=== PATIENT | male | born 1965 | race African-American/Black ===

== ENCOUNTER → 2016-04-24 | Outpatient (CLI) | payer MEDICARE, MEDICAID ==
[~2016-04-24] MED LIST: TESTOSTERONE CYPIONATE 100 MG/0.5ML 10mLMDV HEART CENTER IM ONE; TESTOSTERONE CYPIONATE 200 MG/ML 1ML VIAL IM ONE
[2016-04-24 10:00] VITALS: BP 126/101
[2016-04-24 11:15] VITALS: BP 125/95
== END | disposition home or self-care (01) ==
LOC: CHF HDHVI 10:11
PROVIDERS: ATTEND Internal Medicine Cardiovascular Disease
DX: I25.10 Atherosclerotic heart disease of native coronary artery without angina pectoris (principal); I10 Essential (primary) hypertension; E11.9 Type 2 diabetes mellitus without complications; E29.1 Testicular hypofunction; R97.20 Elevated prostate specific antigen [PSA]; R53.81 Other malaise
CPT/HCPCS: 96372; G0463; J1071

== ENCOUNTER → 2016-05-08 | Outpatient (CLI) | payer MEDICARE, MEDICAID ==
[2016-05-08 08:40] VITALS: BP 136/79
[2016-05-08 09:10] VITALS: BP 128/88
== END | disposition home or self-care (01) ==
LOC: CHF HDHVI 08:53
PROVIDERS: ATTEND Internal Medicine Cardiovascular Disease
DX: I25.10 Atherosclerotic heart disease of native coronary artery without angina pectoris (principal); I10 Essential (primary) hypertension; E78.00 Pure hypercholesterolemia, unspecified; E29.1 Testicular hypofunction; R53.83 Other fatigue; R53.81 Other malaise
CPT/HCPCS: 96372; G0463; J1071

== ENCOUNTER → 2016-05-22 | Outpatient (CLI) | payer MEDICARE, MEDICAID ==
[~2016-05-22] MED LIST changes: +CYANOCOBALAMIN (B-12) 1000 MCG/1 ML VIAL IM ONE; +CYANOCOBALAMIN (B-12) 1000 MCG/1 ML VIAL ONE
[2016-05-22 08:00] VITALS: BP 128/84
[2016-05-22 08:35] VITALS: BP 126/78
[2016-05-22 13:10] LABS: Basophils # (auto) 0 uL; Basophils % (auto) 0.4 % (0.0-2.0); Eosinophils # (auto) 0 uL; Eosinophils % (auto) 0.7 % (0.0-7.0); Hemoglobin 16.3 g/dL (13.5-17.5); Lymphocytes # (auto) 1.7 uL; Lymphocytes % (auto) 27.3 % (10.0-50.0); Mean Corpuscular Hemoglobin 29.6 pg (28.0-32.0); Mean Corpuscular Hgb Conc. 33.2 g/dL (32.0-36.0); Mean Corpuscular Volume 89.2 fL (80.0-100.0); Monocytes # (auto) 0.5 uL; Monocytes % (auto) 7.4 % (0.0-12.0); Neutrophils # (auto) 4.1 uL; Neutrophils % (auto) 64.2 % (37.0-80.0); Platelet Count (auto) 218 10^3/uL (140-450); Red Cell Distribution Width 15.5 % (11.6-16.0); White Blood Cell 6.4 10^3/uL (4.4-10.8)
[2016-05-22 13:34] LABS: Potassium 4.2 mmol/L (3.5-5.1)
[2016-05-22 13:35] LABS: Albumin 3.8 g/dL (3.4-5.0); Bilirubin, Direct 0.2 mg/dL (0-0.2); Bilirubin, Total 0.6 mg/dL (0.2-1.0); Calcium 10.4 mg/dL (8.5-10.1); Total Protein 7.8 g/dL (6.4-8.2)
== END | disposition home or self-care (01) ==
LOC: CHF HDHVI 08:03
PROVIDERS: ATTEND Internal Medicine Cardiovascular Disease
DX: I10 Essential (primary) hypertension (principal); E78.00 Pure hypercholesterolemia, unspecified; K74.1 Hepatic sclerosis; E11.9 Type 2 diabetes mellitus without complications; R97.20 Elevated prostate specific antigen [PSA]; R53.81 Other malaise; E03.9 Hypothyroidism, unspecified; D64.9 Anemia, unspecified; E55.9 Vitamin D deficiency, unspecified; N39.0 Urinary tract infection, site not specified
CPT/HCPCS: 36415; 80048; 80061; 80076; 82306; 83036; 84153; 84403; 84443; 85025; 96372; G0463

== ENCOUNTER → 2016-06-05 | Outpatient (CLI) | payer MEDICARE, MEDICAID ==
[~2016-06-05] MED LIST changes: -TESTOSTERONE CYPIONATE 100 MG/0.5ML 10mLMDV HEART CENTER IM ONE
[2016-06-05 09:25] VITALS: BP 135/100
[2016-06-05 10:10] VITALS: BP 142/95
== END | disposition home or self-care (01) ==
LOC: CHF HDHVI 09:34
PROVIDERS: ATTEND Internal Medicine Cardiovascular Disease
DX: I11.0 Hypertensive heart disease with heart failure (principal); I50.9 Heart failure, unspecified; I25.10 Atherosclerotic heart disease of native coronary artery without angina pectoris; D64.9 Anemia, unspecified; E78.00 Pure hypercholesterolemia, unspecified
CPT/HCPCS: 96372; G0463; J1071; J3420

== ENCOUNTER → 2016-06-19 | Outpatient (CLI) | payer MEDICARE, MEDICAID ==
[~2016-06-19] MED LIST changes: -TESTOSTERONE CYPIONATE 200 MG/ML 1ML VIAL IM ONE
[2016-06-19 09:55] VITALS: BP 142/96
== END | disposition home or self-care (01) ==
LOC: CHF HDHVI 08:45
PROVIDERS: ATTEND Internal Medicine Cardiovascular Disease
DX: I11.0 Hypertensive heart disease with heart failure (principal); I50.9 Heart failure, unspecified; C41.1 Malignant neoplasm of mandible; E11.9 Type 2 diabetes mellitus without complications; Z94.1 Heart transplant status
CPT/HCPCS: 82962; 93701; 96372; G0463; J3420

== ENCOUNTER → 2016-06-26 | Outpatient (CLI) | payer MEDICARE, MEDICAID ==
[~2016-06-26] MED LIST changes: -CYANOCOBALAMIN (B-12) 1000 MCG/1 ML VIAL IM ONE; -CYANOCOBALAMIN (B-12) 1000 MCG/1 ML VIAL ONE; +TESTOSTERONE CYPIONATE 200 MG/ML 1ML VIAL IM ONE
[2016-06-26 09:10] VITALS: BP 145/95
[2016-06-26 09:59] VITALS: BP 115/92
== END | disposition home or self-care (01) ==
LOC: CHF HDHVI 09:21
PROVIDERS: ATTEND Internal Medicine Cardiovascular Disease
DX: E29.1 Testicular hypofunction (principal); R53.83 Other fatigue; Z94.1 Heart transplant status
CPT/HCPCS: 96372; G0463; J1071

== ENCOUNTER → 2016-07-25 | Outpatient (CLI) | payer MEDICARE, MEDICAID ==
[~2016-07-25] MED LIST changes: +CYANOCOBALAMIN (B-12) 1000 MCG/1 ML VIAL IM ONE; +CYANOCOBALAMIN (B-12) 1000 MCG/1 ML VIAL ONE
[2016-07-25 09:05] VITALS: BP 139/98
[2016-07-25 10:00] VITALS: BP 129/99
== END | disposition home or self-care (01) ==
LOC: CHF HDHVI 09:09
PROVIDERS: ATTEND Internal Medicine Cardiovascular Disease
DX: I11.0 Hypertensive heart disease with heart failure (principal); I50.9 Heart failure, unspecified; R53.83 Other fatigue; G47.30 Sleep apnea, unspecified; Z95.810 Presence of automatic (implantable) cardiac defibrillator; E29.1 Testicular hypofunction
CPT/HCPCS: 82962; 93701; 96372; G0463; J1071; J3420

== ENCOUNTER → 2016-08-16 | Outpatient (CLI) | payer MEDICARE, MEDICAID ==
[2016-08-16 09:00] VITALS: BP 140/95
[2016-08-16 10:00] VITALS: BP 125/87
== END | disposition home or self-care (01) ==
LOC: CHF HDHVI 09:03
PROVIDERS: ATTEND Internal Medicine Cardiovascular Disease
DX: I50.9 Heart failure, unspecified (principal); I21.3 ST elevation (STEMI) myocardial infarction of unspecified site; I10 Essential (primary) hypertension; G47.33 Obstructive sleep apnea (adult) (pediatric); R53.83 Other fatigue
CPT/HCPCS: 93701; 96372; G0463; J1071; J3420

== ENCOUNTER → 2016-08-28 | Outpatient (CLI) | payer MEDICARE, MEDICAID ==
[2016-08-28 08:30] VITALS: BP 134/94
[2016-08-28 09:20] VITALS: BP 133/92
== END | disposition home or self-care (01) ==
LOC: CHF HDHVI 08:54
PROVIDERS: ATTEND Internal Medicine Cardiovascular Disease
DX: D64.9 Anemia, unspecified (principal); E11.9 Type 2 diabetes mellitus without complications; E29.1 Testicular hypofunction; Z94.1 Heart transplant status
CPT/HCPCS: 96372; G0463; J1071; J3420

== ENCOUNTER → 2016-09-11 | Outpatient (CLI) | payer MEDICARE, MEDICAID ==
[~2016-09-11] VITALS: Ht 30.5 cm; Wt 100.8 kg
[2016-09-11 10:15] VITALS: BP 153/100
== END | disposition home or self-care (01) ==
LOC: CHF HDHVI 08:48
PROVIDERS: ATTEND Internal Medicine Cardiovascular Disease
DX: E29.1 Testicular hypofunction (principal); E11.9 Type 2 diabetes mellitus without complications; R53.81 Other malaise; R53.83 Other fatigue; Z94.1 Heart transplant status
CPT/HCPCS: 96372; G0463; J1071; J3420

== ENCOUNTER → 2016-09-25 | Outpatient (CLI) | payer MEDICARE, MEDICAID ==
[~2016-09-25] MED LIST changes: +cloNIDine HCL 0.1 MG TAB ONE; +cloNIDine HCL 0.1 MG TAB PO ONE
[2016-09-25 08:30] VITALS: BP 149/105
[2016-09-25 10:25] VITALS: BP 119/85
== END | disposition home or self-care (01) ==
LOC: CHF HDHVI 08:27
PROVIDERS: ATTEND Internal Medicine Cardiovascular Disease
DX: I25.10 Atherosclerotic heart disease of native coronary artery without angina pectoris (principal); I10 Essential (primary) hypertension; G47.30 Sleep apnea, unspecified; E83.42 Hypomagnesemia; R53.81 Other malaise; D51.9 Vitamin B12 deficiency anemia, unspecified
CPT/HCPCS: 36415; 82306; 82962; 83036; 83735; 84153; 96372; G0463; J1071; J3420

== ENCOUNTER → 2016-10-18 | Outpatient (CLI) | payer MEDICARE, MEDICAID ==
[~2016-10-18] MED LIST changes: +ACETAMINOPHEN 500 MG TAB PO ONE; -CYANOCOBALAMIN (B-12) 1000 MCG/1 ML VIAL IM ONE; -CYANOCOBALAMIN (B-12) 1000 MCG/1 ML VIAL ONE; +MAGNESIUM OXIDE 400 MG TAB ONE; +MAGNESIUM OXIDE 400 MG TAB PO ONE; +MAGNESIUM SULF SDV 50% 4MEQ/ML-2 ML VIAL IV ONE; +MVI in SODIUM CHLORIDE 0.9% 1,000 ML IVB ONE; +MVI in SODIUM CHLORIDE 0.9% 1,010 ML ONE; -TESTOSTERONE CYPIONATE 200 MG/ML 1ML VIAL IM ONE
[2016-10-18 07:45] VITALS: BP 146/100
[2016-10-18 08:50] VITALS: BP 142/97
[2016-10-18 09:00] VITALS: BP 150/95
[2016-10-18 09:11] LABS: Basophils # (auto) 0.1 uL; Basophils % (auto) 0.7 % (0.0-2.0); CONDITION Y; Eosinophils # (auto) 0 uL; Eosinophils % (auto) 0.1 % (0.0-7.0); Hematocrit 49.3 % (41.0-53.0); Hemoglobin 16.5 g/dL (13.5-17.5); Lymphocytes # (auto) 1.2 uL; Lymphocytes % (auto) 17.2 % (10.0-50.0); Mean Corpuscular Hemoglobin 31.1 pg (28.0-32.0); Mean Corpuscular Hgb Conc. 33.5 g/dL (32.0-36.0); Mean Corpuscular Volume 92.9 fL (80.0-100.0); Mean Platelet Volume 10.4 fL (7.4-10.4); Monocytes # (auto) 0.6 uL; Monocytes % (auto) 8.1 % (0.0-12.0); Neutrophils % (auto) 73.9 % (37.0-80.0); Platelet Count (auto) 169 10^3/uL (140-450); Red Cell Distribution Width 14.7 % (11.6-16.0); White Blood Cell 6.8 10^3/uL (4.4-10.8)
[2016-10-18 09:30] VITALS: BP 128/91
[2016-10-18 10:11] LABS: BUN/Creatinine Ratio 20.2; Potassium 3.7 mmol/L (3.5-5.1)
[2016-10-18 10:12] LABS: Albumin 3.5 g/dL (3.4-5.0); Bilirubin, Total 0.4 mg/dL (0.2-1.0); Calcium 10.7 mg/dL (8.5-10.1); Total Protein 8.4 g/dL (6.4-8.2)
[2016-10-18 10:13] LABS: Magnesium 1.5 mg/dL (1.6-2.6)
[2016-10-18] MEDS: MAGNESIUM SULFATE 1GM/100ML 100 ML IV SCH (10:30)
[2016-10-18 12:36] VITALS: BP 120/81
== END | disposition home or self-care (01) ==
LOC: CHF HDHVI 08:09
PROVIDERS: ATTEND Internal Medicine Cardiovascular Disease
DX: E78.00 Pure hypercholesterolemia, unspecified (principal); I10 Essential (primary) hypertension; I48.91 Unspecified atrial fibrillation; R70.0 Elevated erythrocyte sedimentation rate; E83.42 Hypomagnesemia; D64.9 Anemia, unspecified
CPT/HCPCS: 36415; 80053; 80061; 80162; 83735; 85025; 85652; 96365; 96366; 96367; G0463; J3411; J3475

== ENCOUNTER → 2016-10-23 | Outpatient (CLI) | payer MEDICARE, MEDICAID ==
[~2016-10-23] MED LIST changes: -ACETAMINOPHEN 500 MG TAB PO ONE; +CYANOCOBALAMIN (B-12) 1000 MCG/1 ML VIAL IM ONE; +CYANOCOBALAMIN (B-12) 1000 MCG/1 ML VIAL ONE; -MAGNESIUM SULF SDV 50% 4MEQ/ML-2 ML VIAL IV ONE; -MVI in SODIUM CHLORIDE 0.9% 1,000 ML IVB ONE; -MVI in SODIUM CHLORIDE 0.9% 1,010 ML ONE; +TESTOSTERONE CYPIONATE 200 MG/ML 1ML VIAL IM ONE; -cloNIDine HCL 0.1 MG TAB ONE; -cloNIDine HCL 0.1 MG TAB PO ONE
[2016-10-23 09:00] VITALS: BP 143/97
[2016-10-23 09:26] VITALS: BP 124/94
== END | disposition home or self-care (01) ==
LOC: CHF HDHVI 08:56
PROVIDERS: ATTEND Internal Medicine Cardiovascular Disease
DX: I11.0 Hypertensive heart disease with heart failure (principal); I50.9 Heart failure, unspecified; E83.42 Hypomagnesemia; R53.81 Other malaise; D51.9 Vitamin B12 deficiency anemia, unspecified
CPT/HCPCS: 36415; 82607; 83735; 84403; 96372; G0463; J1071; J3420

== ENCOUNTER → 2016-10-26 | Outpatient (CLI) | payer MEDICARE, MEDICAID | END | disposition home or self-care (01) | LOC: Rad HDHVI 10:15 | PROVIDERS: ATTEND Internal Medicine Cardiovascular Disease | DX: I10 Essential (primary) hypertension (principal); Z94.1 Heart transplant status | CPT/HCPCS: 93306; J7030 ==

== ENCOUNTER → 2016-10-30 | Outpatient (CLI) | payer MEDICARE, MEDICAID ==
[~2016-10-30] MED LIST changes: -CYANOCOBALAMIN (B-12) 1000 MCG/1 ML VIAL IM ONE; -CYANOCOBALAMIN (B-12) 1000 MCG/1 ML VIAL ONE
[2016-10-30 08:00] VITALS: BP 111/81
[2016-10-30 08:40] VITALS: BP 114/87
== END | disposition home or self-care (01) ==
LOC: CHF HDHVI 08:14
PROVIDERS: ATTEND Internal Medicine Cardiovascular Disease
DX: I50.9 Heart failure, unspecified (principal); R06.02 Shortness of breath; E29.1 Testicular hypofunction; Z94.1 Heart transplant status
CPT/HCPCS: 93701; 96372; G0463; J1071

== ENCOUNTER → 2016-11-13 | Outpatient (CLI) | payer MEDICARE, MEDICAID ==
[~2016-11-13] MED LIST changes: -MAGNESIUM OXIDE 400 MG TAB ONE; -MAGNESIUM OXIDE 400 MG TAB PO ONE
[2016-11-13 08:30] VITALS: BP 139/99
[2016-11-13 09:10] VITALS: BP 139/99
[2016-11-13 13:10] LABS: BUN/Creatinine Ratio 19.5; Calcium 9.8 mg/dL (8.5-10.1); Magnesium 1.8 mg/dL (1.6-2.6); Potassium 3.8 mmol/L (3.5-5.1)
== END | disposition home or self-care (01) ==
LOC: CHF HDHVI 08:19
PROVIDERS: ATTEND Internal Medicine Cardiovascular Disease
DX: I10 Essential (primary) hypertension (principal); E29.1 Testicular hypofunction
CPT/HCPCS: 36415; 80048; 83735; 96372; G0463; J1071

== ENCOUNTER → 2016-11-27 | Outpatient (CLI) | payer MEDICARE, MEDICAID ==
[~2016-11-27] MED LIST changes: +CYANOCOBALAMIN (B-12) 1000 MCG/1 ML VIAL IM ONE; +CYANOCOBALAMIN (B-12) 1000 MCG/1 ML VIAL ONE
[2016-11-27 09:25] VITALS: BP 140/90
[2016-11-27 10:10] VITALS: BP 137/85
== END | disposition home or self-care (01) ==
LOC: CHF HDHVI 09:25
PROVIDERS: ATTEND Internal Medicine Cardiovascular Disease
DX: I11.0 Hypertensive heart disease with heart failure (principal); I50.9 Heart failure, unspecified; E11.9 Type 2 diabetes mellitus without complications; E29.1 Testicular hypofunction
CPT/HCPCS: 93701; 96372; G0463; J1071; J3420

== ENCOUNTER → 2016-12-11 | Outpatient (CLI) | payer MEDICARE, MEDICAID ==
[~2016-12-11] VITALS: Ht 30.5 cm; Wt 0.5 kg
[2016-12-11 08:50] VITALS: BP 139/92
== END | disposition home or self-care (01) ==
LOC: CHF HDHVI 08:10
PROVIDERS: ATTEND Internal Medicine Cardiovascular Disease
DX: I50.9 Heart failure, unspecified (principal); E11.9 Type 2 diabetes mellitus without complications; E29.1 Testicular hypofunction
CPT/HCPCS: 96372; G0463; J1071

== ENCOUNTER → 2016-12-25 | Outpatient (CLI) | payer MEDICARE, MEDICAID ==
[~2016-12-25] MED LIST changes: -CYANOCOBALAMIN (B-12) 1000 MCG/1 ML VIAL IM ONE; +CYANOCOBALAMIN (B-12) 1000 MCG/1 ML VIAL SUBCUT ONE
[2016-12-25 08:10] VITALS: BP 109/82
[2016-12-25 08:50] VITALS: BP 121/88
== END | disposition home or self-care (01) ==
LOC: CHF HDHVI 08:12
PROVIDERS: ATTEND Internal Medicine Cardiovascular Disease
DX: I50.9 Heart failure, unspecified (principal); Z94.1 Heart transplant status
CPT/HCPCS: 96372; G0463; J1071; J3420

== ENCOUNTER → 2017-01-08 | Outpatient (CLI) | payer MEDICARE, MEDICAID ==
[~2017-01-08] VITALS: Ht 30.5 cm; Wt 0.5 kg
[~2017-01-08] MED LIST changes: -CYANOCOBALAMIN (B-12) 1000 MCG/1 ML VIAL ONE; -CYANOCOBALAMIN (B-12) 1000 MCG/1 ML VIAL SUBCUT ONE
[2017-01-08 08:00] VITALS: BP 141/94
[2017-01-08 08:48] VITALS: BP 146/104
[2017-01-08 12:17] LABS: Basophils # (auto) 0 uL; Basophils % (auto) 0.4 % (0.0-2.0); Eosinophils # (auto) 0 uL; Eosinophils % (auto) 0.8 % (0.0-7.0); Hematocrit 50.6 % (41.0-53.0); Hemoglobin 17.1 g/dL (13.5-17.5); Lymphocytes # (auto) 1.7 uL; Lymphocytes % (auto) 25.9 % (10.0-50.0); Mean Corpuscular Hemoglobin 31.1 pg (28.0-32.0); Mean Corpuscular Hgb Conc. 33.8 g/dL (32.0-36.0); Mean Corpuscular Volume 92.2 fL (80.0-100.0); Mean Platelet Volume 8.9 fL (6.9-10.8); Monocytes # (auto) 0.7 uL; Monocytes % (auto) 10.4 % (0.0-12.0); Neutrophils % (auto) 62.5 % (37.0-80.0); Nucleated Red Blood Cells % 0.2 %; Platelet Count (auto) 207 10^3/uL (140-450); Red Cell Distribution Width 14.5 % (11.8-14.3); White Blood Cell 6.4 10^3/uL (4.4-10.8)
[2017-01-08 12:35] LABS: Albumin 3.5 g/dL (3.4-5.0); BUN/Creatinine Ratio 14.9; Bilirubin, Total 0.3 mg/dL (0.2-1.0); Calcium 10.8 mg/dL (8.5-10.1); Magnesium 1.7 mg/dL (1.6-2.6); Total Protein 7.3 g/dL (6.4-8.2)
[2017-01-08 12:38] LABS: B-Type Natriuretic Peptide 44.2 pg/mL (0-100)
[2017-01-08 12:43] LABS: Temperature: 22.1 C (20.0-25.0)
== END | disposition home or self-care (01) ==
LOC: CHF HDHVI 07:45
PROVIDERS: ATTEND Internal Medicine Cardiovascular Disease
DX: I11.0 Hypertensive heart disease with heart failure (principal); I50.9 Heart failure, unspecified; D64.9 Anemia, unspecified; E55.9 Vitamin D deficiency, unspecified; R53.81 Other malaise; Z79.899 Other long term (current) drug therapy
CPT/HCPCS: 36415; 80053; 82306; 83036; 83735; 83880; 84403; 85025; 93701; 96372; G0463; J1071

== ENCOUNTER → 2017-01-28 | Outpatient (CLI) | payer MEDICARE, MEDICAID ==
[~2017-01-28] MED LIST changes: +CYANOCOBALAMIN (B-12) 1000 MCG/1 ML VIAL IM ONE; +CYANOCOBALAMIN (B-12) 1000 MCG/1 ML VIAL ONE
[2017-01-28 09:11] VITALS: BP 154/106
== END | disposition home or self-care (01) ==
LOC: CHF HDHVI 08:25
PROVIDERS: ATTEND Internal Medicine Cardiovascular Disease
DX: Z94.1 Heart transplant status (principal)
CPT/HCPCS: 93701; 96372; G0463; J1071; J3420

== ENCOUNTER → 2017-02-14 | Outpatient (CLI) | payer MEDICARE, MEDICAID ==
[~2017-02-14] VITALS: Ht 30.5 cm; Wt 101.3 kg
[~2017-02-14] MED LIST changes: -CYANOCOBALAMIN (B-12) 1000 MCG/1 ML VIAL IM ONE; -CYANOCOBALAMIN (B-12) 1000 MCG/1 ML VIAL ONE; +MAGNESIUM OXIDE 400 MG TAB ONE; +MAGNESIUM OXIDE 400 MG TAB PO ONE
[2017-02-14 08:36] VITALS: BP 131/92
[2017-02-14 12:05] LABS: Magnesium 1.8 mg/dL (1.6-2.6); Potassium 4.1 mmol/L (3.5-5.1)
== END | disposition home or self-care (01) ==
LOC: CHF HDHVI 08:07
PROVIDERS: ATTEND Internal Medicine Cardiovascular Disease
DX: I10 Essential (primary) hypertension (principal); E11.9 Type 2 diabetes mellitus without complications; I25.10 Atherosclerotic heart disease of native coronary artery without angina pectoris; I48.91 Unspecified atrial fibrillation; E29.1 Testicular hypofunction; Z79.899 Other long term (current) drug therapy
CPT/HCPCS: 36415; 80162; 83735; 84132; 96372; G0463; J1071

== ENCOUNTER → 2017-02-28 | Outpatient (CLI) | payer MEDICARE, MEDICAID ==
[~2017-02-28] VITALS: Ht 30.5 cm; Wt 0.5 kg
[~2017-02-28] MED LIST changes: +CYANOCOBALAMIN (B-12) 1000 MCG/1 ML VIAL IM ONE; +CYANOCOBALAMIN (B-12) 1000 MCG/1 ML VIAL ONE
[2017-02-28 08:00] VITALS: BP 131/90
[2017-02-28 09:15] VITALS: BP 127/90
[2017-02-28 12:00] LABS: Hematocrit 51.1 % (41.0-53.0); Hemoglobin 17.1 g/dL (13.5-17.5); Mean Corpuscular Hemoglobin 30.4 pg (28.0-32.0); Mean Corpuscular Hgb Conc. 33.5 g/dL (32.0-36.0); Mean Corpuscular Volume 90.8 fL (80.0-100.0); Platelet Count (auto) 232 10^3/uL (140-450); Red Blood Cells 5.63 10^6/uL (4.5-5.90); Red Cell Distribution Width 14.5 % (11.8-14.3); White Blood Cell 4.1 10^3/uL (4.4-10.8)
[2017-02-28 12:10] LABS: Band Neutrophils % (manual) 0; Basophils % (manual) 0 (0.0-2.0)
[2017-02-28 12:11] LABS: Blast Cells 0; Metamyelocytes % 0; Myelocytes % 0; Promyelocytes % 0; Reactive Lymphocytes 0
[2017-02-28 12:17] LABS: Albumin 3.6 g/dL (3.4-5.0); BUN/Creatinine Ratio 22.7; Bilirubin, Total 0.3 mg/dL (0.2-1.0); Calcium 10.1 mg/dL (8.5-10.1); Total Protein 7.6 g/dL (6.4-8.2)
[2017-02-28 12:35] LABS: Eosinophils % (manual) 2 (0-7); Lymphocytes % (manual) 35 (10.0-50.0); Monocytes % (manual) 5 (0-12)
== END | disposition home or self-care (01) ==
LOC: CHF HDHVI 07:58
PROVIDERS: ATTEND Internal Medicine Cardiovascular Disease
DX: I10 Essential (primary) hypertension (principal); D64.9 Anemia, unspecified; D55.9 Anemia due to enzyme disorder, unspecified; E11.9 Type 2 diabetes mellitus without complications; R53.83 Other fatigue; Z94.1 Heart transplant status
CPT/HCPCS: 36415; 80053; 82607; 83735; 84100; 85007; 85027; 93701; 96372; G0463; J1071; J3420

== ENCOUNTER → 2017-03-18 | Outpatient (CLI) | payer MEDICARE, MEDICAID ==
[~2017-03-18] MED LIST changes: -CYANOCOBALAMIN (B-12) 1000 MCG/1 ML VIAL IM ONE; -CYANOCOBALAMIN (B-12) 1000 MCG/1 ML VIAL ONE; -MAGNESIUM OXIDE 400 MG TAB ONE; -MAGNESIUM OXIDE 400 MG TAB PO ONE
[2017-03-18 07:30] VITALS: BP 143/103
[2017-03-18 08:20] VITALS: BP 136/95
== END | disposition home or self-care (01) ==
LOC: CHF HDHVI 08:01
PROVIDERS: ATTEND Internal Medicine Cardiovascular Disease
DX: E29.1 Testicular hypofunction (principal); E11.9 Type 2 diabetes mellitus without complications; Z94.1 Heart transplant status
CPT/HCPCS: 36415; 82962; 84403; 96372; G0463; J1071

== ENCOUNTER → 2017-04-02 | Outpatient (CLI) | payer MEDICARE, MEDICAID ==
[2017-04-02 09:15] VITALS: BP 153/86
== END | disposition home or self-care (01) ==
LOC: CHF HDHVI 08:20
PROVIDERS: ATTEND Internal Medicine Cardiovascular Disease
DX: E29.1 Testicular hypofunction (principal); E11.9 Type 2 diabetes mellitus without complications; E55.9 Vitamin D deficiency, unspecified; I50.22 Chronic systolic (congestive) heart failure; I25.10 Atherosclerotic heart disease of native coronary artery without angina pectoris; R06.00 Dyspnea, unspecified; Z94.1 Heart transplant status
CPT/HCPCS: 36415; 82306; 83036; 93701; 94618; 96372; G0463; J1071

== ENCOUNTER → 2017-04-15 | Outpatient (CLI) | payer MEDICARE, MEDICAID ==
[2017-04-15 08:00] VITALS: BP 137/97
[2017-04-15 08:45] VITALS: BP 137/97
== END | disposition home or self-care (01) ==
LOC: CHF HDHVI 08:13
PROVIDERS: ATTEND Internal Medicine Cardiovascular Disease
DX: E29.1 Testicular hypofunction (principal); R53.83 Other fatigue; Z94.1 Heart transplant status
CPT/HCPCS: 96372; G0463; J1071

== ENCOUNTER → 2017-04-29 | Outpatient (CLI) | payer MEDICARE, MEDICAID ==
[2017-04-29 12:30] VITALS: BP 132/95
[2017-04-29 14:00] VITALS: BP 138/95
== END | disposition home or self-care (01) ==
LOC: CHF HDHVI 12:30
PROVIDERS: ATTEND Internal Medicine Cardiovascular Disease
DX: E29.1 Testicular hypofunction (principal); I27.21 Secondary pulmonary arterial hypertension
CPT/HCPCS: 93701; 96372; G0463; J1071

== ENCOUNTER → 2017-05-13 | Outpatient (CLI) | payer MEDICARE, MEDICAID ==
[2017-05-13 08:05] VITALS: BP 130/94
[2017-05-13 08:50] VITALS: BP 136/97
[2017-05-13 12:14] LABS: Basophils # (auto) 0 uL; Basophils % (auto) 0.5 % (0.0-2.0); Eosinophils # (auto) 0 uL; Eosinophils % (auto) 0.7 % (0.0-7.0); Hematocrit 44.8 % (41.0-53.0); Hemoglobin 15.2 g/dL (13.5-17.5); Lymphocytes # (auto) 1.2 uL; Lymphocytes % (auto) 20.5 % (10.0-50.0); Mean Corpuscular Hemoglobin 31.1 pg (28.0-32.0); Mean Corpuscular Hgb Conc. 33.9 g/dL (32.0-36.0); Mean Corpuscular Volume 91.7 fL (80.0-100.0); Monocytes # (auto) 0.6 uL; Monocytes % (auto) 10.2 % (0.0-12.0); Neutrophils # (auto) 4.1 uL; Neutrophils % (auto) 68.1 % (37.0-80.0); Nucleated Red Blood Cells % 0.3 %; Platelet Count (auto) 204 10^3/uL (140-450); Red Blood Cells 4.89 10^6/uL (4.5-5.90); Red Cell Distribution Width 14.8 % (11.8-14.3)
[2017-05-13 12:59] LABS: BUN/Creatinine Ratio 18.5; Calcium 10.2 mg/dL (8.5-10.1); Magnesium 1.9 mg/dL (1.6-2.6); Potassium 4.1 mmol/L (3.5-5.1)
== END | disposition home or self-care (01) ==
LOC: CHF HDHVI 08:11
PROVIDERS: ATTEND Internal Medicine Cardiovascular Disease
DX: E29.1 Testicular hypofunction (principal); I50.23 Acute on chronic systolic (congestive) heart failure; E11.9 Type 2 diabetes mellitus without complications; Z94.1 Heart transplant status
CPT/HCPCS: 36415; 80048; 83735; 85025; 96372; G0463; J1071

== ENCOUNTER → 2017-05-17 | Outpatient (CLI) | payer MEDICARE, MEDICAID ==
[2017-05-17 08:30] VITALS: BP 145/94
[2017-05-17 09:05] VITALS: BP 142/89
[2017-05-17 12:04] LABS: Basophils # (auto) 0 uL; Basophils % (auto) 0.5 % (0.0-2.0); Eosinophils # (auto) 0 uL; Eosinophils % (auto) 0.4 % (0.0-7.0); Hematocrit 45.3 % (41.0-53.0); Hemoglobin 15.4 g/dL (13.5-17.5); Lymphocytes # (auto) 0.7 uL; Lymphocytes % (auto) 10.6 % (10.0-50.0); Mean Corpuscular Hemoglobin 30.9 pg (28.0-32.0); Mean Corpuscular Hgb Conc. 33.9 g/dL (32.0-36.0); Mean Corpuscular Volume 91.1 fL (80.0-100.0); Monocytes # (auto) 0.5 uL; Monocytes % (auto) 7.5 % (0.0-12.0); Neutrophils # (auto) 5.7 uL; Nucleated Red Blood Cells % 0.1 %; Platelet Count (auto) 201 10^3/uL (140-450); Red Blood Cells 4.97 10^6/uL (4.5-5.90); Red Cell Distribution Width 14.7 % (11.8-14.3)
[2017-05-17 12:25] LABS: BUN/Creatinine Ratio 16.1; Calcium 10.4 mg/dL (8.5-10.1)
== END | disposition home or self-care (01) ==
LOC: CHF HDHVI 08:36
PROVIDERS: ATTEND Internal Medicine Cardiovascular Disease
DX: I11.0 Hypertensive heart disease with heart failure (principal); I50.22 Chronic systolic (congestive) heart failure; E11.9 Type 2 diabetes mellitus without complications; E29.1 Testicular hypofunction; I25.10 Atherosclerotic heart disease of native coronary artery without angina pectoris; Z94.1 Heart transplant status
CPT/HCPCS: 36415; 80048; 84403; 85025; G0463

== ENCOUNTER → 2017-05-29 | Outpatient (CLI) | payer MEDICARE, MEDICAID ==
[~2017-05-29] VITALS: Ht 1 cm; Wt 0.5 kg
[~2017-05-29] MED LIST changes: +CYANOCOBALAMIN (B-12) 1000 MCG/1 ML VIAL IM ONE; +CYANOCOBALAMIN (B-12) 1000 MCG/1 ML VIAL ONE; -TESTOSTERONE CYPIONATE 200 MG/ML 1ML VIAL IM ONE
[2017-05-29 16:00] VITALS: BP 144/87
[2017-05-29 16:25] VITALS: BP 146/95
== END | disposition home or self-care (01) ==
LOC: CHF HDHVI 15:59
PROVIDERS: ATTEND Internal Medicine Cardiovascular Disease
DX: I11.0 Hypertensive heart disease with heart failure (principal); I50.22 Chronic systolic (congestive) heart failure; E11.9 Type 2 diabetes mellitus without complications; E55.9 Vitamin D deficiency, unspecified
CPT/HCPCS: 96372; G0463

== ENCOUNTER → 2017-07-24 | Outpatient (CLI) | payer MEDICARE, MEDICAID ==
[2017-07-24 12:29] LABS: Albumin 3.6 g/dL (3.4-5.0); BUN/Creatinine Ratio 20.3; Bilirubin, Total 0.4 mg/dL (0.2-1.0); Calcium 11.1 mg/dL (8.5-10.1); Potassium 4.5 mmol/L (3.5-5.1); Total Protein 7.9 g/dL (6.4-8.2)
== END | disposition home or self-care (01) ==
LOC: LAB 08:54
PROVIDERS: ATTEND Internal Medicine Cardiovascular Disease
DX: E78.5 Hyperlipidemia, unspecified (principal); E11.9 Type 2 diabetes mellitus without complications; I11.0 Hypertensive heart disease with heart failure; I50.9 Heart failure, unspecified
CPT/HCPCS: 36415; 80053; 80061; 83036

== ENCOUNTER → 2017-10-17 | Outpatient (CLI) | payer MEDICARE, MEDICAID | END | disposition home or self-care (01) | LOC: Rad HDHVI 15:06 | PROVIDERS: ATTEND Internal Medicine Cardiovascular Disease | DX: I34.0 Nonrheumatic mitral (valve) insufficiency (principal); I25.2 Old myocardial infarction; R55 Syncope and collapse; Z94.1 Heart transplant status; I51.7 Cardiomegaly | CPT/HCPCS: 93306 ==

== ENCOUNTER → 2017-10-28 | Outpatient (CLI) | payer MEDICARE, MEDICAID ==
[~2017-10-28] VITALS: Ht 182.9 cm; Wt 101.6 kg
[2017-10-28 12:28] LABS: Basophils # (auto) 0 uL; Basophils % (auto) 0.6 % (0.0-2.0); Eosinophils # (auto) 0.1 uL; Eosinophils % (auto) 1.1 % (0.0-7.0); Hematocrit 40.3 % (41.0-53.0); Hemoglobin 13.9 g/dL (13.5-17.5); Lymphocytes # (auto) 1.6 uL; Lymphocytes % (auto) 24.9 % (10.0-50.0); Mean Corpuscular Hemoglobin 31.6 pg (28.0-32.0); Mean Corpuscular Hgb Conc. 34.5 g/dL (32.0-36.0); Mean Corpuscular Volume 91.5 fL (80.0-100.0); Monocytes # (auto) 0.7 uL; Neutrophils # (auto) 4.1 uL; Neutrophils % (auto) 62.4 % (37.0-80.0); Platelet Count (auto) 214 10^3/uL (140-450); Red Blood Cells 4.41 10^6/uL (4.5-5.90); Red Cell Distribution Width 13.9 % (11.8-14.3); White Blood Cell 6.6 10^3/uL (4.4-10.8)
[2017-10-28 12:32] LABS: Urine Blood Negative /uL (Negative); Urine Specific Gravity 1.015 (1.001-1.035)
[2017-10-28 12:48] LABS: Alanine Aminotransferase 47 U/L (16-61); Albumin 3.7 g/dL (3.4-5.0); Alkaline Phosphatase 99 U/L (45-117); Anion Gap 8 (5-15); Aspartate Aminotransferase 20 U/L (15-37); BUN/Creatinine Ratio 19.3; Bilirubin, Total 0.4 mg/dL (0.2-1.0); Blood Urea Nitrogen 26 mg/dL (7-18); Carbon Dioxide 24 mmol/L (21-32); Chloride 104 mmol/L (98-107); Cholesterol 177 mg/dL (< 200); GFR African American 71 mL/min; GFR Non-African American 59 mL/min; Glucose 185 mg/dL (74-106); HDL Cholesterol 47 mg/dL (40-59); Potassium 3.9 mmol/L (3.5-5.1); Sodium 136 mmol/L (136-145); Total Protein 7.7 g/dL (6.4-8.2); Triglycerides 426 mg/dL (< 150)
[2017-10-28 12:49] LABS: Free T4 (Free Thyroxine) 1.4 ng/dL (0.89-1.76); Prostate Specific Antigen 1.22 ng/mL (0.0-4.0)
== END | disposition home or self-care (01) ==
LOC: Rad HDHVI 08:26
PROVIDERS: ATTEND Internal Medicine Cardiovascular Disease
DX: Z00.01 Encounter for general adult medical examination with abnormal findings (principal); E03.9 Hypothyroidism, unspecified; E55.9 Vitamin D deficiency, unspecified; C61 Malignant neoplasm of prostate; E29.1 Testicular hypofunction; N39.0 Urinary tract infection, site not specified; D51.9 Vitamin B12 deficiency anemia, unspecified; I25.2 Old myocardial infarction; E11.21 Type 2 diabetes mellitus with diabetic nephropathy; E11.40 Type 2 diabetes mellitus with diabetic neuropathy, unspecified; E11.65 Type 2 diabetes mellitus with hyperglycemia; Z94.1 Heart transplant status; R55 Syncope and collapse; Z79.899 Other long term (current) drug therapy
CPT/HCPCS: 36415; 78452; 80053; 80061; 81003; 82306; 82607; 83036; 84153; 84403; 84439; 84443; 85025; 93017; 96374; A9500

== ENCOUNTER → 2017-12-03 | Outpatient (CLI) | payer MEDICARE, MEDICAID ==
[~2017-12-03] MED LIST changes: +ALLO300T2 PO; +AML5T PO; +ATOR10TA52 PO; -CYANOCOBALAMIN (B-12) 1000 MCG/1 ML VIAL IM ONE; -CYANOCOBALAMIN (B-12) 1000 MCG/1 ML VIAL ONE; +FURO40TA PO; +GLIP-116 PO; +INSU1INJ14 SC; +LINA5TAB PO; +PRE5T PO; +TACR5CAP3 PO; +TAM04C PO; +VALS320T15 PO
[2017-12-03 09:25] VITALS: BP 129/86
[2017-12-03 10:05] VITALS: BP 126/91
[2017-12-03 12:04] LABS: Basophils # (auto) 0 uL; Basophils % (auto) 0.5 % (0.0-2.0); Eosinophils # (auto) 0 uL; Eosinophils % (auto) 0.6 % (0.0-7.0); Hematocrit 42.5 % (41.0-53.0); Hemoglobin 14.4 g/dL (13.5-17.5); Lymphocytes # (auto) 1.4 uL; Lymphocytes % (auto) 22.6 % (10.0-50.0); Mean Corpuscular Hemoglobin 30.5 pg (28.0-32.0); Mean Corpuscular Hgb Conc. 33.8 g/dL (32.0-36.0); Mean Corpuscular Volume 90.1 fL (80.0-100.0); Monocytes # (auto) 0.6 uL; Monocytes % (auto) 9.5 % (0.0-12.0); Neutrophils % (auto) 66.8 % (37.0-80.0); Nucleated Red Blood Cells % 0.3 %; Platelet Count (auto) 221 10^3/uL (140-450); Red Blood Cells 4.72 10^6/uL (4.5-5.90); Red Cell Distribution Width 14.1 % (11.8-14.3); White Blood Cell 6.1 10^3/uL (4.4-10.8)
[2017-12-03 12:13] LABS: INR 0.93 (0.9-1.15); Partial Thromboplastin Time 29.7 sec (23.78-33.04)
[2017-12-03 12:32] LABS: BUN/Creatinine Ratio 14.9; Calcium 10.8 mg/dL (8.5-10.1); Potassium 4.3 mmol/L (3.5-5.1)
== END | disposition home or self-care (01) ==
LOC: Rad HDHVI 09:14
PROVIDERS: ATTEND Internal Medicine Cardiovascular Disease
DX: Z01.818 Encounter for other preprocedural examination (principal); I70.0 Atherosclerosis of aorta; D64.9 Anemia, unspecified; R79.1 Abnormal coagulation profile; I10 Essential (primary) hypertension; R94.31 Abnormal electrocardiogram [ECG] [EKG]; Z94.1 Heart transplant status
CPT/HCPCS: 36415; 71046; 80048; 85025; 85610; 85730; 93005; G0463

== ENCOUNTER 2017-12-05 10:45 | Day surgery (SDC) | payer MEDICARE, MEDICAID ==
[~2017-12-05] VITALS: Ht 182.9 cm; Wt 99.8 kg
[2017-12-05] MEDS ORDERED: LIDOCAINE 2%HCL (LOCAL ANESTH.) INJ 20ML MDV ONE (12:17)
[2017-12-05] MEDS ORDERED: ANGIOMAX 250 MG VIAL IV ONE (12:28)
[2017-12-05] MEDS ORDERED: SODIUM CHL 0.9% 0 ML ONE (12:28)
[2017-12-05] MEDS ORDERED: MIDAZOLAM HCL 1MG/1ML-2 ML VIAL ONE (12:28)
[2017-12-05] MEDS ORDERED: fentaNYL CITRATE 100 MCG/2 ML VL ONE (12:32)
[2017-12-05] MEDS ORDERED: IOHEXOL 350 MG/ML 100ML IJ ONE (12:47)
== END 2017-12-05 15:30 | disposition home or self-care (01) ==
LOC: CATH 10:45
PROVIDERS: ATTEND Internal Medicine Cardiovascular Disease
DX: I42.0 Dilated cardiomyopathy (principal); T86.20 Unspecified complication of heart transplant; F10.99 Alcohol use, unspecified with unspecified alcohol-induced disorder; I25.2 Old myocardial infarction; E11.9 Type 2 diabetes mellitus without complications; I11.0 Hypertensive heart disease with heart failure; E03.9 Hypothyroidism, unspecified; Z82.49 Family history of ischemic heart disease and other diseases of the circulatory system; Z86.73 Personal history of transient ischemic attack (TIA), and cerebral infarction without residual deficits; Z87.891 Personal history of nicotine dependence; Z79.899 Other long term (current) drug therapy; Z79.84 Long term (current) use of oral hypoglycemic drugs; Z79.1 Long term (current) use of non-steroidal anti-inflammatories (NSAID)
CPT/HCPCS: 93460; 99152; 99153; A6257; C1751; C1894; J1644; J2250; J3010; J7030; Q9967

== ENCOUNTER → 2018-05-09 | Outpatient (CLI) | payer MEDICARE, MEDICAID ==
[~2018-05-09] MED LIST changes: +IOHEXOL 350 MG/ML 100ML IJ ONE
[2018-05-09 08:25] VITALS: BP 127/90
--- NOTE | 2018-05-09 08:30 | NUR ---
IV insertion IV access obtained, via clean sterile technique by inserting 22 gauge catheter at after attempt(s). IV secured properly. No trauma to site. Patient tolerated procedure well. STAT LABS DRAWN AND SENT. CT HEAD FOR LEFT JAW SWELLING TO BE DONE. AWAIT LABS.
[2018-05-09 08:40] VITALS: BP 127/90
[2018-05-09 09:27] LABS: Basophils # (auto) 0 uL; Basophils % (auto) 0.7 % (0.0-2.0); Eosinophils # (auto) 0.1 uL; Eosinophils % (auto) 1.1 % (0.0-7.0); Hematocrit 42.5 % (41.0-53.0); Hemoglobin 14.4 g/dL (13.5-17.5); Lymphocytes # (auto) 1.6 uL; Lymphocytes % (auto) 27.4 % (10.0-50.0); Mean Corpuscular Hemoglobin 29.5 pg (28.0-32.0); Mean Corpuscular Hgb Conc. 33.8 g/dL (32.0-36.0); Mean Corpuscular Volume 87.4 fL (80.0-100.0); Monocytes # (auto) 0.7 uL; Monocytes % (auto) 12.2 % (0.0-12.0); Neutrophils # (auto) 3.5 uL; Neutrophils % (auto) 58.6 % (37.0-80.0); Platelet Count (auto) 243 10^3/uL (140-450); Red Blood Cells 4.86 10^6/uL (4.5-5.90); Red Cell Distribution Width 15.1 % (11.8-14.3)
[2018-05-09 09:39] LABS: Albumin 3.6 g/dL (3.4-5.0); BUN/Creatinine Ratio 9.6; Calcium 10.2 mg/dL (8.5-10.1); Potassium 3.9 mmol/L (3.5-5.1)
[2018-05-09 09:43] LABS: Bilirubin, Total 0.5 mg/dL (0.2-1.0); Total Protein 7.4 g/dL (6.4-8.2)
[2018-05-09 10:20] VITALS: BP 137/93
--- NOTE | 2018-05-09 10:20 | NUR ---
CHF BACK FROM CT SCAN. TOLERATED WELL. HYDRATED BASED ON LAB RESULTS OF CREATININE OF 1.35. RECEIVED IV FLUIDS. IV SITE DCD AND BENIGN POST INFUSION. MEDICATION ADMINISTRATION 0.9 NS 300 ML START AT 0930/STOP AT 1020
== END | disposition home or self-care (01) ==
LOC: Rad HDHVI 08:14
PROVIDERS: ATTEND Internal Medicine Cardiovascular Disease
DX: K11.5 Sialolithiasis (principal); D64.9 Anemia, unspecified; I10 Essential (primary) hypertension; E11.9 Type 2 diabetes mellitus without complications; R68.84 Jaw pain; R22.0 Localized swelling, mass and lump, head; Z94.1 Heart transplant status
CPT/HCPCS: 36415; 70487; 70491; 80053; 85025; 96360; G0463; Q9967

== ENCOUNTER → 2018-09-01 | Outpatient (CLI) | payer MEDICARE, MEDICAID ==
[~2018-09-01] MED LIST changes: +CYANOCOBALAMIN (B-12) 1000 MCG/1 ML VIAL IM ONE; +CYANOCOBALAMIN (B-12) 1000 MCG/1 ML VIAL ONE; +FURO1TAB31 PO; -FURO40TA PO; -GLIP-116 PO; +GLIP10TA9 PO; -IOHEXOL 350 MG/ML 100ML IJ ONE; +cefTRIAXone 1GM/50ML D5W 50 ML IV ONE; +cefTRIAXone SOD 1,000 MG VL ONE
--- NOTE | 2018-09-01 10:27 | NUR ---
CHF PT ARRIVED AT THE [facility] FOR C/O TREATMENT OF RIGHT FOOT EDEMA. A/O X 3
--- NOTE | 2018-09-01 11:00 | NUR ---
IV insertion IV access obtained, via clean sterile technique by inserting 22 gauge catheter at after attempt(s). IV secured properly. No trauma to site. Patient tolerated procedure well.
[2018-09-01 12:12] LABS: Basophils # (auto) 0.1 uL; Eosinophils # (auto) 0.1 uL; Hematocrit 34.4 % (41.0-53.0); Hemoglobin 11.7 g/dL (13.5-17.5); Lymphocytes # (auto) 1.1 uL; Lymphocytes % (auto) 18.9 % (10.0-50.0); Mean Corpuscular Hemoglobin 29.8 pg (28.0-32.0); Mean Corpuscular Volume 87.7 fL (80.0-100.0); Monocytes # (auto) 0.9 uL; Monocytes % (auto) 14.8 % (0.0-12.0); Neutrophils # (auto) 3.7 uL; Neutrophils % (auto) 64.3 % (37.0-80.0); Nucleated Red Blood Cells % 0.1 %; Platelet Count (auto) 248 10^3/uL (140-450); Red Blood Cells 3.92 10^6/uL (4.5-5.90); Red Cell Distribution Width 14.8 % (11.8-14.3); White Blood Cell 5.8 10^3/uL (4.4-10.8)
[2018-09-01 12:26] LABS: Albumin 2.9 g/dL (3.4-5.0); Calcium 10.8 mg/dL (8.5-10.1)
[2018-09-01 12:31] LABS: BUN/Creatinine Ratio 14.4; Bilirubin, Total 0.6 mg/dL (0.2-1.0); Total Protein 7.5 g/dL (6.4-8.2); Uric Acid 2.7 mg/dL (3.5-7.2)
--- NOTE | 2018-09-01 13:30 | NUR ---
IV removal IV DC'd with sterile technique, catheter fully intact. Pressure dressing applied to site. Patient tolerated procedure well. Discharged with aftercare instructions per MD. NOTE:
[2018-09-01 13:38] VITALS: BP 138/91
--- NOTE | 2018-09-01 13:38 | NUR ---
Discharge Instructions See e-MAR for any mediations given with this visit. Patient education given on disease process. Patient verbalized understanding. Previous labs reviewed. Patient discharged in stable condition with after care instructions and follow up appointment. MEDICATIONS 1247 VITAMIN B12 1000MCG IM X 1 LEFT DELTOID 1315 ROCEPHIN 1 GRAM IVP X 1
== END | disposition home or self-care (01) ==
LOC: CHF HDHVI 10:17
PROVIDERS: ATTEND Internal Medicine Cardiovascular Disease
DX: D64.9 Anemia, unspecified (principal); M10.9 Gout, unspecified; I11.9 Hypertensive heart disease without heart failure; E11.40 Type 2 diabetes mellitus with diabetic neuropathy, unspecified; I70.0 Atherosclerosis of aorta
CPT/HCPCS: 36415; 71046; 80053; 83036; 84550; 85025; J0696; J3420

== ENCOUNTER → 2018-09-08 | Outpatient (CLI) | payer MEDICARE, MEDICAID ==
[~2018-09-08] MED LIST changes: -CYANOCOBALAMIN (B-12) 1000 MCG/1 ML VIAL IM ONE; -CYANOCOBALAMIN (B-12) 1000 MCG/1 ML VIAL ONE; -cefTRIAXone 1GM/50ML D5W 50 ML IV ONE; -cefTRIAXone SOD 1,000 MG VL ONE
[2018-09-08 10:54] VITALS: BP 111/63
--- NOTE | 2018-09-08 10:54 | NUR ---
CHF PT ARRIVED AT THE [facility]F CLINIC FOR FOLLOW UP ON CELLULITIS OF THE LEG. LEG IS NOT SWOLLEN LOOKS MUCH BETTER, PT VERBALIZES LESS PAIN VSS
[2018-09-08 11:15] VITALS: BP 94/58
--- NOTE | 2018-09-08 11:15 | NUR ---
Discharge Instructions See e-MAR for any mediations given with this visit. Patient education given on disease process. Patient verbalized understanding. Previous labs reviewed. Patient discharged in stable condition with after care instructions and follow up appointment IN ONE MONTH
== END | disposition home or self-care (01) ==
LOC: CHF HDHVI 10:54
PROVIDERS: ATTEND Internal Medicine Cardiovascular Disease
DX: E11.9 Type 2 diabetes mellitus without complications (principal)
CPT/HCPCS: G0463

== ENCOUNTER → 2018-11-27 | Outpatient (CLI) | payer MEDICARE, MEDICAID | END | disposition home or self-care (01) | LOC: CHF HDHVI 16:02 | PROVIDERS: ATTEND Internal Medicine Cardiovascular Disease | DX: I11.0 Hypertensive heart disease with heart failure (principal); I50.9 Heart failure, unspecified; Z94.1 Heart transplant status | CPT/HCPCS: 93306 ==

== ENCOUNTER → 2018-12-18 | Outpatient (CLI) | payer MEDICARE, MEDICAID ==
[~2018-12-18] VITALS: Ht 185.4 cm; Wt 104.3 kg
[~2018-12-18] MED LIST changes: +ADENOSINE 88 MG in GIVE UN-DILUTED 0 ML IV ONE; +ADENOSINE 90 MG/30 ML INJ IV ONE
[2018-12-18 10:27] VITALS: BP 144/100
--- NOTE | 2018-12-18 10:27 | NUR ---
PATIENT IN FOR STRESS TEST, STATES HE FEELS WEAK, VITAL SIGNS DONE AND PATIENT HR 116, EKG DONE. PATIENT HAS A MOUTH ABCESS THAT IS SCHEDULED TO BE DRAINED. PATIENT BACK TO STRESS TEST TO COMPLETE EXAM.
[2018-12-18 11:49] LABS: Basophils # (auto) 0 uL; Basophils % (auto) 0.3 % (0.0-2.0); Eosinophils # (auto) 0 uL; Eosinophils % (auto) 0.5 % (0.0-7.0); Hematocrit 38.8 % (41.0-53.0); Lymphocytes # (auto) 1.6 uL; Lymphocytes % (auto) 19.7 % (10.0-50.0); Mean Corpuscular Hemoglobin 29.6 pg (28.0-32.0); Mean Corpuscular Hgb Conc. 33.6 g/dL (32.0-36.0); Monocytes # (auto) 0.9 uL; Monocytes % (auto) 11.4 % (0.0-12.0); Neutrophils # (auto) 5.4 uL; Neutrophils % (auto) 68.1 % (37.0-80.0); Nucleated Red Blood Cells % 0.1 %; Platelet Count (auto) 224 10^3/uL (140-450); Red Blood Cells 4.41 10^6/uL (4.5-5.90); Red Cell Distribution Width 15.4 % (11.8-14.3); White Blood Cell 7.9 10^3/uL (4.4-10.8)
[2018-12-18 11:58] LABS: Calcium 11.1 mg/dL (8.5-10.1); Potassium 4.6 mmol/L (3.5-5.1)
[2018-12-18 12:04] LABS: Albumin 3.4 g/dL (3.4-5.0); BUN/Creatinine Ratio 12.6; Bilirubin, Total 0.5 mg/dL (0.2-1.0); Total Protein 7.7 g/dL (6.4-8.2)
== END | disposition home or self-care (01) ==
LOC: CHF HDHVI 09:04
PROVIDERS: ATTEND Internal Medicine Cardiovascular Disease
DX: I50.33 Acute on chronic diastolic (congestive) heart failure (principal); I11.0 Hypertensive heart disease with heart failure; E11.21 Type 2 diabetes mellitus with diabetic nephropathy; Z94.1 Heart transplant status; E78.00 Pure hypercholesterolemia, unspecified; I25.2 Old myocardial infarction; Z87.891 Personal history of nicotine dependence
CPT/HCPCS: 36415; 78452; 80053; 82962; 83036; 83880; 85025; 93005; 96374; 96375; A9500; G0463; J0153

== ENCOUNTER → 2019-05-04 | Outpatient (CLI) | payer MEDICARE, MEDICAID ==
[~2019-05-04] MED LIST changes: -ADENOSINE 88 MG in GIVE UN-DILUTED 0 ML IV ONE; -ADENOSINE 90 MG/30 ML INJ IV ONE
[2019-05-04 12:00] VITALS: BP 145/96
--- NOTE | 2019-05-04 12:00 | NUR ---
CHF PT AT THE [facility] CL[facility] FOR PREOP ASSESSMENT. PT A/O X 4 0 DISTRESS. VSS
[2019-05-04 12:28] VITALS: BP 137/95
--- NOTE | 2019-05-04 12:28 | NUR ---
Pre-Op Discharge Summary: See e-MAR for any medications given for this visit. Pre-op orders received and carried out per MD of EKG, LABS and chest xrays. Patient given a copy of EKG with instructions to go to [facility] out patient for further follow up care.
[2019-05-04 16:00] LABS: BUN/Creatinine Ratio 14.5; Calcium 10.4 mg/dL (8.5-10.1); Potassium 4.3 mmol/L (3.5-5.1)
== END | disposition home or self-care (01) ==
LOC: Rad HDHVI 11:36
PROVIDERS: ATTEND Internal Medicine Cardiovascular Disease
DX: Z01.812 Encounter for preprocedural laboratory examination (principal); E11.9 Type 2 diabetes mellitus without complications; I11.0 Hypertensive heart disease with heart failure; I50.9 Heart failure, unspecified
CPT/HCPCS: 36415; 71046; 80048; 93005; G0463

== ENCOUNTER → 2019-11-16 | Outpatient (CLI) | payer MEDICARE, MEDICAID ==
[2019-11-16 16:06] LABS: Basophils # (auto) 0.1 10 ^3/uL (0-0.2); Basophils % (auto) 1.7 % (0.0-2.0); Eosinophils # (auto) 0.2 10 ^3/uL (0-0.8); Eosinophils % (auto) 3.4 % (0.0-7.0); Hematocrit 37.4 % (41.0-53.0); Hemoglobin 12.5 g/dL (13.5-17.5); Lymphocytes # (auto) 1.6 10 ^3/uL (0.4-5.4); Lymphocytes % (auto) 25.1 % (10.0-50.0); Mean Corpuscular Hemoglobin 30.3 pg (28.0-32.0); Mean Corpuscular Hgb Conc. 33.4 g/dL (32.0-36.0); Mean Corpuscular Volume 90.7 fL (80.0-100.0); Monocytes # (auto) 0.6 10 ^3/uL (0-1.3); Monocytes % (auto) 8.8 % (0.0-12.0); Neutrophils # (auto) 3.8 10 ^3/uL (1.6-8.6); Nucleated Red Blood Cells % 0.1 %; Platelet Count (auto) 262 10^3/uL (140-450); Red Blood Cells 4.13 10^6/uL (4.5-5.90); Red Cell Distribution Width 15.4 % (11.8-14.3); White Blood Cell 6.3 10^3/uL (4.4-10.8)
[2019-11-16 16:20] LABS: INR 0.93 (0.9-1.15); Partial Thromboplastin Time 29.6 sec (23.0-31.2)
[2019-11-16 16:25] LABS: BUN/Creatinine Ratio 14.2; Calcium 10.2 mg/dL (8.5-10.1); Potassium 4.6 mmol/L (3.5-5.1)
== END | disposition home or self-care (01) ==
LOC: Rad HDHVI 15:29
PROVIDERS: ATTEND Internal Medicine Cardiovascular Disease
DX: Z01.812 Encounter for preprocedural laboratory examination (principal); I70.0 Atherosclerosis of aorta; Z01.818 Encounter for other preprocedural examination; I51.7 Cardiomegaly; I50.33 Acute on chronic diastolic (congestive) heart failure
CPT/HCPCS: 36415; 71046; 80048; 85025; 85610; 85730

== ENCOUNTER → 2019-11-17 | Outpatient (CLI) | payer MEDICARE, MEDICAID | END | disposition home or self-care (01) | LOC: Rad HDHVI 10:14 | PROVIDERS: ATTEND Internal Medicine Cardiovascular Disease | DX: I50.33 Acute on chronic diastolic (congestive) heart failure (principal); Z94.1 Heart transplant status | CPT/HCPCS: 93306 ==

== ENCOUNTER → 2019-11-24 | Outpatient (CLI) | payer MEDICARE, MEDICAID ==
[~2019-11-24] VITALS: Ht 182.9 cm; Wt 102.1 kg
[~2019-11-24] MED LIST changes: +ADENOSINE 86 MG in GIVE UN-DILUTED 0 ML IV ONE; +ADENOSINE 90 MG/30 ML INJ IV ONE
== END | disposition home or self-care (01) ==
LOC: Rad HDHVI 07:58
PROVIDERS: ATTEND Internal Medicine Cardiovascular Disease
DX: I11.0 Hypertensive heart disease with heart failure (principal); I50.33 Acute on chronic diastolic (congestive) heart failure; I25.2 Old myocardial infarction; E11.9 Type 2 diabetes mellitus without complications; E78.00 Pure hypercholesterolemia, unspecified; Z01.810 Encounter for preprocedural cardiovascular examination; Z82.49 Family history of ischemic heart disease and other diseases of the circulatory system
CPT/HCPCS: 78452; 93017; 96374; A9500; J0153

== ENCOUNTER 2019-12-29 17:59 | Inpatient (IN) | payer MEDICARE, MEDICAID ==
[~2019-12-29] VITALS: Ht 188 cm; Wt 105.9 kg
[~2019-12-29 17:59] MED LIST changes: -ADENOSINE 86 MG in GIVE UN-DILUTED 0 ML IV ONE; -ADENOSINE 90 MG/30 ML INJ IV ONE
[2019-12-29 18:55] LABS: Hemoglobin 8.3 g/dL (13.5-17.5); Mean Corpuscular Hgb Conc. 33.4 g/dL (32.0-36.0); Platelet Count (auto) 303 10^3/uL (140-450)
[2019-12-29 18:57] LABS: Basophils # (auto) 0 10 ^3/uL (0-0.2); Basophils % (auto) 0.4 % (0.0-2.0); Eosinophils # (auto) 0 10 ^3/uL (0-0.8); Eosinophils % (auto) 0.3 % (0.0-7.0); Hematocrit 24.7 % (41.0-53.0); Lymphocytes # (auto) 0.7 10 ^3/uL (0.4-5.4); Lymphocytes % (auto) 8.5 % (10.0-50.0); Mean Corpuscular Hemoglobin 30.3 pg (28.0-32.0); Mean Corpuscular Volume 90.6 fL (80.0-100.0); Monocytes # (auto) 0.7 10 ^3/uL (0-1.3); Monocytes % (auto) 8.5 % (0.0-12.0); Neutrophils # (auto) 6.4 10 ^3/uL (1.6-8.6); Neutrophils % (auto) 82.3 % (37.0-80.0); Nucleated Red Blood Cells % 0.1 %; Red Blood Cells 2.72 10^6/uL (4.5-5.90); Red Cell Distribution Width 16.5 % (11.8-14.3); White Blood Cell 7.7 10^3/uL (4.4-10.8)
[2019-12-29] MEDS ORDERED: FUROSEMIDE 40 MG/4 ML VIAL IV ONE (19:15)
[2019-12-29 19:21] LABS: Albumin 2.1 g/dL (3.4-5.0); Calcium 9.6 mg/dL (8.5-10.1); Magnesium 1.5 mg/dL (1.6-2.6); Potassium 4.3 mmol/L (3.5-5.1)
[2019-12-29 19:33] LABS: BUN/Creatinine Ratio 24.9; Bilirubin, Total 0.4 mg/dL (0.2-1.0); CRP High Sensitivity 13.1 mg/dL (< 0.3); Total Protein 6.5 g/dL (6.4-8.2)
[2019-12-29 19:45] VITALS: BP 121/73
[2019-12-29] MEDS ORDERED: DEXTROSE (50%) 50ML SYRG IV PRN (20:00)
[2019-12-29] MEDS ORDERED: NITROGLYCERIN 0.4 MG SL TAB SL PRN (20:00)
[2019-12-29] MEDS ORDERED: MORPHINE SULF INJ 2 MG/ML SYRINGE 1ML IV PRN (20:00)
[2019-12-29] MEDS ORDERED: ACETAMINOPHEN 500 MG TAB PO PRN (20:00)
[2019-12-29] MEDS ORDERED: ASCORBIC ACID 1,000 MG TAB PO ONE (20:15)
[2019-12-29] MEDS ORDERED: ZINC SULFATE 220mg CAP or TAB PO ONE (20:15)
[2019-12-29] MEDS ORDERED: cefTRIAXone 1GM/50ML D5W 50 ML IV ONE (20:15)
[2019-12-29] MEDS ORDERED: CHOLECALCIFEROL (VITD3) 2,000 UNIT CAP PO ONE (20:15)
[2019-12-29 21:21] VITALS: BP 121/73
[2019-12-29] MEDS ORDERED: BUDESONIDE (INHALATION) 180 MCG IH IN SCH (22:00)
[2019-12-29] MEDS ORDERED: ALBUTEROL SULF HFA 90MCG INH 200DOSE IN SCH (22:00)
[2019-12-29] MEDS ORDERED: DOXYCYCLINE 100MG/250ML 250 ML IV SCH (22:00)
[2019-12-29] MEDS: ENOXAPARIN SOD 40 MG/0.4 ML SYRINGE SC SCH (23:20)
[2019-12-29] MEDS: InsuLIN REG 1unit/0.01ml Soln (100units/ml) SC SCH (23:50)
[2019-12-29] MEDS: ACCU-CHEK COMFORT CURVE STRIP VI SCH (23:50)
[2019-12-30] VITALS (78 sets, daily range): BP systolic 120–163; BP diastolic 65–96
[2019-12-30] MEDS: InsuLIN REG 1unit/0.01ml Soln (100units/ml) SC SCH ×4 (06:03→22:04)
[2019-12-30] MEDS: ACCU-CHEK COMFORT CURVE STRIP VI SCH ×4 (06:04→22:03)
[2019-12-30 08:07] LABS: Basophils # (auto) 0.1 10 ^3/uL (0-0.2); Eosinophils # (auto) 0.2 10 ^3/uL (0-0.8); Hemoglobin 8.2 g/dL (13.5-17.5); Lymphocytes # (auto) 0.7 10 ^3/uL (0.4-5.4); Monocytes # (auto) 0.9 10 ^3/uL (0-1.3); Neutrophils # (auto) 6.9 10 ^3/uL (1.6-8.6)
[2019-12-30 08:08] LABS: Basophils % (auto) 0.7 % (0.0-2.0); Eosinophils % (auto) 2.1 % (0.0-7.0); Hematocrit 24.5 % (41.0-53.0); Lymphocytes % (auto) 7.6 % (10.0-50.0); Mean Corpuscular Hemoglobin 30.5 pg (28.0-32.0); Mean Corpuscular Hgb Conc. 33.6 g/dL (32.0-36.0); Mean Corpuscular Volume 90.7 fL (80.0-100.0); Monocytes % (auto) 10.1 % (0.0-12.0); Neutrophils % (auto) 79.5 % (37.0-80.0); Platelet Count (auto) 296 10^3/uL (140-450); Red Cell Distribution Width 16.6 % (11.8-14.3); White Blood Cell 8.6 10^3/uL (4.4-10.8)
[2019-12-30 08:32] LABS: Potassium 3.9 mmol/L (3.5-5.1)
[2019-12-30 08:38] LABS: BUN/Creatinine Ratio 27.5; Bilirubin, Total 0.3 mg/dL (0.2-1.0); Total Protein 6.1 g/dL (6.4-8.2)
[2019-12-30] MEDS ORDERED: cefTRIAXone 1GM/50ML D5W 50 ML IV SCH ×2 (09:00)
[2019-12-30] MEDS ORDERED: FUROSEMIDE 20 MG/2 ML VIAL IV SCH (10:00)
[2019-12-30] MEDS ORDERED: ZINC SULFATE 220mg CAP or TAB PO SCH (10:00)
[2019-12-30] MEDS ORDERED: ASCORBIC ACID 1,000 MG TAB PO SCH (10:00)
[2019-12-30] MEDS ORDERED: TACROLIMUS 1 MG CAP PO SCH (10:00)
[2019-12-30] MEDS ORDERED: CHOLECALCIFEROL (VITD3) 2,000 UNIT CAP PO SCH (10:00)
[2019-12-30] MEDS: ALLOPURINOL 300 MG TAB PO SCH (10:59)
[2019-12-30] MEDS: predniSONE 5 MG TAB PO SCH (10:59)
[2019-12-30] MEDS: LINEZOLID 600MG/300ML 300 ML IV SCH ×2 (11:00→22:02)
[2019-12-30] MEDS: LEVALBUTEROL HCL 1.25 MG/3 ML NEB NEB SCH ×2 (11:29→18:43)
[2019-12-30] MEDS: MEROPENEM 1GM IVPB 100 ML IV SCH ×2 (13:32→22:01)
[2019-12-30] MEDS: methylPREDNISolone SOD SUCC 125 MG/2 ML VL IV SCH ×2 (13:32→22:02)
[2019-12-30 14:35] LABS: INR 1.1 (0.9-1.15); Partial Thromboplastin Time 31.3 sec (23.0-31.2)
[2019-12-30] MEDS ORDERED: LIDOCAINE 1% (LOCAL ANESTH.) PF 5ml SDV ID ONE (15:45)
[2019-12-30] MEDS: DOBUTamine 1000MCG/ML 250 ML IV SCH ×2 (16:04→18:23)
[2019-12-30] MEDS: FUROSEMIDE INJECTION 100 MG in SODIUM CHL 0.9% 100 ML IV SCH ×2 (16:05→22:15)
[2019-12-30] MEDS: TAMSULOSIN HYDROCHLORIDE 0.4 MG CAP PO SCH (17:40)
[2019-12-30] MEDS: ENOXAPARIN SOD 40 MG/0.4 ML SYRINGE SC SCH (17:40)
[2019-12-30] MEDS: SODIUM CHLOR 0.9% PF (SALINE LOCK) 10ML VIAL/SYR IV SCH (22:01)
[2019-12-30] MEDS: ATORVASTATIN 20 MG TAB PO SCH (22:02)
[2019-12-30] MEDS: TACROLIMUS 1 MG CAP PO SCH (22:02)
[2019-12-30] MEDS ORDERED: DOBUTamine 1000MCG/ML 250 ML IV SCH (22:45)
[2019-12-31] VITALS (90 sets, daily range): BP systolic 118–169; BP diastolic 49–92
[2019-12-31] MEDS: LEVALBUTEROL HCL 1.25 MG/3 ML NEB NEB SCH ×4 (00:05→20:12)
[2019-12-31 04:32] LABS: Basophils # (auto) 0 10 ^3/uL (0-0.2); Basophils % (auto) 0.3 % (0.0-2.0); Eosinophils # (auto) 0 10 ^3/uL (0-0.8); Hematocrit 24.9 % (41.0-53.0); Hemoglobin 8.6 g/dL (13.5-17.5); Lymphocytes # (auto) 0.3 10 ^3/uL (0.4-5.4); Lymphocytes % (auto) 4.7 % (10.0-50.0); Mean Corpuscular Hemoglobin 31.1 pg (28.0-32.0); Mean Corpuscular Hgb Conc. 34.6 g/dL (32.0-36.0); Mean Corpuscular Volume 89.9 fL (80.0-100.0); Monocytes # (auto) 0.1 10 ^3/uL (0-1.3); Monocytes % (auto) 1.6 % (0.0-12.0); Neutrophils # (auto) 6.9 10 ^3/uL (1.6-8.6); Neutrophils % (auto) 93.4 % (37.0-80.0); Platelet Count (auto) 313 10^3/uL (140-450); Red Blood Cells 2.77 10^6/uL (4.5-5.90); Red Cell Distribution Width 16.4 % (11.8-14.3); White Blood Cell 7.4 10^3/uL (4.4-10.8)
[2019-12-31 04:58] LABS: Potassium 3.7 mmol/L (3.5-5.1)
[2019-12-31 05:01] LABS: BUN/Creatinine Ratio 25.5
[2019-12-31] MEDS: methylPREDNISolone SOD SUCC 125 MG/2 ML VL IV SCH ×3 (06:08→21:07)
[2019-12-31] MEDS: MEROPENEM 1GM IVPB 100 ML IV SCH ×3 (06:08→21:07)
[2019-12-31] MEDS: ACCU-CHEK COMFORT CURVE STRIP VI SCH ×4 (06:09→21:10)
[2019-12-31] MEDS: InsuLIN REG 1unit/0.01ml Soln (100units/ml) SC SCH ×4 (06:10→21:11)
[2019-12-31] MEDS: FUROSEMIDE INJECTION 100 MG in SODIUM CHL 0.9% 100 ML IV SCH (09:07)
[2019-12-31] MEDS: TACROLIMUS 1 MG CAP PO SCH ×2 (09:43→21:10)
[2019-12-31] MEDS: predniSONE 5 MG TAB PO SCH (09:43)
[2019-12-31] MEDS: SODIUM CHLOR 0.9% PF (SALINE LOCK) 10ML VIAL/SYR IV SCH ×2 (09:43→21:07)
[2019-12-31] MEDS: LINEZOLID 600MG/300ML 300 ML IV SCH ×2 (09:43→21:07)
[2019-12-31] MEDS: ALLOPURINOL 300 MG TAB PO SCH (09:43)
[2019-12-31] MEDS ORDERED: predniSONE 5 MG TAB PO SCH (10:00)
[2019-12-31] MEDS ORDERED: guaiFENesin-DM 100/10mg/5ml SYR PO PRN (16:00)
[2019-12-31] MEDS ORDERED: HYDROcodone-ACET 10/325MG TAB PO PRN (16:00)
[2019-12-31] MEDS: TAMSULOSIN HYDROCHLORIDE 0.4 MG CAP PO SCH (18:00)
[2019-12-31] MEDS: ENOXAPARIN SOD 40 MG/0.4 ML SYRINGE SC SCH (18:00)
[2019-12-31] MEDS: FUROSEMIDE 20 MG TAB PO SCH (21:08)
[2019-12-31] MEDS: amLODIPine BESYLATE 5 MG TAB PO SCH (21:10)
[2019-12-31] MEDS: ATORVASTATIN 20 MG TAB PO SCH (21:10)
[2020-01-01] MEDS: LEVALBUTEROL HCL 1.25 MG/3 ML NEB NEB SCH ×4 (00:40→19:41)
[2020-01-01 05:27] VITALS: BP 141/84
[2020-01-01] MEDS: MEROPENEM 1GM IVPB 100 ML IV SCH ×3 (05:51→21:55)
[2020-01-01] MEDS: methylPREDNISolone SOD SUCC 125 MG/2 ML VL IV SCH (05:52)
[2020-01-01] MEDS: FUROSEMIDE 20 MG TAB PO SCH ×2 (05:52→18:39)
[2020-01-01] MEDS: ACCU-CHEK COMFORT CURVE STRIP VI SCH ×4 (06:25→21:40)
[2020-01-01] MEDS: InsuLIN REG 1unit/0.01ml Soln (100units/ml) SC SCH ×4 (06:28→21:49)
[2020-01-01 06:39] LABS: Albumin 1.8 g/dL (3.4-5.0); Calcium 9.3 mg/dL (8.5-10.1); Potassium 3.4 mmol/L (3.5-5.1)
[2020-01-01 06:44] LABS: BUN/Creatinine Ratio 30.2; Bilirubin, Total 0.2 mg/dL (0.2-1.0); Total Protein 5.7 g/dL (6.4-8.2)
[2020-01-01 06:47] LABS: Basophils # (auto) 0 10 ^3/uL (0-0.2); Basophils % (auto) 0.1 % (0.0-2.0); Eosinophils # (auto) 0 10 ^3/uL (0-0.8); Hemoglobin 7.9 g/dL (13.5-17.5); Mean Corpuscular Hemoglobin 29.5 pg (28.0-32.0); Monocytes # (auto) 0.4 10 ^3/uL (0-1.3); Neutrophils % (auto) 91.8 % (37.0-80.0); Red Blood Cells 2.68 10^6/uL (4.5-5.90)
[2020-01-01 06:50] LABS: Lymphocytes # (auto) 0.4 10 ^3/uL (0.4-5.4); Lymphocytes % (auto) 4.1 % (10.0-50.0); Mean Corpuscular Volume 89.5 fL (80.0-100.0); Neutrophils # (auto) 8.8 10 ^3/uL (1.6-8.6); Nucleated Red Blood Cells % 0.1 %; Platelet Count (auto) 288 10^3/uL (140-450); Red Cell Distribution Width 16.1 % (11.8-14.3); White Blood Cell 9.6 10^3/uL (4.4-10.8)
[2020-01-01 09:00] VITALS: BP 124/80
[2020-01-01] MEDS: SODIUM CHLOR 0.9% PF (SALINE LOCK) 10ML VIAL/SYR IV SCH ×2 (09:46→21:56)
[2020-01-01] MEDS: LINEZOLID 600MG/300ML 300 ML IV SCH ×2 (09:47→21:56)
[2020-01-01] MEDS: predniSONE 5 MG TAB PO SCH (09:47)
[2020-01-01] MEDS: LOSARTAN POTASSIUM 50 MG TAB PO SCH (09:47)
[2020-01-01] MEDS: TACROLIMUS 1 MG CAP PO SCH ×2 (09:48→21:56)
[2020-01-01] MEDS: ALLOPURINOL 300 MG TAB PO SCH (09:48)
[2020-01-01] MEDS: amLODIPine BESYLATE 5 MG TAB PO SCH (09:48)
[2020-01-01] MEDS: predniSONE 20 MG TAB PO SCH (11:23)
[2020-01-01 13:00] VITALS: BP 137/80
[2020-01-01 17:00] VITALS: BP 139/85
[2020-01-01] MEDS: TAMSULOSIN HYDROCHLORIDE 0.4 MG CAP PO SCH (18:37)
[2020-01-01] MEDS: ENOXAPARIN SOD 40 MG/0.4 ML SYRINGE SC SCH (18:39)
[2020-01-01] MEDS: ATORVASTATIN 20 MG TAB PO SCH (21:56)
[2020-01-01 22:00] VITALS: BP 140/91
[2020-01-02] MEDS: LEVALBUTEROL HCL 1.25 MG/3 ML NEB NEB SCH ×5 (00:36→23:53)
[2020-01-02 01:10] VITALS: BP 139/85
[2020-01-02 05:02] VITALS: BP 137/79
[2020-01-02] MEDS: FUROSEMIDE 20 MG TAB PO SCH ×2 (06:05→18:16)
[2020-01-02] MEDS: MEROPENEM 1GM IVPB 100 ML IV SCH ×3 (06:05→21:34)
[2020-01-02] MEDS: ACCU-CHEK COMFORT CURVE STRIP VI SCH ×4 (06:33→21:38)
[2020-01-02] MEDS: InsuLIN REG 1unit/0.01ml Soln (100units/ml) SC SCH ×4 (06:37→21:31)
[2020-01-02 09:00] VITALS: BP 130/73
[2020-01-02] MEDS: ALLOPURINOL 300 MG TAB PO SCH (10:38)
[2020-01-02] MEDS: TACROLIMUS 1 MG CAP PO SCH ×2 (10:38→21:38)
[2020-01-02] MEDS: predniSONE 20 MG TAB PO SCH (10:38)
[2020-01-02] MEDS: SODIUM CHLOR 0.9% PF (SALINE LOCK) 10ML VIAL/SYR IV SCH ×2 (10:38→22:00)
[2020-01-02] MEDS: LINEZOLID 600MG/300ML 300 ML IV SCH ×2 (10:38→21:38)
[2020-01-02] MEDS: amLODIPine BESYLATE 5 MG TAB PO SCH (10:39)
[2020-01-02] MEDS: LOSARTAN POTASSIUM 50 MG TAB PO SCH (10:39)
[2020-01-02 13:00] VITALS: BP 134/81
[2020-01-02 16:10] VITALS: BP 134/81
[2020-01-02] MEDS: TAMSULOSIN HYDROCHLORIDE 0.4 MG CAP PO SCH (18:16)
[2020-01-02] MEDS: ENOXAPARIN SOD 40 MG/0.4 ML SYRINGE SC SCH (18:16)
[2020-01-02] MEDS: ATORVASTATIN 20 MG TAB PO SCH (21:36)
[2020-01-02 22:00] VITALS: BP 130/75
[2020-01-03 05:10] VITALS: BP 149/90
[2020-01-03] MEDS: InsuLIN REG 1unit/0.01ml Soln (100units/ml) SC SCH ×2 (06:18→11:18)
[2020-01-03] MEDS: FUROSEMIDE 20 MG TAB PO SCH (06:20)
[2020-01-03] MEDS: MEROPENEM 1GM IVPB 100 ML IV SCH (06:22)
[2020-01-03] MEDS: LEVALBUTEROL HCL 1.25 MG/3 ML NEB NEB SCH (06:24)
[2020-01-03 06:42] LABS: Basophils # (auto) 0 10 ^3/uL (0-0.2); Basophils % (auto) 0.1 % (0.0-2.0); Eosinophils # (auto) 0 10 ^3/uL (0-0.8); Hematocrit 24.3 % (41.0-53.0); Neutrophils # (auto) 7.3 10 ^3/uL (1.6-8.6)
[2020-01-03 06:44] LABS: Eosinophils % (auto) 0.3 % (0.0-7.0); Hemoglobin 8.2 g/dL (13.5-17.5); Lymphocytes # (auto) 0.8 10 ^3/uL (0.4-5.4); Lymphocytes % (auto) 8.4 % (10.0-50.0); Mean Corpuscular Hemoglobin 29.9 pg (28.0-32.0); Monocytes # (auto) 0.8 10 ^3/uL (0-1.3); Monocytes % (auto) 9.4 % (0.0-12.0); Neutrophils % (auto) 81.8 % (37.0-80.0); Platelet Count (auto) 290 10^3/uL (140-450); Red Blood Cells 2.76 10^6/uL (4.5-5.90); Red Cell Distribution Width 15.7 % (11.8-14.3)
[2020-01-03 07:10] LABS: BUN/Creatinine Ratio 28.5; Calcium 9.3 mg/dL (8.5-10.1); Potassium 3.1 mmol/L (3.5-5.1)
[2020-01-03 08:14] VITALS: BP 155/88
[2020-01-03] MEDS: LINEZOLID 600MG/300ML 300 ML IV SCH (10:00)
[2020-01-03] MEDS: SODIUM CHLOR 0.9% PF (SALINE LOCK) 10ML VIAL/SYR IV SCH (10:39)
[2020-01-03] MEDS: predniSONE 20 MG TAB PO SCH (10:39)
[2020-01-03] MEDS: amLODIPine BESYLATE 5 MG TAB PO SCH (10:40)
[2020-01-03] MEDS: TACROLIMUS 1 MG CAP PO SCH (10:40)
[2020-01-03] MEDS: ALLOPURINOL 300 MG TAB PO SCH (10:40)
[2020-01-03] MEDS: LOSARTAN POTASSIUM 50 MG TAB PO SCH (10:40)
[2020-01-03] MEDS: ACCU-CHEK COMFORT CURVE STRIP VI SCH (11:19)
== END 2020-01-03 11:33 | disposition home health service (06) | DRG 193 ==
LOC: ER 17:59 → TELE 20:03 → ICU WEST 12-30 05:04 → TELE-WESTW 12-31 22:25
PROVIDERS: ADMIT Nurse Practitioner Acute Care; ATTEND Internal Medicine Cardiovascular Disease
PROC: 5A09357 Assistance with Respiratory Ventilation, Less than 24 Consecutive Hours, Continuous Positive Airway Pressure (ICD-10-PCS; principal; 2019-12-30)
DX: J18.9 Pneumonia, unspecified organism (principal); J96.01 Acute respiratory failure with hypoxia; N17.0 Acute kidney failure with tubular necrosis; I13.0 Hypertensive heart and chronic kidney disease with heart failure and stage 1 through stage 4 chronic kidney disease, or unspecified chronic kidney disease; E44.0 Moderate protein-calorie malnutrition; J44.0 Chronic obstructive pulmonary disease with (acute) lower respiratory infection; Z94.1 Heart transplant status; I50.32 Chronic diastolic (congestive) heart failure; N18.30 Chronic kidney disease, stage 3 unspecified; D64.9 Anemia, unspecified; M10.9 Gout, unspecified; J44.9 Chronic obstructive pulmonary disease, unspecified; E66.9 Obesity, unspecified; E78.5 Hyperlipidemia, unspecified; Z68.30 Body mass index [BMI] 30.0-30.9, adult; E11.22 Type 2 diabetes mellitus with diabetic chronic kidney disease; G47.30 Sleep apnea, unspecified; Z79.4 Long term (current) use of insulin; Z85.819 Personal history of malignant neoplasm of unspecified site of lip, oral cavity, and pharynx; Z20.828 Contact with and (suspected) exposure to other viral communicable diseases
CPT/HCPCS: 36415; 36569; 36600; 71045; 80048; 80053; 80307; 82728; 82805; 82962; 83036; 83605; 83735; 83880; 84484; 85025; 85379; 85610; 85730; 86141; 87040; 87070; 87081; 87205; 87426; 87804; 93005; 94640; 94660; 96365; 96368; 96375; 99291; G0378; J0696; J1815; J2185; J3490; J7507

== ENCOUNTER → 2020-01-06 | Outpatient (CLI) | payer MEDICARE, MEDICAID | END | disposition home or self-care (01) | LOC: Rad HDHVI 12:59 | PROVIDERS: ATTEND Internal Medicine Cardiovascular Disease | DX: R91.8 Other nonspecific abnormal finding of lung field (principal); I70.0 Atherosclerosis of aorta; I51.7 Cardiomegaly; R06.02 Shortness of breath | CPT/HCPCS: 71046 ==

== ENCOUNTER → 2020-03-02 | Outpatient (CLI) | payer MEDICARE, MEDICAID ==
[~2020-03-02] MED LIST changes: +PIPERACILLIN-TAZO 4.5GM 100 ML IV ONE
[2020-03-02 15:00] VITALS: BP 118/78
[2020-03-02 17:15] VITALS: BP 150/80
== END | disposition home or self-care (01) ==
LOC: CHF HDHVI 14:32
PROVIDERS: ATTEND Internal Medicine Cardiovascular Disease
DX: R89.5 Abnormal microbiological findings in specimens from other organs, systems and tissues (principal)
CPT/HCPCS: 87205; 96365; 96366; G0463; J2543; 87077; 87186

== ENCOUNTER 2020-06-11 20:50 | Inpatient (IN) | payer MEDICARE, MEDICAID ==
[~2020-06-11] VITALS: Ht 188 cm; Wt 95.9 kg
[~2020-06-11 20:50] MED LIST changes: -PIPERACILLIN-TAZO 4.5GM 100 ML IV ONE
[2020-06-11] MEDS ORDERED: PIPERACILLIN-TAZOB 3.375GM 100 ML IV ONE (21:30)
[2020-06-11] MEDS ORDERED: HYDROmorphone HCL 2 MG/ML VL IV ONE (22:30)
[2020-06-11] MEDS ORDERED: SODIUM CHLORIDE 0.9% 1,000 ML IV ONE (22:30)
[2020-06-11 23:04] LABS: Monocytes # (auto) 1.3 10 ^3/uL (0-1.3); Monocytes % (auto) 8.4 % (0.0-12.0); Neutrophils # (auto) 11.5 10 ^3/uL (1.6-8.6)
[2020-06-11 23:06] LABS: Basophils # (auto) 0.1 10 ^3/uL (0-0.2); Basophils % (auto) 0.6 % (0.0-2.0); Eosinophils # (auto) 0.1 10 ^3/uL (0-0.8); Eosinophils % (auto) 0.4 % (0.0-7.0); Hematocrit 28.2 % (41.0-53.0); Hemoglobin 9.5 g/dL (13.5-17.5); Lymphocytes # (auto) 2.2 10 ^3/uL (0.4-5.4); Lymphocytes % (auto) 14.6 % (10.0-50.0); Mean Corpuscular Hemoglobin 28.4 pg (28.0-32.0); Mean Corpuscular Hgb Conc. 33.6 g/dL (32.0-36.0); Mean Corpuscular Volume 84.4 fL (80.0-100.0); Platelet Count (auto) 476 10^3/uL (140-450); Red Blood Cells 3.34 10^6/uL (4.5-5.90); Red Cell Distribution Width 17.4 % (11.8-14.3); White Blood Cell 15.1 10^3/uL (4.4-10.8)
[2020-06-11 23:21] LABS: INR 1.13 (0.9-1.15); Partial Thromboplastin Time 37.5 sec (23.0-31.2)
[2020-06-11 23:22] LABS: Potassium 3.2 mmol/L (3.5-5.1)
[2020-06-11 23:25] LABS: BUN/Creatinine Ratio 13.5; Bilirubin, Total 0.3 mg/dL (0.2-1.0); Total Protein 6.9 g/dL (6.4-8.2)
[2020-06-12] VITALS (7 sets, daily range): BP systolic 144–159; BP diastolic 74–98
[2020-06-12] MEDS ORDERED: DEXTROSE (50%) 50ML SYRG IV PRN (01:45)
[2020-06-12] MEDS ORDERED: HEPARIN DRIP/D5W 100UNITS/ML 250 ML IV SCH (02:30)
[2020-06-12] MEDS ORDERED: HEPARIN SODIUM (PORCINE) 5000 UNITS/ML 1ML VIAL IV ONE ×2 (02:30→03:00)
[2020-06-12] MEDS: InsuLIN REG 1unit/0.01ml Soln (100units/ml) SC SCH ×4 (06:09→22:50)
[2020-06-12 06:32] LABS: Urine Bacteria NONE SEEN /hpf (None Seen); Urine Blood 1+ /uL (Negative); Urine Hyaline Cast FEW /lpf (0 - 2); Urine Specific Gravity 1.009 (1.001-1.035); Urine WBC 2 /hpf (0 - 3)
[2020-06-12] MEDS: ceFAZolin 1GM/50ML 50 ML IV SCH ×3 (06:35→22:08)
[2020-06-12] MEDS: ACCU-CHEK COMFORT CURVE STRIP VI SCH ×4 (06:46→22:08)
[2020-06-12] MEDS: ALLOPURINOL 300 MG TAB PO SCH (09:31)
[2020-06-12] MEDS: TACROLIMUS 1 MG CAP PO SCH (09:36)
[2020-06-12] MEDS: VALSARTAN 80 MG TAB PO SCH (09:39)
[2020-06-12] MEDS: TAMSULOSIN HYDROCHLORIDE 0.4 MG CAP PO SCH (09:39)
[2020-06-12] MEDS: FUROSEMIDE 40 MG TAB PO SCH ×2 (09:39→22:00)
[2020-06-12] MEDS: glipiZIDE 5 MG TAB PO SCH ×2 (09:39→22:00)
[2020-06-12] MEDS: predniSONE 5 MG TAB PO SCH (09:40)
[2020-06-12] MEDS: amLODIPine BESYLATE 5 MG TAB PO SCH ×2 (09:40→22:07)
[2020-06-12 10:32] LABS: Basophils # (auto) 0.1 10 ^3/uL (0-0.2); Basophils % (auto) 0.5 % (0.0-2.0); Eosinophils # (auto) 0.1 10 ^3/uL (0-0.8); Eosinophils % (auto) 0.7 % (0.0-7.0); Hematocrit 27.3 % (41.0-53.0); Hemoglobin 9.2 g/dL (13.5-17.5); Lymphocytes # (auto) 1.8 10 ^3/uL (0.4-5.4); Lymphocytes % (auto) 17.1 % (10.0-50.0); Mean Corpuscular Hemoglobin 28.4 pg (28.0-32.0); Mean Corpuscular Hgb Conc. 33.6 g/dL (32.0-36.0); Mean Corpuscular Volume 84.6 fL (80.0-100.0); Monocytes % (auto) 9.2 % (0.0-12.0); Neutrophils # (auto) 7.7 10 ^3/uL (1.6-8.6); Neutrophils % (auto) 72.5 % (37.0-80.0); Platelet Count (auto) 440 10^3/uL (140-450); Red Blood Cells 3.23 10^6/uL (4.5-5.90); Red Cell Distribution Width 17.5 % (11.8-14.3); White Blood Cell 10.6 10^3/uL (4.4-10.8)
[2020-06-12 10:50] LABS: INR 1.11 (0.9-1.15)
[2020-06-12] MEDS: HEPARIN DRIP/D5W 100UNITS/ML 250 ML IV SCH ×2 (12:12→20:07)
[2020-06-12 19:40] LABS: INR 1.09 (0.9-1.15); Partial Thromboplastin Time 39.9 sec (23.0-31.2)
[2020-06-12] MEDS: ATORVASTATIN 20 MG TAB PO SCH (22:06)
[2020-06-12] MEDS ORDERED: POTASSIUM CHL 20 Meq TABLET PO ONE (22:30)
[2020-06-13 02:03] LABS: INR 1.08 (0.9-1.15)
[2020-06-13] MEDS: HEPARIN DRIP/D5W 100UNITS/ML 250 ML IV SCH ×2 (02:13→14:07)
[2020-06-13 05:00] VITALS: BP 158/83
[2020-06-13] MEDS: ceFAZolin 1GM/50ML 50 ML IV SCH ×3 (05:34→23:09)
[2020-06-13] MEDS: POTASSIUM CHL 20 Meq TABLET PO SCH ×4 (06:00→21:30)
[2020-06-13] MEDS: ACCU-CHEK COMFORT CURVE STRIP VI SCH ×4 (06:20→21:53)
[2020-06-13] MEDS: InsuLIN REG 1unit/0.01ml Soln (100units/ml) SC SCH ×4 (06:26→23:13)
[2020-06-13] MEDS: predniSONE 5 MG TAB PO SCH (08:11)
[2020-06-13] MEDS: TAMSULOSIN HYDROCHLORIDE 0.4 MG CAP PO SCH (08:11)
[2020-06-13] MEDS: amLODIPine BESYLATE 5 MG TAB PO SCH ×2 (08:12→23:12)
[2020-06-13] MEDS: VALSARTAN 80 MG TAB PO SCH (08:12)
[2020-06-13] MEDS: ALLOPURINOL 300 MG TAB PO SCH (08:12)
[2020-06-13] MEDS: FUROSEMIDE 40 MG TAB PO SCH ×2 (08:13→23:11)
[2020-06-13] MEDS: TACROLIMUS 1 MG CAP PO SCH (08:21)
[2020-06-13 08:47] VITALS: BP 155/95
[2020-06-13 09:34] LABS: INR 1.11 (0.9-1.15); Partial Thromboplastin Time 65.1 sec (23.0-31.2)
[2020-06-13] MEDS: glipiZIDE 5 MG TAB PO SCH ×2 (10:00→23:10)
[2020-06-13 11:02] LABS: Basophils # (auto) 0.1 10 ^3/uL (0-0.2); Eosinophils # (auto) 0.1 10 ^3/uL (0-0.8); Eosinophils % (auto) 0.9 % (0.0-7.0); Monocytes # (auto) 0.7 10 ^3/uL (0-1.3); Red Cell Distribution Width 17.5 % (11.8-14.3); White Blood Cell 9.9 10^3/uL (4.4-10.8)
[2020-06-13 11:04] LABS: Basophils % (auto) 0.7 % (0.0-2.0); Hematocrit 27.8 % (41.0-53.0); Hemoglobin 9.2 g/dL (13.5-17.5); Lymphocytes # (auto) 1.6 10 ^3/uL (0.4-5.4); Lymphocytes % (auto) 16.3 % (10.0-50.0); Mean Corpuscular Hemoglobin 27.8 pg (28.0-32.0); Mean Corpuscular Volume 84.3 fL (80.0-100.0); Monocytes % (auto) 6.7 % (0.0-12.0); Neutrophils # (auto) 7.5 10 ^3/uL (1.6-8.6); Neutrophils % (auto) 75.4 % (37.0-80.0); Nucleated Red Blood Cells % 0.2 %; Platelet Count (auto) 482 10^3/uL (140-450)
[2020-06-13 12:30] VITALS: BP 156/93
[2020-06-13 15:02] LABS: INR 1.09 (0.9-1.15); Partial Thromboplastin Time 61.8 sec (23.0-31.2)
[2020-06-13 16:48] VITALS: BP 148/80
[2020-06-13] MEDS: ATORVASTATIN 20 MG TAB PO SCH (21:31)
[2020-06-13 22:00] VITALS: BP 149/93
[2020-06-13 23:15] LABS: INR 1.1 (0.9-1.15); Partial Thromboplastin Time 56.4 sec (23.0-31.2)
[2020-06-14 05:00] VITALS: BP 157/93
[2020-06-14 05:11] LABS: Eosinophils # (auto) 0.1 10 ^3/uL (0-0.8); Eosinophils % (auto) 0.9 % (0.0-7.0); Red Cell Distribution Width 17.5 % (11.8-14.3)
[2020-06-14 05:13] LABS: Basophils # (auto) 0 10 ^3/uL (0-0.2); Basophils % (auto) 0.4 % (0.0-2.0); Hematocrit 27.5 % (41.0-53.0); Hemoglobin 9.4 g/dL (13.5-17.5); Lymphocytes # (auto) 2.1 10 ^3/uL (0.4-5.4); Lymphocytes % (auto) 18.7 % (10.0-50.0); Mean Corpuscular Hemoglobin 28.5 pg (28.0-32.0); Mean Corpuscular Hgb Conc. 34.1 g/dL (32.0-36.0); Mean Corpuscular Volume 83.8 fL (80.0-100.0); Monocytes # (auto) 0.7 10 ^3/uL (0-1.3); Monocytes % (auto) 6.5 % (0.0-12.0); Neutrophils # (auto) 8.3 10 ^3/uL (1.6-8.6); Neutrophils % (auto) 73.5 % (37.0-80.0); Nucleated Red Blood Cells % 0.1 %; Platelet Count (auto) 482 10^3/uL (140-450); Red Blood Cells 3.28 10^6/uL (4.5-5.90); White Blood Cell 11.2 10^3/uL (4.4-10.8)
[2020-06-14] MEDS: ceFAZolin 1GM/50ML 50 ML IV SCH ×3 (05:39→21:45)
[2020-06-14] MEDS: POTASSIUM CHL 20 Meq TABLET PO SCH ×4 (05:40→22:00)
[2020-06-14] MEDS: FUROSEMIDE 40 MG TAB PO SCH ×2 (05:40→17:46)
[2020-06-14] MEDS: predniSONE 5 MG TAB PO SCH (06:10)
[2020-06-14] MEDS: InsuLIN REG 1unit/0.01ml Soln (100units/ml) SC SCH ×4 (06:11→22:28)
[2020-06-14] MEDS: ACCU-CHEK COMFORT CURVE STRIP VI SCH ×4 (06:12→21:47)
[2020-06-14 09:14] VITALS: BP 149/81
[2020-06-14 09:51] LABS: INR 1.09 (0.9-1.15)
[2020-06-14] MEDS: TAMSULOSIN HYDROCHLORIDE 0.4 MG CAP PO SCH (10:14)
[2020-06-14] MEDS: VALSARTAN 80 MG TAB PO SCH (10:14)
[2020-06-14] MEDS: amLODIPine BESYLATE 5 MG TAB PO SCH ×2 (10:15→22:00)
[2020-06-14] MEDS: ALLOPURINOL 300 MG TAB PO SCH (10:15)
[2020-06-14] MEDS: TACROLIMUS 1 MG CAP PO SCH (10:22)
[2020-06-14] MEDS: HEPARIN DRIP/D5W 100UNITS/ML 250 ML IV SCH (10:30)
[2020-06-14] MEDS: glipiZIDE 5 MG TAB PO SCH ×2 (11:07→22:04)
[2020-06-14 12:30] VITALS: BP 137/91
[2020-06-14 16:55] VITALS: BP 138/94
[2020-06-14] MEDS: ATORVASTATIN 20 MG TAB PO SCH (21:45)
[2020-06-15] MEDS: HEPARIN DRIP/D5W 100UNITS/ML 250 ML IV SCH ×2 (02:08→18:54)
[2020-06-15 05:00] VITALS: BP 153/93
[2020-06-15] MEDS: ceFAZolin 1GM/50ML 50 ML IV SCH ×3 (06:25→21:44)
[2020-06-15] MEDS: POTASSIUM CHL 20 Meq TABLET PO SCH (06:25)
[2020-06-15] MEDS: ACCU-CHEK COMFORT CURVE STRIP VI SCH ×4 (06:26→21:28)
[2020-06-15] MEDS: InsuLIN REG 1unit/0.01ml Soln (100units/ml) SC SCH ×4 (06:30→22:01)
[2020-06-15] MEDS ORDERED: POM PO (06:44)
[2020-06-15] MEDS ORDERED: CARV25TA55 PO (06:44)
[2020-06-15] MEDS ORDERED: TORS20TA19 PO (06:44)
[2020-06-15] MEDS ORDERED: POM (06:44)
[2020-06-15] MEDS ORDERED: INSULIN DEGLUDEC 100 UNIT/ML SC SCH (07:00)
[2020-06-15 07:11] LABS: INR 1.09 (0.9-1.15); Partial Thromboplastin Time 65.5 sec (23.0-31.2)
[2020-06-15 07:14] LABS: Calcium 9.9 mg/dL (8.5-10.1); Potassium 4.6 mmol/L (3.5-5.1)
[2020-06-15 07:18] LABS: BUN/Creatinine Ratio 11.4; Bilirubin, Total 0.2 mg/dL (0.2-1.0); Total Protein 6.7 g/dL (6.4-8.2)
[2020-06-15 09:07] VITALS: BP 163/104
[2020-06-15] MEDS: VALSARTAN 80 MG TAB PO SCH (10:00)
[2020-06-15] MEDS ORDERED: ZORTRESS 0.5 MG PO SCH (10:00)
[2020-06-15] MEDS: IRBESARTAN PO SCH (10:45)
[2020-06-15] MEDS: predniSONE 5 MG TAB PO SCH (10:45)
[2020-06-15] MEDS: TORSEMIDE 20 MG TAB PO SCH (10:46)
[2020-06-15] MEDS: TAMSULOSIN HYDROCHLORIDE 0.4 MG CAP PO SCH (10:46)
[2020-06-15] MEDS: amLODIPine BESYLATE 5 MG TAB PO SCH (10:47)
[2020-06-15] MEDS: glipiZIDE 5 MG TAB PO SCH ×2 (10:47→21:59)
[2020-06-15] MEDS: ALLOPURINOL 300 MG TAB PO SCH (10:48)
[2020-06-15] MEDS: TACROLIMUS 1 MG CAP PO SCH ×2 (10:48→21:45)
[2020-06-15] MEDS: ZORTRESS 0.5 MG PO SCH ×2 (10:49→21:41)
[2020-06-15 12:55] VITALS: BP 161/100
[2020-06-15 17:29] VITALS: BP 139/88
[2020-06-15] MEDS: ATORVASTATIN 20 MG TAB PO SCH (21:45)
[2020-06-15 22:00] VITALS: BP 139/83
[2020-06-15] MEDS ORDERED: INSULIN LANTUS (GLARGINE) 1 /0.01ml (100units/ml) SC SCH (22:00)
[2020-06-16 05:00] VITALS: BP 142/90
[2020-06-16] MEDS: INSULIN DEGLUDEC 100 UNIT/ML SC SCH (05:35)
[2020-06-16] MEDS: ACCU-CHEK COMFORT CURVE STRIP VI SCH ×4 (05:35→23:35)
[2020-06-16] MEDS: ceFAZolin 1GM/50ML 50 ML IV SCH ×2 (05:36→14:26)
[2020-06-16 05:58] LABS: INR 1.09 (0.9-1.15)
[2020-06-16 06:07] LABS: Partial Thromboplastin Time 79.8 sec (23.0-31.2)
[2020-06-16] MEDS: InsuLIN REG 1unit/0.01ml Soln (100units/ml) SC SCH ×4 (06:40→23:51)
[2020-06-16 08:56] VITALS: BP 153/97
[2020-06-16] MEDS: IRBESARTAN PO SCH (09:57)
[2020-06-16] MEDS: HEPARIN DRIP/D5W 100UNITS/ML 250 ML IV SCH ×2 (09:57→13:45)
[2020-06-16] MEDS: predniSONE 5 MG TAB PO SCH (09:57)
[2020-06-16] MEDS: ZORTRESS 0.5 MG PO SCH ×2 (10:01→23:34)
[2020-06-16] MEDS: TAMSULOSIN HYDROCHLORIDE 0.4 MG CAP PO SCH (10:01)
[2020-06-16] MEDS: TORSEMIDE 20 MG TAB PO SCH (10:01)
[2020-06-16] MEDS: glipiZIDE 5 MG TAB PO SCH ×2 (10:02→23:34)
[2020-06-16] MEDS: TACROLIMUS 1 MG CAP PO SCH ×2 (10:02→23:35)
[2020-06-16] MEDS: amLODIPine BESYLATE 5 MG TAB PO SCH (10:02)
[2020-06-16] MEDS: ALLOPURINOL 300 MG TAB PO SCH (10:02)
[2020-06-16 13:00] VITALS: BP 152/99
[2020-06-16 13:13] LABS: INR 1.07 (0.9-1.15); Partial Thromboplastin Time 50.4 sec (23.0-31.2)
[2020-06-16 16:32] VITALS: BP 97/76
[2020-06-16 19:18] LABS: INR 1.08 (0.9-1.15); Partial Thromboplastin Time 59.8 sec (23.0-31.2)
[2020-06-16 22:00] VITALS: BP 138/90
[2020-06-16] MEDS: PIPERACILLIN-TAZO 4.5GM 100 ML IV SCH (23:33)
[2020-06-16] MEDS: ATORVASTATIN 20 MG TAB PO SCH (23:35)
[2020-06-17 01:12] LABS: INR 1.07 (0.9-1.15); Partial Thromboplastin Time 45.8 sec (23.0-31.2)
[2020-06-17] MEDS: HEPARIN DRIP/D5W 100UNITS/ML 250 ML IV SCH ×2 (01:27→18:41)
[2020-06-17 05:00] VITALS: BP 132/94
[2020-06-17 05:35] LABS: Basophils # (auto) 0.1 10 ^3/uL (0-0.2); Basophils % (auto) 0.6 % (0.0-2.0); Eosinophils # (auto) 0.1 10 ^3/uL (0-0.8); Eosinophils % (auto) 0.9 % (0.0-7.0); Hematocrit 31.9 % (41.0-53.0); Hemoglobin 10.7 g/dL (13.5-17.5); Lymphocytes # (auto) 2.2 10 ^3/uL (0.4-5.4); Lymphocytes % (auto) 19.8 % (10.0-50.0); Mean Corpuscular Hemoglobin 28.4 pg (28.0-32.0); Mean Corpuscular Hgb Conc. 33.4 g/dL (32.0-36.0); Monocytes # (auto) 0.9 10 ^3/uL (0-1.3); Monocytes % (auto) 8.3 % (0.0-12.0); Neutrophils # (auto) 7.9 10 ^3/uL (1.6-8.6); Neutrophils % (auto) 70.4 % (37.0-80.0); Nucleated Red Blood Cells % 0.1 %; Platelet Count (auto) 499 10^3/uL (140-450); Red Blood Cells 3.76 10^6/uL (4.5-5.90); Red Cell Distribution Width 17.6 % (11.8-14.3); White Blood Cell 11.2 10^3/uL (4.4-10.8)
[2020-06-17 05:52] LABS: INR 1.08 (0.9-1.15); Partial Thromboplastin Time 69.5 sec (23.0-31.2)
[2020-06-17] MEDS: INSULIN DEGLUDEC 100 UNIT/ML SC SCH (06:08)
[2020-06-17] MEDS: InsuLIN REG 1unit/0.01ml Soln (100units/ml) SC SCH ×4 (06:13→21:44)
[2020-06-17] MEDS: ACCU-CHEK COMFORT CURVE STRIP VI SCH ×4 (06:14→21:17)
[2020-06-17] MEDS: PIPERACILLIN-TAZO 4.5GM 100 ML IV SCH ×3 (06:24→21:16)
[2020-06-17 09:00] VITALS: BP 148/94
[2020-06-17] MEDS: ZORTRESS 0.5 MG PO SCH ×2 (10:36→21:17)
[2020-06-17] MEDS: IRBESARTAN PO SCH (10:37)
[2020-06-17] MEDS: TACROLIMUS 1 MG CAP PO SCH ×2 (10:37→21:17)
[2020-06-17] MEDS: TORSEMIDE 20 MG TAB PO SCH (10:38)
[2020-06-17] MEDS: amLODIPine BESYLATE 5 MG TAB PO SCH (10:38)
[2020-06-17] MEDS: TAMSULOSIN HYDROCHLORIDE 0.4 MG CAP PO SCH (10:38)
[2020-06-17] MEDS: ALLOPURINOL 300 MG TAB PO SCH (10:39)
[2020-06-17] MEDS: predniSONE 5 MG TAB PO SCH (10:39)
[2020-06-17 11:40] LABS: INR 1.08 (0.9-1.15)
[2020-06-17 11:46] LABS: Partial Thromboplastin Time 92.2 sec (23.0-31.2)
[2020-06-17] MEDS: glipiZIDE 5 MG TAB PO SCH ×2 (12:22→21:46)
[2020-06-17 12:57] VITALS: BP 134/92
[2020-06-17 17:00] VITALS: BP 132/91
[2020-06-17 20:53] LABS: INR 1.08 (0.9-1.15); Partial Thromboplastin Time 62.8 sec (23.0-31.2)
[2020-06-17] MEDS: ATORVASTATIN 20 MG TAB PO SCH (21:17)
[2020-06-17 22:00] VITALS: BP 136/92
[2020-06-18 02:15] LABS: Eosinophils # (auto) 0.1 10 ^3/uL (0-0.8); Hemoglobin 10.4 g/dL (13.5-17.5); Neutrophils # (auto) 7.9 10 ^3/uL (1.6-8.6); Nucleated Red Blood Cells % 0.1 %
[2020-06-18 02:18] LABS: Basophils # (auto) 0.1 10 ^3/uL (0-0.2); Basophils % (auto) 0.9 % (0.0-2.0); Eosinophils % (auto) 0.8 % (0.0-7.0); Hematocrit 31.4 % (41.0-53.0); Lymphocytes # (auto) 2.7 10 ^3/uL (0.4-5.4); Lymphocytes % (auto) 22.7 % (10.0-50.0); Mean Corpuscular Hemoglobin 28.3 pg (28.0-32.0); Mean Corpuscular Hgb Conc. 33.1 g/dL (32.0-36.0); Mean Corpuscular Volume 85.4 fL (80.0-100.0); Monocytes % (auto) 8.5 % (0.0-12.0); Neutrophils % (auto) 67.1 % (37.0-80.0); Platelet Count (auto) 488 10^3/uL (140-450); Red Blood Cells 3.68 10^6/uL (4.5-5.90); Red Cell Distribution Width 17.8 % (11.8-14.3); White Blood Cell 11.8 10^3/uL (4.4-10.8)
[2020-06-18 02:31] LABS: INR 1.06 (0.9-1.15); Partial Thromboplastin Time 60.4 sec (23.0-31.2)
[2020-06-18 05:00] VITALS: BP 151/97
[2020-06-18] MEDS: INSULIN DEGLUDEC 100 UNIT/ML SC SCH (06:16)
[2020-06-18] MEDS: PIPERACILLIN-TAZO 4.5GM 100 ML IV SCH ×3 (06:21→22:06)
[2020-06-18] MEDS: ACCU-CHEK COMFORT CURVE STRIP VI SCH ×4 (06:22→22:06)
[2020-06-18] MEDS: InsuLIN REG 1unit/0.01ml Soln (100units/ml) SC SCH ×4 (06:33→22:08)
[2020-06-18 09:00] VITALS: BP 151/97
[2020-06-18 09:08] LABS: INR 1.08 (0.9-1.15)
[2020-06-18] MEDS: glipiZIDE 5 MG TAB PO SCH ×2 (10:16→22:06)
[2020-06-18] MEDS: IRBESARTAN PO SCH (10:17)
[2020-06-18] MEDS: ZORTRESS 0.5 MG PO SCH ×2 (10:17→22:06)
[2020-06-18] MEDS: TORSEMIDE 20 MG TAB PO SCH (10:18)
[2020-06-18] MEDS: predniSONE 5 MG TAB PO SCH (10:18)
[2020-06-18] MEDS: ALLOPURINOL 300 MG TAB PO SCH (10:18)
[2020-06-18] MEDS: TAMSULOSIN HYDROCHLORIDE 0.4 MG CAP PO SCH (10:19)
[2020-06-18] MEDS: amLODIPine BESYLATE 5 MG TAB PO SCH (10:19)
[2020-06-18] MEDS: TACROLIMUS 1 MG CAP PO SCH ×2 (10:20→22:07)
[2020-06-18 13:00] VITALS: BP 150/99
[2020-06-18] MEDS: HEPARIN DRIP/D5W 100UNITS/ML 250 ML IV SCH (14:39)
[2020-06-18 17:04] VITALS: BP 106/99
[2020-06-18 21:36] VITALS: BP 127/90
[2020-06-18] MEDS ORDERED: TACROLIMUS 0.5 MG CAP PO SCH ×2 (22:00)
[2020-06-18] MEDS: ATORVASTATIN 20 MG TAB PO SCH (22:06)
[2020-06-19 04:57] VITALS: BP 132/89
[2020-06-19] MEDS: ACCU-CHEK COMFORT CURVE STRIP VI SCH ×4 (06:04→22:09)
[2020-06-19] MEDS: INSULIN DEGLUDEC 100 UNIT/ML SC SCH (06:04)
[2020-06-19] MEDS: PIPERACILLIN-TAZO 4.5GM 100 ML IV SCH ×3 (06:05→22:14)
[2020-06-19] MEDS: InsuLIN REG 1unit/0.01ml Soln (100units/ml) SC SCH ×4 (06:19→22:16)
[2020-06-19 09:00] VITALS: BP 144/87
[2020-06-19] MEDS: TAMSULOSIN HYDROCHLORIDE 0.4 MG CAP PO SCH (10:00)
[2020-06-19] MEDS: IRBESARTAN PO SCH (10:00)
[2020-06-19] MEDS: TACROLIMUS 1 MG CAP PO SCH ×2 (10:00→22:06)
[2020-06-19] MEDS: predniSONE 5 MG TAB PO SCH (10:00)
[2020-06-19] MEDS: TORSEMIDE 20 MG TAB PO SCH (10:00)
[2020-06-19] MEDS: amLODIPine BESYLATE 5 MG TAB PO SCH (10:00)
[2020-06-19] MEDS: ALLOPURINOL 300 MG TAB PO SCH (10:00)
[2020-06-19] MEDS: ZORTRESS 0.5 MG PO SCH ×2 (10:00→22:07)
[2020-06-19] MEDS: glipiZIDE 5 MG TAB PO SCH ×2 (10:00→22:06)
[2020-06-19 10:13] LABS: INR 1.08 (0.9-1.15); Partial Thromboplastin Time 67.8 sec (23.0-31.2)
[2020-06-19] MEDS: HEPARIN DRIP/D5W 100UNITS/ML 250 ML IV SCH (10:15)
[2020-06-19 11:28] LABS: Albumin 2.2 g/dL (3.4-5.0); Calcium 10.4 mg/dL (8.5-10.1); Potassium 4.6 mmol/L (3.5-5.1)
[2020-06-19 11:31] LABS: BUN/Creatinine Ratio 14.1; Bilirubin, Total 0.2 mg/dL (0.2-1.0); Total Protein 6.6 g/dL (6.4-8.2)
[2020-06-19 13:00] VITALS: BP 161/103
[2020-06-19] MEDS ORDERED: cloNIDine HCL 0.1 MG TAB PO PRN (15:31)
[2020-06-19] MEDS: cloNIDine HCL 0.1 MG TAB PO PRN (15:47)
[2020-06-19 17:00] VITALS: BP 150/76
[2020-06-19 22:00] VITALS: BP 122/86
[2020-06-19] MEDS: ATORVASTATIN 20 MG TAB PO SCH (22:06)
[2020-06-20 05:00] VITALS: BP 162/98
[2020-06-20 05:10] LABS: Basophils # (auto) 0.1 10 ^3/uL (0-0.2); Basophils % (auto) 0.6 % (0.0-2.0); Eosinophils # (auto) 0.1 10 ^3/uL (0-0.8); Hematocrit 30.6 % (41.0-53.0); Hemoglobin 10.2 g/dL (13.5-17.5); Lymphocytes # (auto) 2.2 10 ^3/uL (0.4-5.4); Lymphocytes % (auto) 26.7 % (10.0-50.0); Mean Corpuscular Hemoglobin 28.6 pg (28.0-32.0); Mean Corpuscular Hgb Conc. 33.4 g/dL (32.0-36.0); Mean Corpuscular Volume 85.5 fL (80.0-100.0); Monocytes # (auto) 0.8 10 ^3/uL (0-1.3); Monocytes % (auto) 10.2 % (0.0-12.0); Neutrophils % (auto) 61.5 % (37.0-80.0); Nucleated Red Blood Cells % 0.1 %; Platelet Count (auto) 401 10^3/uL (140-450); Red Blood Cells 3.57 10^6/uL (4.5-5.90); Red Cell Distribution Width 18.3 % (11.8-14.3); White Blood Cell 8.2 10^3/uL (4.4-10.8)
[2020-06-20 05:33] LABS: INR 1.07 (0.9-1.15)
[2020-06-20 05:35] LABS: Partial Thromboplastin Time 74.1 sec (23.0-31.2)
[2020-06-20] MEDS: PIPERACILLIN-TAZO 4.5GM 100 ML IV SCH ×3 (05:48→22:08)
[2020-06-20 06:00] VITALS: BP 151/82
[2020-06-20] MEDS: HEPARIN DRIP/D5W 100UNITS/ML 250 ML IV SCH (06:19)
[2020-06-20] MEDS: InsuLIN REG 1unit/0.01ml Soln (100units/ml) SC SCH ×4 (06:31→22:09)
[2020-06-20] MEDS: ACCU-CHEK COMFORT CURVE STRIP VI SCH ×4 (06:32→22:13)
[2020-06-20] MEDS: INSULIN DEGLUDEC 100 UNIT/ML SC SCH (06:33)
[2020-06-20 08:00] VITALS: BP 149/97
[2020-06-20] MEDS: IRBESARTAN PO SCH (09:17)
[2020-06-20] MEDS: TACROLIMUS 1 MG CAP PO SCH ×2 (09:18→22:09)
[2020-06-20] MEDS: predniSONE 5 MG TAB PO SCH (09:21)
[2020-06-20] MEDS: glipiZIDE 5 MG TAB PO SCH ×2 (09:21→22:09)
[2020-06-20] MEDS: ALLOPURINOL 300 MG TAB PO SCH (09:22)
[2020-06-20] MEDS: TORSEMIDE 20 MG TAB PO SCH (09:22)
[2020-06-20] MEDS: TAMSULOSIN HYDROCHLORIDE 0.4 MG CAP PO SCH (09:22)
[2020-06-20] MEDS: amLODIPine BESYLATE 5 MG TAB PO SCH (09:23)
[2020-06-20] MEDS: ZORTRESS 0.5 MG PO SCH ×2 (10:00→22:08)
[2020-06-20 12:00] VITALS: BP 145/88
[2020-06-20 17:00] VITALS: BP 135/95
[2020-06-20] MEDS: ATORVASTATIN 20 MG TAB PO SCH (22:08)
[2020-06-20 22:33] VITALS: BP 135/95
[2020-06-21] MEDS: HEPARIN DRIP/D5W 100UNITS/ML 250 ML IV SCH ×2 (01:05→18:03)
[2020-06-21 05:16] VITALS: BP 151/96
[2020-06-21 05:38] LABS: INR 1.03 (0.9-1.15); Partial Thromboplastin Time 42.5 sec (23.0-31.2)
[2020-06-21] MEDS: INSULIN DEGLUDEC 100 UNIT/ML SC SCH (06:36)
[2020-06-21] MEDS: ACCU-CHEK COMFORT CURVE STRIP VI SCH ×4 (06:36→22:08)
[2020-06-21] MEDS: PIPERACILLIN-TAZO 4.5GM 100 ML IV SCH ×3 (06:36→22:08)
[2020-06-21] MEDS: InsuLIN REG 1unit/0.01ml Soln (100units/ml) SC SCH ×4 (06:37→22:07)
[2020-06-21] MEDS ORDERED: HEPARIN DRIP/D5W 100UNITS/ML 250 ML IV SCH (08:45)
[2020-06-21 09:01] VITALS: BP 153/96
[2020-06-21] MEDS: TAMSULOSIN HYDROCHLORIDE 0.4 MG CAP PO SCH (09:55)
[2020-06-21] MEDS: ALLOPURINOL 300 MG TAB PO SCH (09:55)
[2020-06-21] MEDS: predniSONE 5 MG TAB PO SCH (09:55)
[2020-06-21] MEDS: amLODIPine BESYLATE 5 MG TAB PO SCH (09:56)
[2020-06-21] MEDS: TORSEMIDE 20 MG TAB PO SCH (09:56)
[2020-06-21] MEDS: TACROLIMUS 1 MG CAP PO SCH ×2 (09:57→22:08)
[2020-06-21] MEDS: IRBESARTAN PO SCH (09:58)
[2020-06-21] MEDS: ZORTRESS 0.5 MG PO SCH ×2 (10:00→22:00)
[2020-06-21] MEDS: glipiZIDE 5 MG TAB PO SCH ×2 (10:06→22:07)
[2020-06-21 10:34] LABS: INR 1.08 (0.9-1.15); Partial Thromboplastin Time 64.4 sec (23.0-31.2)
[2020-06-21 13:00] VITALS: BP 126/95
[2020-06-21] MEDS ORDERED: LIDOCAINE 1% (LOCAL ANESTH.) PF 5ml SDV ID ONE (13:30)
[2020-06-21 16:55] LABS: INR 1.08 (0.9-1.15)
[2020-06-21 16:59] LABS: Partial Thromboplastin Time 83.9 sec (23.0-31.2)
[2020-06-21 17:00] VITALS: BP 136/85
[2020-06-21 22:00] VITALS: BP 161/103
[2020-06-21] MEDS: SODIUM CHLOR 0.9% PF (SALINE LOCK) 10ML VIAL/SYR IV SCH (22:08)
[2020-06-21] MEDS: ATORVASTATIN 20 MG TAB PO SCH (22:08)
[2020-06-21] MEDS: cloNIDine HCL 0.1 MG TAB PO PRN (22:09)
[2020-06-21 22:59] LABS: INR 1.08 (0.9-1.15)
[2020-06-21 23:05] LABS: Partial Thromboplastin Time 76.3 sec (23.0-31.2)
[2020-06-22 05:00] VITALS: BP 148/90
[2020-06-22] MEDS: PIPERACILLIN-TAZO 4.5GM 100 ML IV SCH (05:55)
[2020-06-22] MEDS: INSULIN DEGLUDEC 100 UNIT/ML SC SCH (05:56)
[2020-06-22] MEDS: InsuLIN REG 1unit/0.01ml Soln (100units/ml) SC SCH ×2 (06:48→12:19)
[2020-06-22] MEDS: ACCU-CHEK COMFORT CURVE STRIP VI SCH ×2 (06:51→12:19)
[2020-06-22 07:47] LABS: INR 1.07 (0.9-1.15)
[2020-06-22 09:00] VITALS: BP 133/71
[2020-06-22] MEDS: SODIUM CHLOR 0.9% PF (SALINE LOCK) 10ML VIAL/SYR IV SCH (09:37)
[2020-06-22] MEDS: TAMSULOSIN HYDROCHLORIDE 0.4 MG CAP PO SCH (09:38)
[2020-06-22] MEDS: IRBESARTAN PO SCH (09:38)
[2020-06-22] MEDS: amLODIPine BESYLATE 5 MG TAB PO SCH (09:39)
[2020-06-22] MEDS: glipiZIDE 5 MG TAB PO SCH (09:42)
[2020-06-22] MEDS: TORSEMIDE 20 MG TAB PO SCH (09:43)
[2020-06-22] MEDS: predniSONE 5 MG TAB PO SCH (09:43)
[2020-06-22] MEDS: ALLOPURINOL 300 MG TAB PO SCH (09:43)
[2020-06-22] MEDS: ZORTRESS 0.5 MG PO SCH (09:44)
[2020-06-22] MEDS: TACROLIMUS 1 MG CAP PO SCH (09:44)
[2020-06-22] MEDS: HEPARIN DRIP/D5W 100UNITS/ML 250 ML IV SCH (13:10)
== END 2020-06-22 14:21 | disposition home health service (06) | DRG 592 ==
LOC: ER 20:52 → TELE-CENTR 06-12 02:20
PROVIDERS: ADMIT Internal Medicine Cardiovascular Disease; ATTEND Internal Medicine Cardiovascular Disease
PROC: B44HZZZ Ultrasonography of Bilateral Lower Extremity Arteries (ICD-10-PCS; principal; 2020-06-13)
DX: L97.919 Non-pressure chronic ulcer of unspecified part of right lower leg with unspecified severity (principal); N17.0 Acute kidney failure with tubular necrosis; L02.415 Cutaneous abscess of right lower limb; I82.441 Acute embolism and thrombosis of right tibial vein; Z94.1 Heart transplant status; I25.811 Atherosclerosis of native coronary artery of transplanted heart without angina pectoris; I42.0 Dilated cardiomyopathy; R65.10 Systemic inflammatory response syndrome (SIRS) of non-infectious origin without acute organ dysfunction; E44.1 Mild protein-calorie malnutrition; L03.115 Cellulitis of right lower limb; N18.31 Chronic kidney disease, stage 3a; E11.51 Type 2 diabetes mellitus with diabetic peripheral angiopathy without gangrene; D64.9 Anemia, unspecified; E87.6 Hypokalemia; E11.22 Type 2 diabetes mellitus with diabetic chronic kidney disease; I12.9 Hypertensive chronic kidney disease with stage 1 through stage 4 chronic kidney disease, or unspecified chronic kidney disease; Z20.822 Contact with and (suspected) exposure to COVID-19; E11.40 Type 2 diabetes mellitus with diabetic neuropathy, unspecified; E11.21 Type 2 diabetes mellitus with diabetic nephropathy; Z85.819 Personal history of malignant neoplasm of unspecified site of lip, oral cavity, and pharynx; Z86.718 Personal history of other venous thrombosis and embolism
CPT/HCPCS: 36415; 36569; 71045; 73700; 80053; 81001; 82962; 83605; 83880; 84132; 84484; 85025; 85379; 85610; 85730; 87040; 87077; 87186; 87205; 87426; 93925; 93971; 96374; G0378; J0690; J1815; J2543; J7507

== ENCOUNTER → 2020-08-22 | Outpatient (CLI) | payer MEDICARE, MEDICAID ==
[~2020-08-22] MED LIST changes: +CARV25TA55 PO; -FURO1TAB31 PO; -GLIP10TA9 PO; +POM; +POM PO; +TORS20TA19 PO; -VALS320T15 PO
== END | disposition home or self-care (01) ==
LOC: Rad HDHVI 08:51
PROVIDERS: ATTEND Internal Medicine Cardiovascular Disease
DX: I70.201 Unspecified atherosclerosis of native arteries of extremities, right leg (principal); I10 Essential (primary) hypertension; E78.5 Hyperlipidemia, unspecified
CPT/HCPCS: 93926

== ENCOUNTER → 2020-12-26 | Outpatient (CLI) | payer MEDICARE, MEDICAID ==
[~2020-12-26] MED LIST changes: +ALL100T PO; +AML5T; -AML5T PO; +BUME1TAB3 PO; +BUMETANIDE 1mg/4ml VIAL (0.25mg/ml) ONE; +BUMETANIDE 2.5mg/10ml (0.25 mg/ml) INJ IV ONE; +BUMETANIDE INJECTION 10 ML ONE; +CAR125T PO; +EVER0.5T3 PO; +HYDR-4298 PO; +IRBE300T43 PO; +ISOS1TAB28 PO; +MYCO250C4 PO; +POTA10TA32 PO; +POTASSIUM CHL 20 Meq TABLET PO ONE; +SPIR25TA8 PO; +TAMS1CAP25 PO; +[UNRECOGNIZED DRUG - CODE] PO
[2020-12-26 17:15] VITALS: BP 160/88
== END | disposition home or self-care (01) ==
LOC: CHF HDHVI 16:40
PROVIDERS: ATTEND Internal Medicine Cardiovascular Disease
DX: I13.0 Hypertensive heart and chronic kidney disease with heart failure and stage 1 through stage 4 chronic kidney disease, or unspecified chronic kidney disease (principal); E11.22 Type 2 diabetes mellitus with diabetic chronic kidney disease; I50.43 Acute on chronic combined systolic (congestive) and diastolic (congestive) heart failure; N18.4 Chronic kidney disease, stage 4 (severe); I25.10 Atherosclerotic heart disease of native coronary artery without angina pectoris; J96.10 Chronic respiratory failure, unspecified whether with hypoxia or hypercapnia; E11.51 Type 2 diabetes mellitus with diabetic peripheral angiopathy without gangrene; E11.40 Type 2 diabetes mellitus with diabetic neuropathy, unspecified; E78.5 Hyperlipidemia, unspecified; E66.01 Morbid (severe) obesity due to excess calories; Z68.41 Body mass index [BMI] 40.0-44.9, adult; Z79.899 Other long term (current) drug therapy
CPT/HCPCS: 96374; G0463; J3490

== ENCOUNTER 2021-01-09 15:48 | Inpatient (IN) | payer MEDICARE, MEDICAID ==
[~2021-01-09] VITALS: Ht 182.9 cm; Wt 136.7 kg
[~2021-01-09 15:48] MED LIST changes: -ALL100T PO; -BUME1TAB3 PO; -BUMETANIDE 1mg/4ml VIAL (0.25mg/ml) ONE; -BUMETANIDE 2.5mg/10ml (0.25 mg/ml) INJ IV ONE; -BUMETANIDE INJECTION 10 ML ONE; -CAR125T PO; -EVER0.5T3 PO; -HYDR-4298 PO; -IRBE300T43 PO; -ISOS1TAB28 PO; -MYCO250C4 PO; -POTA10TA32 PO; -POTASSIUM CHL 20 Meq TABLET PO ONE; -SPIR25TA8 PO; -TAMS1CAP25 PO; -[UNRECOGNIZED DRUG - CODE] PO
[2021-01-09] MEDS ORDERED: FUROSEMIDE 40 MG/4 ML VIAL IV ONE (16:15)
[2021-01-09 18:44] LABS: Eosinophils # (auto) 0.1 10 ^3/uL (0-0.8); Monocytes # (auto) 0.7 10 ^3/uL (0-1.3); Nucleated Red Blood Cells % 0.1 %; White Blood Cell 7.3 10^3/uL (4.4-10.8)
[2021-01-09 18:47] LABS: Basophils # (auto) 0 10 ^3/uL (0-0.2); Basophils % (auto) 0.2 % (0.0-2.0); Eosinophils % (auto) 0.8 % (0.0-7.0); Hematocrit 21.6 % (41.0-53.0); Hemoglobin 7.1 g/dL (13.5-17.5); Lymphocytes % (auto) 13.1 % (10.0-50.0); Mean Corpuscular Hemoglobin 28.6 pg (28.0-32.0); Mean Corpuscular Hgb Conc. 32.8 g/dL (32.0-36.0); Mean Corpuscular Volume 87.2 fL (80.0-100.0); Monocytes % (auto) 9.9 % (0.0-12.0); Neutrophils # (auto) 5.6 10 ^3/uL (1.6-8.6); Red Blood Cells 2.48 10^6/uL (4.5-5.90); Red Cell Distribution Width 15.6 % (11.8-14.3)
[2021-01-09 19:00] LABS: Albumin 1.7 g/dL (3.4-5.0); Calcium 8.1 mg/dL (8.5-10.1); Potassium 4.5 mmol/L (3.5-5.1)
[2021-01-09 19:06] LABS: BUN/Creatinine Ratio 16.9; Bilirubin, Total 0.3 mg/dL (0.2-1.0); Total Protein 6.3 g/dL (6.4-8.2)
[2021-01-09] MEDS ORDERED: NITROGLYCERIN 0.4 MG SL TAB SL PRN ×2 (19:15→19:30)
[2021-01-09] MEDS ORDERED: MORPHINE SULFATE INJECTION 2 MG/ML SYRG IV PRN ×3 (19:15→19:30)
[2021-01-09] MEDS ORDERED: CLINDAMYCIN 600MG IV 50 ML IV ONE (19:30)
[2021-01-09] MEDS ORDERED: HYDROcodone-ACET 5/325MG TAB PO PRN (19:30)
[2021-01-09] MEDS ORDERED: ALBUMIN 25% 100 ML IV ONE (19:30)
[2021-01-09] MEDS ORDERED: BUMETANIDE 2.5mg/10ml (0.25 mg/ml) INJ IV ONE (19:30)
[2021-01-09] MEDS ORDERED: ACETAMINOPHEN 325 MG TAB PO PRN (19:30)
[2021-01-09] MEDS ORDERED: ACETAMINOPHEN 500 MG TAB PO PRN (19:30)
[2021-01-09] MEDS ORDERED: cefTRIAXone 1GM/50ML D5W 50 ML IV ONE (19:30)
[2021-01-09] MEDS ORDERED: METOPROLOL SUCCINATE XL 50 MG TAB PO ONE (19:30)
[2021-01-09] MEDS ORDERED: ALBUTEROL SULF HFA 90MCG INH 200DOSE IN PRN (19:30)
[2021-01-09] MEDS ORDERED: hydrALAZINE HCL 20 MG/ML VL IV PRN (19:30)
[2021-01-09] MEDS ORDERED: DOCUSATE SOD 100 MG CAP PO PRN (19:30)
[2021-01-09] MEDS ORDERED: LORazepam 0.5 MG TAB PO PRN (19:30)
[2021-01-09] MEDS ORDERED: ALUM & MAG HYDROX-SIMETH LIQ(MAALOX) 30 ML PO PRN (19:30)
[2021-01-09] MEDS ORDERED: DEXTROSE (50%) 50ML SYRG IV PRN (19:30)
[2021-01-09] MEDS ORDERED: REMDESIVIR PER PHARMACY 0 ML IV SCH (19:30)
[2021-01-09] MEDS ORDERED: ONDANSETRON HCL 4 MG/2 ML VIAL IV PRN (19:30)
[2021-01-09] MEDS: ALBUMIN 25% 100 ML IV SCH (20:41)
[2021-01-09 21:17] LABS: Cholesterol 226 mg/dL (< 200); Thyroid Stimulating Hormone 1.4 uIU/mL (0.358-3.74)
[2021-01-09 21:20] LABS: HDL Cholesterol 52 mg/dL (40-59); LDL Cholesterol 133 mg/dL (< 100); Magnesium 1.4 mg/dL (1.6-2.6); Triglycerides 193 mg/dL (< 150)
[2021-01-09 21:31] LABS: CRP High Sensitivity 6.74 mg/dL (< 0.3)
[2021-01-09 21:48] LABS: Urine Bacteria FEW /hpf (None Seen); Urine Blood 1+ /uL (Negative); Urine Mucus FEW (None Seen); Urine Specific Gravity 1.008 (1.001-1.035); Urine WBC 1 /hpf (0 - 3)
[2021-01-09] MEDS: EVEROLIMUS 0.25 MG PO SCH (22:00)
[2021-01-09 22:02] LABS: Amphetamine Screen, Urine NEGATIVE (NEGATIVE); Barbiturate Scree,Urine NEGATIVE (NEGATIVE); Benzodiazephine Screen, Urine NEGATIVE (NEGATIVE); Cannabinoid Screen, Urine NEGATIVE (NEGATIVE); Cocaine Screen, Urine NEGATIVE (NEGATIVE); Opiate Scree,Urine NEGATIVE (NEGATIVE); Phencyclidine Screen, Urine NEGATIVE (NEGATIVE)
[2021-01-09] MEDS: hydrALAZINE HCL 25 MG TAB PO SCH (22:11)
[2021-01-09] MEDS: ATORVASTATIN 20 MG TAB PO SCH (22:12)
[2021-01-09] MEDS: POTASSIUM CHL 20 Meq TABLET PO SCH (22:12)
[2021-01-09] MEDS: NEOMYCIN-BACITRACIN-POLYM 15GM TOP OINT TOP SCH (22:15)
[2021-01-09] MEDS: ACCU-CHEK COMFORT CURVE STRIP VI SCH (22:15)
[2021-01-09] MEDS: InsuLIN REG 1unit/0.01ml Soln (100units/ml) SC SCH (22:17)
[2021-01-09] MEDS: MYCOPHENOLATE 500 MG TAB PO SCH (22:37)
[2021-01-10] VITALS (12 sets, daily range): BP systolic 122–170; BP diastolic 68–99
[2021-01-10] MEDS: ALBUMIN 25% 100 ML IV SCH ×2 (03:23→11:25)
[2021-01-10] MEDS ORDERED: BUMETANIDE 2.5mg/10ml (0.25 mg/ml) INJ IV SCH (06:00)
[2021-01-10] MEDS: hydrALAZINE HCL 25 MG TAB PO SCH ×3 (06:20→22:26)
[2021-01-10] MEDS: CLINDAMYCIN 600MG IV 50 ML IV SCH ×3 (06:20→22:24)
[2021-01-10] MEDS: ACCU-CHEK COMFORT CURVE STRIP VI SCH ×4 (06:45→22:27)
[2021-01-10] MEDS: InsuLIN REG 1unit/0.01ml Soln (100units/ml) SC SCH ×4 (06:46→22:29)
[2021-01-10 07:41] LABS: Albumin 2.4 g/dL (3.4-5.0); Calcium 8.6 mg/dL (8.5-10.1); INR 1.1 (0.9-1.15); Magnesium 1.9 mg/dL (1.6-2.6); Partial Thromboplastin Time 31.3 sec (23.6-33.0); Potassium 4.4 mmol/L (3.5-5.1)
[2021-01-10 07:48] LABS: Bilirubin, Total 0.4 mg/dL (0.2-1.0); Phosphorus 3.7 mg/dL (2.5-4.90); Total Protein 6.7 g/dL (6.4-8.2); Uric Acid 4.8 mg/dL (3.5-7.2)
[2021-01-10 08:03] LABS: Eosinophils # (auto) 0.1 10 ^3/uL (0-0.8); Red Cell Distribution Width 15.6 % (11.8-14.3); White Blood Cell 8.4 10^3/uL (4.4-10.8)
[2021-01-10 08:05] LABS: Basophils # (auto) 0 10 ^3/uL (0-0.2); Basophils % (auto) 0.5 % (0.0-2.0); Hematocrit 18.9 % (41.0-53.0); Lymphocytes # (auto) 0.9 10 ^3/uL (0.4-5.4); Lymphocytes % (auto) 10.3 % (10.0-50.0); Mean Corpuscular Hemoglobin 29.9 pg (28.0-32.0); Mean Corpuscular Hgb Conc. 34.3 g/dL (32.0-36.0); Mean Corpuscular Volume 87.1 fL (80.0-100.0); Monocytes # (auto) 0.8 10 ^3/uL (0-1.3); Monocytes % (auto) 8.9 % (0.0-12.0); Neutrophils # (auto) 6.7 10 ^3/uL (1.6-8.6); Neutrophils % (auto) 79.3 % (37.0-80.0); Nucleated Red Blood Cells % 0.1 %; Red Blood Cells 2.17 10^6/uL (4.5-5.90)
[2021-01-10 08:20] LABS: Hemoglobin 6.5 g/dL (13.5-17.5)
[2021-01-10] MEDS: cefTRIAXone 1GM/50ML D5W 50 ML IV SCH (09:31)
[2021-01-10] MEDS: ASPirin 81 mg TAB PO SCH (09:33)
[2021-01-10] MEDS: ZINC SULFATE 220mg CAP or TAB PO SCH (09:33)
[2021-01-10] MEDS: ISOSORBIDE MONONITRATE ER 60 MG TAB PO SCH (09:33)
[2021-01-10] MEDS: MYCOPHENOLATE 500 MG TAB PO SCH ×2 (09:33→22:00)
[2021-01-10] MEDS: POTASSIUM CHL 20 Meq TABLET PO SCH ×2 (09:34→22:26)
[2021-01-10] MEDS: METOPROLOL SUCCINATE XL 50 MG TAB PO SCH (09:34)
[2021-01-10] MEDS: ALLOPURINOL 100 MG TAB PO SCH (09:35)
[2021-01-10] MEDS: CHOLECALCIFEROL (VITD3) 2,000 UNIT CAP/TAB PO SCH (09:35)
[2021-01-10] MEDS: NEOMYCIN-BACITRACIN-POLYM 15GM TOP OINT TOP SCH ×2 (09:35→22:00)
[2021-01-10] MEDS: ENOXAPARIN SOD 30 MG/0.3 ML SYRINGE SC SCH (09:35)
[2021-01-10] MEDS: ASCORBIC ACID 1,000 MG TAB PO SCH (09:35)
[2021-01-10] MEDS: EVEROLIMUS 0.25 MG PO SCH ×2 (09:45→22:00)
[2021-01-10] MEDS: BUDESONIDE (INHALATION) 180 MCG IH IN SCH ×2 (09:50→10:00)
[2021-01-10] MEDS ORDERED: IVERMECTIN 3 MG TAB PO SCH (10:00)
[2021-01-10] MEDS ORDERED: DexAMETHasone SOD PHOS 10MG/1ML VIAL INJ IV SCH (10:00)
[2021-01-10] MEDS ORDERED: ALL100T PO (11:23)
[2021-01-10] MEDS ORDERED: POTA10TA32 PO (11:51)
[2021-01-10] MEDS ORDERED: TAMS1CAP25 PO (11:51)
[2021-01-10] MEDS ORDERED: BUME1TAB3 PO (11:51)
[2021-01-10] MEDS ORDERED: ISOS1TAB28 PO (11:51)
[2021-01-10] MEDS ORDERED: MYCO250C4 PO (11:51)
[2021-01-10] MEDS ORDERED: CAR125T PO (11:51)
[2021-01-10] MEDS ORDERED: IRBE300T43 PO (11:51)
[2021-01-10] MEDS ORDERED: HYDR-4298 PO (11:51)
[2021-01-10] MEDS ORDERED: SPIR25TA8 PO (11:51)
[2021-01-10] MEDS ORDERED: EVER0.5T3 PO (11:51)
[2021-01-10] MEDS ORDERED: FUROSEMIDE INJECTION 100 MG in SODIUM CHL 0.9% 100 ML IV SCH (12:30)
[2021-01-10] MEDS: DOPamine 1600MCG/ML D5W 250 ML IV SCH (13:30)
[2021-01-10] MEDS: FUROSEMIDE INJECTION 100 MG in D5W 5% 100 ML IV SCH (14:11)
[2021-01-10] MEDS ORDERED: [UNRECOGNIZED DRUG - CODE] PO (16:06)
[2021-01-10] MEDS: ATORVASTATIN 20 MG TAB PO SCH (22:26)
[2021-01-11] VITALS (7 sets, daily range): BP systolic 136–153; BP diastolic 73–95
[2021-01-11] MEDS: FUROSEMIDE INJECTION 100 MG in D5W 5% 100 ML IV SCH ×3 (00:17→18:28)
[2021-01-11] MEDS: DOPamine 1600MCG/ML D5W 250 ML IV SCH ×3 (00:25→18:28)
[2021-01-11 01:21] LABS: Hematocrit 23.9 % (41.0-53.0); Hemoglobin 8.1 g/dL (13.5-17.5)
[2021-01-11] MEDS: CLINDAMYCIN 600MG IV 50 ML IV SCH ×3 (06:37→21:31)
[2021-01-11] MEDS: hydrALAZINE HCL 25 MG TAB PO SCH ×3 (06:38→21:37)
[2021-01-11] MEDS: ACCU-CHEK COMFORT CURVE STRIP VI SCH ×4 (06:38→21:34)
[2021-01-11] MEDS: InsuLIN REG 1unit/0.01ml Soln (100units/ml) SC SCH ×4 (06:40→21:38)
[2021-01-11 07:50] LABS: Potassium 4.6 mmol/L (3.5-5.1)
[2021-01-11 07:54] LABS: Calcium 8.7 mg/dL (8.5-10.1)
[2021-01-11] MEDS: ASCORBIC ACID 1,000 MG TAB PO SCH (09:28)
[2021-01-11] MEDS: cefTRIAXone 1GM/50ML D5W 50 ML IV SCH (09:28)
[2021-01-11] MEDS: ASPirin 81 mg TAB PO SCH (09:28)
[2021-01-11] MEDS: ZINC SULFATE 220mg CAP or TAB PO SCH (09:28)
[2021-01-11] MEDS: ENOXAPARIN SOD 30 MG/0.3 ML SYRINGE SC SCH (09:28)
[2021-01-11] MEDS: CHOLECALCIFEROL (VITD3) 2,000 UNIT CAP/TAB PO SCH (09:29)
[2021-01-11] MEDS: POTASSIUM CHL 20 Meq TABLET PO SCH ×2 (09:29→21:33)
[2021-01-11] MEDS: ISOSORBIDE MONONITRATE ER 60 MG TAB PO SCH (09:30)
[2021-01-11] MEDS: ALLOPURINOL 100 MG TAB PO SCH (09:30)
[2021-01-11] MEDS: METOPROLOL SUCCINATE XL 50 MG TAB PO SCH (09:31)
[2021-01-11] MEDS: MYCOPHENOLATE 500 MG TAB PO SCH ×2 (10:00→21:33)
[2021-01-11] MEDS: EVEROLIMUS 0.25 MG PO SCH ×2 (10:00→21:32)
[2021-01-11] MEDS: NEOMYCIN-BACITRACIN-POLYM 15GM TOP OINT TOP SCH ×2 (12:40→21:34)
[2021-01-11 14:03] LABS: Urine Amorphous Crystal FEW /hpf (None Seen); Urine Bacteria FEW /hpf (None Seen); Urine Blood TRACE /uL (Negative); Urine Specific Gravity 1.012 (1.001-1.035); Urine WBC 2 /hpf (0 - 3)
[2021-01-11 14:37] LABS: Protein, Urine 368.5 mg/dL (0.0-11.9)
[2021-01-11] MEDS: ATORVASTATIN 20 MG TAB PO SCH (21:33)
[2021-01-12] VITALS (7 sets, daily range): BP systolic 137–163; BP diastolic 77–93
[2021-01-12] MEDS: FUROSEMIDE INJECTION 100 MG in D5W 5% 100 ML IV SCH ×2 (06:51→15:33)
[2021-01-12] MEDS: ACCU-CHEK COMFORT CURVE STRIP VI SCH ×4 (06:52→22:56)
[2021-01-12] MEDS: hydrALAZINE HCL 25 MG TAB PO SCH ×3 (06:52→22:57)
[2021-01-12] MEDS: InsuLIN REG 1unit/0.01ml Soln (100units/ml) SC SCH ×4 (06:53→22:55)
[2021-01-12] MEDS: CLINDAMYCIN 600MG IV 50 ML IV SCH ×3 (07:50→22:21)
[2021-01-12 07:59] LABS: BUN/Creatinine Ratio 17.9; Calcium 8.1 mg/dL (8.5-10.1); Potassium 4.6 mmol/L (3.5-5.1)
[2021-01-12] MEDS: DOPamine 1600MCG/ML D5W 250 ML IV SCH ×2 (08:15→18:31)
[2021-01-12] MEDS: cefTRIAXone 1GM/50ML D5W 50 ML IV SCH (09:28)
[2021-01-12] MEDS: ENOXAPARIN SOD 30 MG/0.3 ML SYRINGE SC SCH (09:29)
[2021-01-12] MEDS: MYCOPHENOLATE 500 MG TAB PO SCH ×2 (09:29→22:57)
[2021-01-12] MEDS: ALLOPURINOL 100 MG TAB PO SCH (09:30)
[2021-01-12] MEDS: ISOSORBIDE MONONITRATE ER 60 MG TAB PO SCH (09:30)
[2021-01-12] MEDS: POTASSIUM CHL 20 Meq TABLET PO SCH (09:30)
[2021-01-12] MEDS: ASPirin 81 mg TAB PO SCH (09:30)
[2021-01-12] MEDS: METOPROLOL SUCCINATE XL 50 MG TAB PO SCH (09:31)
[2021-01-12] MEDS: EVEROLIMUS 0.25 MG PO SCH (09:31)
[2021-01-12] MEDS: NEOMYCIN-BACITRACIN-POLYM 15GM TOP OINT TOP SCH ×2 (09:32→22:56)
[2021-01-12 13:19] LABS: Eosinophils # (auto) 0.1 10 ^3/uL (0-0.8); Hemoglobin 8.3 g/dL (13.5-17.5); Monocytes # (auto) 0.9 10 ^3/uL (0-1.3)
[2021-01-12 13:21] LABS: Basophils # (auto) 0.2 10 ^3/uL (0-0.2); Basophils % (auto) 1.5 % (0.0-2.0); Eosinophils % (auto) 0.9 % (0.0-7.0); Hematocrit 24.4 % (41.0-53.0); Lymphocytes # (auto) 0.7 10 ^3/uL (0.4-5.4); Lymphocytes % (auto) 6.8 % (10.0-50.0); Mean Corpuscular Hemoglobin 29.7 pg (28.0-32.0); Mean Corpuscular Hgb Conc. 34.2 g/dL (32.0-36.0); Mean Corpuscular Volume 86.9 fL (80.0-100.0); Monocytes % (auto) 8.5 % (0.0-12.0); Neutrophils # (auto) 8.7 10 ^3/uL (1.6-8.6); Neutrophils % (auto) 82.3 % (37.0-80.0); Nucleated Red Blood Cells % 0.2 %; Red Blood Cells 2.81 10^6/uL (4.5-5.90); White Blood Cell 10.5 10^3/uL (4.4-10.8)
[2021-01-12 13:32] LABS: BUN/Creatinine Ratio 17.5; Calcium 7.9 mg/dL (8.5-10.1); Potassium 4.7 mmol/L (3.5-5.1)
[2021-01-12] MEDS: ATORVASTATIN 20 MG TAB PO SCH (22:21)
[2021-01-13] VITALS (7 sets, daily range): BP systolic 137–184; BP diastolic 82–103
[2021-01-13] MEDS: FUROSEMIDE INJECTION 100 MG in D5W 5% 100 ML IV SCH ×3 (01:00→21:00)
[2021-01-13] MEDS: DOPamine 1600MCG/ML D5W 250 ML IV SCH ×3 (04:42→22:50)
[2021-01-13] MEDS: CLINDAMYCIN 600MG IV 50 ML IV SCH ×3 (06:23→22:47)
[2021-01-13] MEDS: hydrALAZINE HCL 25 MG TAB PO SCH ×3 (06:23→22:48)
[2021-01-13] MEDS: InsuLIN REG 1unit/0.01ml Soln (100units/ml) SC SCH ×4 (06:24→22:51)
[2021-01-13] MEDS: ACCU-CHEK COMFORT CURVE STRIP VI SCH ×4 (06:25→22:49)
[2021-01-13 07:51] LABS: Basophils # (auto) 0 10 ^3/uL (0-0.2); Eosinophils # (auto) 0.1 10 ^3/uL (0-0.8); Eosinophils % (auto) 0.9 % (0.0-7.0); Hematocrit 23.7 % (41.0-53.0); Hemoglobin 8.1 g/dL (13.5-17.5); Mean Corpuscular Hgb Conc. 34.1 g/dL (32.0-36.0); Monocytes # (auto) 0.9 10 ^3/uL (0-1.3); Monocytes % (auto) 8.5 % (0.0-12.0); Neutrophils % (auto) 81.9 % (37.0-80.0); Red Cell Distribution Width 15.8 % (11.8-14.3)
[2021-01-13 07:54] LABS: Basophils % (auto) 0.3 % (0.0-2.0); Lymphocytes # (auto) 0.9 10 ^3/uL (0.4-5.4); Lymphocytes % (auto) 8.4 % (10.0-50.0); Mean Corpuscular Hemoglobin 29.7 pg (28.0-32.0); Mean Corpuscular Volume 86.9 fL (80.0-100.0); Neutrophils # (auto) 8.6 10 ^3/uL (1.6-8.6); Red Blood Cells 2.72 10^6/uL (4.5-5.90); White Blood Cell 10.6 10^3/uL (4.4-10.8)
[2021-01-13 08:08] LABS: Albumin 2.1 g/dL (3.4-5.0); Calcium 7.9 mg/dL (8.5-10.1); Potassium 4.1 mmol/L (3.5-5.1)
[2021-01-13 08:22] LABS: BUN/Creatinine Ratio 17.3; Bilirubin, Total 0.4 mg/dL (0.2-1.0); CRP High Sensitivity 11.9 mg/dL (< 0.3); Total Protein 5.5 g/dL (6.4-8.2)
[2021-01-13] MEDS: ENOXAPARIN SOD 30 MG/0.3 ML SYRINGE SC SCH (08:33)
[2021-01-13] MEDS: ISOSORBIDE MONONITRATE ER 60 MG TAB PO SCH (08:34)
[2021-01-13] MEDS: ASPirin 81 mg TAB PO SCH (08:34)
[2021-01-13] MEDS: METOPROLOL SUCCINATE XL 50 MG TAB PO SCH (08:34)
[2021-01-13] MEDS: ALLOPURINOL 100 MG TAB PO SCH (08:34)
[2021-01-13] MEDS: MYCOPHENOLATE 500 MG TAB PO SCH ×2 (08:46→22:55)
[2021-01-13] MEDS: cefTRIAXone 1GM/50ML D5W 50 ML IV SCH (08:46)
[2021-01-13] MEDS: NEOMYCIN-BACITRACIN-POLYM 15GM TOP OINT TOP SCH ×2 (10:00→22:49)
[2021-01-13] MEDS: ATORVASTATIN 20 MG TAB PO SCH (22:48)
[2021-01-14 01:21] VITALS: BP 160/96
== END 2021-01-14 04:24 | disposition short-term general hospital (02) | DRG 291 ==
LOC: ER 15:48 → TELE 19:08 → TELE-CENTR 01-10 15:13
PROVIDERS: ADMIT Hospitalist; ATTEND Internal Medicine Cardiovascular Disease
PROC: 05HC33Z Insertion of Infusion Device into Left Basilic Vein, Percutaneous Approach (ICD-10-PCS; principal; 2021-01-09)
PROC: B54NZZA Ultrasonography of Left Upper Extremity Veins, Guidance (ICD-10-PCS; 2021-01-09)
PROC: 30233N1 Transfusion of Nonautologous Red Blood Cells into Peripheral Vein, Percutaneous Approach (ICD-10-PCS; 2021-01-10)
DX: I13.0 Hypertensive heart and chronic kidney disease with heart failure and stage 1 through stage 4 chronic kidney disease, or unspecified chronic kidney disease (principal); I50.43 Acute on chronic combined systolic (congestive) and diastolic (congestive) heart failure; L03.115 Cellulitis of right lower limb; N18.4 Chronic kidney disease, stage 4 (severe); I16.9 Hypertensive crisis, unspecified; I25.811 Atherosclerosis of native coronary artery of transplanted heart without angina pectoris; Z68.41 Body mass index [BMI] 40.0-44.9, adult; N17.9 Acute kidney failure, unspecified; Z94.1 Heart transplant status; I42.9 Cardiomyopathy, unspecified; D89.839 Cytokine release syndrome, grade unspecified; M10.9 Gout, unspecified; E11.40 Type 2 diabetes mellitus with diabetic neuropathy, unspecified; E11.51 Type 2 diabetes mellitus with diabetic peripheral angiopathy without gangrene; D64.9 Anemia, unspecified; E11.22 Type 2 diabetes mellitus with diabetic chronic kidney disease; E66.01 Morbid (severe) obesity due to excess calories; E78.5 Hyperlipidemia, unspecified; I87.2 Venous insufficiency (chronic) (peripheral); Z79.899 Other long term (current) drug therapy; Z82.49 Family history of ischemic heart disease and other diseases of the circulatory system; Z79.4 Long term (current) use of insulin; Z85.819 Personal history of malignant neoplasm of unspecified site of lip, oral cavity, and pharynx; Z20.822 Contact with and (suspected) exposure to COVID-19
CPT/HCPCS: 36415; 71045; 71046; 80048; 80053; 80061; 80307; 81001; 82306; 82570; 82728; 82962; 83036; 83605; 83615; 83735; 83880; 84100; 84156; 84443; 84484; 84550; 85014; 85018; 85025; 85379; 85610; 85730; 86141; 86850; 86900; 86901; 86920; 87040; 87077; 87086; 87186; 87205; 87426; 93005; 93306; 96365; 96366; 96374; 96375; 99291; G0378; G0463; J0696; J1100; J1815; J3490; J7060; J7517; P9047

== ENCOUNTER → 2021-02-08 | Outpatient (CLI) | payer MEDICARE, MEDICAID ==
[~2021-02-08] MED LIST changes: +ALL100T PO; -ALLO300T2 PO; +BUME1TAB3 PO; +CAR125T PO; -CARV25TA55 PO; +HYDR-4298 PO; +IRBE300T43 PO; +ISOS1TAB28 PO; -LINA5TAB PO; +MYCO250C4 PO; -POM; -POM PO; +POTA10TA32 PO; -PRE5T PO; +SPIR25TA8 PO; -TAM04C PO; +TAMS1CAP25 PO; +[UNRECOGNIZED DRUG - CODE] PO
[2021-02-08 11:40] LABS: BUN/Creatinine Ratio 13.5; Calcium 8.9 mg/dL (8.5-10.1); Potassium 3.8 mmol/L (3.5-5.1)
== END | disposition home or self-care (01) ==
LOC: LAB 08:19
PROVIDERS: ATTEND Internal Medicine Cardiovascular Disease
DX: I10 Essential (primary) hypertension (principal)
CPT/HCPCS: 36415; 80048

== ENCOUNTER → 2021-02-28 | Outpatient (CLI) | payer MEDICARE, MEDICAID ==
[2021-02-28] VITALS (11 sets, daily range): BP systolic 140–175; BP diastolic 71–91
[~2021-02-28] MED LIST changes: +CYANOCOBALAMIN (B-12) 1000 MCG/1 ML VIAL IM ONE; +CYANOCOBALAMIN (B-12) 1000 MCG/1 ML VIAL ONE; +DOBUTamine 1000MCG/ML 250 ML IV ONE; +FUROSEMIDE 20 MG/2 ML VIAL IV ONE; +FUROSEMIDE 40 MG/4 ML VIAL IV ONE; +FUROSEMIDE INJECTION 10 ML ONE; +MAGNESIUM OXIDE 400 MG TAB ONE; +MAGNESIUM OXIDE 400 MG TAB PO ONE; +POTASSIUM CHL 20 Meq TABLET PO ONE
[2021-02-28 10:31] LABS: Eosinophils # (auto) 0.1 10 ^3/uL (0-0.8); Hemoglobin 7.6 g/dL (13.5-17.5); Lymphocytes # (auto) 0.9 10 ^3/uL (0.4-5.4); Monocytes # (auto) 0.5 10 ^3/uL (0-1.3)
[2021-02-28 10:33] LABS: Basophils # (auto) 0 10 ^3/uL (0-0.2); Basophils % (auto) 0.6 % (0.0-2.0); Eosinophils % (auto) 1.1 % (0.0-7.0); Hematocrit 22.9 % (41.0-53.0); Lymphocytes % (auto) 11.5 % (10.0-50.0); Mean Corpuscular Hemoglobin 30.2 pg (28.0-32.0); Mean Corpuscular Volume 91.3 fL (80.0-100.0); Monocytes % (auto) 5.9 % (0.0-12.0); Neutrophils # (auto) 6.6 10 ^3/uL (1.6-8.6); Neutrophils % (auto) 80.9 % (37.0-80.0); Nucleated Red Blood Cells % 0.1 %; Red Blood Cells 2.51 10^6/uL (4.5-5.90); Red Cell Distribution Width 18.9 % (11.8-14.3); White Blood Cell 8.2 10^3/uL (4.4-10.8)
[2021-02-28 10:49] LABS: Potassium 4.2 mmol/L (3.5-5.1)
[2021-02-28 10:59] LABS: Albumin 2.7 g/dL (3.4-5.0); BUN/Creatinine Ratio 11.2; Bilirubin, Total 0.3 mg/dL (0.2-1.0); Calcium 8.4 mg/dL (8.5-10.1); Magnesium 1.9 mg/dL (1.6-2.6); Total Protein 6.5 g/dL (6.4-8.2)
== END | disposition home or self-care (01) ==
LOC: CHF HDHVI 08:15
PROVIDERS: ATTEND Internal Medicine Cardiovascular Disease
DX: I13.0 Hypertensive heart and chronic kidney disease with heart failure and stage 1 through stage 4 chronic kidney disease, or unspecified chronic kidney disease (principal); E11.22 Type 2 diabetes mellitus with diabetic chronic kidney disease; I50.23 Acute on chronic systolic (congestive) heart failure; N18.4 Chronic kidney disease, stage 4 (severe); I25.10 Atherosclerotic heart disease of native coronary artery without angina pectoris; E11.40 Type 2 diabetes mellitus with diabetic neuropathy, unspecified; E11.51 Type 2 diabetes mellitus with diabetic peripheral angiopathy without gangrene; E78.5 Hyperlipidemia, unspecified; E66.01 Morbid (severe) obesity due to excess calories; Z68.41 Body mass index [BMI] 40.0-44.9, adult; Z79.4 Long term (current) use of insulin; Z79.899 Other long term (current) drug therapy
CPT/HCPCS: 36415; 80053; 83735; 83880; 84403; 85025; 96365; 96366; 96372; 96375; 96376; G0463; J1250; J1940; J3420

== ENCOUNTER → 2021-03-07 | Outpatient (CLI) | payer MEDICARE, MEDICAID ==
[2021-03-07] VITALS (16 sets, daily range): BP systolic 121–182; BP diastolic 70–95
[~2021-03-07] VITALS: Ht 30.5 cm; Wt 101.8 kg
[~2021-03-07] MED LIST changes: +BUMETANIDE 1mg/4ml VIAL (0.25mg/ml) ONE; +BUMETANIDE 2.5mg/10ml (0.25 mg/ml) INJ IV ONE; -FUROSEMIDE 20 MG/2 ML VIAL IV ONE; -FUROSEMIDE 40 MG/4 ML VIAL IV ONE; -FUROSEMIDE INJECTION 10 ML ONE; +MAGNESIUM SULFATE 1GM/100ML 100 ML IV ONE; +MAGNESIUM SULFATE 1GM/100ML 300 ML IV ONE; -POTASSIUM CHL 20 Meq TABLET PO ONE
[2021-03-07 11:25] LABS: Basophils # (auto) 0.1 10 ^3/uL (0-0.2); Eosinophils # (auto) 0 10 ^3/uL (0-0.8); Lymphocytes # (auto) 0.6 10 ^3/uL (0.4-5.4); Neutrophils % (auto) 80.7 % (37.0-80.0); Nucleated Red Blood Cells % 0.1 %
[2021-03-07 11:31] LABS: Eosinophils % (auto) 0.8 % (0.0-7.0); Hematocrit 22.3 % (41.0-53.0); Hemoglobin 7.4 g/dL (13.5-17.5); Lymphocytes % (auto) 10.1 % (10.0-50.0); Mean Corpuscular Volume 90.9 fL (80.0-100.0); Monocytes # (auto) 0.4 10 ^3/uL (0-1.3); Monocytes % (auto) 7.4 % (0.0-12.0); Neutrophils # (auto) 4.8 10 ^3/uL (1.6-8.6); Red Blood Cells 2.46 10^6/uL (4.5-5.90); Red Cell Distribution Width 18.9 % (11.8-14.3); White Blood Cell 5.9 10^3/uL (4.4-10.8)
[2021-03-07 11:39] LABS: Potassium 4.5 mmol/L (3.5-5.1)
[2021-03-07 11:59] LABS: Magnesium 1.2 mg/dL (1.6-2.6)
== END | disposition home or self-care (01) ==
LOC: CHF HDHVI 08:19
PROVIDERS: ATTEND Internal Medicine Cardiovascular Disease
DX: I13.0 Hypertensive heart and chronic kidney disease with heart failure and stage 1 through stage 4 chronic kidney disease, or unspecified chronic kidney disease (principal); E11.22 Type 2 diabetes mellitus with diabetic chronic kidney disease; I50.42 Chronic combined systolic (congestive) and diastolic (congestive) heart failure; N18.4 Chronic kidney disease, stage 4 (severe); I25.10 Atherosclerotic heart disease of native coronary artery without angina pectoris; E11.40 Type 2 diabetes mellitus with diabetic neuropathy, unspecified; E11.51 Type 2 diabetes mellitus with diabetic peripheral angiopathy without gangrene; E78.5 Hyperlipidemia, unspecified; E66.01 Morbid (severe) obesity due to excess calories; Z68.41 Body mass index [BMI] 40.0-44.9, adult; Z79.4 Long term (current) use of insulin; Z79.899 Other long term (current) drug therapy; Z85.819 Personal history of malignant neoplasm of unspecified site of lip, oral cavity, and pharynx
CPT/HCPCS: 36415; 82565; 83735; 83880; 84132; 84520; 85025; 96365; 96366; 96367; 96372; 96375; G0463; J1250; J3420; J3475; J3490

== ENCOUNTER → 2021-03-10 | Outpatient (CLI) | payer MEDICARE, MEDICAID ==
[~2021-03-10] VITALS: Ht 1 cm; Wt 102.0 kg
[2021-03-10] VITALS (11 sets, daily range): BP systolic 132–167; BP diastolic 64–92
[~2021-03-10] MED LIST changes: -BUMETANIDE 1mg/4ml VIAL (0.25mg/ml) ONE; -BUMETANIDE 2.5mg/10ml (0.25 mg/ml) INJ IV ONE; -CYANOCOBALAMIN (B-12) 1000 MCG/1 ML VIAL IM ONE; -CYANOCOBALAMIN (B-12) 1000 MCG/1 ML VIAL ONE; -MAGNESIUM SULFATE 1GM/100ML 300 ML IV ONE
[2021-03-10 11:35] LABS: Basophils # (auto) 0 10 ^3/uL (0-0.2); Basophils % (auto) 0.4 % (0.0-2.0); Eosinophils # (auto) 0.1 10 ^3/uL (0-0.8); Eosinophils % (auto) 1.2 % (0.0-7.0); Hematocrit 21.2 % (41.0-53.0); Lymphocytes # (auto) 0.7 10 ^3/uL (0.4-5.4); Mean Corpuscular Hemoglobin 29.2 pg (28.0-32.0); Mean Corpuscular Hgb Conc. 32.9 g/dL (32.0-36.0); Mean Corpuscular Volume 88.7 fL (80.0-100.0); Monocytes # (auto) 0.5 10 ^3/uL (0-1.3); Neutrophils # (auto) 4.2 10 ^3/uL (1.6-8.6); Neutrophils % (auto) 76.4 % (37.0-80.0); Red Blood Cells 2.39 10^6/uL (4.5-5.90); Red Cell Distribution Width 19.7 % (11.8-14.3); White Blood Cell 5.5 10^3/uL (4.4-10.8)
[2021-03-10 12:05] LABS: BUN/Creatinine Ratio 12.5; Calcium 8.7 mg/dL (8.5-10.1); Magnesium 1.7 mg/dL (1.6-2.6); Potassium 4.2 mmol/L (3.5-5.1)
== END | disposition home or self-care (01) ==
LOC: CHF HDHVI 08:24
PROVIDERS: ATTEND Internal Medicine Cardiovascular Disease
DX: I13.0 Hypertensive heart and chronic kidney disease with heart failure and stage 1 through stage 4 chronic kidney disease, or unspecified chronic kidney disease (principal); E11.22 Type 2 diabetes mellitus with diabetic chronic kidney disease; I50.42 Chronic combined systolic (congestive) and diastolic (congestive) heart failure; N18.4 Chronic kidney disease, stage 4 (severe); I25.10 Atherosclerotic heart disease of native coronary artery without angina pectoris; E11.40 Type 2 diabetes mellitus with diabetic neuropathy, unspecified; E11.51 Type 2 diabetes mellitus with diabetic peripheral angiopathy without gangrene; E78.5 Hyperlipidemia, unspecified; E66.01 Morbid (severe) obesity due to excess calories; Z68.41 Body mass index [BMI] 40.0-44.9, adult; Z85.819 Personal history of malignant neoplasm of unspecified site of lip, oral cavity, and pharynx; Z79.4 Long term (current) use of insulin; Z79.899 Other long term (current) drug therapy
CPT/HCPCS: 36415; 80048; 83735; 83880; 85025; 96365; 96366; 96367; G0463; J1250; J3475

== ENCOUNTER → 2021-03-21 | Outpatient (CLI) | payer MEDICARE, MEDICAID ==
[2021-03-21] VITALS (11 sets, daily range): BP systolic 147–184; BP diastolic 78–91
[~2021-03-21] MED LIST changes: -MAGNESIUM OXIDE 400 MG TAB ONE; -MAGNESIUM OXIDE 400 MG TAB PO ONE; -MAGNESIUM SULFATE 1GM/100ML 100 ML IV ONE
[2021-03-21 11:14] LABS: Hematocrit 19.8 % (41.0-53.0); Mean Corpuscular Hemoglobin 29.9 pg (28.0-32.0); Mean Corpuscular Volume 90.5 fL (80.0-100.0); Red Blood Cells 2.19 10^6/uL (4.5-5.90); Red Cell Distribution Width 19.8 % (11.8-14.3)
[2021-03-21 11:40] LABS: Hemoglobin 6.5 g/dL (13.5-17.5)
[2021-03-21 11:41] LABS: Band Neutrophils % (manual) 0; Basophils % (manual) 0 (0.0-2.0); Blast Cells 0; Metamyelocytes % 0; Monocytes % (manual) 0 (0-12); Myelocytes % 0; Promyelocytes % 0; Reactive Lymphocytes 0
[2021-03-21 12:13] LABS: Eosinophils % (manual) 5 (0-7); Lymphocytes % (manual) 13 (10.0-50.0)
== END | disposition home or self-care (01) ==
LOC: CHF HDHVI 08:06
PROVIDERS: ATTEND Internal Medicine Cardiovascular Disease
DX: I13.0 Hypertensive heart and chronic kidney disease with heart failure and stage 1 through stage 4 chronic kidney disease, or unspecified chronic kidney disease (principal); E11.22 Type 2 diabetes mellitus with diabetic chronic kidney disease; I50.42 Chronic combined systolic (congestive) and diastolic (congestive) heart failure; N18.4 Chronic kidney disease, stage 4 (severe); I25.10 Atherosclerotic heart disease of native coronary artery without angina pectoris; E11.40 Type 2 diabetes mellitus with diabetic neuropathy, unspecified; E11.51 Type 2 diabetes mellitus with diabetic peripheral angiopathy without gangrene; E78.5 Hyperlipidemia, unspecified; E66.01 Morbid (severe) obesity due to excess calories; Z68.41 Body mass index [BMI] 40.0-44.9, adult; Z85.819 Personal history of malignant neoplasm of unspecified site of lip, oral cavity, and pharynx; Z79.4 Long term (current) use of insulin; Z79.899 Other long term (current) drug therapy
CPT/HCPCS: 36415; 82565; 83036; 83735; 83880; 84132; 84520; 85007; 85027; 96365; 96366; G0463; J1250

== ENCOUNTER 2021-03-23 08:04 | Day surgery (SDC) | payer OTHER, MEDICARE, MEDICAID ==
[2021-03-22 11:57] LABS: % Iron Saturation 14.5 % (20-55)
[2021-03-23] VITALS (15 sets, daily range): BP systolic 122–152; BP diastolic 62–85
[~2021-03-23] VITALS: Ht 182.9 cm; Wt 104.3 kg
[~2021-03-23 08:04] MED LIST changes: -DOBUTamine 1000MCG/ML 250 ML IV ONE
[2021-03-23 14:33] LABS: Basophils # (auto) 0 10 ^3/uL (0-0.2); Basophils % (auto) 0.7 % (0.0-2.0); Eosinophils # (auto) 0 10 ^3/uL (0-0.8); Eosinophils % (auto) 0.4 % (0.0-7.0); Hematocrit 22.6 % (41.0-53.0); Hemoglobin 7.6 g/dL (13.5-17.5); Lymphocytes # (auto) 0.4 10 ^3/uL (0.4-5.4); Lymphocytes % (auto) 6.2 % (10.0-50.0); Mean Corpuscular Hgb Conc. 33.7 g/dL (32.0-36.0); Monocytes # (auto) 0.4 10 ^3/uL (0-1.3); Monocytes % (auto) 5.7 % (0.0-12.0); Neutrophils # (auto) 5.4 10 ^3/uL (1.6-8.6); Red Blood Cells 2.54 10^6/uL (4.5-5.90); Red Cell Distribution Width 19.1 % (11.8-14.3); White Blood Cell 6.2 10^3/uL (4.4-10.8)
== END 2021-03-23 16:02 | disposition home or self-care (01) ==
LOC: CATH 08:04
PROVIDERS: ATTEND Internal Medicine Cardiovascular Disease
DX: D64.9 Anemia, unspecified (principal); I50.9 Heart failure, unspecified; Z82.49 Family history of ischemic heart disease and other diseases of the circulatory system; Z20.822 Contact with and (suspected) exposure to COVID-19
CPT/HCPCS: 36415; 36430; 80197; 83540; 83550; 83735; 85025; 85045; 86850; 86900; 86901; 86920; P9016; U0003

== ENCOUNTER → 2021-03-24 | Outpatient (CLI) | payer OTHER, MEDICARE ==
[~2021-03-24] VITALS: Ht 165.1 cm; Wt 105.1 kg
[2021-03-24] VITALS (10 sets, daily range): BP systolic 121–178; BP diastolic 54–95
[~2021-03-24] MED LIST changes: +CYANOCOBALAMIN (B-12) 1000 MCG/1 ML VIAL IM ONE; +CYANOCOBALAMIN (B-12) 1000 MCG/1 ML VIAL ONE; +DOBUTamine 1000MCG/ML 250 ML IV ONE; +MAGNESIUM SULFATE 1GM/100ML 100 ML IV ONE; +MAGNESIUM SULFATE 1GM/100ML 200 ML IV ONE; +SODIUM FERR GLUC 62.5MG/5ML 125 MG in SODIUM CHL 0.9% 100 ML IV ONE; +SODIUM FERRIC GLUC CPLEX 62.5MG/5ML VIAL IV ONE; +TESTOSTERONE CYPIONATE 200 MG/ML 1ML VIAL IM ONE
== END | disposition home or self-care (01) ==
LOC: CHF HDHVI 08:58
PROVIDERS: ATTEND Internal Medicine Cardiovascular Disease
DX: I13.0 Hypertensive heart and chronic kidney disease with heart failure and stage 1 through stage 4 chronic kidney disease, or unspecified chronic kidney disease (principal); E11.22 Type 2 diabetes mellitus with diabetic chronic kidney disease; I50.42 Chronic combined systolic (congestive) and diastolic (congestive) heart failure; N18.4 Chronic kidney disease, stage 4 (severe); E83.42 Hypomagnesemia; D50.9 Iron deficiency anemia, unspecified; I25.10 Atherosclerotic heart disease of native coronary artery without angina pectoris; E11.40 Type 2 diabetes mellitus with diabetic neuropathy, unspecified; E11.51 Type 2 diabetes mellitus with diabetic peripheral angiopathy without gangrene; E78.5 Hyperlipidemia, unspecified; E66.01 Morbid (severe) obesity due to excess calories; Z68.41 Body mass index [BMI] 40.0-44.9, adult; Z79.4 Long term (current) use of insulin; Z79.899 Other long term (current) drug therapy; Z85.819 Personal history of malignant neoplasm of unspecified site of lip, oral cavity, and pharynx
CPT/HCPCS: 96365; 96366; 96367; 96372; G0463; J1071; J1250; J2916; J3420; J3475

== ENCOUNTER → 2021-03-28 | Outpatient (CLI) | payer OTHER, MEDICARE, MEDICAID ==
[2021-03-28] VITALS (7 sets, daily range): BP systolic 146–172; BP diastolic 80–94
[~2021-03-28] MED LIST changes: -CYANOCOBALAMIN (B-12) 1000 MCG/1 ML VIAL IM ONE; -CYANOCOBALAMIN (B-12) 1000 MCG/1 ML VIAL ONE; -MAGNESIUM SULFATE 1GM/100ML 100 ML IV ONE; -MAGNESIUM SULFATE 1GM/100ML 200 ML IV ONE; -SODIUM FERR GLUC 62.5MG/5ML 125 MG in SODIUM CHL 0.9% 100 ML IV ONE; -SODIUM FERRIC GLUC CPLEX 62.5MG/5ML VIAL IV ONE; -TESTOSTERONE CYPIONATE 200 MG/ML 1ML VIAL IM ONE
[2021-03-28 09:14] LABS: Eosinophils # (auto) 0.1 10 ^3/uL (0-0.8); Lymphocytes # (auto) 0.7 10 ^3/uL (0.4-5.4); Monocytes # (auto) 0.6 10 ^3/uL (0-1.3); Neutrophils # (auto) 5.9 10 ^3/uL (1.6-8.6); White Blood Cell 7.3 10^3/uL (4.4-10.8)
[2021-03-28 09:16] LABS: Basophils # (auto) 0 10 ^3/uL (0-0.2); Basophils % (auto) 0.5 % (0.0-2.0); Eosinophils % (auto) 1.1 % (0.0-7.0); Hematocrit 23.3 % (41.0-53.0); Hemoglobin 7.9 g/dL (13.5-17.5); Lymphocytes % (auto) 9.7 % (10.0-50.0); Mean Corpuscular Hemoglobin 30.3 pg (28.0-32.0); Mean Corpuscular Hgb Conc. 33.7 g/dL (32.0-36.0); Mean Corpuscular Volume 89.8 fL (80.0-100.0); Monocytes % (auto) 7.7 % (0.0-12.0); Red Blood Cells 2.59 10^6/uL (4.5-5.90)
[2021-03-28 09:19] LABS: Red Cell Distribution Width 19.7 % (11.8-14.3)
[2021-03-28 09:22] LABS: BUN/Creatinine Ratio 13.7; Calcium 9.1 mg/dL (8.5-10.1); Magnesium 1.9 mg/dL (1.6-2.6); Potassium 4.3 mmol/L (3.5-5.1)
== END | disposition home or self-care (01) ==
LOC: CHF HDHVI 08:41
PROVIDERS: ATTEND Internal Medicine Cardiovascular Disease
DX: I13.0 Hypertensive heart and chronic kidney disease with heart failure and stage 1 through stage 4 chronic kidney disease, or unspecified chronic kidney disease (principal); E11.22 Type 2 diabetes mellitus with diabetic chronic kidney disease; I50.42 Chronic combined systolic (congestive) and diastolic (congestive) heart failure; N18.4 Chronic kidney disease, stage 4 (severe); I25.10 Atherosclerotic heart disease of native coronary artery without angina pectoris; E11.40 Type 2 diabetes mellitus with diabetic neuropathy, unspecified; E11.51 Type 2 diabetes mellitus with diabetic peripheral angiopathy without gangrene; E78.5 Hyperlipidemia, unspecified; E66.01 Morbid (severe) obesity due to excess calories; Z68.41 Body mass index [BMI] 40.0-44.9, adult; Z79.4 Long term (current) use of insulin; Z79.899 Other long term (current) drug therapy; Z85.819 Personal history of malignant neoplasm of unspecified site of lip, oral cavity, and pharynx
CPT/HCPCS: 36415; 80048; 83735; 83880; 85025; 96365; 96366; G0463; J1250

== ENCOUNTER → 2021-03-31 | Outpatient (CLI) | payer OTHER, MEDICARE, MEDICAID ==
[~2021-03-31] VITALS: Ht 30.5 cm; Wt 99.8 kg
[2021-03-31] VITALS (8 sets, daily range): BP systolic 140–174; BP diastolic 71–91
[~2021-03-31] MED LIST changes: +CYANOCOBALAMIN (B-12) 1000 MCG/1 ML VIAL IM ONE; +CYANOCOBALAMIN (B-12) 1000 MCG/1 ML VIAL ONE; +DOBUTamine 1000MCG/ML 250 ML IV SCH; +SODIUM FERR GLUC 62.5MG/5ML 125 MG in SODIUM CHL 0.9% 100 ML IV ONE; +SODIUM FERRIC GLUC CPLEX 62.5MG/5ML VIAL IV ONE
[2021-03-31 12:26] LABS: Basophils # (auto) 0 10 ^3/uL (0-0.2); Basophils % (auto) 0.7 % (0.0-2.0); Eosinophils # (auto) 0.1 10 ^3/uL (0-0.8); Hemoglobin 7.9 g/dL (13.5-17.5); Lymphocytes # (auto) 0.7 10 ^3/uL (0.4-5.4); Lymphocytes % (auto) 10.2 % (10.0-50.0); Monocytes # (auto) 0.5 10 ^3/uL (0-1.3); White Blood Cell 6.5 10^3/uL (4.4-10.8)
[2021-03-31 12:29] LABS: Eosinophils % (auto) 1.6 % (0.0-7.0); Hematocrit 23.8 % (41.0-53.0); Mean Corpuscular Hemoglobin 30.4 pg (28.0-32.0); Mean Corpuscular Hgb Conc. 33.1 g/dL (32.0-36.0); Mean Corpuscular Volume 91.8 fL (80.0-100.0); Monocytes % (auto) 7.5 % (0.0-12.0); Neutrophils # (auto) 5.2 10 ^3/uL (1.6-8.6); Red Blood Cells 2.59 10^6/uL (4.5-5.90); Red Cell Distribution Width 19.3 % (11.8-14.3)
[2021-03-31 12:39] LABS: BUN/Creatinine Ratio 11.7; Calcium 8.7 mg/dL (8.5-10.1); Magnesium 1.5 mg/dL (1.6-2.6); Potassium 4.4 mmol/L (3.5-5.1)
[2021-03-31 12:42] LABS: Bilirubin, Total 0.4 mg/dL (0.2-1.0); Total Protein 6.4 g/dL (6.4-8.2)
== END | disposition home or self-care (01) ==
LOC: CHF HDHVI 08:24
PROVIDERS: ATTEND Internal Medicine Cardiovascular Disease
DX: D50.9 Iron deficiency anemia, unspecified (principal); I13.0 Hypertensive heart and chronic kidney disease with heart failure and stage 1 through stage 4 chronic kidney disease, or unspecified chronic kidney disease; E11.22 Type 2 diabetes mellitus with diabetic chronic kidney disease; I50.42 Chronic combined systolic (congestive) and diastolic (congestive) heart failure; N18.4 Chronic kidney disease, stage 4 (severe); I25.10 Atherosclerotic heart disease of native coronary artery without angina pectoris; E11.40 Type 2 diabetes mellitus with diabetic neuropathy, unspecified; E11.51 Type 2 diabetes mellitus with diabetic peripheral angiopathy without gangrene; E78.5 Hyperlipidemia, unspecified; E66.01 Morbid (severe) obesity due to excess calories; Z68.41 Body mass index [BMI] 40.0-44.9, adult; Z79.4 Long term (current) use of insulin; Z79.899 Other long term (current) drug therapy; Z85.819 Personal history of malignant neoplasm of unspecified site of lip, oral cavity, and pharynx
CPT/HCPCS: 36415; 80053; 83735; 83880; 85025; 96365; 96366; 96367; 96372; G0463; J1250; J2916; J3420

== ENCOUNTER → 2021-04-04 | Outpatient (CLI) | payer OTHER, MEDICARE, MEDICAID ==
[2021-04-04] VITALS (8 sets, daily range): BP systolic 162–185; BP diastolic 83–97
[~2021-04-04] MED LIST changes: -CYANOCOBALAMIN (B-12) 1000 MCG/1 ML VIAL IM ONE; -CYANOCOBALAMIN (B-12) 1000 MCG/1 ML VIAL ONE; -DOBUTamine 1000MCG/ML 250 ML IV SCH; +LIDOCAINE 1% (LOCAL ANESTH.) PF 5ml SDV ONE; -SODIUM FERRIC GLUC CPLEX 62.5MG/5ML VIAL IV ONE; +cefTRIAXone SOD 1,000 MG VL ONE
[2021-04-04 09:21] LABS: Basophils # (auto) 0 10 ^3/uL (0-0.2); Eosinophils # (auto) 0.1 10 ^3/uL (0-0.8); Eosinophils % (auto) 1.1 % (0.0-7.0); Hematocrit 23.8 % (41.0-53.0); Lymphocytes # (auto) 0.6 10 ^3/uL (0.4-5.4); Neutrophils # (auto) 6.1 10 ^3/uL (1.6-8.6); Red Blood Cells 2.61 10^6/uL (4.5-5.90)
[2021-04-04 09:23] LABS: Basophils % (auto) 0.5 % (0.0-2.0); Hemoglobin 7.7 g/dL (13.5-17.5); Mean Corpuscular Hemoglobin 29.6 pg (28.0-32.0); Mean Corpuscular Hgb Conc. 32.5 g/dL (32.0-36.0); Mean Corpuscular Volume 91.2 fL (80.0-100.0); Monocytes # (auto) 0.4 10 ^3/uL (0-1.3); Monocytes % (auto) 6.2 % (0.0-12.0); Neutrophils % (auto) 84.2 % (37.0-80.0); Red Cell Distribution Width 19.5 % (11.8-14.3); White Blood Cell 7.2 10^3/uL (4.4-10.8)
[2021-04-04 09:45] LABS: BUN/Creatinine Ratio 13.2; Calcium 8.8 mg/dL (8.5-10.1); Magnesium 1.6 mg/dL (1.6-2.6); Potassium 4.4 mmol/L (3.5-5.1)
== END | disposition home or self-care (01) ==
LOC: CHF HDHVI 08:24
PROVIDERS: ATTEND Internal Medicine Cardiovascular Disease
DX: I13.0 Hypertensive heart and chronic kidney disease with heart failure and stage 1 through stage 4 chronic kidney disease, or unspecified chronic kidney disease (principal); E11.22 Type 2 diabetes mellitus with diabetic chronic kidney disease; I50.42 Chronic combined systolic (congestive) and diastolic (congestive) heart failure; N18.4 Chronic kidney disease, stage 4 (severe); I25.10 Atherosclerotic heart disease of native coronary artery without angina pectoris; E11.40 Type 2 diabetes mellitus with diabetic neuropathy, unspecified; E11.51 Type 2 diabetes mellitus with diabetic peripheral angiopathy without gangrene; E78.5 Hyperlipidemia, unspecified; E66.01 Morbid (severe) obesity due to excess calories; Z68.41 Body mass index [BMI] 40.0-44.9, adult; Z79.4 Long term (current) use of insulin; Z79.899 Other long term (current) drug therapy; Z85.819 Personal history of malignant neoplasm of unspecified site of lip, oral cavity, and pharynx
CPT/HCPCS: 36415; 80048; 83735; 83880; 85025; 96365; 96366; G0463; J1250

== ENCOUNTER → 2021-04-07 | Outpatient (CLI) | payer OTHER, MEDICARE, MEDICAID ==
[~2021-04-07] VITALS: Ht 165.1 cm; Wt 104.7 kg
[~2021-04-07] MED LIST changes: -DOBUTamine 1000MCG/ML 250 ML IV ONE; -LIDOCAINE 1% (LOCAL ANESTH.) PF 5ml SDV ONE; +MAGNESIUM SULFATE 1GM/100ML 200 ML IV ONE; +SODIUM FERRIC GLUC CPLEX 62.5MG/5ML VIAL IV ONE; -cefTRIAXone SOD 1,000 MG VL ONE
[2021-04-07 09:00] VITALS: BP 167/87
[2021-04-07 09:30] VITALS: BP 157/89
[2021-04-07] MEDS: MAGNESIUM SULFATE 1GM/100ML 100 ML IV SCH ×2 (10:22→11:18)
[2021-04-07 10:30] VITALS: BP 141/88
[2021-04-07 11:30] VITALS: BP 145/86
[2021-04-07 12:45] VITALS: BP 145/80
== END | disposition home or self-care (01) ==
LOC: CHF HDHVI 08:43
PROVIDERS: ATTEND Internal Medicine Cardiovascular Disease
DX: D50.9 Iron deficiency anemia, unspecified (principal); E83.42 Hypomagnesemia; I13.0 Hypertensive heart and chronic kidney disease with heart failure and stage 1 through stage 4 chronic kidney disease, or unspecified chronic kidney disease; E11.22 Type 2 diabetes mellitus with diabetic chronic kidney disease; I50.42 Chronic combined systolic (congestive) and diastolic (congestive) heart failure; N18.4 Chronic kidney disease, stage 4 (severe); I25.10 Atherosclerotic heart disease of native coronary artery without angina pectoris; E11.40 Type 2 diabetes mellitus with diabetic neuropathy, unspecified; E11.51 Type 2 diabetes mellitus with diabetic peripheral angiopathy without gangrene; E78.5 Hyperlipidemia, unspecified; Z68.41 Body mass index [BMI] 40.0-44.9, adult; E66.01 Morbid (severe) obesity due to excess calories; Z79.4 Long term (current) use of insulin; Z79.899 Other long term (current) drug therapy; Z85.819 Personal history of malignant neoplasm of unspecified site of lip, oral cavity, and pharynx
CPT/HCPCS: 96365; 96366; 96367; G0463; J2916; J3475

== ENCOUNTER → 2021-04-14 | Outpatient (CLI) | payer OTHER, MEDICARE, MEDICAID ==
[2021-04-14] VITALS (9 sets, daily range): BP systolic 170–188; BP diastolic 87–99
[~2021-04-14] MED LIST changes: +BUMETANIDE 2.5mg/10ml (0.25 mg/ml) INJ IV ONE; +BUMETANIDE INJECTION 20 ML ONE; +DOBUTamine 1000MCG/ML 250 ML IV ONE; -MAGNESIUM SULFATE 1GM/100ML 200 ML IV ONE; +MULTIPLE VIT 10 ML IV ONE; +POTASSIUM CHL 20 Meq TABLET PO ONE; +cloNIDine HCL 0.1 MG TAB ONE; +cloNIDine HCL 0.1 MG TAB PO ONE
[2021-04-14 09:36] LABS: Hematocrit 24.1 % (41.0-53.0); Mean Corpuscular Volume 91.1 fL (80.0-100.0)
[2021-04-14 09:38] LABS: Basophils # (auto) 0.1 10 ^3/uL (0-0.2); Basophils % (auto) 1.4 % (0.0-2.0); Eosinophils # (auto) 0.1 10 ^3/uL (0-0.8); Eosinophils % (auto) 1.4 % (0.0-7.0); Hemoglobin 7.9 g/dL (13.5-17.5); Lymphocytes # (auto) 0.6 10 ^3/uL (0.4-5.4); Lymphocytes % (auto) 9.1 % (10.0-50.0); Mean Corpuscular Hemoglobin 29.9 pg (28.0-32.0); Mean Corpuscular Hgb Conc. 32.8 g/dL (32.0-36.0); Monocytes # (auto) 0.3 10 ^3/uL (0-1.3); Monocytes % (auto) 4.6 % (0.0-12.0); Neutrophils # (auto) 5.2 10 ^3/uL (1.6-8.6); Neutrophils % (auto) 83.5 % (37.0-80.0); Nucleated Red Blood Cells % 0.1 %; Red Blood Cells 2.65 10^6/uL (4.5-5.90); Red Cell Distribution Width 19.1 % (11.8-14.3); White Blood Cell 6.3 10^3/uL (4.4-10.8)
[2021-04-14 09:54] LABS: BUN/Creatinine Ratio 14.2; Calcium 9.7 mg/dL (8.5-10.1); Magnesium 1.7 mg/dL (1.6-2.6); Potassium 4.4 mmol/L (3.5-5.1)
== END | disposition home or self-care (01) ==
LOC: CHF HDHVI 08:25
PROVIDERS: ATTEND Internal Medicine Cardiovascular Disease
DX: I13.0 Hypertensive heart and chronic kidney disease with heart failure and stage 1 through stage 4 chronic kidney disease, or unspecified chronic kidney disease (principal); E11.22 Type 2 diabetes mellitus with diabetic chronic kidney disease; I50.42 Chronic combined systolic (congestive) and diastolic (congestive) heart failure; N18.4 Chronic kidney disease, stage 4 (severe); D51.9 Vitamin B12 deficiency anemia, unspecified; J98.11 Atelectasis; I70.0 Atherosclerosis of aorta; I25.10 Atherosclerotic heart disease of native coronary artery without angina pectoris; E11.40 Type 2 diabetes mellitus with diabetic neuropathy, unspecified; E11.51 Type 2 diabetes mellitus with diabetic peripheral angiopathy without gangrene; E78.5 Hyperlipidemia, unspecified; E66.01 Morbid (severe) obesity due to excess calories; Z68.41 Body mass index [BMI] 40.0-44.9, adult; Z79.4 Long term (current) use of insulin; Z79.899 Other long term (current) drug therapy; Z85.819 Personal history of malignant neoplasm of unspecified site of lip, oral cavity, and pharynx
CPT/HCPCS: 36415; 80048; 83735; 83880; 85025; 96365; 96366; 96367; 96375; G0463; J1250; J2916

== ENCOUNTER → 2021-04-21 | Outpatient (CLI) | payer OTHER, MEDICARE, MEDICAID ==
[2021-04-21] VITALS (10 sets, daily range): BP systolic 150–180; BP diastolic 84–98
[~2021-04-21] MED LIST changes: -BUMETANIDE 2.5mg/10ml (0.25 mg/ml) INJ IV ONE; -BUMETANIDE INJECTION 20 ML ONE; +MAGNESIUM OXIDE 400 MG TAB ONE; +MAGNESIUM OXIDE 400 MG TAB PO ONE; -MULTIPLE VIT 10 ML IV ONE; -POTASSIUM CHL 20 Meq TABLET PO ONE; -SODIUM FERR GLUC 62.5MG/5ML 125 MG in SODIUM CHL 0.9% 100 ML IV ONE; -SODIUM FERRIC GLUC CPLEX 62.5MG/5ML VIAL IV ONE; -cloNIDine HCL 0.1 MG TAB ONE; -cloNIDine HCL 0.1 MG TAB PO ONE
[2021-04-21 09:50] LABS: Basophils # (auto) 0.1 10 ^3/uL (0-0.2); Basophils % (auto) 2.2 % (0.0-2.0); Eosinophils # (auto) 0.1 10 ^3/uL (0-0.8); Eosinophils % (auto) 1.5 % (0.0-7.0); Hematocrit 22.6 % (41.0-53.0); Hemoglobin 7.7 g/dL (13.5-17.5); Lymphocytes # (auto) 0.6 10 ^3/uL (0.4-5.4); Lymphocytes % (auto) 11.6 % (10.0-50.0); Mean Corpuscular Hemoglobin 30.4 pg (28.0-32.0); Mean Corpuscular Hgb Conc. 33.8 g/dL (32.0-36.0); Mean Corpuscular Volume 89.7 fL (80.0-100.0); Monocytes # (auto) 0.4 10 ^3/uL (0-1.3); Monocytes % (auto) 8.4 % (0.0-12.0); Neutrophils # (auto) 3.9 10 ^3/uL (1.6-8.6); Neutrophils % (auto) 76.3 % (37.0-80.0); Nucleated Red Blood Cells % 0.1 %; Red Blood Cells 2.52 10^6/uL (4.5-5.90); Red Cell Distribution Width 17.5 % (11.8-14.3); White Blood Cell 5.1 10^3/uL (4.4-10.8)
[2021-04-21 10:10] LABS: BUN/Creatinine Ratio 11.3; Calcium 8.8 mg/dL (8.5-10.1); Magnesium 1.4 mg/dL (1.6-2.6); Potassium 3.7 mmol/L (3.5-5.1)
[2021-04-21 10:13] LABS: % Iron Saturation 20.2 % (20-55)
== END | disposition home or self-care (01) ==
LOC: CHF HDHVI 08:24
PROVIDERS: ATTEND Internal Medicine Cardiovascular Disease
DX: I13.0 Hypertensive heart and chronic kidney disease with heart failure and stage 1 through stage 4 chronic kidney disease, or unspecified chronic kidney disease (principal); E11.22 Type 2 diabetes mellitus with diabetic chronic kidney disease; N18.4 Chronic kidney disease, stage 4 (severe); I50.42 Chronic combined systolic (congestive) and diastolic (congestive) heart failure; J98.11 Atelectasis; I70.0 Atherosclerosis of aorta; I25.10 Atherosclerotic heart disease of native coronary artery without angina pectoris; E78.5 Hyperlipidemia, unspecified; E83.42 Hypomagnesemia; E11.40 Type 2 diabetes mellitus with diabetic neuropathy, unspecified; E11.51 Type 2 diabetes mellitus with diabetic peripheral angiopathy without gangrene; E29.1 Testicular hypofunction; D51.9 Vitamin B12 deficiency anemia, unspecified; E66.01 Morbid (severe) obesity due to excess calories; Z68.41 Body mass index [BMI] 40.0-44.9, adult; Z79.899 Other long term (current) drug therapy; Z79.4 Long term (current) use of insulin; Z85.819 Personal history of malignant neoplasm of unspecified site of lip, oral cavity, and pharynx
CPT/HCPCS: 36415; 80048; 83540; 83550; 83735; 83880; 85025; 96365; 96366; G0463; J1250

== ENCOUNTER → 2021-04-28 | Outpatient (CLI) | payer OTHER, MEDICARE, MEDICAID ==
[2021-04-28] VITALS (9 sets, daily range): BP systolic 151–170; BP diastolic 81–91
[2021-04-28 08:48] LABS: Eosinophils # (auto) 0.1 10 ^3/uL (0-0.8); Eosinophils % (auto) 1.1 % (0.0-7.0); Hematocrit 23.4 % (41.0-53.0); Hemoglobin 7.9 g/dL (13.5-17.5); Lymphocytes # (auto) 0.7 10 ^3/uL (0.4-5.4); Monocytes # (auto) 0.5 10 ^3/uL (0-1.3); Neutrophils # (auto) 4.4 10 ^3/uL (1.6-8.6); Red Blood Cells 2.62 10^6/uL (4.5-5.90); White Blood Cell 5.7 10^3/uL (4.4-10.8)
[2021-04-28 08:49] LABS: Basophils # (auto) 0.1 10 ^3/uL (0-0.2); Lymphocytes % (auto) 12.4 % (10.0-50.0); Mean Corpuscular Hgb Conc. 33.7 g/dL (32.0-36.0); Mean Corpuscular Volume 89.1 fL (80.0-100.0); Neutrophils % (auto) 76.5 % (37.0-80.0); Red Cell Distribution Width 17.8 % (11.8-14.3)
[2021-04-28 09:02] LABS: Magnesium 1.2 mg/dL (1.6-2.6); Potassium 4.1 mmol/L (3.5-5.1)
== END | disposition home or self-care (01) ==
LOC: CHF HDHVI 08:07
PROVIDERS: ATTEND Internal Medicine Cardiovascular Disease
DX: I13.0 Hypertensive heart and chronic kidney disease with heart failure and stage 1 through stage 4 chronic kidney disease, or unspecified chronic kidney disease (principal); E11.22 Type 2 diabetes mellitus with diabetic chronic kidney disease; I50.42 Chronic combined systolic (congestive) and diastolic (congestive) heart failure; N18.4 Chronic kidney disease, stage 4 (severe); R53.83 Other fatigue; R60.9 Edema, unspecified; I25.10 Atherosclerotic heart disease of native coronary artery without angina pectoris; E11.51 Type 2 diabetes mellitus with diabetic peripheral angiopathy without gangrene; E11.40 Type 2 diabetes mellitus with diabetic neuropathy, unspecified; I70.0 Atherosclerosis of aorta; D50.9 Iron deficiency anemia, unspecified; E78.5 Hyperlipidemia, unspecified; J98.11 Atelectasis; E83.42 Hypomagnesemia; E29.1 Testicular hypofunction; E66.01 Morbid (severe) obesity due to excess calories; Z68.41 Body mass index [BMI] 40.0-44.9, adult; Z79.4 Long term (current) use of insulin; Z85.819 Personal history of malignant neoplasm of unspecified site of lip, oral cavity, and pharynx
CPT/HCPCS: 36415; 82565; 83735; 83880; 84132; 84520; 85025; 96365; 96366; G0463; J1250

== ENCOUNTER → 2021-05-02 | Outpatient (CLI) | payer OTHER, MEDICARE, MEDICAID ==
[2021-05-02] VITALS (8 sets, daily range): BP systolic 147–163; BP diastolic 73–89
[~2021-05-02] MED LIST changes: -MAGNESIUM OXIDE 400 MG TAB ONE; -MAGNESIUM OXIDE 400 MG TAB PO ONE
[2021-05-02 09:16] LABS: Eosinophils # (auto) 0.1 10 ^3/uL (0-0.8); Monocytes # (auto) 0.4 10 ^3/uL (0-1.3); Nucleated Red Blood Cells % 0.1 %; White Blood Cell 5.9 10^3/uL (4.4-10.8)
[2021-05-02 09:18] LABS: Basophils # (auto) 0.2 10 ^3/uL (0-0.2); Basophils % (auto) 3.3 % (0.0-2.0); Eosinophils % (auto) 1.4 % (0.0-7.0); Hematocrit 23.3 % (41.0-53.0); Lymphocytes # (auto) 0.6 10 ^3/uL (0.4-5.4); Lymphocytes % (auto) 10.5 % (10.0-50.0); Mean Corpuscular Hemoglobin 30.3 pg (28.0-32.0); Mean Corpuscular Hgb Conc. 34.1 g/dL (32.0-36.0); Mean Corpuscular Volume 88.8 fL (80.0-100.0); Monocytes % (auto) 6.9 % (0.0-12.0); Neutrophils # (auto) 4.6 10 ^3/uL (1.6-8.6); Neutrophils % (auto) 77.9 % (37.0-80.0); Red Blood Cells 2.63 10^6/uL (4.5-5.90); Red Cell Distribution Width 18.1 % (11.8-14.3)
[2021-05-02 09:34] LABS: BUN/Creatinine Ratio 10.7; Calcium 9.1 mg/dL (8.5-10.1); Magnesium 1.7 mg/dL (1.6-2.6)
== END | disposition home or self-care (01) ==
LOC: CHF HDHVI 08:30
PROVIDERS: ATTEND Internal Medicine Cardiovascular Disease
DX: I13.0 Hypertensive heart and chronic kidney disease with heart failure and stage 1 through stage 4 chronic kidney disease, or unspecified chronic kidney disease (principal); E11.22 Type 2 diabetes mellitus with diabetic chronic kidney disease; I50.42 Chronic combined systolic (congestive) and diastolic (congestive) heart failure; N18.4 Chronic kidney disease, stage 4 (severe); I70.0 Atherosclerosis of aorta; I25.10 Atherosclerotic heart disease of native coronary artery without angina pectoris; E11.51 Type 2 diabetes mellitus with diabetic peripheral angiopathy without gangrene; E11.40 Type 2 diabetes mellitus with diabetic neuropathy, unspecified; E78.5 Hyperlipidemia, unspecified; E66.01 Morbid (severe) obesity due to excess calories; Z68.41 Body mass index [BMI] 40.0-44.9, adult; Z79.4 Long term (current) use of insulin; Z79.899 Other long term (current) drug therapy; Z85.819 Personal history of malignant neoplasm of unspecified site of lip, oral cavity, and pharynx
CPT/HCPCS: 36415; 80048; 83735; 83880; 85025; 96365; 96366; G0463; J1250

== ENCOUNTER → 2021-05-05 | Outpatient (CLI) | payer OTHER, MEDICARE, MEDICAID ==
[~2021-05-05] MED LIST changes: -DOBUTamine 1000MCG/ML 250 ML IV ONE; +MAGNESIUM SULFATE 1GM/100ML 100 ML IV ONE; +SODIUM FERR GLUC 62.5MG/5ML 125 MG in SODIUM CHL 0.9% 100 ML IV ONE; +SODIUM FERRIC GLUC CPLEX 62.5MG/5ML VIAL IV ONE
[2021-05-05 09:48] VITALS: BP 156/87
[2021-05-05 10:49] VITALS: BP 149/81
== END | disposition home or self-care (01) ==
LOC: CHF HDHVI 08:26
PROVIDERS: ATTEND Internal Medicine Cardiovascular Disease
DX: I13.0 Hypertensive heart and chronic kidney disease with heart failure and stage 1 through stage 4 chronic kidney disease, or unspecified chronic kidney disease (principal); E11.22 Type 2 diabetes mellitus with diabetic chronic kidney disease; I50.42 Chronic combined systolic (congestive) and diastolic (congestive) heart failure; N18.4 Chronic kidney disease, stage 4 (severe); I51.7 Cardiomegaly; R53.83 Other fatigue; E83.42 Hypomagnesemia; J98.11 Atelectasis; I70.0 Atherosclerosis of aorta; I25.10 Atherosclerotic heart disease of native coronary artery without angina pectoris; R60.9 Edema, unspecified; E78.5 Hyperlipidemia, unspecified; D50.9 Iron deficiency anemia, unspecified; E11.40 Type 2 diabetes mellitus with diabetic neuropathy, unspecified; E11.51 Type 2 diabetes mellitus with diabetic peripheral angiopathy without gangrene; E29.1 Testicular hypofunction; E66.01 Morbid (severe) obesity due to excess calories; Z68.41 Body mass index [BMI] 40.0-44.9, adult; Z79.4 Long term (current) use of insulin; Z85.819 Personal history of malignant neoplasm of unspecified site of lip, oral cavity, and pharynx; Z79.899 Other long term (current) drug therapy
CPT/HCPCS: 96365; 96367; G0463; J2916; J3475

== ENCOUNTER → 2021-05-09 | Outpatient (CLI) | payer OTHER, MEDICARE, MEDICAID ==
[2021-05-09] VITALS (7 sets, daily range): BP systolic 148–161; BP diastolic 82–92
[~2021-05-09] MED LIST changes: +CYANOCOBALAMIN (B-12) 1000 MCG/1 ML VIAL IM ONE; +CYANOCOBALAMIN (B-12) 1000 MCG/1 ML VIAL ONE; +DOBUTamine 1000MCG/ML 250 ML IV ONE; -MAGNESIUM SULFATE 1GM/100ML 100 ML IV ONE; -SODIUM FERR GLUC 62.5MG/5ML 125 MG in SODIUM CHL 0.9% 100 ML IV ONE; -SODIUM FERRIC GLUC CPLEX 62.5MG/5ML VIAL IV ONE; +TESTOSTERONE CYPIONATE 200 MG/ML 1ML VIAL IM ONE
[2021-05-09 11:34] LABS: Basophils # (auto) 0 10 ^3/uL (0-0.2); Hemoglobin 7.7 g/dL (13.5-17.5)
[2021-05-09 11:37] LABS: Basophils % (auto) 0.7 % (0.0-2.0); Eosinophils # (auto) 0 10 ^3/uL (0-0.8); Eosinophils % (auto) 0.9 % (0.0-7.0); Hematocrit 23.1 % (41.0-53.0); Lymphocytes # (auto) 0.6 10 ^3/uL (0.4-5.4); Lymphocytes % (auto) 11.7 % (10.0-50.0); Mean Corpuscular Hemoglobin 30.2 pg (28.0-32.0); Mean Corpuscular Hgb Conc. 33.5 g/dL (32.0-36.0); Mean Corpuscular Volume 90.1 fL (80.0-100.0); Monocytes # (auto) 0.4 10 ^3/uL (0-1.3); Monocytes % (auto) 7.7 % (0.0-12.0); Neutrophils # (auto) 4.3 10 ^3/uL (1.6-8.6); Red Blood Cells 2.57 10^6/uL (4.5-5.90); Red Cell Distribution Width 18.3 % (11.8-14.3); White Blood Cell 5.5 10^3/uL (4.4-10.8)
[2021-05-09 11:57] LABS: Calcium 9.2 mg/dL (8.5-10.1); Magnesium 1.9 mg/dL (1.6-2.6); Potassium 4.2 mmol/L (3.5-5.1)
[2021-05-09 12:01] LABS: BUN/Creatinine Ratio 10.5; Bilirubin, Total 0.7 mg/dL (0.2-1.0); Total Protein 6.6 g/dL (6.4-8.2)
== END | disposition home or self-care (01) ==
LOC: CHF HDHVI 08:45
PROVIDERS: ATTEND Internal Medicine Cardiovascular Disease
DX: I13.0 Hypertensive heart and chronic kidney disease with heart failure and stage 1 through stage 4 chronic kidney disease, or unspecified chronic kidney disease (principal); E11.22 Type 2 diabetes mellitus with diabetic chronic kidney disease; I50.42 Chronic combined systolic (congestive) and diastolic (congestive) heart failure; N18.4 Chronic kidney disease, stage 4 (severe); R53.83 Other fatigue; I42.0 Dilated cardiomyopathy; I51.7 Cardiomegaly; E29.1 Testicular hypofunction; J98.11 Atelectasis; I70.0 Atherosclerosis of aorta; I25.10 Atherosclerotic heart disease of native coronary artery without angina pectoris; R60.9 Edema, unspecified; E78.5 Hyperlipidemia, unspecified; E83.42 Hypomagnesemia; D50.9 Iron deficiency anemia, unspecified; E11.40 Type 2 diabetes mellitus with diabetic neuropathy, unspecified; E11.51 Type 2 diabetes mellitus with diabetic peripheral angiopathy without gangrene; E66.01 Morbid (severe) obesity due to excess calories; Z68.41 Body mass index [BMI] 40.0-44.9, adult; Z85.819 Personal history of malignant neoplasm of unspecified site of lip, oral cavity, and pharynx; Z79.899 Other long term (current) drug therapy; Z79.4 Long term (current) use of insulin
CPT/HCPCS: 36415; 80053; 83735; 83880; 85025; 96365; 96366; 96372; G0463; J1071; J1250; J3420

== ENCOUNTER → 2021-05-12 | Outpatient (CLI) | payer OTHER, MEDICARE, MEDICAID ==
[~2021-05-12] MED LIST changes: -CYANOCOBALAMIN (B-12) 1000 MCG/1 ML VIAL IM ONE; -CYANOCOBALAMIN (B-12) 1000 MCG/1 ML VIAL ONE; -DOBUTamine 1000MCG/ML 250 ML IV ONE; +MAGNESIUM SULFATE 1GM/100ML 100 ML IV ONE; +SODIUM FERR GLUC 62.5MG/5ML 125 MG in SODIUM CHL 0.9% 100 ML IV ONE; +SODIUM FERRIC GLUC CPLEX 62.5MG/5ML VIAL IV ONE; -TESTOSTERONE CYPIONATE 200 MG/ML 1ML VIAL IM ONE
[2021-05-12 11:05] VITALS: BP 145/82
== END | disposition home or self-care (01) ==
LOC: CHF HDHVI 08:41
PROVIDERS: ATTEND Internal Medicine Cardiovascular Disease
DX: E83.42 Hypomagnesemia (principal); D50.9 Iron deficiency anemia, unspecified; R53.83 Other fatigue; I13.0 Hypertensive heart and chronic kidney disease with heart failure and stage 1 through stage 4 chronic kidney disease, or unspecified chronic kidney disease; E11.22 Type 2 diabetes mellitus with diabetic chronic kidney disease; I50.42 Chronic combined systolic (congestive) and diastolic (congestive) heart failure; N18.4 Chronic kidney disease, stage 4 (severe); I25.10 Atherosclerotic heart disease of native coronary artery without angina pectoris; I70.0 Atherosclerosis of aorta; E11.40 Type 2 diabetes mellitus with diabetic neuropathy, unspecified; E11.51 Type 2 diabetes mellitus with diabetic peripheral angiopathy without gangrene; E78.5 Hyperlipidemia, unspecified; E66.01 Morbid (severe) obesity due to excess calories; Z68.41 Body mass index [BMI] 40.0-44.9, adult; Z79.4 Long term (current) use of insulin; Z79.899 Other long term (current) drug therapy; Z85.819 Personal history of malignant neoplasm of unspecified site of lip, oral cavity, and pharynx
CPT/HCPCS: 96365; 96367; G0463; J2916; J3475

== ENCOUNTER → 2021-05-16 | Outpatient (CLI) | payer OTHER, MEDICARE, MEDICAID ==
[2021-05-16] VITALS (8 sets, daily range): BP systolic 155–186; BP diastolic 87–99
[~2021-05-16] MED LIST changes: +DOBUTamine 1000MCG/ML 250 ML IV ONE; -MAGNESIUM SULFATE 1GM/100ML 100 ML IV ONE; -SODIUM FERR GLUC 62.5MG/5ML 125 MG in SODIUM CHL 0.9% 100 ML IV ONE; -SODIUM FERRIC GLUC CPLEX 62.5MG/5ML VIAL IV ONE
[2021-05-16 11:48] LABS: Basophils # (auto) 0 10 ^3/uL (0-0.2); Eosinophils # (auto) 0.1 10 ^3/uL (0-0.8); Hematocrit 23.7 % (41.0-53.0); Hemoglobin 8.1 g/dL (13.5-17.5); Lymphocytes # (auto) 0.6 10 ^3/uL (0.4-5.4); White Blood Cell 4.5 10^3/uL (4.4-10.8)
[2021-05-16 11:51] LABS: Basophils % (auto) 0.7 % (0.0-2.0); Eosinophils % (auto) 1.1 % (0.0-7.0); Lymphocytes % (auto) 13.1 % (10.0-50.0); Mean Corpuscular Hemoglobin 30.3 pg (28.0-32.0); Mean Corpuscular Hgb Conc. 34.1 g/dL (32.0-36.0); Mean Corpuscular Volume 88.7 fL (80.0-100.0); Monocytes # (auto) 0.5 10 ^3/uL (0-1.3); Monocytes % (auto) 10.1 % (0.0-12.0); Neutrophils # (auto) 3.4 10 ^3/uL (1.6-8.6); Red Blood Cells 2.67 10^6/uL (4.5-5.90)
[2021-05-16 12:01] LABS: Potassium 3.9 mmol/L (3.5-5.1)
[2021-05-16 12:08] LABS: BUN/Creatinine Ratio 10.9; Magnesium 1.7 mg/dL (1.6-2.6)
== END | disposition home or self-care (01) ==
LOC: CHF HDHVI 08:16
PROVIDERS: ATTEND Internal Medicine Cardiovascular Disease
DX: I13.0 Hypertensive heart and chronic kidney disease with heart failure and stage 1 through stage 4 chronic kidney disease, or unspecified chronic kidney disease (principal); E11.22 Type 2 diabetes mellitus with diabetic chronic kidney disease; I50.42 Chronic combined systolic (congestive) and diastolic (congestive) heart failure; N18.4 Chronic kidney disease, stage 4 (severe); I25.10 Atherosclerotic heart disease of native coronary artery without angina pectoris; E11.40 Type 2 diabetes mellitus with diabetic neuropathy, unspecified; E11.51 Type 2 diabetes mellitus with diabetic peripheral angiopathy without gangrene; E78.5 Hyperlipidemia, unspecified; E66.01 Morbid (severe) obesity due to excess calories; Z68.41 Body mass index [BMI] 40.0-44.9, adult; Z79.4 Long term (current) use of insulin; Z79.899 Other long term (current) drug therapy; Z85.819 Personal history of malignant neoplasm of unspecified site of lip, oral cavity, and pharynx
CPT/HCPCS: 36415; 80048; 83735; 83880; 85025; 96365; 96366; G0463; J1250

== ENCOUNTER → 2021-06-02 | Outpatient (CLI) | payer OTHER, MEDICARE, MEDICAID ==
[~2021-06-02] VITALS: Ht 30.5 cm; Wt 99.4 kg
[~2021-06-02] MED LIST changes: -DOBUTamine 1000MCG/ML 250 ML IV ONE; +IRON SUCROSE 20 mg/ml 10ml VIAL IV ONE; +IRON SUCROSE COMPLEX 200 MG in SODIUM CHL 0.9% 100 ML IV ONE; +MAGNESIUM SULFATE 1GM/100ML 100 ML IV ONE; +MAGNESIUM SULFATE 1GM/100ML 200 ML IV ONE
[2021-06-02 09:10] LABS: Basophils # (auto) 0 10 ^3/uL (0-0.2); Eosinophils # (auto) 0.1 10 ^3/uL (0-0.8); Monocytes # (auto) 0.4 10 ^3/uL (0-1.3); White Blood Cell 4.7 10^3/uL (4.4-10.8)
[2021-06-02 09:13] LABS: Basophils % (auto) 1.1 % (0.0-2.0); Eosinophils % (auto) 1.4 % (0.0-7.0); Hematocrit 22.6 % (41.0-53.0); Hemoglobin 7.7 g/dL (13.5-17.5); Lymphocytes # (auto) 0.9 10 ^3/uL (0.4-5.4); Lymphocytes % (auto) 18.9 % (10.0-50.0); Mean Corpuscular Hemoglobin 30.3 pg (28.0-32.0); Mean Corpuscular Hgb Conc. 34.1 g/dL (32.0-36.0); Mean Corpuscular Volume 88.8 fL (80.0-100.0); Monocytes % (auto) 8.1 % (0.0-12.0); Neutrophils # (auto) 3.3 10 ^3/uL (1.6-8.6); Neutrophils % (auto) 70.5 % (37.0-80.0); Nucleated Red Blood Cells % 0.1 %; Red Blood Cells 2.54 10^6/uL (4.5-5.90); Red Cell Distribution Width 17.3 % (11.8-14.3)
[2021-06-02 09:30] LABS: Magnesium 1.4 mg/dL (1.6-2.6); Potassium 4.3 mmol/L (3.5-5.1)
[2021-06-02 10:00] VITALS: BP 135/78
[2021-06-02 11:10] VITALS: BP 145/81
[2021-06-02 11:59] VITALS: BP 142/85
== END | disposition home or self-care (01) ==
LOC: CHF HDHVI 08:37
PROVIDERS: ATTEND Internal Medicine Cardiovascular Disease
DX: D50.9 Iron deficiency anemia, unspecified (principal); E83.42 Hypomagnesemia; I13.0 Hypertensive heart and chronic kidney disease with heart failure and stage 1 through stage 4 chronic kidney disease, or unspecified chronic kidney disease; E11.22 Type 2 diabetes mellitus with diabetic chronic kidney disease; I50.42 Chronic combined systolic (congestive) and diastolic (congestive) heart failure; N18.4 Chronic kidney disease, stage 4 (severe); I25.10 Atherosclerotic heart disease of native coronary artery without angina pectoris; E11.40 Type 2 diabetes mellitus with diabetic neuropathy, unspecified; E11.51 Type 2 diabetes mellitus with diabetic peripheral angiopathy without gangrene; E78.5 Hyperlipidemia, unspecified; E66.01 Morbid (severe) obesity due to excess calories; Z68.41 Body mass index [BMI] 40.0-44.9, adult; Z79.4 Long term (current) use of insulin; Z79.899 Other long term (current) drug therapy; Z85.819 Personal history of malignant neoplasm of unspecified site of lip, oral cavity, and pharynx
CPT/HCPCS: 36415; 82565; 83735; 84132; 84520; 85025; 96365; 96366; 96367; G0463; J1756; J3475

== ENCOUNTER → 2021-06-06 | Outpatient (CLI) | payer OTHER, MEDICARE, MEDICAID ==
[~2021-06-06] VITALS: Ht 30.5 cm; Wt 99.9 kg
[2021-06-06] VITALS (7 sets, daily range): BP systolic 141–158; BP diastolic 79–88
[~2021-06-06] MED LIST changes: +CYANOCOBALAMIN (B-12) 1000 MCG/1 ML VIAL IM ONE; +CYANOCOBALAMIN (B-12) 1000 MCG/1 ML VIAL ONE; +DOBUTamine 1000MCG/ML 250 ML IV ONE; -IRON SUCROSE 20 mg/ml 10ml VIAL IV ONE; -IRON SUCROSE COMPLEX 200 MG in SODIUM CHL 0.9% 100 ML IV ONE; -MAGNESIUM SULFATE 1GM/100ML 100 ML IV ONE; -MAGNESIUM SULFATE 1GM/100ML 200 ML IV ONE
[2021-06-06 11:44] LABS: Basophils # (auto) 0 10 ^3/uL (0-0.2); Eosinophils # (auto) 0.1 10 ^3/uL (0-0.8); Hemoglobin 7.9 g/dL (13.5-17.5); Monocytes # (auto) 0.4 10 ^3/uL (0-1.3)
[2021-06-06 11:46] LABS: Basophils % (auto) 0.9 % (0.0-2.0); Eosinophils % (auto) 1.6 % (0.0-7.0); Hematocrit 23.1 % (41.0-53.0); Lymphocytes # (auto) 0.7 10 ^3/uL (0.4-5.4); Lymphocytes % (auto) 14.1 % (10.0-50.0); Mean Corpuscular Hemoglobin 30.4 pg (28.0-32.0); Mean Corpuscular Hgb Conc. 34.1 g/dL (32.0-36.0); Mean Corpuscular Volume 89.2 fL (80.0-100.0); Monocytes % (auto) 7.7 % (0.0-12.0); Neutrophils # (auto) 3.9 10 ^3/uL (1.6-8.6); Neutrophils % (auto) 75.7 % (37.0-80.0); Red Blood Cells 2.59 10^6/uL (4.5-5.90); Red Cell Distribution Width 17.6 % (11.8-14.3); White Blood Cell 5.2 10^3/uL (4.4-10.8)
[2021-06-06 11:52] LABS: Calcium 9.1 mg/dL (8.5-10.1); Magnesium 1.5 mg/dL (1.6-2.6); Potassium 4.3 mmol/L (3.5-5.1)
== END | disposition home or self-care (01) ==
LOC: CHF HDHVI 08:58
PROVIDERS: ATTEND Internal Medicine Cardiovascular Disease
DX: I13.0 Hypertensive heart and chronic kidney disease with heart failure and stage 1 through stage 4 chronic kidney disease, or unspecified chronic kidney disease (principal); E11.22 Type 2 diabetes mellitus with diabetic chronic kidney disease; I50.42 Chronic combined systolic (congestive) and diastolic (congestive) heart failure; N18.4 Chronic kidney disease, stage 4 (severe); I25.10 Atherosclerotic heart disease of native coronary artery without angina pectoris; E11.40 Type 2 diabetes mellitus with diabetic neuropathy, unspecified; E11.51 Type 2 diabetes mellitus with diabetic peripheral angiopathy without gangrene; E78.5 Hyperlipidemia, unspecified; E66.01 Morbid (severe) obesity due to excess calories; Z68.41 Body mass index [BMI] 40.0-44.9, adult; Z79.4 Long term (current) use of insulin; Z79.899 Other long term (current) drug therapy; Z85.819 Personal history of malignant neoplasm of unspecified site of lip, oral cavity, and pharynx
CPT/HCPCS: 36415; 80048; 83735; 83880; 85025; 96365; 96366; 96372; G0463; J1250; J3420

== ENCOUNTER → 2021-06-09 | Outpatient (CLI) | payer OTHER, MEDICARE, MEDICAID ==
[~2021-06-09] VITALS: Ht 165.1 cm; Wt 98.6 kg
[~2021-06-09] MED LIST changes: -CYANOCOBALAMIN (B-12) 1000 MCG/1 ML VIAL IM ONE; -CYANOCOBALAMIN (B-12) 1000 MCG/1 ML VIAL ONE; -DOBUTamine 1000MCG/ML 250 ML IV ONE; +IRON SUCROSE 20 mg/ml 10ml VIAL IV ONE; +IRON SUCROSE COMPLEX 200 MG in SODIUM CHL 0.9% 100 ML IV ONE; +MAGNESIUM SULFATE 1GM/100ML 100 ML IV ONE; +MAGNESIUM SULFATE 1GM/100ML 200 ML IV ONE; +SODIUM FERR GLUC 62.5MG/5ML 125 MG in SODIUM CHL 0.9% 100 ML IV ONE
[2021-06-09 10:15] VITALS: BP 138/79
[2021-06-09 12:10] LABS: Potassium 4.2 mmol/L (3.5-5.1)
[2021-06-09 12:23] VITALS: BP 134/78
[2021-06-09 12:38] LABS: Magnesium 1.3 mg/dL (1.6-2.6)
== END | disposition home or self-care (01) ==
LOC: CHF HDHVI 09:16
PROVIDERS: ATTEND Internal Medicine Cardiovascular Disease
DX: E83.42 Hypomagnesemia (principal); D50.9 Iron deficiency anemia, unspecified; I13.0 Hypertensive heart and chronic kidney disease with heart failure and stage 1 through stage 4 chronic kidney disease, or unspecified chronic kidney disease; E11.22 Type 2 diabetes mellitus with diabetic chronic kidney disease; I50.42 Chronic combined systolic (congestive) and diastolic (congestive) heart failure; N18.4 Chronic kidney disease, stage 4 (severe); I25.10 Atherosclerotic heart disease of native coronary artery without angina pectoris; E11.40 Type 2 diabetes mellitus with diabetic neuropathy, unspecified; E11.51 Type 2 diabetes mellitus with diabetic peripheral angiopathy without gangrene; E78.5 Hyperlipidemia, unspecified; E66.01 Morbid (severe) obesity due to excess calories; Z68.41 Body mass index [BMI] 40.0-44.9, adult; Z79.4 Long term (current) use of insulin; Z79.899 Other long term (current) drug therapy; Z85.819 Personal history of malignant neoplasm of unspecified site of lip, oral cavity, and pharynx
CPT/HCPCS: 36415; 82565; 83735; 83880; 84132; 84520; 96365; 96366; 96367; G0463; J1756; J3475

== ENCOUNTER → 2021-06-13 | Outpatient (CLI) | payer OTHER, MEDICARE, MEDICAID ==
[~2021-06-13] MED LIST changes: -MAGNESIUM SULFATE 1GM/100ML 200 ML IV ONE; -SODIUM FERR GLUC 62.5MG/5ML 125 MG in SODIUM CHL 0.9% 100 ML IV ONE
[2021-06-13 10:08] VITALS: BP 157/89
[2021-06-13 11:11] VITALS: BP 165/95
[2021-06-13 12:04] LABS: Basophils # (auto) 0 10 ^3/uL (0-0.2); Basophils % (auto) 0.8 % (0.0-2.0); Eosinophils # (auto) 0.1 10 ^3/uL (0-0.8); Hemoglobin 7.9 g/dL (13.5-17.5); Lymphocytes # (auto) 0.8 10 ^3/uL (0.4-5.4); Mean Corpuscular Volume 89.9 fL (80.0-100.0); Neutrophils # (auto) 3.8 10 ^3/uL (1.6-8.6); Nucleated Red Blood Cells % 0.1 %
[2021-06-13 12:05] LABS: Calcium 9.4 mg/dL (8.5-10.1); Magnesium 1.8 mg/dL (1.6-2.6); Potassium 4.2 mmol/L (3.5-5.1)
[2021-06-13 12:07] LABS: Eosinophils % (auto) 1.3 % (0.0-7.0); Hematocrit 23.8 % (41.0-53.0); Lymphocytes % (auto) 15.6 % (10.0-50.0); Mean Corpuscular Hgb Conc. 33.3 g/dL (32.0-36.0); Monocytes # (auto) 0.4 10 ^3/uL (0-1.3); Monocytes % (auto) 8.3 % (0.0-12.0); Red Blood Cells 2.65 10^6/uL (4.5-5.90); Red Cell Distribution Width 17.5 % (11.8-14.3); White Blood Cell 5.2 10^3/uL (4.4-10.8)
[2021-06-13 12:08] LABS: BUN/Creatinine Ratio 9.8
== END | disposition home or self-care (01) ==
LOC: CHF HDHVI 09:00
PROVIDERS: ATTEND Internal Medicine Cardiovascular Disease
DX: D51.9 Vitamin B12 deficiency anemia, unspecified (principal); D50.9 Iron deficiency anemia, unspecified; E83.42 Hypomagnesemia; I13.0 Hypertensive heart and chronic kidney disease with heart failure and stage 1 through stage 4 chronic kidney disease, or unspecified chronic kidney disease; E11.22 Type 2 diabetes mellitus with diabetic chronic kidney disease; I50.42 Chronic combined systolic (congestive) and diastolic (congestive) heart failure; N18.4 Chronic kidney disease, stage 4 (severe); I25.10 Atherosclerotic heart disease of native coronary artery without angina pectoris; E78.5 Hyperlipidemia, unspecified; E11.40 Type 2 diabetes mellitus with diabetic neuropathy, unspecified; E11.51 Type 2 diabetes mellitus with diabetic peripheral angiopathy without gangrene; E66.01 Morbid (severe) obesity due to excess calories; Z68.41 Body mass index [BMI] 40.0-44.9, adult; Z79.4 Long term (current) use of insulin; Z79.899 Other long term (current) drug therapy
CPT/HCPCS: 36415; 80048; 83735; 83880; 85025; 96365; 96368; G0463; J1756; J3475; 96367

== ENCOUNTER → 2021-06-16 | Outpatient (CLI) | payer OTHER, MEDICARE, MEDICAID ==
[~2021-06-16] MED LIST changes: -IRON SUCROSE 20 mg/ml 10ml VIAL IV ONE; -IRON SUCROSE COMPLEX 200 MG in SODIUM CHL 0.9% 100 ML IV ONE; +MAGNESIUM SULFATE 1GM/100ML 200 ML IV ONE
[2021-06-16] MEDS: MAGNESIUM SULFATE 1GM/100ML 100 ML IV SCH ×2 (10:03→11:04)
[2021-06-16 10:45] VITALS: BP 156/94
[2021-06-16 12:22] VITALS: BP 155/91
== END | disposition home or self-care (01) ==
LOC: CHF HDHVI 08:56
PROVIDERS: ATTEND Internal Medicine Cardiovascular Disease
DX: E83.42 Hypomagnesemia (principal); I13.0 Hypertensive heart and chronic kidney disease with heart failure and stage 1 through stage 4 chronic kidney disease, or unspecified chronic kidney disease; E11.22 Type 2 diabetes mellitus with diabetic chronic kidney disease; I50.42 Chronic combined systolic (congestive) and diastolic (congestive) heart failure; N18.4 Chronic kidney disease, stage 4 (severe); I25.10 Atherosclerotic heart disease of native coronary artery without angina pectoris; E78.5 Hyperlipidemia, unspecified; E11.40 Type 2 diabetes mellitus with diabetic neuropathy, unspecified; E66.01 Morbid (severe) obesity due to excess calories; Z68.41 Body mass index [BMI] 40.0-44.9, adult; Z79.4 Long term (current) use of insulin; Z79.899 Other long term (current) drug therapy
CPT/HCPCS: 36415; 82565; 83880; 84520; 96365; 96366; G0463; J3475

== ENCOUNTER → 2021-06-28 | Outpatient (CLI) | payer OTHER, MEDICARE, MEDICAID ==
[~2021-06-28] VITALS: Ht 30.5 cm; Wt 0.5 kg
[~2021-06-28] MED LIST changes: +IRON SUCROSE 20 mg/ml 10ml VIAL IV ONE; -MAGNESIUM SULFATE 1GM/100ML 200 ML IV ONE; +VENOFER IV ONE
[2021-06-28 11:25] VITALS: BP 157/82
[2021-06-28 11:41] LABS: Basophils # (auto) 0.1 10 ^3/uL (0-0.2); Eosinophils # (auto) 0.1 10 ^3/uL (0-0.8); Hemoglobin 7.6 g/dL (13.5-17.5); Red Blood Cells 2.48 10^6/uL (4.5-5.90)
[2021-06-28 11:42] LABS: Basophils % (auto) 1.9 % (0.0-2.0); Eosinophils % (auto) 1.5 % (0.0-7.0); Hematocrit 22.4 % (41.0-53.0); Lymphocytes # (auto) 0.7 10 ^3/uL (0.4-5.4); Lymphocytes % (auto) 13.5 % (10.0-50.0); Mean Corpuscular Hemoglobin 30.7 pg (28.0-32.0); Mean Corpuscular Volume 90.1 fL (80.0-100.0); Monocytes # (auto) 0.4 10 ^3/uL (0-1.3); Monocytes % (auto) 6.8 % (0.0-12.0); Neutrophils % (auto) 76.3 % (37.0-80.0); Red Cell Distribution Width 18.1 % (11.8-14.3); White Blood Cell 5.2 10^3/uL (4.4-10.8)
[2021-06-28 11:55] LABS: Potassium 4.8 mmol/L (3.5-5.1)
== END | disposition home or self-care (01) ==
LOC: CHF HDHVI 08:27
PROVIDERS: ATTEND Internal Medicine Cardiovascular Disease
DX: I50.23 Acute on chronic systolic (congestive) heart failure (principal)
CPT/HCPCS: 36415; 82565; 84132; 84520; 85025; 96365; 96367; G0463; J1756; J3475

== ENCOUNTER → 2021-06-30 | Outpatient (CLI) | payer OTHER, MEDICARE, MEDICAID ==
[2021-06-30] VITALS (9 sets, daily range): BP systolic 136–161; BP diastolic 73–86
[~2021-06-30] MED LIST changes: +DOBUTamine 1000MCG/ML 250 ML IV ONE; -IRON SUCROSE 20 mg/ml 10ml VIAL IV ONE; -MAGNESIUM SULFATE 1GM/100ML 100 ML IV ONE; -VENOFER IV ONE
[2021-06-30 14:17] LABS: Urine Blood Negative /uL (Negative)
[2021-06-30 14:19] LABS: Eosinophils # (auto) 0.1 10 ^3/uL (0-0.8); Eosinophils % (auto) 1.6 % (0.0-7.0); Lymphocytes # (auto) 0.7 10 ^3/uL (0.4-5.4); Monocytes # (auto) 0.4 10 ^3/uL (0-1.3); Neutrophils # (auto) 3.5 10 ^3/uL (1.6-8.6); White Blood Cell 4.7 10^3/uL (4.4-10.8)
[2021-06-30 14:22] LABS: % Iron Saturation 23.4 % (20-55); Basophils # (auto) 0.1 10 ^3/uL (0-0.2); Basophils % (auto) 1.1 % (0.0-2.0); Calcium 8.8 mg/dL (8.5-10.1); Hematocrit 22.1 % (41.0-53.0); Hemoglobin 7.2 g/dL (13.5-17.5); Lymphocytes % (auto) 14.8 % (10.0-50.0); Magnesium 1.9 mg/dL (1.6-2.6); Mean Corpuscular Hemoglobin 29.9 pg (28.0-32.0); Mean Corpuscular Hgb Conc. 32.7 g/dL (32.0-36.0); Mean Corpuscular Volume 91.4 fL (80.0-100.0); Monocytes % (auto) 8.1 % (0.0-12.0); Neutrophils % (auto) 74.4 % (37.0-80.0); Nucleated Red Blood Cells % 0.1 %; Potassium 4.7 mmol/L (3.5-5.1); Red Blood Cells 2.42 10^6/uL (4.5-5.90); Red Cell Distribution Width 18.8 % (11.8-14.3)
[2021-06-30 14:25] LABS: BUN/Creatinine Ratio 12.1
[2021-06-30 14:34] LABS: Creatinine, Urine 43 mg/dL (30.0-125.0); Protein, Urine 172.6 mg/dL (0.0-11.9)
== END | disposition home or self-care (01) ==
LOC: CHF HDHVI 08:31
PROVIDERS: ATTEND Internal Medicine Cardiovascular Disease
DX: I13.0 Hypertensive heart and chronic kidney disease with heart failure and stage 1 through stage 4 chronic kidney disease, or unspecified chronic kidney disease (principal); E11.22 Type 2 diabetes mellitus with diabetic chronic kidney disease; I50.42 Chronic combined systolic (congestive) and diastolic (congestive) heart failure; N18.4 Chronic kidney disease, stage 4 (severe); I25.10 Atherosclerotic heart disease of native coronary artery without angina pectoris; E78.5 Hyperlipidemia, unspecified; E11.40 Type 2 diabetes mellitus with diabetic neuropathy, unspecified; E11.51 Type 2 diabetes mellitus with diabetic peripheral angiopathy without gangrene; E66.01 Morbid (severe) obesity due to excess calories; Z68.41 Body mass index [BMI] 40.0-44.9, adult; Z79.4 Long term (current) use of insulin; Z79.899 Other long term (current) drug therapy
CPT/HCPCS: 36415; 80048; 81003; 82306; 82570; 82728; 83036; 83540; 83550; 83735; 83880; 83970; 84100; 84156; 85025; 96365; 96366; G0463; J1250

== ENCOUNTER → 2021-07-06 | Day surgery (SDC) | payer OTHER, MEDICARE, MEDICAID ==
[2021-07-06] VITALS (7 sets, daily range): BP systolic 131–146; BP diastolic 66–85
[~2021-07-06] MED LIST changes: -DOBUTamine 1000MCG/ML 250 ML IV ONE; +FUROSEMIDE 20 MG/2 ML VIAL ONE; +FUROSEMIDE 40 MG/4 ML VIAL IV ONE
[2021-07-06 13:53] LABS: Basophils # (auto) 0 10 ^3/uL (0-0.2); Eosinophils # (auto) 0 10 ^3/uL (0-0.8); Hemoglobin 7.6 g/dL (13.5-17.5); Monocytes # (auto) 0.3 10 ^3/uL (0-1.3); Red Blood Cells 2.54 10^6/uL (4.5-5.90)
[2021-07-06 13:54] LABS: Eosinophils % (auto) 0.5 % (0.0-7.0); Hematocrit 22.9 % (41.0-53.0); Lymphocytes # (auto) 0.5 10 ^3/uL (0.4-5.4); Mean Corpuscular Hemoglobin 29.7 pg (28.0-32.0); Monocytes % (auto) 5.4 % (0.0-12.0); Neutrophils # (auto) 4.1 10 ^3/uL (1.6-8.6); Neutrophils % (auto) 83.1 % (37.0-80.0); Nucleated Red Blood Cells % 0.1 %; Red Cell Distribution Width 17.4 % (11.8-14.3)
== END | disposition home or self-care (01) ==
LOC: CATH 07:50
PROVIDERS: ATTEND Internal Medicine Cardiovascular Disease
DX: E87.71 Transfusion associated circulatory overload (principal); I50.9 Heart failure, unspecified; Z82.49 Family history of ischemic heart disease and other diseases of the circulatory system; Z20.822 Contact with and (suspected) exposure to COVID-19
CPT/HCPCS: 36415; 85025; 86850; 86900; 86901; 86920; J1940; J7040; P9016; U0003

== ENCOUNTER → 2021-07-07 | Outpatient (CLI) | payer OTHER, MEDICARE, MEDICAID ==
[~2021-07-07] VITALS: Ht 30.5 cm; Wt 102.2 kg
[2021-07-07] VITALS (9 sets, daily range): BP systolic 148–176; BP diastolic 82–95
[~2021-07-07] MED LIST changes: +BUMETANIDE 2.5mg/10ml (0.25 mg/ml) INJ IV ONE; +BUMETANIDE INJECTION 20 ML ONE; +CYANOCOBALAMIN (B-12) 1000 MCG/1 ML VIAL IM ONE; +CYANOCOBALAMIN (B-12) 1000 MCG/1 ML VIAL ONE; +DOBUTamine 1000MCG/ML 250 ML IV ONE; -FUROSEMIDE 20 MG/2 ML VIAL ONE; -FUROSEMIDE 40 MG/4 ML VIAL IV ONE; +POTASSIUM CHL 10 Meq TABLET PO ONE; +POTASSIUM CHL 20 Meq TABLET PO ONE
[2021-07-07 11:18] LABS: Basophils # (auto) 0 10 ^3/uL (0-0.2); Eosinophils # (auto) 0.1 10 ^3/uL (0-0.8); Hemoglobin 8.2 g/dL (13.5-17.5); Lymphocytes # (auto) 0.8 10 ^3/uL (0.4-5.4); Lymphocytes % (auto) 14.6 % (10.0-50.0); Monocytes # (auto) 0.4 10 ^3/uL (0-1.3)
[2021-07-07 11:20] LABS: Basophils % (auto) 0.8 % (0.0-2.0); Eosinophils % (auto) 1.3 % (0.0-7.0); Hematocrit 23.9 % (41.0-53.0); Mean Corpuscular Hemoglobin 30.6 pg (28.0-32.0); Mean Corpuscular Hgb Conc. 34.2 g/dL (32.0-36.0); Mean Corpuscular Volume 89.6 fL (80.0-100.0); Neutrophils % (auto) 76.3 % (37.0-80.0); Nucleated Red Blood Cells % 0.1 %; Red Blood Cells 2.67 10^6/uL (4.5-5.90); Red Cell Distribution Width 17.4 % (11.8-14.3); White Blood Cell 5.2 10^3/uL (4.4-10.8)
[2021-07-07 11:24] LABS: Albumin 3.2 g/dL (3.4-5.0); Calcium 8.7 mg/dL (8.5-10.1); Magnesium 1.8 mg/dL (1.6-2.6); Potassium 4.2 mmol/L (3.5-5.1)
[2021-07-07 11:34] LABS: BUN/Creatinine Ratio 11.4; Bilirubin, Total 0.5 mg/dL (0.2-1.0); Total Protein 6.6 g/dL (6.4-8.2)
== END | disposition home or self-care (01) ==
LOC: CHF HDHVI 08:32
PROVIDERS: ATTEND Internal Medicine Cardiovascular Disease
DX: I13.0 Hypertensive heart and chronic kidney disease with heart failure and stage 1 through stage 4 chronic kidney disease, or unspecified chronic kidney disease (principal); E11.22 Type 2 diabetes mellitus with diabetic chronic kidney disease; I50.42 Chronic combined systolic (congestive) and diastolic (congestive) heart failure; N18.4 Chronic kidney disease, stage 4 (severe); I25.10 Atherosclerotic heart disease of native coronary artery without angina pectoris; E11.40 Type 2 diabetes mellitus with diabetic neuropathy, unspecified; E11.51 Type 2 diabetes mellitus with diabetic peripheral angiopathy without gangrene; E78.5 Hyperlipidemia, unspecified; E66.01 Morbid (severe) obesity due to excess calories; Z68.41 Body mass index [BMI] 40.0-44.9, adult; Z79.4 Long term (current) use of insulin; Z79.899 Other long term (current) drug therapy; Z85.819 Personal history of malignant neoplasm of unspecified site of lip, oral cavity, and pharynx
CPT/HCPCS: 36415; 80053; 83735; 83880; 85025; 96365; 96366; 96372; 96375; G0463; J1250; J3420

== ENCOUNTER → 2021-07-11 | Outpatient (CLI) | payer OTHER, MEDICARE, MEDICAID ==
[2021-07-11] VITALS (8 sets, daily range): BP systolic 135–157; BP diastolic 77–85
[~2021-07-11] MED LIST changes: -BUMETANIDE 2.5mg/10ml (0.25 mg/ml) INJ IV ONE; -BUMETANIDE INJECTION 20 ML ONE; -CYANOCOBALAMIN (B-12) 1000 MCG/1 ML VIAL IM ONE; -CYANOCOBALAMIN (B-12) 1000 MCG/1 ML VIAL ONE; -POTASSIUM CHL 10 Meq TABLET PO ONE; -POTASSIUM CHL 20 Meq TABLET PO ONE
== END | disposition home or self-care (01) ==
LOC: CHF HDHVI 08:49
PROVIDERS: ATTEND Internal Medicine Cardiovascular Disease
DX: I13.0 Hypertensive heart and chronic kidney disease with heart failure and stage 1 through stage 4 chronic kidney disease, or unspecified chronic kidney disease (principal); E11.22 Type 2 diabetes mellitus with diabetic chronic kidney disease; I50.42 Chronic combined systolic (congestive) and diastolic (congestive) heart failure; N18.4 Chronic kidney disease, stage 4 (severe); I25.10 Atherosclerotic heart disease of native coronary artery without angina pectoris; E11.40 Type 2 diabetes mellitus with diabetic neuropathy, unspecified; E11.51 Type 2 diabetes mellitus with diabetic peripheral angiopathy without gangrene; E78.5 Hyperlipidemia, unspecified; E66.01 Morbid (severe) obesity due to excess calories; Z68.41 Body mass index [BMI] 40.0-44.9, adult; Z79.4 Long term (current) use of insulin; Z79.899 Other long term (current) drug therapy
CPT/HCPCS: 96365; 96366; G0463; J1250

== ENCOUNTER → 2021-07-18 | Outpatient (CLI) | payer OTHER, MEDICARE, MEDICAID ==
[~2021-07-18] MED LIST changes: -DOBUTamine 1000MCG/ML 250 ML IV ONE; +MAGNESIUM SULFATE 1GM/100ML 100 ML IV ONE; +MAGNESIUM SULFATE 1GM/100ML 200 ML IV ONE
[2021-07-18 08:45] VITALS: BP 188/99
[2021-07-18 11:06] VITALS: BP 166/87
[2021-07-18 12:01] LABS: Eosinophils # (auto) 0.1 10 ^3/uL (0-0.8); Eosinophils % (auto) 1.2 % (0.0-7.0); Neutrophils # (auto) 4.5 10 ^3/uL (1.6-8.6); White Blood Cell 5.7 10^3/uL (4.4-10.8)
[2021-07-18 12:04] LABS: Calcium 8.8 mg/dL (8.5-10.1); Potassium 4.4 mmol/L (3.5-5.1)
[2021-07-18 12:05] LABS: Basophils # (auto) 0.1 10 ^3/uL (0-0.2); Basophils % (auto) 2.1 % (0.0-2.0); Hematocrit 23.3 % (41.0-53.0); Lymphocytes # (auto) 0.6 10 ^3/uL (0.4-5.4); Lymphocytes % (auto) 10.9 % (10.0-50.0); Mean Corpuscular Hemoglobin 31.3 pg (28.0-32.0); Mean Corpuscular Hgb Conc. 34.3 g/dL (32.0-36.0); Mean Corpuscular Volume 91.2 fL (80.0-100.0); Monocytes # (auto) 0.3 10 ^3/uL (0-1.3); Neutrophils % (auto) 79.8 % (37.0-80.0); Red Blood Cells 2.55 10^6/uL (4.5-5.90); Red Cell Distribution Width 17.3 % (11.8-14.3)
[2021-07-18 12:07] LABS: BUN/Creatinine Ratio 11.6
[2021-07-18 12:11] LABS: INR 1.05 (0.9-1.15); Partial Thromboplastin Time 31.2 sec (23.6-33.0)
== END | disposition home or self-care (01) ==
LOC: CHF HDHVI 08:42
PROVIDERS: ATTEND Internal Medicine Cardiovascular Disease
DX: E83.42 Hypomagnesemia (principal); D51.9 Vitamin B12 deficiency anemia, unspecified; I42.0 Dilated cardiomyopathy; I13.0 Hypertensive heart and chronic kidney disease with heart failure and stage 1 through stage 4 chronic kidney disease, or unspecified chronic kidney disease; E11.22 Type 2 diabetes mellitus with diabetic chronic kidney disease; I50.42 Chronic combined systolic (congestive) and diastolic (congestive) heart failure; N18.4 Chronic kidney disease, stage 4 (severe); I25.10 Atherosclerotic heart disease of native coronary artery without angina pectoris; E11.40 Type 2 diabetes mellitus with diabetic neuropathy, unspecified; E11.51 Type 2 diabetes mellitus with diabetic peripheral angiopathy without gangrene; E78.5 Hyperlipidemia, unspecified; E66.01 Morbid (severe) obesity due to excess calories; Z68.41 Body mass index [BMI] 40.0-44.9, adult; Z79.4 Long term (current) use of insulin; Z79.899 Other long term (current) drug therapy
CPT/HCPCS: 36415; 80048; 83880; 85025; 85610; 85730; 96365; 96366; G0463; J3475

== ENCOUNTER → 2021-07-19 | Outpatient (CLI) | payer OTHER, MEDICARE, MEDICAID ==
[~2021-07-19] MED LIST changes: -MAGNESIUM SULFATE 1GM/100ML 100 ML IV ONE; -MAGNESIUM SULFATE 1GM/100ML 200 ML IV ONE
== END | disposition home or self-care (01) ==
LOC: Rad HDHVI 10:00
PROVIDERS: ATTEND Internal Medicine Cardiovascular Disease
DX: I70.203 Unspecified atherosclerosis of native arteries of extremities, bilateral legs (principal); E78.5 Hyperlipidemia, unspecified; L03.90 Cellulitis, unspecified
CPT/HCPCS: 93925

== ENCOUNTER → 2021-07-20 | Outpatient (CLI) | payer OTHER, MEDICARE, MEDICAID ==
[~2021-07-20] VITALS: Ht 182.9 cm; Wt 102.5 kg
[~2021-07-20] MED LIST changes: +LIDOCAINE 1% (LOCAL ANESTH.) PF 5ml SDV ID ONE; +SODIUM CHLOR 0.9% PF (SALINE LOCK) 10ML VIAL/SYR IV SCH
== END | disposition home or self-care (01) ==
LOC: XYW 12:33
PROVIDERS: ATTEND Internal Medicine Cardiovascular Disease
DX: I51.7 Cardiomegaly (principal); I50.9 Heart failure, unspecified; Z45.3 Encounter for adjustment and management of implanted devices of the special senses
CPT/HCPCS: 36569; 71045; C1751; J7050

== ENCOUNTER → 2021-07-21 | Outpatient (CLI) | payer OTHER, MEDICARE, MEDICAID ==
[2021-07-21] VITALS (8 sets, daily range): BP systolic 161–170; BP diastolic 84–95
[~2021-07-21] MED LIST changes: +DOBUTamine 1000MCG/ML 250 ML IV ONE; +IRON SUCROSE 20 mg/ml 10ml VIAL IV ONE; -LIDOCAINE 1% (LOCAL ANESTH.) PF 5ml SDV ID ONE; -SODIUM CHLOR 0.9% PF (SALINE LOCK) 10ML VIAL/SYR IV SCH
[2021-07-21 09:36] LABS: Basophils # (auto) 0.1 10 ^3/uL (0-0.2); Eosinophils # (auto) 0.1 10 ^3/uL (0-0.8); Hematocrit 23.2 % (41.0-53.0); Hemoglobin 7.8 g/dL (13.5-17.5); Lymphocytes % (auto) 12.9 % (10.0-50.0)
[2021-07-21 09:38] LABS: Eosinophils % (auto) 0.9 % (0.0-7.0); Lymphocytes # (auto) 0.7 10 ^3/uL (0.4-5.4); Mean Corpuscular Hemoglobin 30.3 pg (28.0-32.0); Mean Corpuscular Hgb Conc. 33.6 g/dL (32.0-36.0); Mean Corpuscular Volume 90.3 fL (80.0-100.0); Monocytes # (auto) 0.5 10 ^3/uL (0-1.3); Monocytes % (auto) 7.9 % (0.0-12.0); Neutrophils # (auto) 4.4 10 ^3/uL (1.6-8.6); Neutrophils % (auto) 77.3 % (37.0-80.0); Nucleated Red Blood Cells % 0.1 %; Red Blood Cells 2.57 10^6/uL (4.5-5.90); Red Cell Distribution Width 17.2 % (11.8-14.3); White Blood Cell 5.7 10^3/uL (4.4-10.8)
[2021-07-21 09:54] LABS: Magnesium 1.6 mg/dL (1.6-2.6); Potassium 4.6 mmol/L (3.5-5.1)
== END | disposition home or self-care (01) ==
LOC: CHF HDHVI 08:39
PROVIDERS: ATTEND Internal Medicine Cardiovascular Disease
DX: I13.0 Hypertensive heart and chronic kidney disease with heart failure and stage 1 through stage 4 chronic kidney disease, or unspecified chronic kidney disease (principal); E11.22 Type 2 diabetes mellitus with diabetic chronic kidney disease; I50.42 Chronic combined systolic (congestive) and diastolic (congestive) heart failure; N18.4 Chronic kidney disease, stage 4 (severe); D50.9 Iron deficiency anemia, unspecified; I25.10 Atherosclerotic heart disease of native coronary artery without angina pectoris; E78.5 Hyperlipidemia, unspecified; E11.51 Type 2 diabetes mellitus with diabetic peripheral angiopathy without gangrene; E11.40 Type 2 diabetes mellitus with diabetic neuropathy, unspecified; E66.01 Morbid (severe) obesity due to excess calories; Z68.41 Body mass index [BMI] 40.0-44.9, adult; Z79.4 Long term (current) use of insulin; Z79.899 Other long term (current) drug therapy
CPT/HCPCS: 36415; 82565; 83735; 83880; 84132; 84520; 85025; 96365; 96366; 96367; G0463; J1250; J1642; J1756

== ENCOUNTER → 2021-07-25 | Outpatient (CLI) | payer OTHER, MEDICARE, MEDICAID ==
[~2021-07-25] MED LIST changes: +CYANOCOBALAMIN (B-12) 1000 MCG/1 ML VIAL IM ONE; +CYANOCOBALAMIN (B-12) 1000 MCG/1 ML VIAL ONE; -DOBUTamine 1000MCG/ML 250 ML IV ONE; +MAGNESIUM SULFATE 1GM/100ML 100 ML IV ONE; +VENOFER IV ONE
[2021-07-25] MEDS: MAGNESIUM SULFATE 1GM/100ML 100 ML IV SCH ×2 (09:45→10:45)
[2021-07-25 11:50] VITALS: BP 148/86
[2021-07-25 11:57] LABS: Basophils # (auto) 0 10 ^3/uL (0-0.2); Eosinophils # (auto) 0 10 ^3/uL (0-0.8); Eosinophils % (auto) 0.7 % (0.0-7.0); Mean Corpuscular Hgb Conc. 33.5 g/dL (32.0-36.0); Monocytes # (auto) 0.4 10 ^3/uL (0-1.3); Nucleated Red Blood Cells % 0.1 %; Red Blood Cells 2.42 10^6/uL (4.5-5.90)
[2021-07-25 12:00] LABS: Basophils % (auto) 0.6 % (0.0-2.0); Hematocrit 21.9 % (41.0-53.0); Hemoglobin 7.3 g/dL (13.5-17.5); Lymphocytes # (auto) 0.6 10 ^3/uL (0.4-5.4); Lymphocytes % (auto) 9.4 % (10.0-50.0); Mean Corpuscular Hemoglobin 30.3 pg (28.0-32.0); Mean Corpuscular Volume 90.5 fL (80.0-100.0); Monocytes % (auto) 6.3 % (0.0-12.0); Red Cell Distribution Width 17.3 % (11.8-14.3); White Blood Cell 6.1 10^3/uL (4.4-10.8)
== END | disposition home or self-care (01) ==
LOC: CHF HDHVI 09:27
PROVIDERS: ATTEND Internal Medicine Cardiovascular Disease
DX: I13.0 Hypertensive heart and chronic kidney disease with heart failure and stage 1 through stage 4 chronic kidney disease, or unspecified chronic kidney disease (principal); E11.22 Type 2 diabetes mellitus with diabetic chronic kidney disease; I50.42 Chronic combined systolic (congestive) and diastolic (congestive) heart failure; N18.4 Chronic kidney disease, stage 4 (severe); E83.42 Hypomagnesemia; D50.9 Iron deficiency anemia, unspecified; R53.83 Other fatigue; I25.10 Atherosclerotic heart disease of native coronary artery without angina pectoris; E11.40 Type 2 diabetes mellitus with diabetic neuropathy, unspecified; E11.51 Type 2 diabetes mellitus with diabetic peripheral angiopathy without gangrene; E78.5 Hyperlipidemia, unspecified; E66.01 Morbid (severe) obesity due to excess calories; Z68.41 Body mass index [BMI] 40.0-44.9, adult; Z79.4 Long term (current) use of insulin; Z79.899 Other long term (current) drug therapy
CPT/HCPCS: 36415; 85025; 96365; 96366; 96368; 96372; G0463; J1642; J1756; J3420; J3475; 96367

== ENCOUNTER → 2021-07-28 | Outpatient (CLI) | payer OTHER, MEDICARE, MEDICAID ==
[2021-07-28] VITALS (11 sets, daily range): BP systolic 124–162; BP diastolic 76–93
[~2021-07-28] VITALS: Ht 152.4 cm; Wt 102.1 kg
[~2021-07-28] MED LIST changes: -CYANOCOBALAMIN (B-12) 1000 MCG/1 ML VIAL IM ONE; -CYANOCOBALAMIN (B-12) 1000 MCG/1 ML VIAL ONE; +DOBUTamine 1000MCG/ML 250 ML IV ONE; -MAGNESIUM SULFATE 1GM/100ML 100 ML IV ONE; -VENOFER IV ONE
[2021-07-28 09:35] LABS: Red Blood Cells 2.26 10^6/uL (4.5-5.90)
[2021-07-28 09:36] LABS: Basophils # (auto) 0 10 ^3/uL (0-0.2); Basophils % (auto) 0.5 % (0.0-2.0); Eosinophils # (auto) 0.1 10 ^3/uL (0-0.8); Eosinophils % (auto) 1.3 % (0.0-7.0); Hematocrit 20.7 % (41.0-53.0); Lymphocytes # (auto) 0.6 10 ^3/uL (0.4-5.4); Lymphocytes % (auto) 9.6 % (10.0-50.0); Mean Corpuscular Hemoglobin 31.1 pg (28.0-32.0); Mean Corpuscular Hgb Conc. 33.9 g/dL (32.0-36.0); Mean Corpuscular Volume 91.8 fL (80.0-100.0); Monocytes # (auto) 0.4 10 ^3/uL (0-1.3); Monocytes % (auto) 6.2 % (0.0-12.0); Neutrophils # (auto) 5.4 10 ^3/uL (1.6-8.6); Neutrophils % (auto) 82.4 % (37.0-80.0); Red Cell Distribution Width 17.9 % (11.8-14.3); White Blood Cell 6.6 10^3/uL (4.4-10.8)
[2021-07-28 09:39] LABS: Calcium 8.7 mg/dL (8.5-10.1); Magnesium 1.6 mg/dL (1.6-2.6); Potassium 5.5 mmol/L (3.5-5.1)
== END | disposition home or self-care (01) ==
LOC: CHF HDHVI 08:17
PROVIDERS: ATTEND Internal Medicine Cardiovascular Disease
DX: I13.0 Hypertensive heart and chronic kidney disease with heart failure and stage 1 through stage 4 chronic kidney disease, or unspecified chronic kidney disease (principal); E11.22 Type 2 diabetes mellitus with diabetic chronic kidney disease; I50.42 Chronic combined systolic (congestive) and diastolic (congestive) heart failure; N18.4 Chronic kidney disease, stage 4 (severe); I25.10 Atherosclerotic heart disease of native coronary artery without angina pectoris; E11.40 Type 2 diabetes mellitus with diabetic neuropathy, unspecified; E11.51 Type 2 diabetes mellitus with diabetic peripheral angiopathy without gangrene; E78.5 Hyperlipidemia, unspecified; E66.01 Morbid (severe) obesity due to excess calories; Z68.41 Body mass index [BMI] 40.0-44.9, adult; Z79.4 Long term (current) use of insulin; Z79.899 Other long term (current) drug therapy
CPT/HCPCS: 36415; 80048; 83735; 83880; 85025; 96365; 96366; 96368; G0463; J1250; J1642; J1756; 96367

== ENCOUNTER → 2021-07-31 | Outpatient (CLI) | payer OTHER, MEDICARE, MEDICAID ==
[~2021-07-31] VITALS: Ht 30.5 cm; Wt 0.5 kg
[~2021-07-31] MED LIST changes: -DOBUTamine 1000MCG/ML 250 ML IV ONE; +VENOFER IV ONE
[2021-07-31 09:10] LABS: Eosinophils # (auto) 0.1 10 ^3/uL (0-0.8); Hemoglobin 7.4 g/dL (13.5-17.5); Lymphocytes # (auto) 0.7 10 ^3/uL (0.4-5.4); Monocytes # (auto) 0.5 10 ^3/uL (0-1.3); Neutrophils # (auto) 4.5 10 ^3/uL (1.6-8.6); White Blood Cell 5.8 10^3/uL (4.4-10.8)
[2021-07-31 09:12] LABS: Basophils # (auto) 0 10 ^3/uL (0-0.2); Basophils % (auto) 0.7 % (0.0-2.0); Eosinophils % (auto) 1.2 % (0.0-7.0); Hematocrit 21.6 % (41.0-53.0); Lymphocytes % (auto) 12.6 % (10.0-50.0); Mean Corpuscular Hemoglobin 31.2 pg (28.0-32.0); Mean Corpuscular Hgb Conc. 34.2 g/dL (32.0-36.0); Mean Corpuscular Volume 91.2 fL (80.0-100.0); Monocytes % (auto) 7.9 % (0.0-12.0); Neutrophils % (auto) 77.6 % (37.0-80.0); Red Blood Cells 2.37 10^6/uL (4.5-5.90); Red Cell Distribution Width 17.5 % (11.8-14.3)
[2021-07-31 09:38] LABS: Calcium 8.3 mg/dL (8.5-10.1); Magnesium 1.6 mg/dL (1.6-2.6); Potassium 4.4 mmol/L (3.5-5.1)
[2021-07-31 09:47] LABS: BUN/Creatinine Ratio 11.9; Bilirubin, Total 0.4 mg/dL (0.2-1.0); Total Protein 6.1 g/dL (6.4-8.2)
== END | disposition home or self-care (01) ==
LOC: CHF HDHVI 08:17
PROVIDERS: ATTEND Internal Medicine Cardiovascular Disease
DX: I50.23 Acute on chronic systolic (congestive) heart failure (principal)
CPT/HCPCS: 36415; 80053; 83735; 83880; 85025; 96365; G0463; J1642; J1756

== ENCOUNTER → 2021-08-09 | Outpatient (CLI) | payer OTHER, MEDICARE, MEDICAID ==
[2021-08-09] VITALS (10 sets, daily range): BP systolic 137–148; BP diastolic 66–80
[~2021-08-09] MED LIST changes: +BUMETANIDE 2.5mg/10ml (0.25 mg/ml) INJ IV ONE; +BUMETANIDE INJECTION 20 ML ONE; +DOBUTamine 1000MCG/ML 250 ML IV ONE; +MAGNESIUM SULFATE 1GM/100ML 100 ML IV ONE; +metOLazone 5 MG TAB ONE; +metOLazone 5 MG TAB PO ONE
[2021-08-09 09:34] LABS: Eosinophils # (auto) 0.1 10 ^3/uL (0-0.8); Hematocrit 20.8 % (41.0-53.0); Lymphocytes # (auto) 0.6 10 ^3/uL (0.4-5.4); Monocytes # (auto) 0.3 10 ^3/uL (0-1.3); Red Blood Cells 2.23 10^6/uL (4.5-5.90)
[2021-08-09 09:36] LABS: Basophils # (auto) 0 10 ^3/uL (0-0.2); Basophils % (auto) 0.9 % (0.0-2.0); Eosinophils % (auto) 1.3 % (0.0-7.0); Lymphocytes % (auto) 12.1 % (10.0-50.0); Mean Corpuscular Hemoglobin 30.1 pg (28.0-32.0); Mean Corpuscular Hgb Conc. 32.4 g/dL (32.0-36.0); Monocytes % (auto) 6.9 % (0.0-12.0); Neutrophils % (auto) 78.8 % (37.0-80.0); Red Cell Distribution Width 17.6 % (11.8-14.3)
[2021-08-09 09:50] LABS: Magnesium 1.4 mg/dL (1.6-2.6); Potassium 5.2 mmol/L (3.5-5.1)
[2021-08-09 09:52] LABS: Hemoglobin 6.9 g/dL (13.5-17.5)
== END | disposition home or self-care (01) ==
LOC: CHF HDHVI 08:35
PROVIDERS: ATTEND Internal Medicine Cardiovascular Disease
DX: I13.0 Hypertensive heart and chronic kidney disease with heart failure and stage 1 through stage 4 chronic kidney disease, or unspecified chronic kidney disease (principal); E11.22 Type 2 diabetes mellitus with diabetic chronic kidney disease; I50.42 Chronic combined systolic (congestive) and diastolic (congestive) heart failure; N18.4 Chronic kidney disease, stage 4 (severe); E83.42 Hypomagnesemia; E11.40 Type 2 diabetes mellitus with diabetic neuropathy, unspecified; E11.51 Type 2 diabetes mellitus with diabetic peripheral angiopathy without gangrene; E78.5 Hyperlipidemia, unspecified; E66.01 Morbid (severe) obesity due to excess calories; Z68.41 Body mass index [BMI] 40.0-44.9, adult; Z79.899 Other long term (current) drug therapy; Z79.4 Long term (current) use of insulin
CPT/HCPCS: 36415; 82565; 83735; 83880; 84132; 84520; 85025; 85045; 96365; 96366; 96368; 96375; G0463; J1250; J1642; J3475; 96367; J1756

== ENCOUNTER → 2021-08-11 | Outpatient (CLI) | payer OTHER, MEDICARE, MEDICAID ==
[2021-08-11] VITALS (9 sets, daily range): BP systolic 150–181; BP diastolic 72–87
[~2021-08-11] MED LIST changes: -BUMETANIDE 2.5mg/10ml (0.25 mg/ml) INJ IV ONE; -BUMETANIDE INJECTION 20 ML ONE; -IRON SUCROSE 20 mg/ml 10ml VIAL IV ONE; -VENOFER IV ONE; -metOLazone 5 MG TAB ONE; -metOLazone 5 MG TAB PO ONE
[2021-08-11] MEDS: MAGNESIUM SULFATE 1GM/100ML 100 ML IV SCH ×3 (10:40→12:32)
[2021-08-11 11:41] LABS: Basophils # (auto) 0 10 ^3/uL (0-0.2); Basophils % (auto) 0.7 % (0.0-2.0); Eosinophils # (auto) 0.1 10 ^3/uL (0-0.8); Eosinophils % (auto) 1.5 % (0.0-7.0); Hematocrit 21.6 % (41.0-53.0); Lymphocytes # (auto) 0.6 10 ^3/uL (0.4-5.4); Lymphocytes % (auto) 13.1 % (10.0-50.0); Mean Corpuscular Hemoglobin 30.1 pg (28.0-32.0); Mean Corpuscular Hgb Conc. 32.5 g/dL (32.0-36.0); Mean Corpuscular Volume 92.7 fL (80.0-100.0); Monocytes # (auto) 0.4 10 ^3/uL (0-1.3); Monocytes % (auto) 8.1 % (0.0-12.0); Neutrophils # (auto) 3.4 10 ^3/uL (1.6-8.6); Neutrophils % (auto) 76.6 % (37.0-80.0); Red Blood Cells 2.33 10^6/uL (4.5-5.90); Red Cell Distribution Width 17.6 % (11.8-14.3); White Blood Cell 4.4 10^3/uL (4.4-10.8)
[2021-08-11 12:24] LABS: Potassium 5.1 mmol/L (3.5-5.1)
[2021-08-11 12:30] LABS: BUN/Creatinine Ratio 11.6; Calcium 8.8 mg/dL (8.5-10.1)
[2021-08-11 12:38] LABS: % Iron Saturation 18.9 % (20-55)
== END | disposition home or self-care (01) ==
LOC: CHF HDHVI 09:54
PROVIDERS: ATTEND Internal Medicine Cardiovascular Disease
DX: I13.0 Hypertensive heart and chronic kidney disease with heart failure and stage 1 through stage 4 chronic kidney disease, or unspecified chronic kidney disease (principal); E11.22 Type 2 diabetes mellitus with diabetic chronic kidney disease; I50.42 Chronic combined systolic (congestive) and diastolic (congestive) heart failure; N18.4 Chronic kidney disease, stage 4 (severe); E83.42 Hypomagnesemia; R53.83 Other fatigue; I25.10 Atherosclerotic heart disease of native coronary artery without angina pectoris; E11.40 Type 2 diabetes mellitus with diabetic neuropathy, unspecified; E11.51 Type 2 diabetes mellitus with diabetic peripheral angiopathy without gangrene; E78.5 Hyperlipidemia, unspecified; E66.01 Morbid (severe) obesity due to excess calories; Z68.41 Body mass index [BMI] 40.0-44.9, adult; Z79.899 Other long term (current) drug therapy
CPT/HCPCS: 36415; 80048; 82728; 83540; 83550; 85025; 96365; 96366; 96368; G0463; J1250; J1642; J3475; 96367

== ENCOUNTER → 2021-08-15 | Outpatient (CLI) | payer OTHER, MEDICARE, MEDICAID ==
[2021-08-15] VITALS (8 sets, daily range): BP systolic 149–163; BP diastolic 74–94
[2021-08-15 10:08] LABS: Potassium 4.6 mmol/L (3.5-5.1)
== END | disposition home or self-care (01) ==
LOC: CHF HDHVI 08:02
PROVIDERS: ATTEND Internal Medicine Cardiovascular Disease
DX: I13.0 Hypertensive heart and chronic kidney disease with heart failure and stage 1 through stage 4 chronic kidney disease, or unspecified chronic kidney disease (principal); E11.22 Type 2 diabetes mellitus with diabetic chronic kidney disease; I50.42 Chronic combined systolic (congestive) and diastolic (congestive) heart failure; N18.4 Chronic kidney disease, stage 4 (severe); E83.42 Hypomagnesemia; I25.10 Atherosclerotic heart disease of native coronary artery without angina pectoris; E11.40 Type 2 diabetes mellitus with diabetic neuropathy, unspecified; E11.51 Type 2 diabetes mellitus with diabetic peripheral angiopathy without gangrene; E78.5 Hyperlipidemia, unspecified; E66.01 Morbid (severe) obesity due to excess calories; Z68.41 Body mass index [BMI] 40.0-44.9, adult; Z79.4 Long term (current) use of insulin; Z79.899 Other long term (current) drug therapy
CPT/HCPCS: 36415; 82565; 83880; 84132; 84520; 96365; 96366; 96368; G0463; J1250; J1642; J3475; 96367

== ENCOUNTER → 2021-08-18 | Outpatient (CLI) | payer OTHER, MEDICARE, MEDICAID ==
[2021-08-18] VITALS (9 sets, daily range): BP systolic 139–176; BP diastolic 71–97
[~2021-08-18] MED LIST changes: -MAGNESIUM SULFATE 1GM/100ML 100 ML IV ONE
== END | disposition home or self-care (01) ==
LOC: CHF HDHVI 08:36
PROVIDERS: ATTEND Internal Medicine Cardiovascular Disease
DX: I13.0 Hypertensive heart and chronic kidney disease with heart failure and stage 1 through stage 4 chronic kidney disease, or unspecified chronic kidney disease (principal); E11.22 Type 2 diabetes mellitus with diabetic chronic kidney disease; I50.42 Chronic combined systolic (congestive) and diastolic (congestive) heart failure; N18.4 Chronic kidney disease, stage 4 (severe); I25.10 Atherosclerotic heart disease of native coronary artery without angina pectoris; E11.40 Type 2 diabetes mellitus with diabetic neuropathy, unspecified; E11.51 Type 2 diabetes mellitus with diabetic peripheral angiopathy without gangrene; E78.5 Hyperlipidemia, unspecified; E83.42 Hypomagnesemia; E66.01 Morbid (severe) obesity due to excess calories; Z68.41 Body mass index [BMI] 40.0-44.9, adult; Z79.4 Long term (current) use of insulin; Z79.899 Other long term (current) drug therapy
CPT/HCPCS: 96365; 96366; G0463; J1250; J1642

== ENCOUNTER → 2021-08-22 | Outpatient (CLI) | payer OTHER, MEDICARE, MEDICAID ==
[2021-08-22] VITALS (8 sets, daily range): BP systolic 147–159; BP diastolic 79–156
[2021-08-22 11:28] LABS: Basophils # (auto) 0 10 ^3/uL (0-0.2); Eosinophils # (auto) 0.1 10 ^3/uL (0-0.8); Lymphocytes # (auto) 0.8 10 ^3/uL (0.4-5.4); Monocytes # (auto) 0.4 10 ^3/uL (0-1.3); Nucleated Red Blood Cells % 0.1 %; White Blood Cell 5.3 10^3/uL (4.4-10.8)
[2021-08-22 11:29] LABS: Basophils % (auto) 0.6 % (0.0-2.0); Eosinophils % (auto) 1.1 % (0.0-7.0); Hematocrit 21.1 % (41.0-53.0); Lymphocytes % (auto) 14.4 % (10.0-50.0); Mean Corpuscular Hemoglobin 30.3 pg (28.0-32.0); Mean Corpuscular Hgb Conc. 32.8 g/dL (32.0-36.0); Mean Corpuscular Volume 92.3 fL (80.0-100.0); Monocytes % (auto) 6.7 % (0.0-12.0); Neutrophils # (auto) 4.1 10 ^3/uL (1.6-8.6); Neutrophils % (auto) 77.2 % (37.0-80.0); Red Blood Cells 2.29 10^6/uL (4.5-5.90); Red Cell Distribution Width 16.7 % (11.8-14.3)
[2021-08-22 11:32] LABS: BUN/Creatinine Ratio 12.6; Magnesium 1.6 mg/dL (1.6-2.6); Potassium 4.3 mmol/L (3.5-5.1)
[2021-08-22 12:17] LABS: Hemoglobin 6.9 g/dL (13.5-17.5)
== END | disposition home or self-care (01) ==
LOC: CHF HDHVI 08:53
PROVIDERS: ATTEND Internal Medicine Cardiovascular Disease
DX: I13.0 Hypertensive heart and chronic kidney disease with heart failure and stage 1 through stage 4 chronic kidney disease, or unspecified chronic kidney disease (principal); E11.22 Type 2 diabetes mellitus with diabetic chronic kidney disease; I50.42 Chronic combined systolic (congestive) and diastolic (congestive) heart failure; N18.4 Chronic kidney disease, stage 4 (severe); I25.10 Atherosclerotic heart disease of native coronary artery without angina pectoris; E11.40 Type 2 diabetes mellitus with diabetic neuropathy, unspecified; E11.51 Type 2 diabetes mellitus with diabetic peripheral angiopathy without gangrene; E78.5 Hyperlipidemia, unspecified; E66.01 Morbid (severe) obesity due to excess calories; Z68.41 Body mass index [BMI] 40.0-44.9, adult; Z79.4 Long term (current) use of insulin; Z79.899 Other long term (current) drug therapy
CPT/HCPCS: 36415; 80048; 83735; 83880; 85025; 96365; 96366; G0463; J1250; J1642

== ENCOUNTER → 2021-08-25 | Outpatient (CLI) | payer OTHER, MEDICARE, MEDICAID ==
[~2021-08-25] VITALS: Ht 182.9 cm; Wt 104.5 kg
[2021-08-25] VITALS (10 sets, daily range): BP systolic 141–164; BP diastolic 66–81
[~2021-08-25] MED LIST changes: +CYANOCOBALAMIN (B-12) 1000 MCG/1 ML VIAL IM ONE; +CYANOCOBALAMIN (B-12) 1000 MCG/1 ML VIAL ONE
== END | disposition home or self-care (01) ==
LOC: CHF HDHVI 08:37
PROVIDERS: ATTEND Internal Medicine Cardiovascular Disease
DX: I13.0 Hypertensive heart and chronic kidney disease with heart failure and stage 1 through stage 4 chronic kidney disease, or unspecified chronic kidney disease (principal); E11.22 Type 2 diabetes mellitus with diabetic chronic kidney disease; I50.42 Chronic combined systolic (congestive) and diastolic (congestive) heart failure; N18.4 Chronic kidney disease, stage 4 (severe); I25.10 Atherosclerotic heart disease of native coronary artery without angina pectoris; E11.40 Type 2 diabetes mellitus with diabetic neuropathy, unspecified; E11.51 Type 2 diabetes mellitus with diabetic peripheral angiopathy without gangrene; E78.5 Hyperlipidemia, unspecified; E66.01 Morbid (severe) obesity due to excess calories; Z68.41 Body mass index [BMI] 40.0-44.9, adult; Z79.4 Long term (current) use of insulin; Z79.899 Other long term (current) drug therapy
CPT/HCPCS: 96365; 96366; 96372; G0463; J1250; J1642; J3420; 96360

== ENCOUNTER → 2021-09-01 | Outpatient (CLI) | payer OTHER, MEDICARE, MEDICAID ==
[2021-09-01] VITALS (11 sets, daily range): BP systolic 136–180; BP diastolic 72–90
[~2021-09-01] MED LIST changes: -CYANOCOBALAMIN (B-12) 1000 MCG/1 ML VIAL IM ONE; -CYANOCOBALAMIN (B-12) 1000 MCG/1 ML VIAL ONE; +MAGNESIUM OXIDE 400 MG TAB PO ONE; +POTASSIUM CHL 20 Meq TABLET PO ONE
== END | disposition home or self-care (01) ==
LOC: CHF HDHVI 08:34
PROVIDERS: ATTEND Internal Medicine Cardiovascular Disease
DX: R53.83 Other fatigue (principal); R06.02 Shortness of breath; E11.22 Type 2 diabetes mellitus with diabetic chronic kidney disease; I13.0 Hypertensive heart and chronic kidney disease with heart failure and stage 1 through stage 4 chronic kidney disease, or unspecified chronic kidney disease; N18.4 Chronic kidney disease, stage 4 (severe); I50.42 Chronic combined systolic (congestive) and diastolic (congestive) heart failure; I42.0 Dilated cardiomyopathy; E78.5 Hyperlipidemia, unspecified; E11.40 Type 2 diabetes mellitus with diabetic neuropathy, unspecified; E11.51 Type 2 diabetes mellitus with diabetic peripheral angiopathy without gangrene; E66.01 Morbid (severe) obesity due to excess calories; Z68.41 Body mass index [BMI] 40.0-44.9, adult; Z94.1 Heart transplant status; Z79.4 Long term (current) use of insulin; Z79.899 Other long term (current) drug therapy
CPT/HCPCS: 96365; 96366; G0463; J1250; J1642

== ENCOUNTER → 2021-09-05 | Outpatient (CLI) | payer OTHER, MEDICARE, MEDICAID ==
[2021-09-05] VITALS (9 sets, daily range): BP systolic 141–161; BP diastolic 77–87
[~2021-09-05] MED LIST changes: -MAGNESIUM OXIDE 400 MG TAB PO ONE; -POTASSIUM CHL 20 Meq TABLET PO ONE
[2021-09-05 09:55] LABS: Potassium 4.3 mmol/L (3.5-5.1)
== END | disposition home or self-care (01) ==
LOC: CHF HDHVI 07:52
PROVIDERS: ATTEND Internal Medicine Cardiovascular Disease
DX: E11.22 Type 2 diabetes mellitus with diabetic chronic kidney disease (principal); I13.0 Hypertensive heart and chronic kidney disease with heart failure and stage 1 through stage 4 chronic kidney disease, or unspecified chronic kidney disease; N18.4 Chronic kidney disease, stage 4 (severe); I50.42 Chronic combined systolic (congestive) and diastolic (congestive) heart failure; I25.10 Atherosclerotic heart disease of native coronary artery without angina pectoris; I42.0 Dilated cardiomyopathy; E78.5 Hyperlipidemia, unspecified; E11.40 Type 2 diabetes mellitus with diabetic neuropathy, unspecified; E11.51 Type 2 diabetes mellitus with diabetic peripheral angiopathy without gangrene; R53.83 Other fatigue; E66.01 Morbid (severe) obesity due to excess calories; Z68.41 Body mass index [BMI] 40.0-44.9, adult; Z79.899 Other long term (current) drug therapy; Z79.4 Long term (current) use of insulin
CPT/HCPCS: 36415; 82565; 83880; 84132; 84520; 96365; 96366; G0463; J1250; J1642

== ENCOUNTER → 2021-09-08 | Outpatient (CLI) | payer OTHER, MEDICARE, MEDICAID ==
[~2021-09-08] VITALS: Ht 182.9 cm; Wt 99.9 kg
[2021-09-08] VITALS (10 sets, daily range): BP systolic 126–161; BP diastolic 69–84
[2021-09-08 12:07] LABS: Basophils # (auto) 0 10 ^3/uL (0-0.2); Basophils % (auto) 0.7 % (0.0-2.0); Eosinophils # (auto) 0.1 10 ^3/uL (0-0.8); Eosinophils % (auto) 2.1 % (0.0-7.0); Hematocrit 21.8 % (41.0-53.0); Hemoglobin 7.1 g/dL (13.5-17.5); Lymphocytes # (auto) 0.9 10 ^3/uL (0.4-5.4); Lymphocytes % (auto) 17.7 % (10.0-50.0); Mean Corpuscular Hemoglobin 29.7 pg (28.0-32.0); Mean Corpuscular Hgb Conc. 32.5 g/dL (32.0-36.0); Mean Corpuscular Volume 91.4 fL (80.0-100.0); Monocytes # (auto) 0.5 10 ^3/uL (0-1.3); Monocytes % (auto) 8.6 % (0.0-12.0); Neutrophils # (auto) 3.7 10 ^3/uL (1.6-8.6); Neutrophils % (auto) 70.9 % (37.0-80.0); Nucleated Red Blood Cells % 0.1 %; Red Blood Cells 2.38 10^6/uL (4.5-5.90); Red Cell Distribution Width 16.6 % (11.8-14.3); White Blood Cell 5.2 10^3/uL (4.4-10.8)
[2021-09-08 12:30] LABS: Potassium 4.2 mmol/L (3.5-5.1)
[2021-09-08 12:42] LABS: Albumin 3.2 g/dL (3.4-5.0); BUN/Creatinine Ratio 8.7; Bilirubin, Total 0.3 mg/dL (0.2-1.0); Calcium 8.6 mg/dL (8.5-10.1); Total Protein 6.3 g/dL (6.4-8.2)
== END | disposition home or self-care (01) ==
LOC: CHF HDHVI 07:53
PROVIDERS: ATTEND Internal Medicine Cardiovascular Disease
DX: I13.0 Hypertensive heart and chronic kidney disease with heart failure and stage 1 through stage 4 chronic kidney disease, or unspecified chronic kidney disease (principal); E11.22 Type 2 diabetes mellitus with diabetic chronic kidney disease; N18.4 Chronic kidney disease, stage 4 (severe); I50.42 Chronic combined systolic (congestive) and diastolic (congestive) heart failure; I25.10 Atherosclerotic heart disease of native coronary artery without angina pectoris; E78.5 Hyperlipidemia, unspecified; E66.01 Morbid (severe) obesity due to excess calories; E11.40 Type 2 diabetes mellitus with diabetic neuropathy, unspecified; E11.51 Type 2 diabetes mellitus with diabetic peripheral angiopathy without gangrene; Z85.819 Personal history of malignant neoplasm of unspecified site of lip, oral cavity, and pharynx; Z94.1 Heart transplant status; Z68.41 Body mass index [BMI] 40.0-44.9, adult; Z79.4 Long term (current) use of insulin; Z79.899 Other long term (current) drug therapy
CPT/HCPCS: 36415; 80053; 85025; 96365; 96366; G0463; J1250; J1642

== ENCOUNTER → 2021-09-12 | Outpatient (CLI) | payer OTHER, MEDICARE, MEDICAID ==
[2021-09-12] VITALS (9 sets, daily range): BP systolic 136–152; BP diastolic 70–79
[~2021-09-12] MED LIST changes: +CYANOCOBALAMIN (B-12) 1000 MCG/1 ML VIAL IM ONE; +CYANOCOBALAMIN (B-12) 1000 MCG/1 ML VIAL ONE
[2021-09-12 12:12] LABS: Eosinophils # (auto) 0.1 10 ^3/uL (0-0.8); Hematocrit 21.1 % (41.0-53.0); Lymphocytes # (auto) 0.7 10 ^3/uL (0.4-5.4); Mean Corpuscular Hemoglobin 29.6 pg (28.0-32.0); Mean Corpuscular Hgb Conc. 32.2 g/dL (32.0-36.0); Monocytes # (auto) 0.4 10 ^3/uL (0-1.3)
[2021-09-12 12:21] LABS: Basophils # (auto) 0 10 ^3/uL (0-0.2); Basophils % (auto) 0.6 % (0.0-2.0); Eosinophils % (auto) 1.8 % (0.0-7.0); Lymphocytes % (auto) 13.8 % (10.0-50.0); Mean Corpuscular Volume 91.8 fL (80.0-100.0); Monocytes % (auto) 7.8 % (0.0-12.0); Neutrophils # (auto) 3.8 10 ^3/uL (1.6-8.6); Potassium 4.4 mmol/L (3.5-5.1); Red Blood Cells 2.29 10^6/uL (4.5-5.90)
[2021-09-12 12:27] LABS: BUN/Creatinine Ratio 9.5; Calcium 8.6 mg/dL (8.5-10.1); Magnesium 1.7 mg/dL (1.6-2.6)
[2021-09-12 13:20] LABS: Hemoglobin 6.8 g/dL (13.5-17.5)
== END | disposition home or self-care (01) ==
LOC: CHF HDHVI 07:57
PROVIDERS: ATTEND Internal Medicine Cardiovascular Disease
DX: I13.0 Hypertensive heart and chronic kidney disease with heart failure and stage 1 through stage 4 chronic kidney disease, or unspecified chronic kidney disease (principal); E11.22 Type 2 diabetes mellitus with diabetic chronic kidney disease; N18.4 Chronic kidney disease, stage 4 (severe); I50.42 Chronic combined systolic (congestive) and diastolic (congestive) heart failure; I25.10 Atherosclerotic heart disease of native coronary artery without angina pectoris; E78.5 Hyperlipidemia, unspecified; E11.40 Type 2 diabetes mellitus with diabetic neuropathy, unspecified; E11.51 Type 2 diabetes mellitus with diabetic peripheral angiopathy without gangrene; E66.01 Morbid (severe) obesity due to excess calories; Z79.4 Long term (current) use of insulin; Z79.899 Other long term (current) drug therapy; Z68.41 Body mass index [BMI] 40.0-44.9, adult; Z85.819 Personal history of malignant neoplasm of unspecified site of lip, oral cavity, and pharynx
CPT/HCPCS: 36415; 80048; 83735; 83880; 85025; 96365; 96366; 96372; G0463; J1250; J1642; J3420

== ENCOUNTER → 2021-09-15 | Outpatient (CLI) | payer OTHER, MEDICARE, MEDICAID ==
[2021-09-15] VITALS (9 sets, daily range): BP systolic 136–170; BP diastolic 71–86
[~2021-09-15] MED LIST changes: -CYANOCOBALAMIN (B-12) 1000 MCG/1 ML VIAL IM ONE; -CYANOCOBALAMIN (B-12) 1000 MCG/1 ML VIAL ONE; +LABE200T7 PO; +MAGNESIUM SULFATE 1GM/100ML 100 ML IV ONE
[2021-09-15 09:22] LABS: Basophils # (auto) 0 10 ^3/uL (0-0.2); Basophils % (auto) 0.7 % (0.0-2.0); Eosinophils # (auto) 0.1 10 ^3/uL (0-0.8); Eosinophils % (auto) 1.4 % (0.0-7.0); Hematocrit 22.3 % (41.0-53.0); Hemoglobin 7.1 g/dL (13.5-17.5); Lymphocytes # (auto) 0.7 10 ^3/uL (0.4-5.4); Mean Corpuscular Hemoglobin 29.6 pg (28.0-32.0); Mean Corpuscular Hgb Conc. 32.1 g/dL (32.0-36.0); Mean Corpuscular Volume 92.2 fL (80.0-100.0); Monocytes # (auto) 0.3 10 ^3/uL (0-1.3); Monocytes % (auto) 7.4 % (0.0-12.0); Neutrophils # (auto) 3.5 10 ^3/uL (1.6-8.6); Neutrophils % (auto) 75.5 % (37.0-80.0); Red Blood Cells 2.42 10^6/uL (4.5-5.90); Red Cell Distribution Width 16.4 % (11.8-14.3); White Blood Cell 4.6 10^3/uL (4.4-10.8)
[2021-09-15 09:31] LABS: BUN/Creatinine Ratio 10.4; Potassium 4.3 mmol/L (3.5-5.1)
== END | disposition home or self-care (01) ==
LOC: CHF HDHVI 07:56
PROVIDERS: ATTEND Internal Medicine Cardiovascular Disease
DX: I13.0 Hypertensive heart and chronic kidney disease with heart failure and stage 1 through stage 4 chronic kidney disease, or unspecified chronic kidney disease (principal); E11.22 Type 2 diabetes mellitus with diabetic chronic kidney disease; N18.4 Chronic kidney disease, stage 4 (severe); I50.42 Chronic combined systolic (congestive) and diastolic (congestive) heart failure; D64.9 Anemia, unspecified; I42.0 Dilated cardiomyopathy; E83.42 Hypomagnesemia; I25.10 Atherosclerotic heart disease of native coronary artery without angina pectoris; E78.5 Hyperlipidemia, unspecified; E66.01 Morbid (severe) obesity due to excess calories; E11.40 Type 2 diabetes mellitus with diabetic neuropathy, unspecified; E11.51 Type 2 diabetes mellitus with diabetic peripheral angiopathy without gangrene; Z79.4 Long term (current) use of insulin; Z79.899 Other long term (current) drug therapy; Z68.41 Body mass index [BMI] 40.0-44.9, adult; Z94.1 Heart transplant status; Z85.819 Personal history of malignant neoplasm of unspecified site of lip, oral cavity, and pharynx
CPT/HCPCS: 36415; 80048; 85025; 96365; 96366; 96368; G0463; J1250; J1642; J3475; 96367

== ENCOUNTER → 2021-09-19 | Outpatient (CLI) | payer OTHER, MEDICARE, MEDICAID ==
[2021-09-19] VITALS (10 sets, daily range): BP systolic 121–143; BP diastolic 67–71
[~2021-09-19] MED LIST changes: -MAGNESIUM SULFATE 1GM/100ML 100 ML IV ONE
[2021-09-19 11:31] LABS: Magnesium 1.6 mg/dL (1.6-2.6); Potassium 4.5 mmol/L (3.5-5.1)
== END | disposition home or self-care (01) ==
LOC: CHF HDHVI 08:12
PROVIDERS: ATTEND Internal Medicine Cardiovascular Disease
DX: I13.0 Hypertensive heart and chronic kidney disease with heart failure and stage 1 through stage 4 chronic kidney disease, or unspecified chronic kidney disease (principal); E11.22 Type 2 diabetes mellitus with diabetic chronic kidney disease; N18.4 Chronic kidney disease, stage 4 (severe); I50.42 Chronic combined systolic (congestive) and diastolic (congestive) heart failure; I51.7 Cardiomegaly; I25.10 Atherosclerotic heart disease of native coronary artery without angina pectoris; E78.5 Hyperlipidemia, unspecified; E66.01 Morbid (severe) obesity due to excess calories; E11.40 Type 2 diabetes mellitus with diabetic neuropathy, unspecified; E11.51 Type 2 diabetes mellitus with diabetic peripheral angiopathy without gangrene; Z68.41 Body mass index [BMI] 40.0-44.9, adult; Z79.4 Long term (current) use of insulin; Z79.899 Other long term (current) drug therapy; Z94.1 Heart transplant status; Z85.819 Personal history of malignant neoplasm of unspecified site of lip, oral cavity, and pharynx
CPT/HCPCS: 36415; 82565; 83735; 83880; 84132; 84520; 96365; 96366; G0463; J1250; J1642

== ENCOUNTER → 2021-09-22 | Outpatient (CLI) | payer OTHER, MEDICARE, MEDICAID ==
[2021-09-22] VITALS (8 sets, daily range): BP systolic 102–148; BP diastolic 48–80
[~2021-09-22] VITALS: Ht 165.1 cm; Wt 103.5 kg
[~2021-09-22] MED LIST changes: -DOBUTamine 1000MCG/ML 250 ML IV ONE; +DOPamine 1600MCG/ML D5W 250 ML IV ONE; +SODIUM CHLORIDE 0.9% 100 ML IV ONE
== END | disposition home or self-care (01) ==
LOC: CHF HDHVI 08:12
PROVIDERS: ATTEND Internal Medicine Cardiovascular Disease
DX: I13.0 Hypertensive heart and chronic kidney disease with heart failure and stage 1 through stage 4 chronic kidney disease, or unspecified chronic kidney disease (principal); E11.22 Type 2 diabetes mellitus with diabetic chronic kidney disease; N18.4 Chronic kidney disease, stage 4 (severe); I50.42 Chronic combined systolic (congestive) and diastolic (congestive) heart failure; I25.10 Atherosclerotic heart disease of native coronary artery without angina pectoris; E78.5 Hyperlipidemia, unspecified; E11.40 Type 2 diabetes mellitus with diabetic neuropathy, unspecified; E11.51 Type 2 diabetes mellitus with diabetic peripheral angiopathy without gangrene; E66.01 Morbid (severe) obesity due to excess calories; Z68.41 Body mass index [BMI] 40.0-44.9, adult; Z79.4 Long term (current) use of insulin; Z79.899 Other long term (current) drug therapy; Z85.819 Personal history of malignant neoplasm of unspecified site of lip, oral cavity, and pharynx
CPT/HCPCS: 96365; G0463; J1265; J1642; 96366

== ENCOUNTER → 2021-09-26 | Outpatient (CLI) | payer OTHER, MEDICARE, MEDICAID ==
[2021-09-26] VITALS (10 sets, daily range): BP systolic 127–159; BP diastolic 71–80
[~2021-09-26] MED LIST changes: +DOBUTamine 1000MCG/ML 250 ML IV ONE; -DOPamine 1600MCG/ML D5W 250 ML IV ONE; -SODIUM CHLORIDE 0.9% 100 ML IV ONE
[2021-09-26 12:21] LABS: Basophils # (auto) 0 10 ^3/uL (0-0.2); Eosinophils # (auto) 0.1 10 ^3/uL (0-0.8); Lymphocytes # (auto) 0.6 10 ^3/uL (0.4-5.4); Monocytes # (auto) 0.3 10 ^3/uL (0-1.3); White Blood Cell 4.5 10^3/uL (4.4-10.8)
[2021-09-26 12:26] LABS: Basophils % (auto) 0.6 % (0.0-2.0); Eosinophils % (auto) 1.2 % (0.0-7.0); Hematocrit 19.3 % (41.0-53.0); Lymphocytes % (auto) 13.8 % (10.0-50.0); Mean Corpuscular Hgb Conc. 32.8 g/dL (32.0-36.0); Mean Corpuscular Volume 91.7 fL (80.0-100.0); Monocytes % (auto) 7.2 % (0.0-12.0); Neutrophils # (auto) 3.5 10 ^3/uL (1.6-8.6); Neutrophils % (auto) 77.2 % (37.0-80.0); Red Blood Cells 2.11 10^6/uL (4.5-5.90); Red Cell Distribution Width 16.4 % (11.8-14.3)
[2021-09-26 12:27] LABS: Calcium 9.1 mg/dL (8.5-10.1); Potassium 4.7 mmol/L (3.5-5.1)
[2021-09-26 12:31] LABS: BUN/Creatinine Ratio 8.1
[2021-09-26 14:08] LABS: Hemoglobin 6.3 g/dL (13.5-17.5)
== END | disposition home or self-care (01) ==
LOC: CHF HDHVI 08:16
PROVIDERS: ATTEND Internal Medicine Cardiovascular Disease
DX: I13.0 Hypertensive heart and chronic kidney disease with heart failure and stage 1 through stage 4 chronic kidney disease, or unspecified chronic kidney disease (principal); E11.22 Type 2 diabetes mellitus with diabetic chronic kidney disease; N18.4 Chronic kidney disease, stage 4 (severe); I50.42 Chronic combined systolic (congestive) and diastolic (congestive) heart failure; I25.10 Atherosclerotic heart disease of native coronary artery without angina pectoris; E78.5 Hyperlipidemia, unspecified; E66.01 Morbid (severe) obesity due to excess calories; E11.40 Type 2 diabetes mellitus with diabetic neuropathy, unspecified; E11.51 Type 2 diabetes mellitus with diabetic peripheral angiopathy without gangrene; Z68.41 Body mass index [BMI] 40.0-44.9, adult; Z79.899 Other long term (current) drug therapy; Z79.4 Long term (current) use of insulin; Z85.819 Personal history of malignant neoplasm of unspecified site of lip, oral cavity, and pharynx; Z94.1 Heart transplant status
CPT/HCPCS: 36415; 80048; 83880; 85025; 96365; 96366; G0463; J1250; J1642

== ENCOUNTER 2021-09-29 07:58 | Day surgery (SDC) | payer OTHER, MEDICARE, MEDICAID ==
[2021-09-27 13:13] LABS: Basophils # (auto) 0 10 ^3/uL (0-0.2); Eosinophils # (auto) 0.1 10 ^3/uL (0-0.8); Eosinophils % (auto) 1.7 % (0.0-7.0); Lymphocytes # (auto) 0.7 10 ^3/uL (0.4-5.4); Red Blood Cells 2.15 10^6/uL (4.5-5.90); White Blood Cell 4.4 10^3/uL (4.4-10.8)
[2021-09-27 13:15] LABS: Basophils % (auto) 0.7 % (0.0-2.0); Hematocrit 19.7 % (41.0-53.0); Lymphocytes % (auto) 15.2 % (10.0-50.0); Mean Corpuscular Hgb Conc. 32.7 g/dL (32.0-36.0); Mean Corpuscular Volume 91.6 fL (80.0-100.0); Monocytes # (auto) 0.4 10 ^3/uL (0-1.3); Monocytes % (auto) 8.3 % (0.0-12.0); Neutrophils # (auto) 3.2 10 ^3/uL (1.6-8.6); Neutrophils % (auto) 74.1 % (37.0-80.0); Red Cell Distribution Width 16.4 % (11.8-14.3)
[2021-09-27 13:24] LABS: Hemoglobin 6.5 g/dL (13.5-17.5)
[~2021-09-29 07:58] MED LIST changes: -DOBUTamine 1000MCG/ML 250 ML IV ONE
[2021-09-29 08:46] VITALS: BP 143/80
[2021-09-29 09:05] VITALS: BP 148/77
[2021-09-29 11:22] VITALS: BP 141/78
[2021-09-29 11:39] VITALS: BP 140/79
[2021-09-29 12:06] VITALS: BP 141/86
[2021-09-29 13:25] VITALS: BP 149/80
[2021-09-29 14:38] LABS: Hematocrit 23.9 % (41.0-53.0); Nucleated Red Blood Cells % 0.1 %; Red Blood Cells 2.68 10^6/uL (4.5-5.90)
[2021-09-29 14:40] LABS: Basophils # (auto) 0.1 10 ^3/uL (0-0.2); Basophils % (auto) 1.2 % (0.0-2.0); Eosinophils # (auto) 0.1 10 ^3/uL (0-0.8); Lymphocytes # (auto) 0.6 10 ^3/uL (0.4-5.4); Mean Corpuscular Hemoglobin 29.9 pg (28.0-32.0); Mean Corpuscular Hgb Conc. 33.4 g/dL (32.0-36.0); Mean Corpuscular Volume 89.4 fL (80.0-100.0); Monocytes # (auto) 0.4 10 ^3/uL (0-1.3); Monocytes % (auto) 8.2 % (0.0-12.0); Neutrophils # (auto) 3.5 10 ^3/uL (1.6-8.6); Neutrophils % (auto) 74.6 % (37.0-80.0); Red Cell Distribution Width 17.2 % (11.8-14.3); White Blood Cell 4.6 10^3/uL (4.4-10.8)
== END 2021-09-29 14:35 | disposition home or self-care (01) ==
LOC: CATH 07:58
PROVIDERS: ATTEND Internal Medicine Cardiovascular Disease
DX: D64.9 Anemia, unspecified (principal); I50.9 Heart failure, unspecified; Z82.49 Family history of ischemic heart disease and other diseases of the circulatory system; Z20.822 Contact with and (suspected) exposure to COVID-19
CPT/HCPCS: 36415; 36430; 85025; 86850; 86900; 86901; 86920; J7040; P9016; U0003

== ENCOUNTER → 2021-10-03 | Outpatient (CLI) | payer OTHER, MEDICARE, MEDICAID ==
[2021-10-03] VITALS (9 sets, daily range): BP systolic 138–150; BP diastolic 47–88
[~2021-10-03] VITALS: Ht 182.9 cm; Wt 95.8 kg
[~2021-10-03] MED LIST changes: +DOBUTamine 1000MCG/ML 250 ML IV ONE
[2021-10-03 12:54] LABS: Basophils # (auto) 0 10 ^3/uL (0-0.2); Basophils % (auto) 0.6 % (0.0-2.0); Eosinophils # (auto) 0.1 10 ^3/uL (0-0.8); Hemoglobin 7.9 g/dL (13.5-17.5); Lymphocytes # (auto) 0.6 10 ^3/uL (0.4-5.4); Monocytes # (auto) 0.4 10 ^3/uL (0-1.3); Neutrophils # (auto) 3.6 10 ^3/uL (1.6-8.6); Red Cell Distribution Width 16.7 % (11.8-14.3)
[2021-10-03 12:58] LABS: Eosinophils % (auto) 2.1 % (0.0-7.0); Hematocrit 24.6 % (41.0-53.0); Lymphocytes % (auto) 13.3 % (10.0-50.0); Mean Corpuscular Hemoglobin 29.3 pg (28.0-32.0); Mean Corpuscular Hgb Conc. 32.2 g/dL (32.0-36.0); Mean Corpuscular Volume 91.1 fL (80.0-100.0); Monocytes % (auto) 8.4 % (0.0-12.0); Neutrophils % (auto) 75.6 % (37.0-80.0); White Blood Cell 4.7 10^3/uL (4.4-10.8)
[2021-10-03 13:02] LABS: Urine Blood Negative /uL (Negative); Urine Specific Gravity 1.009 (1.001-1.035)
[2021-10-03 13:08] LABS: BUN/Creatinine Ratio 7.6; Calcium 8.9 mg/dL (8.5-10.1); Magnesium 1.4 mg/dL (1.6-2.6); Phosphorus 3.7 mg/dL (2.5-4.90); Potassium 4.4 mmol/L (3.5-5.1)
[2021-10-03 13:15] LABS: % Iron Saturation 22.5 % (20-55)
[2021-10-03 16:59] LABS: Creatinine, Urine 48 mg/dL (30.0-125.0); Protein, Urine 156.7 mg/dL (0.0-11.9)
== END | disposition home or self-care (01) ==
LOC: CHF HDHVI 08:25
PROVIDERS: ATTEND Internal Medicine Cardiovascular Disease
DX: I13.0 Hypertensive heart and chronic kidney disease with heart failure and stage 1 through stage 4 chronic kidney disease, or unspecified chronic kidney disease (principal); E11.22 Type 2 diabetes mellitus with diabetic chronic kidney disease; N18.4 Chronic kidney disease, stage 4 (severe); I50.42 Chronic combined systolic (congestive) and diastolic (congestive) heart failure; E55.9 Vitamin D deficiency, unspecified; R80.9 Proteinuria, unspecified; D64.9 Anemia, unspecified; I25.10 Atherosclerotic heart disease of native coronary artery without angina pectoris; E78.5 Hyperlipidemia, unspecified; E66.01 Morbid (severe) obesity due to excess calories; E11.42 Type 2 diabetes mellitus with diabetic polyneuropathy; E11.51 Type 2 diabetes mellitus with diabetic peripheral angiopathy without gangrene; Z79.4 Long term (current) use of insulin; Z68.41 Body mass index [BMI] 40.0-44.9, adult; Z94.1 Heart transplant status; Z79.899 Other long term (current) drug therapy; Z85.819 Personal history of malignant neoplasm of unspecified site of lip, oral cavity, and pharynx
CPT/HCPCS: 36415; 80048; 80197; 81003; 82306; 82570; 83036; 83540; 83550; 83735; 83880; 83970; 84100; 84156; 85025; 96365; 96366; G0463; J1250; J1642

== ENCOUNTER → 2021-10-06 | Outpatient (CLI) | payer OTHER, MEDICARE, MEDICAID ==
[2021-10-06] VITALS (9 sets, daily range): BP systolic 137–153; BP diastolic 60–81
[~2021-10-06] MED LIST changes: +MAGNESIUM SULFATE 1GM/100ML 100 ML IV ONE
[2021-10-06] MEDS: MAGNESIUM SULFATE 1GM/100ML 100 ML IV SCH ×2 (08:41→09:42)
== END | disposition home or self-care (01) ==
LOC: CHF HDHVI 08:23
PROVIDERS: ATTEND Internal Medicine Cardiovascular Disease
DX: I13.0 Hypertensive heart and chronic kidney disease with heart failure and stage 1 through stage 4 chronic kidney disease, or unspecified chronic kidney disease (principal); E11.22 Type 2 diabetes mellitus with diabetic chronic kidney disease; N18.4 Chronic kidney disease, stage 4 (severe); I50.42 Chronic combined systolic (congestive) and diastolic (congestive) heart failure; R06.02 Shortness of breath; I25.10 Atherosclerotic heart disease of native coronary artery without angina pectoris; E78.5 Hyperlipidemia, unspecified; E66.01 Morbid (severe) obesity due to excess calories; E11.42 Type 2 diabetes mellitus with diabetic polyneuropathy; E11.51 Type 2 diabetes mellitus with diabetic peripheral angiopathy without gangrene; Z79.4 Long term (current) use of insulin; Z94.1 Heart transplant status; Z68.41 Body mass index [BMI] 40.0-44.9, adult; Z79.899 Other long term (current) drug therapy; Z85.819 Personal history of malignant neoplasm of unspecified site of lip, oral cavity, and pharynx
CPT/HCPCS: 96365; 96366; 96368; G0463; J1250; J1642; J3475; 96367

== ENCOUNTER → 2021-10-10 | Outpatient (CLI) | payer OTHER, MEDICARE, MEDICAID ==
[2021-10-10] VITALS (8 sets, daily range): BP systolic 131–145; BP diastolic 64–75
[~2021-10-10] MED LIST changes: -AML5T; +AML5T PO; +MAGNESIUM SULFATE 1GM/100ML 200 ML IV ONE
== END | disposition home or self-care (01) ==
LOC: CHF HDHVI 08:17
PROVIDERS: ATTEND Internal Medicine Cardiovascular Disease
DX: I13.2 Hypertensive heart and chronic kidney disease with heart failure and with stage 5 chronic kidney disease, or end stage renal disease (principal); E11.22 Type 2 diabetes mellitus with diabetic chronic kidney disease; N18.6 End stage renal disease; I50.33 Acute on chronic diastolic (congestive) heart failure; E61.2 Magnesium deficiency; D64.9 Anemia, unspecified; I25.10 Atherosclerotic heart disease of native coronary artery without angina pectoris; E78.5 Hyperlipidemia, unspecified; I25.5 Ischemic cardiomyopathy; E66.01 Morbid (severe) obesity due to excess calories; E11.42 Type 2 diabetes mellitus with diabetic polyneuropathy; E11.51 Type 2 diabetes mellitus with diabetic peripheral angiopathy without gangrene; Z68.41 Body mass index [BMI] 40.0-44.9, adult; Z79.899 Other long term (current) drug therapy; Z85.819 Personal history of malignant neoplasm of unspecified site of lip, oral cavity, and pharynx; Z79.4 Long term (current) use of insulin; Z94.1 Heart transplant status; Z99.2 Dependence on renal dialysis
CPT/HCPCS: 96365; 96366; 96368; G0463; J1250; J1642; J3475

== ENCOUNTER → 2021-10-13 | Outpatient (CLI) | payer OTHER, MEDICARE, MEDICAID ==
[~2021-10-13] VITALS: Ht 165.1 cm; Wt 94.6 kg
[2021-10-13] VITALS (10 sets, daily range): BP systolic 133–149; BP diastolic 65–78
[~2021-10-13] MED LIST changes: +AML5T; -AML5T PO; -MAGNESIUM SULFATE 1GM/100ML 100 ML IV ONE; -MAGNESIUM SULFATE 1GM/100ML 200 ML IV ONE
[2021-10-13 09:34] LABS: Basophils # (auto) 0 10 ^3/uL (0-0.2); Basophils % (auto) 0.8 % (0.0-2.0); Eosinophils # (auto) 0.1 10 ^3/uL (0-0.8); Eosinophils % (auto) 1.1 % (0.0-7.0); Hematocrit 21.8 % (41.0-53.0); Hemoglobin 7.3 g/dL (13.5-17.5); Lymphocytes # (auto) 0.8 10 ^3/uL (0.4-5.4); Mean Corpuscular Hemoglobin 29.5 pg (28.0-32.0); Mean Corpuscular Hgb Conc. 33.3 g/dL (32.0-36.0); Mean Corpuscular Volume 88.6 fL (80.0-100.0); Monocytes # (auto) 0.4 10 ^3/uL (0-1.3); Monocytes % (auto) 8.1 % (0.0-12.0); Neutrophils # (auto) 4.2 10 ^3/uL (1.6-8.6); Nucleated Red Blood Cells % 0.1 %; Red Blood Cells 2.46 10^6/uL (4.5-5.90); Red Cell Distribution Width 15.8 % (11.8-14.3); White Blood Cell 5.5 10^3/uL (4.4-10.8)
== END | disposition home or self-care (01) ==
LOC: CHF HDHVI 08:24
PROVIDERS: ATTEND Internal Medicine Cardiovascular Disease
DX: I13.0 Hypertensive heart and chronic kidney disease with heart failure and stage 1 through stage 4 chronic kidney disease, or unspecified chronic kidney disease (principal); E11.22 Type 2 diabetes mellitus with diabetic chronic kidney disease; N18.4 Chronic kidney disease, stage 4 (severe); I50.42 Chronic combined systolic (congestive) and diastolic (congestive) heart failure; I25.10 Atherosclerotic heart disease of native coronary artery without angina pectoris; E78.5 Hyperlipidemia, unspecified; E11.42 Type 2 diabetes mellitus with diabetic polyneuropathy; E11.51 Type 2 diabetes mellitus with diabetic peripheral angiopathy without gangrene; E66.01 Morbid (severe) obesity due to excess calories; Z68.41 Body mass index [BMI] 40.0-44.9, adult; Z79.4 Long term (current) use of insulin; Z94.1 Heart transplant status; Z85.819 Personal history of malignant neoplasm of unspecified site of lip, oral cavity, and pharynx
CPT/HCPCS: 36415; 83735; 83880; 85025; 96365; 96366; G0463; J1250; J1642

== ENCOUNTER → 2021-10-17 | Outpatient (CLI) | payer OTHER, MEDICARE, MEDICAID ==
[2021-10-17] VITALS (9 sets, daily range): BP systolic 134–148; BP diastolic 62–79
[~2021-10-17] MED LIST changes: +CYANOCOBALAMIN (B-12) 1000 MCG/1 ML VIAL IM ONE; +CYANOCOBALAMIN (B-12) 1000 MCG/1 ML VIAL ONE
[2021-10-17 12:48] LABS: Magnesium 1.4 mg/dL (1.6-2.6); Potassium 4.2 mmol/L (3.5-5.1)
== END | disposition home or self-care (01) ==
LOC: CHF HDHVI 08:41
PROVIDERS: ATTEND Internal Medicine Cardiovascular Disease
DX: I13.0 Hypertensive heart and chronic kidney disease with heart failure and stage 1 through stage 4 chronic kidney disease, or unspecified chronic kidney disease (principal); E11.22 Type 2 diabetes mellitus with diabetic chronic kidney disease; N18.4 Chronic kidney disease, stage 4 (severe); I50.42 Chronic combined systolic (congestive) and diastolic (congestive) heart failure; D64.9 Anemia, unspecified; I25.10 Atherosclerotic heart disease of native coronary artery without angina pectoris; E66.01 Morbid (severe) obesity due to excess calories; E78.5 Hyperlipidemia, unspecified; E11.42 Type 2 diabetes mellitus with diabetic polyneuropathy; E11.51 Type 2 diabetes mellitus with diabetic peripheral angiopathy without gangrene; Z68.41 Body mass index [BMI] 40.0-44.9, adult; Z94.1 Heart transplant status; Z79.4 Long term (current) use of insulin; Z79.899 Other long term (current) drug therapy; Z85.819 Personal history of malignant neoplasm of unspecified site of lip, oral cavity, and pharynx
CPT/HCPCS: 36415; 82565; 83735; 83880; 84132; 84520; 96365; 96366; 96372; G0463; J1250; J1642; J3420

== ENCOUNTER → 2021-10-27 | Outpatient (CLI) | payer OTHER, MEDICARE, MEDICAID ==
[2021-10-27] VITALS (10 sets, daily range): BP systolic 140–164; BP diastolic 75–87
[~2021-10-27] MED LIST changes: -CYANOCOBALAMIN (B-12) 1000 MCG/1 ML VIAL IM ONE; -CYANOCOBALAMIN (B-12) 1000 MCG/1 ML VIAL ONE
[2021-10-27 09:46] LABS: Eosinophils # (auto) 0.1 10 ^3/uL (0-0.8); Lymphocytes # (auto) 0.7 10 ^3/uL (0.4-5.4); Mean Corpuscular Volume 89.5 fL (80.0-100.0); Monocytes # (auto) 0.5 10 ^3/uL (0-1.3); White Blood Cell 5.9 10^3/uL (4.4-10.8)
[2021-10-27 09:50] LABS: Basophils # (auto) 0 10 ^3/uL (0-0.2); Basophils % (auto) 0.7 % (0.0-2.0); Eosinophils % (auto) 1.6 % (0.0-7.0); Hematocrit 21.7 % (41.0-53.0); Lymphocytes % (auto) 12.1 % (10.0-50.0); Mean Corpuscular Hemoglobin 28.9 pg (28.0-32.0); Mean Corpuscular Hgb Conc. 32.3 g/dL (32.0-36.0); Neutrophils # (auto) 4.5 10 ^3/uL (1.6-8.6); Neutrophils % (auto) 77.6 % (37.0-80.0); Red Blood Cells 2.42 10^6/uL (4.5-5.90); Red Cell Distribution Width 16.6 % (11.8-14.3)
[2021-10-27 09:56] LABS: Potassium 4.4 mmol/L (3.5-5.1)
[2021-10-27 10:01] LABS: BUN/Creatinine Ratio 11.7; Calcium 9.2 mg/dL (8.5-10.1); Magnesium 1.9 mg/dL (1.6-2.6)
[2021-10-27 10:34] LABS: INR 1.09 (0.9-1.15); Partial Thromboplastin Time 33.7 sec (24.6-33.4)
== END | disposition home or self-care (01) ==
LOC: CHF HDHVI 08:25
PROVIDERS: ATTEND Internal Medicine Cardiovascular Disease
DX: I13.0 Hypertensive heart and chronic kidney disease with heart failure and stage 1 through stage 4 chronic kidney disease, or unspecified chronic kidney disease (principal); E11.22 Type 2 diabetes mellitus with diabetic chronic kidney disease; N18.4 Chronic kidney disease, stage 4 (severe); I50.42 Chronic combined systolic (congestive) and diastolic (congestive) heart failure; R79.1 Abnormal coagulation profile; I25.10 Atherosclerotic heart disease of native coronary artery without angina pectoris; E78.5 Hyperlipidemia, unspecified; E66.01 Morbid (severe) obesity due to excess calories; E11.42 Type 2 diabetes mellitus with diabetic polyneuropathy; E11.51 Type 2 diabetes mellitus with diabetic peripheral angiopathy without gangrene; Z85.819 Personal history of malignant neoplasm of unspecified site of lip, oral cavity, and pharynx; Z68.41 Body mass index [BMI] 40.0-44.9, adult; Z79.4 Long term (current) use of insulin; Z94.1 Heart transplant status; Z79.899 Other long term (current) drug therapy
CPT/HCPCS: 36415; 80048; 83735; 85025; 85045; 85610; 85730; 96365; 96366; G0463; J1250; J1642

== ENCOUNTER → 2021-10-31 | Outpatient (CLI) | payer OTHER, MEDICARE, MEDICAID ==
[2021-10-31] VITALS (9 sets, daily range): BP systolic 142–156; BP diastolic 71–80
[~2021-10-31] MED LIST changes: +ADENOSINE 90 MG/30 ML INJ IV ONE
[2021-10-31 13:43] LABS: Potassium 4.8 mmol/L (3.5-5.1)
[2021-10-31 13:50] LABS: Magnesium 1.8 mg/dL (1.6-2.6)
== END | disposition home or self-care (01) ==
LOC: CHF HDHVI 08:16
PROVIDERS: ATTEND Internal Medicine Cardiovascular Disease
DX: I13.0 Hypertensive heart and chronic kidney disease with heart failure and stage 1 through stage 4 chronic kidney disease, or unspecified chronic kidney disease (principal); E11.22 Type 2 diabetes mellitus with diabetic chronic kidney disease; N18.4 Chronic kidney disease, stage 4 (severe); I50.42 Chronic combined systolic (congestive) and diastolic (congestive) heart failure; I25.10 Atherosclerotic heart disease of native coronary artery without angina pectoris; D64.9 Anemia, unspecified; I42.0 Dilated cardiomyopathy; E78.5 Hyperlipidemia, unspecified; E11.42 Type 2 diabetes mellitus with diabetic polyneuropathy; E11.51 Type 2 diabetes mellitus with diabetic peripheral angiopathy without gangrene; E66.01 Morbid (severe) obesity due to excess calories; Z68.41 Body mass index [BMI] 40.0-44.9, adult; Z85.819 Personal history of malignant neoplasm of unspecified site of lip, oral cavity, and pharynx; Z94.1 Heart transplant status; Z79.4 Long term (current) use of insulin; Z79.899 Other long term (current) drug therapy
CPT/HCPCS: 36415; 82565; 83735; 83880; 84132; 84520; 96365; 96366; G0463; J1250; J1642; J0153

== ENCOUNTER → 2021-11-01 | Day surgery (SDC) | payer OTHER, MEDICARE, MEDICAID ==
[2021-11-01] VITALS (12 sets, daily range): BP systolic 140–153; BP diastolic 70–80
[~2021-11-01] MED LIST changes: -ADENOSINE 90 MG/30 ML INJ IV ONE; -DOBUTamine 1000MCG/ML 250 ML IV ONE; +FUROSEMIDE 100 MG/10ML VIAL IV ONE; +FUROSEMIDE INJECTION 10 ML ONE; +POTASSIUM CHL 20 Meq TABLET PO ONE
== END | disposition home or self-care (01) ==
LOC: CATH 08:14
PROVIDERS: ATTEND Internal Medicine Cardiovascular Disease
DX: D64.9 Anemia, unspecified (principal); I50.9 Heart failure, unspecified; Z82.49 Family history of ischemic heart disease and other diseases of the circulatory system; Z20.822 Contact with and (suspected) exposure to COVID-19
CPT/HCPCS: 36430; 86850; 86900; 86901; 86920; J1940; P9016; U0003

== ENCOUNTER → 2021-11-07 | Outpatient (CLI) | payer OTHER, MEDICARE, MEDICAID ==
[2021-11-07] VITALS (9 sets, daily range): BP systolic 130–161; BP diastolic 70–84
[~2021-11-07] MED LIST changes: +DOBUTamine 1000MCG/ML 250 ML IV ONE; -FUROSEMIDE 100 MG/10ML VIAL IV ONE; -FUROSEMIDE INJECTION 10 ML ONE; -POTASSIUM CHL 20 Meq TABLET PO ONE
[2021-11-07 12:49] LABS: Albumin 3.5 g/dL (3.4-5.0); Calcium 8.8 mg/dL (8.5-10.1); Magnesium 1.7 mg/dL (1.6-2.6); Potassium 4.5 mmol/L (3.5-5.1)
[2021-11-07 12:50] LABS: Basophils # (auto) 0.1 10 ^3/uL (0-0.2); Eosinophils # (auto) 0.1 10 ^3/uL (0-0.8); Hemoglobin 7.7 g/dL (13.5-17.5); Monocytes # (auto) 0.5 10 ^3/uL (0-1.3); White Blood Cell 5.7 10^3/uL (4.4-10.8)
[2021-11-07 12:52] LABS: Basophils % (auto) 1.1 % (0.0-2.0); Eosinophils % (auto) 1.6 % (0.0-7.0); Hematocrit 23.5 % (41.0-53.0); Lymphocytes # (auto) 0.6 10 ^3/uL (0.4-5.4); Lymphocytes % (auto) 11.4 % (10.0-50.0); Mean Corpuscular Hemoglobin 29.2 pg (28.0-32.0); Mean Corpuscular Hgb Conc. 32.6 g/dL (32.0-36.0); Mean Corpuscular Volume 89.6 fL (80.0-100.0); Monocytes % (auto) 9.2 % (0.0-12.0); Neutrophils # (auto) 4.3 10 ^3/uL (1.6-8.6); Neutrophils % (auto) 76.7 % (37.0-80.0); Red Blood Cells 2.62 10^6/uL (4.5-5.90); Red Cell Distribution Width 16.7 % (11.8-14.3)
[2021-11-07 12:54] LABS: BUN/Creatinine Ratio 14.2; Bilirubin, Total 0.5 mg/dL (0.2-1.0); Total Protein 6.7 g/dL (6.4-8.2)
== END | disposition home or self-care (01) ==
LOC: CHF HDHVI 08:13
PROVIDERS: ATTEND Internal Medicine Cardiovascular Disease
DX: I13.0 Hypertensive heart and chronic kidney disease with heart failure and stage 1 through stage 4 chronic kidney disease, or unspecified chronic kidney disease (principal); E11.22 Type 2 diabetes mellitus with diabetic chronic kidney disease; N18.4 Chronic kidney disease, stage 4 (severe); I50.42 Chronic combined systolic (congestive) and diastolic (congestive) heart failure; I25.10 Atherosclerotic heart disease of native coronary artery without angina pectoris; E78.5 Hyperlipidemia, unspecified; E66.01 Morbid (severe) obesity due to excess calories; E11.42 Type 2 diabetes mellitus with diabetic polyneuropathy; E11.51 Type 2 diabetes mellitus with diabetic peripheral angiopathy without gangrene; Z94.1 Heart transplant status; Z79.4 Long term (current) use of insulin; Z68.41 Body mass index [BMI] 40.0-44.9, adult; Z79.899 Other long term (current) drug therapy; Z85.819 Personal history of malignant neoplasm of unspecified site of lip, oral cavity, and pharynx
CPT/HCPCS: 36415; 80053; 83735; 85025; 96365; 96366; G0463; J1250; J1642

== ENCOUNTER → 2021-11-10 | Outpatient (CLI) | payer OTHER, MEDICARE, MEDICAID ==
[2021-11-10] VITALS (8 sets, daily range): BP systolic 169–204; BP diastolic 85–95
[~2021-11-10] MED LIST changes: +cloNIDine HCL 0.1 MG TAB ONE; +cloNIDine HCL 0.1 MG TAB PO ONE
== END | disposition home or self-care (01) ==
LOC: CHF HDHVI 08:10
PROVIDERS: ATTEND Internal Medicine Cardiovascular Disease
DX: I13.0 Hypertensive heart and chronic kidney disease with heart failure and stage 1 through stage 4 chronic kidney disease, or unspecified chronic kidney disease (principal); E11.22 Type 2 diabetes mellitus with diabetic chronic kidney disease; N18.4 Chronic kidney disease, stage 4 (severe); I50.42 Chronic combined systolic (congestive) and diastolic (congestive) heart failure; I25.10 Atherosclerotic heart disease of native coronary artery without angina pectoris; E78.5 Hyperlipidemia, unspecified; E66.01 Morbid (severe) obesity due to excess calories; E11.42 Type 2 diabetes mellitus with diabetic polyneuropathy; E11.51 Type 2 diabetes mellitus with diabetic peripheral angiopathy without gangrene; Z68.41 Body mass index [BMI] 40.0-44.9, adult; Z79.899 Other long term (current) drug therapy; Z79.4 Long term (current) use of insulin; Z85.819 Personal history of malignant neoplasm of unspecified site of lip, oral cavity, and pharynx; Z94.1 Heart transplant status
CPT/HCPCS: 96365; G0463; J1250; J1642; 96366

== ENCOUNTER → 2021-11-14 | Outpatient (CLI) | payer OTHER, MEDICARE, MEDICAID ==
[~2021-11-14] VITALS: Ht 30.5 cm; Wt 0.5 kg
[2021-11-14] VITALS (7 sets, daily range): BP systolic 122–150; BP diastolic 62–78
[~2021-11-14] MED LIST changes: +CYANOCOBALAMIN (B-12) 1000 MCG/1 ML VIAL IM ONE; +CYANOCOBALAMIN (B-12) 1000 MCG/1 ML VIAL ONE; -cloNIDine HCL 0.1 MG TAB ONE; -cloNIDine HCL 0.1 MG TAB PO ONE
[2021-11-14 12:40] LABS: BUN/Creatinine Ratio 14.2; Calcium 8.7 mg/dL (8.5-10.1); Magnesium 1.5 mg/dL (1.6-2.6); Potassium 4.8 mmol/L (3.5-5.1)
== END | disposition home or self-care (01) ==
LOC: CHF HDHVI 09:04
PROVIDERS: ATTEND Internal Medicine Cardiovascular Disease
DX: I13.0 Hypertensive heart and chronic kidney disease with heart failure and stage 1 through stage 4 chronic kidney disease, or unspecified chronic kidney disease (principal); E11.22 Type 2 diabetes mellitus with diabetic chronic kidney disease; N18.4 Chronic kidney disease, stage 4 (severe); I50.42 Chronic combined systolic (congestive) and diastolic (congestive) heart failure; D51.9 Vitamin B12 deficiency anemia, unspecified; I25.10 Atherosclerotic heart disease of native coronary artery without angina pectoris; E78.5 Hyperlipidemia, unspecified; E11.42 Type 2 diabetes mellitus with diabetic polyneuropathy; E11.51 Type 2 diabetes mellitus with diabetic peripheral angiopathy without gangrene; E66.01 Morbid (severe) obesity due to excess calories; Z68.41 Body mass index [BMI] 40.0-44.9, adult; Z79.899 Other long term (current) drug therapy; Z79.4 Long term (current) use of insulin; Z94.1 Heart transplant status; Z85.819 Personal history of malignant neoplasm of unspecified site of lip, oral cavity, and pharynx
CPT/HCPCS: 36415; 80048; 83735; 83880; 96365; 96366; 96372; G0463; J1250; J1642; J3420

== ENCOUNTER → 2021-11-17 | Outpatient (CLI) | payer OTHER, MEDICARE, MEDICAID ==
[~2021-11-17] VITALS: Ht 165.1 cm; Wt 90.5 kg
[2021-11-17] VITALS (9 sets, daily range): BP systolic 149–171; BP diastolic 70–85
[~2021-11-17] MED LIST changes: -AML5T; +AML5T PO; -CYANOCOBALAMIN (B-12) 1000 MCG/1 ML VIAL IM ONE; -CYANOCOBALAMIN (B-12) 1000 MCG/1 ML VIAL ONE; +MAGNESIUM SULFATE 1GM/100ML 100 ML IV ONE
[2021-11-17] MEDS: MAGNESIUM SULFATE 1GM/100ML 100 ML IV SCH ×2 (08:44→09:45)
== END | disposition home or self-care (01) ==
LOC: CHF HDHVI 08:34
PROVIDERS: ATTEND Internal Medicine Cardiovascular Disease
DX: I13.2 Hypertensive heart and chronic kidney disease with heart failure and with stage 5 chronic kidney disease, or end stage renal disease (principal); E11.22 Type 2 diabetes mellitus with diabetic chronic kidney disease; N18.6 End stage renal disease; I50.23 Acute on chronic systolic (congestive) heart failure; E61.2 Magnesium deficiency; I25.10 Atherosclerotic heart disease of native coronary artery without angina pectoris; E78.5 Hyperlipidemia, unspecified; I25.5 Ischemic cardiomyopathy; E11.42 Type 2 diabetes mellitus with diabetic polyneuropathy; E11.51 Type 2 diabetes mellitus with diabetic peripheral angiopathy without gangrene; E66.01 Morbid (severe) obesity due to excess calories; Z68.41 Body mass index [BMI] 40.0-44.9, adult; Z79.899 Other long term (current) drug therapy; Z85.819 Personal history of malignant neoplasm of unspecified site of lip, oral cavity, and pharynx; Z99.2 Dependence on renal dialysis; Z94.1 Heart transplant status; Z79.4 Long term (current) use of insulin
CPT/HCPCS: 96365; 96366; 96368; G0463; J1250; J1642; J3475; 96367

== ENCOUNTER → 2021-11-21 | Outpatient (CLI) | payer OTHER, MEDICARE, MEDICAID ==
[2021-11-21] VITALS (8 sets, daily range): BP systolic 145–157; BP diastolic 50–85
[~2021-11-21] MED LIST changes: +AML5T; -AML5T PO; -MAGNESIUM SULFATE 1GM/100ML 100 ML IV ONE
[2021-11-21 12:51] LABS: Albumin 3.4 g/dL (3.4-5.0); Calcium 8.9 mg/dL (8.5-10.1); Magnesium 1.4 mg/dL (1.6-2.6); Potassium 4.4 mmol/L (3.5-5.1)
[2021-11-21 12:57] LABS: BUN/Creatinine Ratio 13.9; Bilirubin, Total 0.5 mg/dL (0.2-1.0); Total Protein 6.4 g/dL (6.4-8.2)
== END | disposition home or self-care (01) ==
LOC: CHF HDHVI 08:10
PROVIDERS: ATTEND Internal Medicine Cardiovascular Disease
DX: I13.0 Hypertensive heart and chronic kidney disease with heart failure and stage 1 through stage 4 chronic kidney disease, or unspecified chronic kidney disease (principal); E11.22 Type 2 diabetes mellitus with diabetic chronic kidney disease; N18.4 Chronic kidney disease, stage 4 (severe); I50.42 Chronic combined systolic (congestive) and diastolic (congestive) heart failure; I25.10 Atherosclerotic heart disease of native coronary artery without angina pectoris; E78.5 Hyperlipidemia, unspecified; E11.42 Type 2 diabetes mellitus with diabetic polyneuropathy; E11.51 Type 2 diabetes mellitus with diabetic peripheral angiopathy without gangrene; E66.01 Morbid (severe) obesity due to excess calories; Z68.41 Body mass index [BMI] 40.0-44.9, adult; Z79.899 Other long term (current) drug therapy; Z85.819 Personal history of malignant neoplasm of unspecified site of lip, oral cavity, and pharynx; Z79.4 Long term (current) use of insulin; Z94.1 Heart transplant status
CPT/HCPCS: 36415; 80053; 83735; 83880; 96365; 96366; G0463; J1250; J1642

== ENCOUNTER → 2021-11-28 | Outpatient (CLI) | payer OTHER, MEDICARE, MEDICAID ==
[2021-11-28] VITALS (10 sets, daily range): BP systolic 134–146; BP diastolic 68–78
[~2021-11-28] MED LIST changes: +MAGNESIUM SULFATE 1GM/100ML 100 ML IV ONE; +MAGNESIUM SULFATE 1GM/100ML 200 ML IV ONE
[2021-11-28 11:57] LABS: BUN/Creatinine Ratio 15.5; Calcium 8.6 mg/dL (8.5-10.1); Magnesium 1.6 mg/dL (1.6-2.6); Potassium 4.8 mmol/L (3.5-5.1)
== END | disposition home or self-care (01) ==
LOC: CHF HDHVI 08:09
PROVIDERS: ATTEND Internal Medicine Cardiovascular Disease
DX: E11.22 Type 2 diabetes mellitus with diabetic chronic kidney disease (principal); I13.2 Hypertensive heart and chronic kidney disease with heart failure and with stage 5 chronic kidney disease, or end stage renal disease; N18.6 End stage renal disease; I50.42 Chronic combined systolic (congestive) and diastolic (congestive) heart failure; I25.10 Atherosclerotic heart disease of native coronary artery without angina pectoris; E78.5 Hyperlipidemia, unspecified; I25.5 Ischemic cardiomyopathy; E11.42 Type 2 diabetes mellitus with diabetic polyneuropathy; E11.51 Type 2 diabetes mellitus with diabetic peripheral angiopathy without gangrene; R53.83 Other fatigue; E66.01 Morbid (severe) obesity due to excess calories; Z68.41 Body mass index [BMI] 40.0-44.9, adult; Z99.2 Dependence on renal dialysis; Z79.4 Long term (current) use of insulin; Z94.1 Heart transplant status; Z79.899 Other long term (current) drug therapy
CPT/HCPCS: 36415; 80048; 83735; 83880; 96365; 96366; 96368; G0463; J1250; J1642; J3475; 96367

== ENCOUNTER 2021-11-29 07:59 | Day surgery (SDC) | payer OTHER, MEDICARE, MEDICAID ==
[~2021-11-29] VITALS: Ht 182.9 cm; Wt 90.7 kg
[2021-11-29] VITALS (16 sets, daily range): BP systolic 134–154; BP diastolic 70–82
[~2021-11-29 07:59] MED LIST changes: -AML5T; +AML5T PO; -DOBUTamine 1000MCG/ML 250 ML IV ONE; -MAGNESIUM SULFATE 1GM/100ML 100 ML IV ONE; -MAGNESIUM SULFATE 1GM/100ML 200 ML IV ONE
== END 2021-11-29 15:50 | disposition home or self-care (01) ==
LOC: CATH 07:59
PROVIDERS: ATTEND Internal Medicine Cardiovascular Disease
DX: D64.9 Anemia, unspecified (principal); Z20.822 Contact with and (suspected) exposure to COVID-19
CPT/HCPCS: 86850; 86900; 86901; 86920; P9016; U0003

== ENCOUNTER → 2021-12-01 | Outpatient (CLI) | payer OTHER, MEDICARE, MEDICAID ==
[2021-12-01] VITALS (9 sets, daily range): BP systolic 139–156; BP diastolic 73–80
[~2021-12-01] MED LIST changes: +AML5T; -AML5T PO; +DOBUTamine 1000MCG/ML 250 ML IV ONE
[2021-12-01 11:03] LABS: Eosinophils # (auto) 0.1 10 ^3/uL (0-0.8); Eosinophils % (auto) 1.6 % (0.0-7.0); Hemoglobin 7.9 g/dL (13.5-17.5); Lymphocytes # (auto) 0.6 10 ^3/uL (0.4-5.4); Mean Corpuscular Volume 91.1 fL (80.0-100.0); Monocytes # (auto) 0.5 10 ^3/uL (0-1.3); Neutrophils # (auto) 4.2 10 ^3/uL (1.6-8.6); Red Blood Cells 2.64 10^6/uL (4.5-5.90)
[2021-12-01 11:05] LABS: Basophils # (auto) 0.1 10 ^3/uL (0-0.2); Lymphocytes % (auto) 11.2 % (10.0-50.0); Mean Corpuscular Hgb Conc. 32.9 g/dL (32.0-36.0); Monocytes % (auto) 8.5 % (0.0-12.0); Neutrophils % (auto) 77.7 % (37.0-80.0); Nucleated Red Blood Cells % 0.1 %; Red Cell Distribution Width 16.6 % (11.8-14.3); White Blood Cell 5.5 10^3/uL (4.4-10.8)
== END | disposition home or self-care (01) ==
LOC: CHF HDHVI 08:25
PROVIDERS: ATTEND Internal Medicine Cardiovascular Disease
DX: I13.0 Hypertensive heart and chronic kidney disease with heart failure and stage 1 through stage 4 chronic kidney disease, or unspecified chronic kidney disease (principal); E11.22 Type 2 diabetes mellitus with diabetic chronic kidney disease; N18.4 Chronic kidney disease, stage 4 (severe); I50.23 Acute on chronic systolic (congestive) heart failure; I25.10 Atherosclerotic heart disease of native coronary artery without angina pectoris; E78.5 Hyperlipidemia, unspecified; E11.42 Type 2 diabetes mellitus with diabetic polyneuropathy; E11.51 Type 2 diabetes mellitus with diabetic peripheral angiopathy without gangrene; E66.01 Morbid (severe) obesity due to excess calories; Z68.41 Body mass index [BMI] 40.0-44.9, adult; Z94.1 Heart transplant status; Z79.899 Other long term (current) drug therapy; Z79.4 Long term (current) use of insulin; Z85.819 Personal history of malignant neoplasm of unspecified site of lip, oral cavity, and pharynx
CPT/HCPCS: 36415; 85025; 96365; 96366; G0463; J1250; J1642

== ENCOUNTER → 2021-12-05 | Outpatient (CLI) | payer OTHER, MEDICARE, MEDICAID ==
[2021-12-05] VITALS (9 sets, daily range): BP systolic 114–160; BP diastolic 75–80
[2021-12-05 12:28] LABS: Albumin 3.4 g/dL (3.4-5.0); Calcium 8.5 mg/dL (8.5-10.1); Magnesium 1.5 mg/dL (1.6-2.6); Potassium 4.4 mmol/L (3.5-5.1)
[2021-12-05 12:30] LABS: BUN/Creatinine Ratio 14.7
[2021-12-05 12:33] LABS: Bilirubin, Total 0.6 mg/dL (0.2-1.0); Total Protein 6.5 g/dL (6.4-8.2)
== END | disposition home or self-care (01) ==
LOC: CHF HDHVI 08:30
PROVIDERS: ATTEND Internal Medicine Cardiovascular Disease
DX: I13.0 Hypertensive heart and chronic kidney disease with heart failure and stage 1 through stage 4 chronic kidney disease, or unspecified chronic kidney disease (principal); E11.22 Type 2 diabetes mellitus with diabetic chronic kidney disease; N18.4 Chronic kidney disease, stage 4 (severe); I50.23 Acute on chronic systolic (congestive) heart failure; I25.10 Atherosclerotic heart disease of native coronary artery without angina pectoris; E78.5 Hyperlipidemia, unspecified; E66.01 Morbid (severe) obesity due to excess calories; E11.42 Type 2 diabetes mellitus with diabetic polyneuropathy; E11.51 Type 2 diabetes mellitus with diabetic peripheral angiopathy without gangrene; Z68.41 Body mass index [BMI] 40.0-44.9, adult; Z79.899 Other long term (current) drug therapy; Z85.819 Personal history of malignant neoplasm of unspecified site of lip, oral cavity, and pharynx; Z79.4 Long term (current) use of insulin; Z94.1 Heart transplant status
CPT/HCPCS: 36415; 80053; 83735; 83880; 96365; 96366; G0463; J1250; J1642

== ENCOUNTER → 2021-12-08 | Outpatient (CLI) | payer OTHER, MEDICARE, MEDICAID ==
[~2021-12-08] MED LIST changes: -DOBUTamine 1000MCG/ML 250 ML IV ONE
[2021-12-08 08:45] VITALS: BP 158/80
== END | disposition home or self-care (01) ==
LOC: CHF HDHVI 08:34
PROVIDERS: ATTEND Internal Medicine Cardiovascular Disease
DX: I13.11 Hypertensive heart and chronic kidney disease without heart failure, with stage 5 chronic kidney disease, or end stage renal disease (principal); I50.23 Acute on chronic systolic (congestive) heart failure; N18.6 End stage renal disease; R53.83 Other fatigue; Z94.1 Heart transplant status
CPT/HCPCS: G0463

== ENCOUNTER → 2021-12-12 | Outpatient (CLI) | payer OTHER, MEDICARE, MEDICAID ==
[2021-12-12] VITALS (9 sets, daily range): BP systolic 150–158; BP diastolic 78–89
[~2021-12-12] MED LIST changes: +CYANOCOBALAMIN (B-12) 1000 MCG/1 ML VIAL IM ONE; +CYANOCOBALAMIN (B-12) 1000 MCG/1 ML VIAL ONE; +DOBUTamine 1000MCG/ML 250 ML IV ONE
[2021-12-12 11:22] LABS: Basophils # (auto) 0.1 10 ^3/uL (0-0.2); Eosinophils # (auto) 0.1 10 ^3/uL (0-0.8); Lymphocytes # (auto) 0.7 10 ^3/uL (0.4-5.4); Mean Corpuscular Volume 90.8 fL (80.0-100.0); Monocytes # (auto) 0.4 10 ^3/uL (0-1.3); White Blood Cell 5.2 10^3/uL (4.4-10.8)
[2021-12-12 11:25] LABS: Basophils % (auto) 1.1 % (0.0-2.0); Hematocrit 21.7 % (41.0-53.0); Hemoglobin 7.3 g/dL (13.5-17.5); Lymphocytes % (auto) 12.6 % (10.0-50.0); Mean Corpuscular Hemoglobin 30.6 pg (28.0-32.0); Mean Corpuscular Hgb Conc. 33.6 g/dL (32.0-36.0); Monocytes % (auto) 7.5 % (0.0-12.0); Neutrophils % (auto) 76.8 % (37.0-80.0); Red Blood Cells 2.39 10^6/uL (4.5-5.90)
[2021-12-12 11:32] LABS: BUN/Creatinine Ratio 16.7; Potassium 4.5 mmol/L (3.5-5.1)
== END | disposition home or self-care (01) ==
LOC: CHF HDHVI 08:33
PROVIDERS: ATTEND Internal Medicine Cardiovascular Disease
DX: I50.23 Acute on chronic systolic (congestive) heart failure (principal)
CPT/HCPCS: 36415; 80048; 83880; 85025; 96365; 96366; G0463; J1642

== ENCOUNTER → 2021-12-15 | Outpatient (CLI) | payer OTHER, MEDICARE, MEDICAID ==
[2021-12-15] VITALS (9 sets, daily range): BP systolic 148–168; BP diastolic 74–88
[~2021-12-15] MED LIST changes: -CYANOCOBALAMIN (B-12) 1000 MCG/1 ML VIAL IM ONE; -CYANOCOBALAMIN (B-12) 1000 MCG/1 ML VIAL ONE
== END | disposition home or self-care (01) ==
LOC: CHF HDHVI 08:22
PROVIDERS: ATTEND Internal Medicine Cardiovascular Disease
DX: I13.2 Hypertensive heart and chronic kidney disease with heart failure and with stage 5 chronic kidney disease, or end stage renal disease (principal); E11.22 Type 2 diabetes mellitus with diabetic chronic kidney disease; N18.6 End stage renal disease; I50.23 Acute on chronic systolic (congestive) heart failure; I25.5 Ischemic cardiomyopathy; I25.10 Atherosclerotic heart disease of native coronary artery without angina pectoris; E78.5 Hyperlipidemia, unspecified; E11.51 Type 2 diabetes mellitus with diabetic peripheral angiopathy without gangrene; E11.42 Type 2 diabetes mellitus with diabetic polyneuropathy; E66.01 Morbid (severe) obesity due to excess calories; Z68.41 Body mass index [BMI] 40.0-44.9, adult; Z85.819 Personal history of malignant neoplasm of unspecified site of lip, oral cavity, and pharynx; Z79.4 Long term (current) use of insulin; Z94.1 Heart transplant status; Z79.899 Other long term (current) drug therapy; Z99.2 Dependence on renal dialysis
CPT/HCPCS: 96365; 96366; G0463; J1250; J1642

== ENCOUNTER → 2021-12-22 | Outpatient (CLI) | payer OTHER, MEDICARE, MEDICAID ==
[~2021-12-22] MED LIST changes: +CATHFLO ACTIVASE (ALTEPLASE) 2 MG VIAL IV ONE; +CATHFLO ACTIVASE (ALTEPLASE) 2 MG VIAL ONE
[2021-12-22] MEDS: STERILE WATER 10 ML ONE ×2 (08:55→15:08)
[2021-12-22 11:35] VITALS: BP 148/82
[2021-12-22 13:34] LABS: Eosinophils # (auto) 0.1 10 ^3/uL (0-0.8); Hematocrit 18.8 % (41.0-53.0); Lymphocytes # (auto) 0.6 10 ^3/uL (0.4-5.4); Mean Corpuscular Volume 90.5 fL (80.0-100.0); Neutrophils # (auto) 4.1 10 ^3/uL (1.6-8.6); Red Blood Cells 2.08 10^6/uL (4.5-5.90)
[2021-12-22 13:36] LABS: Basophils # (auto) 0 10 ^3/uL (0-0.2); Basophils % (auto) 0.7 % (0.0-2.0); Eosinophils % (auto) 2.3 % (0.0-7.0); Lymphocytes % (auto) 11.5 % (10.0-50.0); Mean Corpuscular Hemoglobin 30.4 pg (28.0-32.0); Mean Corpuscular Hgb Conc. 33.6 g/dL (32.0-36.0); Monocytes # (auto) 0.3 10 ^3/uL (0-1.3); Monocytes % (auto) 6.6 % (0.0-12.0); Neutrophils % (auto) 78.9 % (37.0-80.0); Nucleated Red Blood Cells % 0.2 %; Red Cell Distribution Width 15.5 % (11.8-14.3); White Blood Cell 5.1 10^3/uL (4.4-10.8)
[2021-12-22 13:54] LABS: Albumin 3.2 g/dL (3.4-5.0); BUN/Creatinine Ratio 14.4; Calcium 8.6 mg/dL (8.5-10.1); Magnesium 1.4 mg/dL (1.6-2.6); Potassium 5.1 mmol/L (3.5-5.1)
[2021-12-22 13:57] LABS: Bilirubin, Total 0.5 mg/dL (0.2-1.0); Total Protein 6.2 g/dL (6.4-8.2)
[2021-12-22 14:01] LABS: Hemoglobin 6.3 g/dL (13.5-17.5)
== END | disposition home or self-care (01) ==
LOC: CHF HDHVI 08:22
PROVIDERS: ATTEND Internal Medicine Cardiovascular Disease
DX: I50.23 Acute on chronic systolic (congestive) heart failure (principal)
CPT/HCPCS: 36415; 71046; 80053; 83735; 83880; 85025; G0463; J1642

== ENCOUNTER → 2021-12-26 | Outpatient (CLI) | payer OTHER, MEDICARE, MEDICAID ==
[2021-12-26] VITALS (7 sets, daily range): BP systolic 136–166; BP diastolic 68–79
[~2021-12-26] MED LIST changes: -CATHFLO ACTIVASE (ALTEPLASE) 2 MG VIAL IV ONE; -CATHFLO ACTIVASE (ALTEPLASE) 2 MG VIAL ONE; +FUROSEMIDE 100 MG/10ML VIAL IV ONE; +FUROSEMIDE 20 MG/2 ML VIAL ONE; +FUROSEMIDE INJECTION 10 ML ONE; +MAGNESIUM SULFATE 1GM/100ML 100 ML IV ONE
[2021-12-26 16:35] LABS: Basophils # (auto) 0 10 ^3/uL (0-0.2); Eosinophils # (auto) 0.1 10 ^3/uL (0-0.8); Hematocrit 18.2 % (41.0-53.0); Lymphocytes # (auto) 0.4 10 ^3/uL (0.4-5.4); Monocytes # (auto) 0.4 10 ^3/uL (0-1.3); Red Blood Cells 2.02 10^6/uL (4.5-5.90)
[2021-12-26 16:36] LABS: Basophils % (auto) 0.7 % (0.0-2.0); Eosinophils % (auto) 1.7 % (0.0-7.0); Lymphocytes % (auto) 8.1 % (10.0-50.0); Mean Corpuscular Hemoglobin 31.1 pg (28.0-32.0); Mean Corpuscular Hgb Conc. 34.6 g/dL (32.0-36.0); Mean Corpuscular Volume 89.9 fL (80.0-100.0); Monocytes % (auto) 7.9 % (0.0-12.0); Neutrophils # (auto) 4.5 10 ^3/uL (1.6-8.6); Neutrophils % (auto) 81.6 % (37.0-80.0); White Blood Cell 5.5 10^3/uL (4.4-10.8)
[2021-12-26 16:49] LABS: Hemoglobin 6.3 g/dL (13.5-17.5)
[2021-12-26 16:57] LABS: INR 1.07 (0.9-1.15); Partial Thromboplastin Time 33.3 sec (24.6-33.4)
== END | disposition home or self-care (01) ==
LOC: CHF HDHVI 08:33
PROVIDERS: ATTEND Internal Medicine Cardiovascular Disease
DX: I50.23 Acute on chronic systolic (congestive) heart failure (principal)
CPT/HCPCS: 36415; 71046; 85025; 85610; 85730; 96360; 96366; 96375; G0463

== ENCOUNTER 2021-12-28 08:11 | Day surgery (SDC) | payer OTHER, MEDICARE, MEDICAID ==
[2021-12-28] VITALS (11 sets, daily range): BP systolic 136–165; BP diastolic 66–81
[~2021-12-28] VITALS: Ht 182.9 cm; Wt 97.5 kg
[~2021-12-28 08:11] MED LIST changes: -AML5T; +AML5T PO; -DOBUTamine 1000MCG/ML 250 ML IV ONE; -FUROSEMIDE 100 MG/10ML VIAL IV ONE; -FUROSEMIDE 20 MG/2 ML VIAL ONE; -FUROSEMIDE INJECTION 10 ML ONE; -MAGNESIUM SULFATE 1GM/100ML 100 ML IV ONE
[2021-12-28] MEDS ORDERED: LIDOCAINE 1% (LOCAL ANESTH.) PF 5ml SDV ID ONE (13:45)
[2021-12-28] MEDS ORDERED: SODIUM CHLOR 0.9% PF (SALINE LOCK) 10ML VIAL/SYR IV SCH (22:00)
== END 2021-12-28 14:00 | disposition home or self-care (01) ==
LOC: CATH 08:11
PROVIDERS: ATTEND Internal Medicine Cardiovascular Disease
DX: D64.9 Anemia, unspecified (principal); E83.42 Hypomagnesemia; I50.9 Heart failure, unspecified; J90 Pleural effusion, not elsewhere classified; Z20.822 Contact with and (suspected) exposure to COVID-19
CPT/HCPCS: 36569; 71045; 86850; 86900; 86901; C1751; J7030; J7040; J7050; P9016; U0003; 86922

== ENCOUNTER → 2021-12-29 | Outpatient (CLI) | payer OTHER, MEDICARE, MEDICAID ==
[2021-12-29] VITALS (7 sets, daily range): BP systolic 148–167; BP diastolic 76–82
[~2021-12-29] MED LIST changes: +DOBUTamine 1000MCG/ML 250 ML IV ONE; +MAGNESIUM SULFATE 1GM/100ML 100 ML IV ONE
[2021-12-29 12:18] LABS: Basophils # (auto) 0.1 10 ^3/uL (0-0.2); Eosinophils # (auto) 0.1 10 ^3/uL (0-0.8); Eosinophils % (auto) 2.1 % (0.0-7.0); Hematocrit 22.7 % (41.0-53.0); Hemoglobin 7.6 g/dL (13.5-17.5); Lymphocytes # (auto) 0.5 10 ^3/uL (0.4-5.4); Lymphocytes % (auto) 9.7 % (10.0-50.0); Mean Corpuscular Hemoglobin 29.7 pg (28.0-32.0); Mean Corpuscular Hgb Conc. 33.4 g/dL (32.0-36.0); Mean Corpuscular Volume 88.9 fL (80.0-100.0); Monocytes # (auto) 0.4 10 ^3/uL (0-1.3); Monocytes % (auto) 8.2 % (0.0-12.0); Neutrophils # (auto) 4.2 10 ^3/uL (1.6-8.6); Red Blood Cells 2.56 10^6/uL (4.5-5.90); Red Cell Distribution Width 17.1 % (11.8-14.3); White Blood Cell 5.4 10^3/uL (4.4-10.8)
== END | disposition home or self-care (01) ==
LOC: CHF HDHVI 09:13
PROVIDERS: ATTEND Internal Medicine Cardiovascular Disease
DX: I50.23 Acute on chronic systolic (congestive) heart failure (principal)
CPT/HCPCS: 36415; 85025; 96365; 96366; 96367; G0463; J1642

== ENCOUNTER → 2022-01-02 | Outpatient (CLI) | payer OTHER, MEDICARE, MEDICAID ==
[2022-01-02] VITALS (9 sets, daily range): BP systolic 149–158; BP diastolic 75–84
[~2022-01-02] MED LIST changes: -MAGNESIUM SULFATE 1GM/100ML 100 ML IV ONE
[2022-01-02 13:11] LABS: Albumin 3.3 g/dL (3.4-5.0); Magnesium 1.5 mg/dL (1.6-2.6)
[2022-01-02 13:13] LABS: Calcium 9.2 mg/dL (8.5-10.1)
[2022-01-02 13:18] LABS: Bilirubin, Total 0.5 mg/dL (0.2-1.0); Total Protein 6.7 g/dL (6.4-8.2)
== END | disposition home or self-care (01) ==
LOC: CHF HDHVI 08:41
PROVIDERS: ATTEND Internal Medicine Cardiovascular Disease
DX: I50.23 Acute on chronic systolic (congestive) heart failure (principal)
CPT/HCPCS: 36415; 80053; 83735; 83880; 96365; 96366; G0463; J1642

== ENCOUNTER → 2022-01-09 | Outpatient (CLI) | payer OTHER, MEDICARE, MEDICAID ==
[2022-01-09] VITALS (8 sets, daily range): BP systolic 144–155; BP diastolic 70–79
[~2022-01-09] MED LIST changes: +CYANOCOBALAMIN (B-12) 1000 MCG/1 ML VIAL IM ONE; +CYANOCOBALAMIN (B-12) 1000 MCG/1 ML VIAL ONE
[2022-01-09 12:36] LABS: BUN/Creatinine Ratio 12.8; Magnesium 1.8 mg/dL (1.6-2.6); Potassium 4.7 mmol/L (3.5-5.1)
== END | disposition home or self-care (01) ==
LOC: CHF HDHVI 08:30
PROVIDERS: ATTEND Internal Medicine Cardiovascular Disease
DX: I50.23 Acute on chronic systolic (congestive) heart failure (principal)
CPT/HCPCS: 36415; 80048; 83735; 83880; 96365; 96366; 96372; G0463; J1642

== ENCOUNTER → 2022-01-12 | Outpatient (CLI) | payer OTHER, MEDICARE, MEDICAID ==
[2022-01-12] VITALS (9 sets, daily range): BP systolic 137–157; BP diastolic 66–78
[~2022-01-12] MED LIST changes: -CYANOCOBALAMIN (B-12) 1000 MCG/1 ML VIAL IM ONE; -CYANOCOBALAMIN (B-12) 1000 MCG/1 ML VIAL ONE; +MAGNESIUM SULFATE 1GM/100ML 100 ML IV ONE
== END | disposition home or self-care (01) ==
LOC: CHF HDHVI 08:44
PROVIDERS: ATTEND Internal Medicine Cardiovascular Disease
DX: I13.2 Hypertensive heart and chronic kidney disease with heart failure and with stage 5 chronic kidney disease, or end stage renal disease (principal); E11.22 Type 2 diabetes mellitus with diabetic chronic kidney disease; N18.6 End stage renal disease; I50.23 Acute on chronic systolic (congestive) heart failure; E83.42 Hypomagnesemia; I25.10 Atherosclerotic heart disease of native coronary artery without angina pectoris; E78.5 Hyperlipidemia, unspecified; E11.42 Type 2 diabetes mellitus with diabetic polyneuropathy; E11.51 Type 2 diabetes mellitus with diabetic peripheral angiopathy without gangrene; E66.01 Morbid (severe) obesity due to excess calories; Z68.41 Body mass index [BMI] 40.0-44.9, adult; Z99.2 Dependence on renal dialysis; Z79.4 Long term (current) use of insulin; Z79.899 Other long term (current) drug therapy; Z85.819 Personal history of malignant neoplasm of unspecified site of lip, oral cavity, and pharynx; Z94.1 Heart transplant status
CPT/HCPCS: 96365; 96366; 96367; G0463; J1250; J1642; J3475

== ENCOUNTER → 2022-01-16 | Outpatient (CLI) | payer OTHER, MEDICARE, MEDICAID ==
[2022-01-16] VITALS (7 sets, daily range): BP systolic 143–156; BP diastolic 71–78
[~2022-01-16] MED LIST changes: -MAGNESIUM SULFATE 1GM/100ML 100 ML IV ONE
[2022-01-16 11:46] LABS: Basophils # (auto) 0.1 10 ^3/uL (0-0.2); Eosinophils # (auto) 0.1 10 ^3/uL (0-0.8); Eosinophils % (auto) 1.7 % (0.0-7.0); Lymphocytes # (auto) 0.5 10 ^3/uL (0.4-5.4); Monocytes # (auto) 0.4 10 ^3/uL (0-1.3)
[2022-01-16 11:48] LABS: Basophils % (auto) 1.2 % (0.0-2.0); Hematocrit 19.3 % (41.0-53.0); Mean Corpuscular Hemoglobin 29.7 pg (28.0-32.0); Mean Corpuscular Hgb Conc. 33.1 g/dL (32.0-36.0); Mean Corpuscular Volume 89.9 fL (80.0-100.0); Monocytes % (auto) 7.2 % (0.0-12.0); Neutrophils # (auto) 4.6 10 ^3/uL (1.6-8.6); Neutrophils % (auto) 81.9 % (37.0-80.0); Red Blood Cells 2.15 10^6/uL (4.5-5.90); White Blood Cell 5.7 10^3/uL (4.4-10.8)
[2022-01-16 11:58] LABS: Potassium 5.2 mmol/L (3.5-5.1)
[2022-01-16 12:07] LABS: Albumin 3.3 g/dL (3.4-5.0); Bilirubin, Total 0.6 mg/dL (0.2-1.0); Calcium 8.8 mg/dL (8.5-10.1); Magnesium 1.4 mg/dL (1.6-2.6); Total Protein 5.8 g/dL (6.4-8.2)
[2022-01-16 12:18] LABS: Hemoglobin 6.3 g/dL (13.5-17.5)
== END | disposition home or self-care (01) ==
LOC: CHF HDHVI 08:51
PROVIDERS: ATTEND Internal Medicine Cardiovascular Disease
DX: I50.23 Acute on chronic systolic (congestive) heart failure (principal)
CPT/HCPCS: 36415; 80053; 80061; 83735; 83880; 85025; 96365; 96366; G0463; J1642

== ENCOUNTER → 2022-01-22 | Day surgery (SDC) | payer OTHER, MEDICARE, MEDICAID ==
[2022-01-22] VITALS (7 sets, daily range): BP systolic 122–144; BP diastolic 60–85
[~2022-01-22] MED LIST changes: -DOBUTamine 1000MCG/ML 250 ML IV ONE
== END | disposition home or self-care (01) ==
LOC: CATH 08:23
PROVIDERS: ATTEND Internal Medicine Cardiovascular Disease
DX: D64.9 Anemia, unspecified (principal); Z20.822 Contact with and (suspected) exposure to COVID-19
CPT/HCPCS: 86850; 86900; 86901; 86920; J7050; P9016; U0003

== ENCOUNTER → 2022-01-23 | Outpatient (CLI) | payer OTHER, MEDICARE, MEDICAID ==
[2022-01-23] VITALS (9 sets, daily range): BP systolic 151–165; BP diastolic 76–88
[~2022-01-23] MED LIST changes: +DOBUTamine 1000MCG/ML 250 ML IV ONE; +FUROSEMIDE 100 MG/10ML VIAL IV ONE; +FUROSEMIDE 20 MG/2 ML VIAL ONE; +FUROSEMIDE 40 MG/4 ML VIAL ONE; +FUROSEMIDE INJECTION 10 ML ONE; +MAGNESIUM SULFATE 1GM/100ML 100 ML IV ONE; +POTASSIUM CHL 20 Meq TABLET PO ONE
[2022-01-23] MEDS: MAGNESIUM SULFATE 1GM/100ML 100 ML IV SCH ×2 (09:26→10:26)
[2022-01-23 09:57] LABS: Hemoglobin 7.8 g/dL (13.5-17.5); Mean Corpuscular Hemoglobin 29.9 pg (28.0-32.0)
[2022-01-23 09:59] LABS: Hematocrit 23.3 % (41.0-53.0); Mean Corpuscular Hgb Conc. 33.5 g/dL (32.0-36.0); Mean Corpuscular Volume 89.3 fL (80.0-100.0); Red Blood Cells 2.61 10^6/uL (4.5-5.90); Red Cell Distribution Width 16.6 % (11.8-14.3)
[2022-01-23 10:03] LABS: Basophils % (manual) 0 (0.0-2.0); Blast Cells 0; Metamyelocytes % 0; Myelocytes % 0; Promyelocytes % 0; Reactive Lymphocytes 0
[2022-01-23 10:06] LABS: BUN/Creatinine Ratio 14.2; Calcium 8.8 mg/dL (8.5-10.1); Magnesium 1.4 mg/dL (1.6-2.6); Potassium 4.8 mmol/L (3.5-5.1)
[2022-01-23 14:44] LABS: Band Neutrophils % (manual) 14; Eosinophils % (manual) 2 (0-7); Lymphocytes % (manual) 6 (10.0-50.0); Monocytes % (manual) 9 (0-12)
== END | disposition home or self-care (01) ==
LOC: CHF HDHVI 09:11
PROVIDERS: ATTEND Internal Medicine Cardiovascular Disease
DX: I50.23 Acute on chronic systolic (congestive) heart failure (principal)
CPT/HCPCS: 36415; 80048; 83735; 83880; 85007; 85027; 96365; 96366; 96367; G0463; J1642

== ENCOUNTER → 2022-01-26 | Outpatient (CLI) | payer OTHER, MEDICARE, MEDICAID ==
[2022-01-26] VITALS (9 sets, daily range): BP systolic 138–152; BP diastolic 68–76
[~2022-01-26] MED LIST changes: -FUROSEMIDE 100 MG/10ML VIAL IV ONE; -FUROSEMIDE 20 MG/2 ML VIAL ONE; -FUROSEMIDE 40 MG/4 ML VIAL ONE; -FUROSEMIDE INJECTION 10 ML ONE; -POTASSIUM CHL 20 Meq TABLET PO ONE
[2022-01-26 11:50] LABS: Potassium 4.7 mmol/L (3.5-5.1)
== END | disposition home or self-care (01) ==
LOC: CHF HDHVI 08:57
PROVIDERS: ATTEND Internal Medicine Cardiovascular Disease
DX: I50.23 Acute on chronic systolic (congestive) heart failure (principal)
CPT/HCPCS: 36415; 82565; 83880; 84132; 84520; 96365; 96366; 96367; G0463; J1642

== ENCOUNTER → 2022-02-02 | Outpatient (CLI) | payer OTHER, MEDICARE, MEDICAID ==
[2022-02-02] VITALS (9 sets, daily range): BP systolic 140–150; BP diastolic 68–74
[~2022-02-02] MED LIST changes: +CYANOCOBALAMIN (B-12) 1000 MCG/1 ML VIAL IM ONE; +CYANOCOBALAMIN (B-12) 1000 MCG/1 ML VIAL ONE
[2022-02-02 12:06] LABS: Red Cell Distribution Width 16.5 % (11.8-14.3); White Blood Cell 5.3 10^3/uL (4.4-10.8)
[2022-02-02 12:10] LABS: Hematocrit 18.5 % (41.0-53.0); Mean Corpuscular Hemoglobin 30.7 pg (28.0-32.0); Mean Corpuscular Hgb Conc. 34.1 g/dL (32.0-36.0); Mean Corpuscular Volume 89.9 fL (80.0-100.0); Red Blood Cells 2.06 10^6/uL (4.5-5.90)
[2022-02-02 12:23] LABS: % Iron Saturation 17.4 % (20-55)
[2022-02-02 12:33] LABS: Albumin 3.3 g/dL (3.4-5.0); BUN/Creatinine Ratio 15.6; Bilirubin, Total 0.5 mg/dL (0.2-1.0); Calcium 8.7 mg/dL (8.5-10.1); Magnesium 1.8 mg/dL (1.6-2.6); Potassium 4.8 mmol/L (3.5-5.1); Total Protein 5.7 g/dL (6.4-8.2)
[2022-02-02 12:54] LABS: Hemoglobin 6.3 g/dL (13.5-17.5)
[2022-02-02 12:56] LABS: Basophils % (manual) 0 (0.0-2.0); Blast Cells 0; Metamyelocytes % 0; Myelocytes % 0; Promyelocytes % 0; Reactive Lymphocytes 0
[2022-02-02 13:54] LABS: Band Neutrophils % (manual) 11; Eosinophils % (manual) 5 (0-7); Lymphocytes % (manual) 9 (10.0-50.0); Monocytes % (manual) 5 (0-12)
== END | disposition home or self-care (01) ==
LOC: CHF HDHVI 08:45
PROVIDERS: ATTEND Internal Medicine Cardiovascular Disease
DX: I50.23 Acute on chronic systolic (congestive) heart failure (principal)
CPT/HCPCS: 36415; 80053; 82728; 83540; 83550; 83615; 83735; 83880; 85007; 85027; 85045; 96365; 96366; 96367; 96372; G0463; J1642

== ENCOUNTER → 2022-02-06 | Outpatient (CLI) | payer OTHER, MEDICARE, MEDICAID ==
[~2022-02-06] VITALS: Ht 30.5 cm; Wt 0.5 kg
[2022-02-06] VITALS (9 sets, daily range): BP systolic 135–155; BP diastolic 66–81
[~2022-02-06] MED LIST changes: -CYANOCOBALAMIN (B-12) 1000 MCG/1 ML VIAL IM ONE; -CYANOCOBALAMIN (B-12) 1000 MCG/1 ML VIAL ONE; -MAGNESIUM SULFATE 1GM/100ML 100 ML IV ONE
== END | disposition home or self-care (01) ==
LOC: CHF HDHVI 08:51
PROVIDERS: ATTEND Internal Medicine Cardiovascular Disease
DX: I13.2 Hypertensive heart and chronic kidney disease with heart failure and with stage 5 chronic kidney disease, or end stage renal disease (principal); E11.22 Type 2 diabetes mellitus with diabetic chronic kidney disease; N18.6 End stage renal disease; I50.43 Acute on chronic combined systolic (congestive) and diastolic (congestive) heart failure; I25.10 Atherosclerotic heart disease of native coronary artery without angina pectoris; E78.5 Hyperlipidemia, unspecified; E66.01 Morbid (severe) obesity due to excess calories; E11.42 Type 2 diabetes mellitus with diabetic polyneuropathy; E11.51 Type 2 diabetes mellitus with diabetic peripheral angiopathy without gangrene; Z68.41 Body mass index [BMI] 40.0-44.9, adult; Z79.899 Other long term (current) drug therapy; Z94.1 Heart transplant status; Z85.819 Personal history of malignant neoplasm of unspecified site of lip, oral cavity, and pharynx; Z99.2 Dependence on renal dialysis; Z79.4 Long term (current) use of insulin
CPT/HCPCS: 96365; 96366; G0463; J1250; J1642

== ENCOUNTER 2022-02-07 07:40 | Day surgery (SDC) | payer OTHER, MEDICARE, MEDICAID ==
[2022-02-07] VITALS (9 sets, daily range): BP systolic 113–144; BP diastolic 61–82
[~2022-02-07 07:40] MED LIST changes: -DOBUTamine 1000MCG/ML 250 ML IV ONE
== END 2022-02-07 15:25 | disposition home or self-care (01) ==
LOC: CATH 07:40
PROVIDERS: ATTEND Internal Medicine Cardiovascular Disease
DX: D64.9 Anemia, unspecified (principal)
CPT/HCPCS: 86850; 86900; 86901; 86920; P9016; U0003

== ENCOUNTER → 2022-02-20 | Outpatient (CLI) | payer OTHER, MEDICARE, MEDICAID ==
[~2022-02-20] VITALS: Ht 30.5 cm; Wt 0.5 kg
[2022-02-20] VITALS (9 sets, daily range): BP systolic 130–152; BP diastolic 69–77
[~2022-02-20] MED LIST changes: +DOBUTamine 1000MCG/ML 250 ML IV ONE
[2022-02-20 11:49] LABS: Eosinophils # (auto) 0.1 10 ^3/uL (0-0.8); Eosinophils % (auto) 1.5 % (0.0-7.0); Hematocrit 18.4 % (41.0-53.0); Mean Corpuscular Volume 89.9 fL (80.0-100.0); Monocytes # (auto) 0.5 10 ^3/uL (0-1.3)
[2022-02-20 11:51] LABS: Basophils # (auto) 0.1 10 ^3/uL (0-0.2); Basophils % (auto) 0.9 % (0.0-2.0); Lymphocytes # (auto) 0.5 10 ^3/uL (0.4-5.4); Lymphocytes % (auto) 8.3 % (10.0-50.0); Mean Corpuscular Hemoglobin 30.3 pg (28.0-32.0); Mean Corpuscular Hgb Conc. 33.7 g/dL (32.0-36.0); Monocytes % (auto) 8.3 % (0.0-12.0); Neutrophils # (auto) 4.5 10 ^3/uL (1.6-8.6); Red Blood Cells 2.05 10^6/uL (4.5-5.90); Red Cell Distribution Width 16.9 % (11.8-14.3); White Blood Cell 5.5 10^3/uL (4.4-10.8)
[2022-02-20 12:16] LABS: Hemoglobin 6.2 g/dL (13.5-17.5)
== END | disposition home or self-care (01) ==
LOC: CHF HDHVI 08:32
PROVIDERS: ATTEND Internal Medicine Cardiovascular Disease
DX: D64.9 Anemia, unspecified (principal)
CPT/HCPCS: 36415; 85025; 96365; 96366; G0463; J1642

== ENCOUNTER → 2022-02-23 | Outpatient (CLI) | payer OTHER, MEDICARE, MEDICAID ==
[2022-02-23] VITALS (9 sets, daily range): BP systolic 137–150; BP diastolic 68–77
[~2022-02-23] MED LIST changes: +BUMETANIDE 2.5mg/10ml (0.25 mg/ml) INJ IV ONE; +BUMETANIDE INJECTION 20 ML ONE; +MAGNESIUM SULFATE 1GM/100ML 100 ML IV ONE
[2022-02-23 11:48] LABS: Magnesium 1.6 mg/dL (1.6-2.6); Potassium 4.9 mmol/L (3.5-5.1)
[2022-02-23 11:49] LABS: Basophils # (auto) 0.1 10 ^3/uL (0-0.2); Eosinophils # (auto) 0.1 10 ^3/uL (0-0.8); Eosinophils % (auto) 1.3 % (0.0-7.0); Lymphocytes # (auto) 0.5 10 ^3/uL (0.4-5.4); Lymphocytes % (auto) 9.3 % (10.0-50.0); Monocytes # (auto) 0.4 10 ^3/uL (0-1.3); Neutrophils # (auto) 4.5 10 ^3/uL (1.6-8.6); White Blood Cell 5.5 10^3/uL (4.4-10.8)
[2022-02-23 11:55] LABS: Hematocrit 18.7 % (41.0-53.0); Mean Corpuscular Hemoglobin 30.7 pg (28.0-32.0); Mean Corpuscular Hgb Conc. 33.4 g/dL (32.0-36.0); Mean Corpuscular Volume 91.7 fL (80.0-100.0); Neutrophils % (auto) 81.4 % (37.0-80.0); Nucleated Red Blood Cells % 0.1 %; Red Blood Cells 2.04 10^6/uL (4.5-5.90); Red Cell Distribution Width 17.5 % (11.8-14.3)
[2022-02-23 12:05] LABS: Hemoglobin 6.3 g/dL (13.5-17.5)
== END | disposition home or self-care (01) ==
LOC: CHF HDHVI 08:47
PROVIDERS: ATTEND Internal Medicine Cardiovascular Disease
DX: I50.23 Acute on chronic systolic (congestive) heart failure (principal)
CPT/HCPCS: 36415; 82565; 83735; 83880; 84132; 84520; 85025; 96365; 96366; 96367; G0463; J1642

== ENCOUNTER → 2022-02-27 | Outpatient (CLI) | payer OTHER, MEDICARE, MEDICAID ==
[2022-02-27] VITALS (9 sets, daily range): BP systolic 147–172; BP diastolic 56–87
[~2022-02-27] MED LIST changes: -BUMETANIDE 2.5mg/10ml (0.25 mg/ml) INJ IV ONE; -BUMETANIDE INJECTION 20 ML ONE; -MAGNESIUM SULFATE 1GM/100ML 100 ML IV ONE
[2022-02-27 13:48] LABS: Potassium 5.5 mmol/L (3.5-5.1)
[2022-02-27 13:55] LABS: BUN/Creatinine Ratio 15.4; Calcium 8.7 mg/dL (8.5-10.1)
== END | disposition home or self-care (01) ==
LOC: CHF HDHVI 08:37
PROVIDERS: ATTEND Internal Medicine Cardiovascular Disease
DX: I50.23 Acute on chronic systolic (congestive) heart failure (principal)
CPT/HCPCS: 36415; 80048; 83880; 96365; 96366; G0463; J1642

== ENCOUNTER 2022-03-01 08:16 | Inpatient (IN) | payer OTHER, MEDICARE, MEDICAID ==
[2022-03-01] VITALS (7 sets, daily range): BP systolic 128–170; BP diastolic 69–92
[~2022-03-01] VITALS: Ht 182.9 cm; Wt 74.5 kg
[~2022-03-01 08:16] MED LIST changes: -DOBUTamine 1000MCG/ML 250 ML IV ONE
[2022-03-01] MEDS: DOBUTamine 1000MCG/ML 250 ML IV SCH (17:30)
[2022-03-01] MEDS: FUROSEMIDE INJECTION 100 MG in D5W 5% 100 ML IV SCH ×2 (17:30→23:54)
[2022-03-01] MEDS ORDERED: AMLO-489 PO (18:59)
[2022-03-01] MEDS ORDERED: CALC0.25 PO (18:59)
[2022-03-01] MEDS ORDERED: INSU1INJ19 SC (18:59)
[2022-03-01] MEDS ORDERED: PRED1PAK8 PO (18:59)
[2022-03-01] MEDS ORDERED: CLON0.2D6 PO (19:00)
[2022-03-01] MEDS ORDERED: TACR1CAP4 PO (19:00)
[2022-03-01] MEDS ORDERED: INSU100I61 SC (19:00)
[2022-03-01] MEDS ORDERED: TACR5CAP3 PO (19:00)
[2022-03-01] MEDS ORDERED: B CO1TAB3 PO (19:00)
[2022-03-01] MEDS ORDERED: GUAN1TAB8 PO (19:00)
[2022-03-01] MEDS ORDERED: ISOSORBIDE MONONITRATE ER 60 MG TAB PO ONE (23:00)
[2022-03-01] MEDS ORDERED: LABETALOL HCL 200 MG TAB PO ONE ×2 (23:00→23:45)
[2022-03-01] MEDS ORDERED: amLODIPine BESYLATE 5 MG TAB PO ONE (23:00)
[2022-03-01] MEDS ORDERED: cloNIDine HCL 0.1 MG TAB PO ONE (23:00)
[2022-03-01] MEDS ORDERED: BUMETANIDE 1 MG TAB PO ONE (23:45)
[2022-03-01] MEDS ORDERED: POTASSIUM CHL 10 Meq TABLET PO ONE (23:45)
[2022-03-01] MEDS ORDERED: ATORVASTATIN 20 MG TAB PO ONE (23:45)
[2022-03-01] MEDS ORDERED: hydrALAZINE HCL 25 MG TAB PO ONE (23:45)
[2022-03-02] MEDS ORDERED: POTASSIUM CHL 20 Meq TABLET PO ONE (00:15)
[2022-03-02] MEDS: FUROSEMIDE INJECTION 100 MG in D5W 5% 100 ML IV SCH ×5 (04:17→22:14)
[2022-03-02] MEDS: LABETALOL HCL 200 MG TAB PO SCH ×3 (04:19→22:14)
[2022-03-02] MEDS: cloNIDine HCL 0.1 MG TAB PO SCH ×3 (04:19→22:12)
[2022-03-02 05:00] VITALS: BP 158/82
[2022-03-02 05:27] LABS: Hematocrit 23.6 % (41.0-53.0); Hemoglobin 7.9 g/dL (13.5-17.5); Mean Corpuscular Hemoglobin 30.2 pg (28.0-32.0); Mean Corpuscular Hgb Conc. 33.3 g/dL (32.0-36.0); Mean Corpuscular Volume 90.8 fL (80.0-100.0); White Blood Cell 6.4 10^3/uL (4.4-10.8)
[2022-03-02 05:31] LABS: Basophils % (manual) 0 (0.0-2.0); Blast Cells 0; Eosinophils % (manual) 0 (0-7); Metamyelocytes % 0; Myelocytes % 0; Promyelocytes % 0; Reactive Lymphocytes 0
[2022-03-02 05:40] LABS: Potassium 4.8 mmol/L (3.5-5.1)
[2022-03-02 05:47] LABS: Albumin 3.1 g/dL (3.4-5.0); BUN/Creatinine Ratio 13.7; Calcium 8.3 mg/dL (8.5-10.1)
[2022-03-02 05:49] LABS: Bilirubin, Total 0.7 mg/dL (0.2-1.0); Phosphorus 4.1 mg/dL (2.5-4.90); Total Protein 5.4 g/dL (6.4-8.2)
[2022-03-02] MEDS ORDERED: BUMETANIDE 1 MG TAB PO SCH (06:00)
[2022-03-02] MEDS ORDERED: LABETALOL HCL 200 MG TAB PO SCH (06:00)
[2022-03-02 08:05] VITALS: BP 152/84
[2022-03-02 08:34] LABS: Band Neutrophils % (manual) 6; Lymphocytes % (manual) 6 (10.0-50.0); Monocytes % (manual) 9 (0-12)
[2022-03-02 09:00] VITALS: BP_SYST 103; BP_SYST 152; BP_DIAS 62; BP_DIAS 84
[2022-03-02] MEDS: DOBUTamine 1000MCG/ML 250 ML IV SCH (09:30)
[2022-03-02] MEDS ORDERED: POTASSIUM CHL 10 Meq TABLET PO SCH (10:00)
[2022-03-02] MEDS: POTASSIUM CHL 20 Meq TABLET PO SCH (10:27)
[2022-03-02] MEDS: amLODIPine BESYLATE 5 MG TAB PO SCH (10:27)
[2022-03-02] MEDS: ISOSORBIDE MONONITRATE ER 60 MG TAB PO SCH (10:28)
[2022-03-02] MEDS: B-COMPLEX W/ C & FOLIC ACID(NEPHROVITE TAB) PO SCH (10:28)
[2022-03-02 11:16] LABS: Urine Bacteria NONE SEEN /hpf (None Seen); Urine Blood Negative /uL (Negative); Urine Specific Gravity 1.007 (1.001-1.035); Urine WBC <1 /hpf (0 - 3)
[2022-03-02] MEDS: MYCOPHENOLATE 500 MG TAB PO SCH ×2 (11:22→22:37)
[2022-03-02 13:00] VITALS: BP 164/87
[2022-03-02 14:28] LABS: INR 1.13 (0.9-1.15); Partial Thromboplastin Time 30.4 sec (24.6-33.4)
[2022-03-02] MEDS ORDERED: MAGNESIUM OXIDE 400 MG TAB PO ONE (14:45)
[2022-03-02 17:00] VITALS: BP 151/89
[2022-03-02] MEDS: TAMSULOSIN HYDROCHLORIDE 0.4 MG CAP PO SCH (18:15)
[2022-03-02 18:40] LABS: Creatinine, Urine 17.6 mg/dL (30.0-125.0); Protein, Urine 65.4 mg/dL (0.0-11.9)
[2022-03-02] MEDS: ATORVASTATIN 20 MG TAB PO SCH (22:13)
[2022-03-02 22:42] VITALS: BP 166/85
[2022-03-03] MEDS: FUROSEMIDE INJECTION 100 MG in D5W 5% 100 ML IV SCH ×4 (02:36→17:17)
[2022-03-03] MEDS: DOBUTamine 1000MCG/ML 250 ML IV SCH ×2 (04:10→22:41)
[2022-03-03 04:41] VITALS: BP 168/93
[2022-03-03] MEDS: LABETALOL HCL 200 MG TAB PO SCH ×3 (05:44→22:16)
[2022-03-03] MEDS: cloNIDine HCL 0.1 MG TAB PO SCH ×3 (05:45→22:16)
[2022-03-03] MEDS: amLODIPine BESYLATE 5 MG TAB PO SCH (08:47)
[2022-03-03] MEDS: B-COMPLEX W/ C & FOLIC ACID(NEPHROVITE TAB) PO SCH (08:48)
[2022-03-03] MEDS: ISOSORBIDE MONONITRATE ER 60 MG TAB PO SCH (08:48)
[2022-03-03] MEDS: POTASSIUM CHL 20 Meq TABLET PO SCH (08:48)
[2022-03-03] MEDS: MYCOPHENOLATE 500 MG TAB PO SCH ×2 (08:48→22:17)
[2022-03-03 09:00] VITALS: BP 162/87
[2022-03-03] MEDS ORDERED: ERGOCALCIFEROL 50,000 UNIT(1.25MG) CAP PO SCH (10:45)
[2022-03-03 13:08] VITALS: BP 155/87
[2022-03-03] MEDS ORDERED: ISOS60TA24 PO (13:10)
[2022-03-03] MEDS ORDERED: CLON0.1T PO (13:10)
[2022-03-03] MEDS ORDERED: POM (13:10)
[2022-03-03] MEDS: hydrALAZINE HCL 25 MG TAB PO PRN (16:57)
[2022-03-03 17:14] VITALS: BP 157/81
[2022-03-03] MEDS: TAMSULOSIN HYDROCHLORIDE 0.4 MG CAP PO SCH (17:17)
[2022-03-03 22:00] VITALS: BP 161/88
[2022-03-03] MEDS: ATORVASTATIN 20 MG TAB PO SCH (22:17)
[2022-03-04] MEDS: FUROSEMIDE INJECTION 100 MG in D5W 5% 100 ML IV SCH ×5 (00:01→20:11)
[2022-03-04 05:00] VITALS: BP 147/77
[2022-03-04] MEDS: LABETALOL HCL 200 MG TAB PO SCH ×3 (05:26→23:07)
[2022-03-04] MEDS: cloNIDine HCL 0.1 MG TAB PO SCH ×3 (05:27→23:07)
[2022-03-04 09:00] VITALS: BP 145/79
[2022-03-04] MEDS: ISOSORBIDE MONONITRATE ER 60 MG TAB PO SCH (09:18)
[2022-03-04] MEDS: B-COMPLEX W/ C & FOLIC ACID(NEPHROVITE TAB) PO SCH (09:18)
[2022-03-04] MEDS: amLODIPine BESYLATE 5 MG TAB PO SCH (09:18)
[2022-03-04] MEDS: POTASSIUM CHL 20 Meq TABLET PO SCH (09:18)
[2022-03-04] MEDS: MYCOPHENOLATE 500 MG TAB PO SCH ×2 (09:20→23:07)
[2022-03-04 12:44] VITALS: BP 143/80
[2022-03-04] MEDS: DOBUTamine 1000MCG/ML 250 ML IV SCH (15:29)
[2022-03-04 17:12] VITALS: BP 137/70
[2022-03-04] MEDS: ACETAMINOPHEN 325 MG TAB PO PRN (17:22)
[2022-03-04] MEDS: TAMSULOSIN HYDROCHLORIDE 0.4 MG CAP PO SCH (17:22)
[2022-03-04 19:42] LABS: Basophils # (auto) 0.1 10 ^3/uL (0-0.2); Eosinophils # (auto) 0.1 10 ^3/uL (0-0.8); Hemoglobin 8.2 g/dL (13.5-17.5); Lymphocytes # (auto) 0.5 10 ^3/uL (0.4-5.4); Monocytes # (auto) 0.8 10 ^3/uL (0-1.3); Red Cell Distribution Width 16.2 % (11.8-14.3); White Blood Cell 7.2 10^3/uL (4.4-10.8)
[2022-03-04 19:43] LABS: Basophils % (auto) 0.9 % (0.0-2.0); Eosinophils % (auto) 1.6 % (0.0-7.0); Hematocrit 24.2 % (41.0-53.0); Lymphocytes % (auto) 6.8 % (10.0-50.0); Mean Corpuscular Hemoglobin 30.4 pg (28.0-32.0); Mean Corpuscular Hgb Conc. 33.9 g/dL (32.0-36.0); Mean Corpuscular Volume 89.8 fL (80.0-100.0); Monocytes % (auto) 10.8 % (0.0-12.0); Neutrophils # (auto) 5.8 10 ^3/uL (1.6-8.6); Neutrophils % (auto) 79.9 % (37.0-80.0)
[2022-03-04 20:03] LABS: BUN/Creatinine Ratio 12.4; Potassium 4.3 mmol/L (3.5-5.1)
[2022-03-04 20:06] LABS: Bilirubin, Total 0.4 mg/dL (0.2-1.0); Total Protein 6.1 g/dL (6.4-8.2)
[2022-03-04 22:00] VITALS: BP 137/83
[2022-03-04] MEDS: ATORVASTATIN 20 MG TAB PO SCH (23:07)
[2022-03-05] VITALS (10 sets, daily range): BP systolic 105–169; BP diastolic 75–94
[2022-03-05] MEDS: FUROSEMIDE INJECTION 100 MG in D5W 5% 100 ML IV SCH ×5 (00:52→20:04)
[2022-03-05] MEDS: cloNIDine HCL 0.1 MG TAB PO SCH ×3 (05:35→22:00)
[2022-03-05] MEDS: LABETALOL HCL 200 MG TAB PO SCH ×3 (05:35→22:00)
[2022-03-05] MEDS: DOBUTamine 1000MCG/ML 250 ML IV SCH ×2 (09:08→23:24)
[2022-03-05] MEDS: ISOSORBIDE MONONITRATE ER 60 MG TAB PO SCH (10:09)
[2022-03-05] MEDS: amLODIPine BESYLATE 5 MG TAB PO SCH (10:09)
[2022-03-05 11:44] LABS: Hepatitis C Antibody Negative (Negative)
[2022-03-05] MEDS ORDERED: LIDOCAINE 2%HCL (LOCAL ANESTH.) INJ 20ML MDV ONE (12:25)
[2022-03-05] MEDS ORDERED: HEPARIN SODIUM (PORCINE) 5000 UNITS/ML 1ML VIAL ONE (12:28)
[2022-03-05] MEDS ORDERED: MIDAZOLAM HCL 2MG/2ML 2ml VIAL (1mg/ml) ONE (12:28)
[2022-03-05] MEDS ORDERED: fentaNYL CITRATE 100 MCG/2 ML VL ONE (12:28)
[2022-03-05] MEDS: B-COMPLEX W/ C & FOLIC ACID(NEPHROVITE TAB) PO SCH (14:54)
[2022-03-05] MEDS: MYCOPHENOLATE 500 MG TAB PO SCH ×2 (14:54→21:58)
[2022-03-05] MEDS: POTASSIUM CHL 20 Meq TABLET PO SCH (14:54)
[2022-03-05] MEDS: MAGNESIUM SULFATE 1GM/100ML 100 ML IV SCH ×2 (15:06→15:58)
[2022-03-05] MEDS: ACETAMINOPHEN 325 MG TAB PO PRN (16:31)
[2022-03-05] MEDS: TAMSULOSIN HYDROCHLORIDE 0.4 MG CAP PO SCH (17:48)
[2022-03-05] MEDS: ATORVASTATIN 20 MG TAB PO SCH (21:58)
[2022-03-06] VITALS (7 sets, daily range): BP systolic 101–159; BP diastolic 60–88
[2022-03-06] MEDS: hydrALAZINE HCL 25 MG TAB PO PRN (00:30)
[2022-03-06] MEDS: FUROSEMIDE INJECTION 100 MG in D5W 5% 100 ML IV SCH ×2 (01:03→06:02)
[2022-03-06] MEDS: ACETAMINOPHEN 325 MG TAB PO PRN (02:11)
[2022-03-06] MEDS: LABETALOL HCL 200 MG TAB PO SCH ×3 (06:00→22:20)
[2022-03-06] MEDS: cloNIDine HCL 0.1 MG TAB PO SCH ×3 (06:00→22:20)
[2022-03-06 06:46] LABS: Hematocrit 28.3 % (41.0-53.0); Hemoglobin 9.6 g/dL (13.5-17.5)
[2022-03-06] MEDS ORDERED: SODIUM CHL 0.9% 1000 ML BAG XX ONE (07:00)
[2022-03-06] MEDS: HYDROcodone-ACET 10/325MG TAB PO PRN ×2 (08:54→16:59)
[2022-03-06] MEDS: B-COMPLEX W/ C & FOLIC ACID(NEPHROVITE TAB) PO SCH (11:03)
[2022-03-06] MEDS: amLODIPine BESYLATE 5 MG TAB PO SCH (11:04)
[2022-03-06] MEDS: ISOSORBIDE MONONITRATE ER 60 MG TAB PO SCH (11:04)
[2022-03-06] MEDS: POTASSIUM CHL 20 Meq TABLET PO SCH (11:04)
[2022-03-06] MEDS: MYCOPHENOLATE 500 MG TAB PO SCH ×2 (11:09→22:20)
[2022-03-06] MEDS: TAMSULOSIN HYDROCHLORIDE 0.4 MG CAP PO SCH (17:49)
[2022-03-06 18:00] LABS: Basophils # (auto) 0 10 ^3/uL (0-0.2); Basophils % (auto) 0.5 % (0.0-2.0); Eosinophils # (auto) 0.1 10 ^3/uL (0-0.8); Eosinophils % (auto) 1.1 % (0.0-7.0); Hematocrit 26.3 % (41.0-53.0); Hemoglobin 8.9 g/dL (13.5-17.5); Lymphocytes # (auto) 0.4 10 ^3/uL (0.4-5.4); Lymphocytes % (auto) 4.7 % (10.0-50.0); Mean Corpuscular Hemoglobin 30.7 pg (28.0-32.0); Mean Corpuscular Volume 90.1 fL (80.0-100.0); Monocytes # (auto) 1.3 10 ^3/uL (0-1.3); Monocytes % (auto) 15.9 % (0.0-12.0); Neutrophils # (auto) 6.4 10 ^3/uL (1.6-8.6); Neutrophils % (auto) 77.8 % (37.0-80.0); Red Blood Cells 2.91 10^6/uL (4.5-5.90); Red Cell Distribution Width 15.9 % (11.8-14.3); White Blood Cell 8.2 10^3/uL (4.4-10.8)
[2022-03-06 18:16] LABS: Albumin 2.9 g/dL (3.4-5.0); BUN/Creatinine Ratio 11.2; Magnesium 1.8 mg/dL (1.6-2.6); Potassium 4.3 mmol/L (3.5-5.1)
[2022-03-06 18:19] LABS: Bilirubin, Total 0.5 mg/dL (0.2-1.0); Total Protein 6.4 g/dL (6.4-8.2)
[2022-03-06] MEDS ORDERED: EPOETIN ALFA-EPBX 10,000 UNIT/1ML VIAL SC ONE (21:00)
[2022-03-06] MEDS: ATORVASTATIN 20 MG TAB PO SCH (22:21)
[2022-03-07 05:00] VITALS: BP 148/78
[2022-03-07] MEDS: cloNIDine HCL 0.1 MG TAB PO SCH ×3 (05:53→22:18)
[2022-03-07] MEDS: LABETALOL HCL 200 MG TAB PO SCH ×3 (05:54→22:19)
[2022-03-07 08:00] VITALS: BP 128/71
[2022-03-07] MEDS: Juven Fruit Punch Powder PACKET 28.8gm PO SCH (10:00)
[2022-03-07] MEDS: B-COMPLEX W/ C & FOLIC ACID(NEPHROVITE TAB) PO SCH (10:38)
[2022-03-07] MEDS: MYCOPHENOLATE 500 MG TAB PO SCH ×2 (10:38→22:18)
[2022-03-07] MEDS: POTASSIUM CHL 20 Meq TABLET PO SCH (10:38)
[2022-03-07] MEDS: amLODIPine BESYLATE 5 MG TAB PO SCH (10:40)
[2022-03-07] MEDS: HYDROcodone-ACET 10/325MG TAB PO PRN (10:40)
[2022-03-07] MEDS: ISOSORBIDE MONONITRATE ER 60 MG TAB PO SCH (10:41)
[2022-03-07] MEDS: MAGNESIUM SULFATE 1GM/100ML 100 ML IV SCH ×2 (11:37→13:22)
[2022-03-07 11:56] VITALS: BP 162/85
[2022-03-07 16:00] VITALS: BP 145/79
[2022-03-07] MEDS: TAMSULOSIN HYDROCHLORIDE 0.4 MG CAP PO SCH (18:43)
[2022-03-07 22:00] VITALS: BP 142/76
[2022-03-07] MEDS: ATORVASTATIN 20 MG TAB PO SCH (22:19)
[2022-03-08 05:00] VITALS: BP 145/76
[2022-03-08] MEDS: LABETALOL HCL 200 MG TAB PO SCH ×2 (06:00→14:00)
[2022-03-08] MEDS: cloNIDine HCL 0.1 MG TAB PO SCH ×2 (06:00→14:00)
[2022-03-08] MEDS ORDERED: SODIUM CHL 0.9% 1000 ML BAG XX ONE (07:00)
[2022-03-08 09:00] VITALS: BP 153/79
[2022-03-08] MEDS: B-COMPLEX W/ C & FOLIC ACID(NEPHROVITE TAB) PO SCH (10:00)
[2022-03-08] MEDS: ISOSORBIDE MONONITRATE ER 60 MG TAB PO SCH (10:00)
[2022-03-08] MEDS: MYCOPHENOLATE 500 MG TAB PO SCH (10:00)
[2022-03-08] MEDS: POTASSIUM CHL 20 Meq TABLET PO SCH (10:00)
[2022-03-08] MEDS: amLODIPine BESYLATE 5 MG TAB PO SCH (10:00)
[2022-03-08] MEDS: Juven Fruit Punch Powder PACKET 28.8gm PO SCH (10:52)
[2022-03-08 13:00] VITALS: BP 140/67
[2022-03-08] MEDS: MAGNESIUM SULFATE 1GM/100ML 100 ML IV SCH ×2 (13:05→14:23)
[2022-03-08 17:00] VITALS: BP 153/86
[2022-03-08] MEDS: TAMSULOSIN HYDROCHLORIDE 0.4 MG CAP PO SCH (18:00)
[2022-03-08] MEDS: hydrALAZINE HCL 25 MG TAB PO PRN (18:59)
[2022-03-08] MEDS ORDERED: EPOETIN ALFA-EPBX 10,000 UNIT/1ML VIAL SC ONE (21:00)
== END 2022-03-08 19:25 | disposition home or self-care (01) | DRG 674 ==
LOC: CATH 08:16 → TELE 13:53 → TELE-CENTR 18:42
PROVIDERS: ADMIT Internal Medicine Cardiovascular Disease; ATTEND Internal Medicine Cardiovascular Disease
PROC: 30233N1 Transfusion of Nonautologous Red Blood Cells into Peripheral Vein, Percutaneous Approach (ICD-10-PCS; 2022-03-01)
PROC: 0JH63XZ Insertion of Tunneled Vascular Access Device into Chest Subcutaneous Tissue and Fascia, Percutaneous Approach (ICD-10-PCS; principal; 2022-03-05)
PROC: 02HV33Z Insertion of Infusion Device into Superior Vena Cava, Percutaneous Approach (ICD-10-PCS; 2022-03-05)
PROC: B548ZZA Ultrasonography of Superior Vena Cava, Guidance (ICD-10-PCS; 2022-03-05)
PROC: B5181ZA Fluoroscopy of Superior Vena Cava using Low Osmolar Contrast, Guidance (ICD-10-PCS; 2022-03-05)
PROC: 5A1D70Z Performance of Urinary Filtration, Intermittent, Less than 6 Hours Per Day (ICD-10-PCS; 2022-03-05)
PROC: 5A1D70Z Performance of Urinary Filtration, Intermittent, Less than 6 Hours Per Day (ICD-10-PCS; 2022-03-08)
DX: N17.9 Acute kidney failure, unspecified (principal); E87.20 Acidosis, unspecified; I50.32 Chronic diastolic (congestive) heart failure; Z94.1 Heart transplant status; N18.5 Chronic kidney disease, stage 5; D63.1 Anemia in chronic kidney disease; E11.22 Type 2 diabetes mellitus with diabetic chronic kidney disease; Z20.822 Contact with and (suspected) exposure to COVID-19; E83.42 Hypomagnesemia; Z82.49 Family history of ischemic heart disease and other diseases of the circulatory system
CPT/HCPCS: 36415; 36558; 76775; 76942; 77001; 80053; 81001; 82306; 82570; 83735; 83970; 84100; 84156; 84300; 85007; 85014; 85018; 85025; 85027; 85610; 85730; 86803; 86850; 86900; 86901; 86920; 87340; 90935; 99152; 99153; G0378; J2250; J7060; J7517

== ENCOUNTER → 2022-03-14 | Outpatient (CLI) | payer OTHER, MEDICARE, MEDICAID ==
[2022-03-14] VITALS (9 sets, daily range): BP systolic 141–169; BP diastolic 81–92
[~2022-03-14] MED LIST changes: -AML5T PO; +AMLO-489 PO; +B CO1TAB3 PO; +CALC0.25 PO; -CAR125T PO; +CLON0.1T PO; +DOBUTamine 1000MCG/ML 250 ML IV ONE; +GUAN1TAB8 PO; +INSU100I61 SC; -INSU1INJ14 SC; +INSU1INJ19 SC; -IRBE300T43 PO; -ISOS1TAB28 PO; +ISOS60TA24 PO; +POM; +PRED1PAK8 PO; -SPIR25TA8 PO; +TACR1CAP4 PO; -TORS20TA19 PO; -[UNRECOGNIZED DRUG - CODE] PO
[2022-03-14 12:09] LABS: Basophils # (auto) 0.1 10 ^3/uL (0-0.2); Basophils % (auto) 1.1 % (0.0-2.0); Eosinophils # (auto) 0.1 10 ^3/uL (0-0.8); Eosinophils % (auto) 1.3 % (0.0-7.0); Hematocrit 26.8 % (41.0-53.0); Hemoglobin 8.9 g/dL (13.5-17.5); Lymphocytes # (auto) 0.7 10 ^3/uL (0.4-5.4); Lymphocytes % (auto) 14.9 % (10.0-50.0); Mean Corpuscular Hemoglobin 30.2 pg (28.0-32.0); Mean Corpuscular Hgb Conc. 33.2 g/dL (32.0-36.0); Mean Corpuscular Volume 91.2 fL (80.0-100.0); Monocytes # (auto) 0.5 10 ^3/uL (0-1.3); Monocytes % (auto) 10.7 % (0.0-12.0); Neutrophils # (auto) 3.6 10 ^3/uL (1.6-8.6); Red Blood Cells 2.94 10^6/uL (4.5-5.90); Red Cell Distribution Width 15.7 % (11.8-14.3)
[2022-03-14 12:27] LABS: BUN/Creatinine Ratio 7.9; Magnesium 1.7 mg/dL (1.6-2.6)
== END | disposition home or self-care (01) ==
LOC: CHF HDHVI 08:26
PROVIDERS: ATTEND Internal Medicine Cardiovascular Disease
DX: I50.23 Acute on chronic systolic (congestive) heart failure (principal)
CPT/HCPCS: 36415; 80048; 83735; 83880; 85025; 96365; 96366; G0463; J1642

== ENCOUNTER → 2022-03-16 | Outpatient (CLI) | payer OTHER, MEDICARE, MEDICAID ==
[2022-03-16] VITALS (9 sets, daily range): BP systolic 106–125; BP diastolic 64–74
[~2022-03-16] MED LIST changes: +CYANOCOBALAMIN (B-12) 1000 MCG/1 ML VIAL IM ONE; +CYANOCOBALAMIN (B-12) 1000 MCG/1 ML VIAL ONE
== END | disposition home or self-care (01) ==
LOC: CHF HDHVI 08:22
PROVIDERS: ATTEND Internal Medicine Cardiovascular Disease
DX: I13.2 Hypertensive heart and chronic kidney disease with heart failure and with stage 5 chronic kidney disease, or end stage renal disease (principal); E11.22 Type 2 diabetes mellitus with diabetic chronic kidney disease; N18.6 End stage renal disease; I50.33 Acute on chronic diastolic (congestive) heart failure; D64.9 Anemia, unspecified; I25.10 Atherosclerotic heart disease of native coronary artery without angina pectoris; E78.5 Hyperlipidemia, unspecified; E11.51 Type 2 diabetes mellitus with diabetic peripheral angiopathy without gangrene; E11.42 Type 2 diabetes mellitus with diabetic polyneuropathy; E66.01 Morbid (severe) obesity due to excess calories; Z68.41 Body mass index [BMI] 40.0-44.9, adult; Z79.899 Other long term (current) drug therapy; Z85.819 Personal history of malignant neoplasm of unspecified site of lip, oral cavity, and pharynx; Z99.2 Dependence on renal dialysis; Z79.4 Long term (current) use of insulin
CPT/HCPCS: 96365; 96366; 96372; G0463; J1250; J1642; J3420

== ENCOUNTER → 2022-03-21 | Outpatient (CLI) | payer OTHER, MEDICARE, MEDICAID ==
[2022-03-21] VITALS (9 sets, daily range): BP systolic 116–159; BP diastolic 61–88
[~2022-03-21] MED LIST changes: +CATHFLO ACTIVASE (ALTEPLASE) 2 MG VIAL IV ONE; +CATHFLO ACTIVASE (ALTEPLASE) 2 MG VIAL ONE; -CYANOCOBALAMIN (B-12) 1000 MCG/1 ML VIAL IM ONE; -CYANOCOBALAMIN (B-12) 1000 MCG/1 ML VIAL ONE; +STERILE WATER 10 ML ONE
[2022-03-21 10:38] LABS: Magnesium 1.6 mg/dL (1.6-2.6); Potassium 4.6 mmol/L (3.5-5.1)
== END | disposition home or self-care (01) ==
LOC: CHF HDHVI 08:43
PROVIDERS: ATTEND Internal Medicine Cardiovascular Disease
DX: I50.23 Acute on chronic systolic (congestive) heart failure (principal)
CPT/HCPCS: 36415; 82565; 83036; 83735; 83880; 84132; 84520; 96365; 96366; 96375; G0463; J1642

== ENCOUNTER → 2022-03-28 | Outpatient (CLI) | payer OTHER, MEDICARE, MEDICAID ==
[2022-03-28] VITALS (9 sets, daily range): BP systolic 94–125; BP diastolic 61–77
[~2022-03-28] MED LIST changes: -CATHFLO ACTIVASE (ALTEPLASE) 2 MG VIAL IV ONE; -CATHFLO ACTIVASE (ALTEPLASE) 2 MG VIAL ONE; +MAGNESIUM SULFATE 1GM/100ML 100 ML IV ONE; -STERILE WATER 10 ML ONE
[2022-03-28 11:44] LABS: Basophils # (auto) 0 10 ^3/uL (0-0.2); Basophils % (auto) 0.8 % (0.0-2.0); Eosinophils # (auto) 0.1 10 ^3/uL (0-0.8); Eosinophils % (auto) 1.2 % (0.0-7.0); Hematocrit 32.4 % (41.0-53.0); Hemoglobin 10.6 g/dL (13.5-17.5); Lymphocytes % (auto) 17.9 % (10.0-50.0); Mean Corpuscular Hgb Conc. 32.7 g/dL (32.0-36.0); Mean Corpuscular Volume 91.7 fL (80.0-100.0); Monocytes # (auto) 0.6 10 ^3/uL (0-1.3); Monocytes % (auto) 11.1 % (0.0-12.0); Neutrophils # (auto) 3.8 10 ^3/uL (1.6-8.6); Nucleated Red Blood Cells % 0.1 %; Red Blood Cells 3.53 10^6/uL (4.5-5.90); Red Cell Distribution Width 16.2 % (11.8-14.3); White Blood Cell 5.5 10^3/uL (4.4-10.8)
[2022-03-28 11:51] LABS: Albumin 3.4 g/dL (3.4-5.0); Calcium 9.3 mg/dL (8.5-10.1); Magnesium 2.2 mg/dL (1.6-2.6); Potassium 4.3 mmol/L (3.5-5.1)
[2022-03-28 11:56] LABS: BUN/Creatinine Ratio 5.6; Bilirubin, Total 0.4 mg/dL (0.2-1.0); Total Protein 7.3 g/dL (6.4-8.2)
== END | disposition home or self-care (01) ==
LOC: CHF HDHVI 08:32
PROVIDERS: ATTEND Internal Medicine Cardiovascular Disease
DX: I50.23 Acute on chronic systolic (congestive) heart failure (principal)
CPT/HCPCS: 36415; 80053; 83735; 83880; 85025; 96365; 96366; 96367; G0463; J1642

== ENCOUNTER → 2022-04-04 | Outpatient (CLI) | payer OTHER, MEDICARE, MEDICAID ==
[2022-04-04] VITALS (9 sets, daily range): BP systolic 138–152; BP diastolic 79–93
[~2022-04-04] MED LIST changes: -MAGNESIUM SULFATE 1GM/100ML 100 ML IV ONE
== END | disposition home or self-care (01) ==
LOC: CHF HDHVI 08:22
PROVIDERS: ATTEND Internal Medicine Cardiovascular Disease
DX: I13.2 Hypertensive heart and chronic kidney disease with heart failure and with stage 5 chronic kidney disease, or end stage renal disease (principal); E11.22 Type 2 diabetes mellitus with diabetic chronic kidney disease; N18.6 End stage renal disease; I50.33 Acute on chronic diastolic (congestive) heart failure; I42.0 Dilated cardiomyopathy; I25.10 Atherosclerotic heart disease of native coronary artery without angina pectoris; E66.01 Morbid (severe) obesity due to excess calories; E11.42 Type 2 diabetes mellitus with diabetic polyneuropathy; E11.51 Type 2 diabetes mellitus with diabetic peripheral angiopathy without gangrene; E78.5 Hyperlipidemia, unspecified; Z85.819 Personal history of malignant neoplasm of unspecified site of lip, oral cavity, and pharynx; Z68.41 Body mass index [BMI] 40.0-44.9, adult; Z94.1 Heart transplant status; Z79.899 Other long term (current) drug therapy; Z99.2 Dependence on renal dialysis; Z79.4 Long term (current) use of insulin
CPT/HCPCS: 96365; 96366; G0463; J1250; J1642